=== PATIENT | female | born 1950 | race Two or more races ===

== ENCOUNTER 2020-04-03 14:14 | Inpatient (IN) | payer MEDICARE, OTHER ==
[~2020-04-03] VITALS: Ht 162.6 cm; Wt 55.2 kg
[2020-04-03] MEDS ORDERED: ALBU2.5V8 IH (15:59)
[2020-04-03] MEDS ORDERED: METO-239 PO (15:59)
[2020-04-03] MEDS ORDERED: ACET650S11 RC (15:59)
[2020-04-03] MEDS ORDERED: POTA20TA4 PO (15:59)
[2020-04-03] MEDS ORDERED: PARO7.5C2 PO (15:59)
[2020-04-03] MEDS ORDERED: CLON1PAT2 TD (15:59)
[2020-04-03] MEDS ORDERED: QUET50TA5 PO (15:59)
[2020-04-03] MEDS ORDERED: MAGN64TA6 PO (15:59)
[2020-04-03] MEDS ORDERED: OMEP20CA16 PO (15:59)
[2020-04-03] MEDS ORDERED: BUSP10TA PO (15:59)
[2020-04-03] MEDS ORDERED: MIRT30TA93 PO (15:59)
[2020-04-03] MEDS ORDERED: ONDA4TAB12 PO (15:59)
[2020-04-03 17:07] VITALS: BP 177/110
[2020-04-03] MEDS ORDERED: MAGNESIUM HYDROXIDE 2,400 MG/30 ML ORAL.SUSP. PO PRN (18:00)
[2020-04-03] MEDS ORDERED: ACETAMINOPHEN 650 MG SUPP.RECT. RC PRN (18:00)
[2020-04-03] MEDS ORDERED: MAG HYDROX/AL HYDROX/SIMETH 30 ML ORAL.SUSP PO PRN (18:00)
[2020-04-03] MEDS ORDERED: ALBUTEROL SULFATE 2.5 MG/3 ML NEBU. INH PRN (18:00)
[2020-04-03] MEDS: busPIRone 10 MG TABLET. PO SCH (20:20)
[2020-04-03] MEDS: PARoxetine 10 MG TABLET PO SCH (20:20)
[2020-04-03] MEDS: QUEtiapine 50 MG TABLET. PO SCH (20:21)
[2020-04-03] MEDS: MIRTAZAPINE ODT 30 MG TAB.RAPDIS. PO SCH (20:21)
[2020-04-03] MEDS: ACETAMINOPHEN 325 MG TABLET PO PRN (20:22)
--- NOTE | 2020-04-03 21:59 | PDOC ---
Exam Note: Adan Note: Please also refer to the separate dictated note~for this date of service dictated separately. Discussed the patient with Nursing staff reviewed the chart.~Reviewed interim history and current functioning. Reviewed vital signs,~Labs/ Radiology~and current medications noted below. Continue current treatment with the changes noted in the dictated addendum note Assessment: Vital Signs/I&O: Vital Signs Date Time Temp Pulse Resp B/P (MAP) Pulse Ox O2 Delivery O2 Flow Rate FiO2 04/03/20 17:07 98.7 93 20 177/110 (132) 99 Current Medications: Meds: Current Medications Medications (Trade) Dose Ordered Sig/Valerio Route PRN Reason Start Time Stop Time Status Last Admin Dose Admin Acetaminophen (Tylenol) 650 mg PRN Q6HRS PRN PO PAIN / TEMP > 100.3'F 04/03/20 18:00 04/03/20 20:22 Buspirone HCl (Buspar) 10 mg TID PO 04/03/20 21:00 04/03/20 20:20 Mirtazapine (Remeron Kristine-Tab) 30 mg QHS PO 04/03/20 21:00 04/03/20 20:21 Quetiapine Fumarate (SEROquel) 50 mg BID PO 04/03/20 21:00 04/03/20 20:21 Paroxetine HCl (Paxil) 15 mg HS PO 04/03/20 21:00 04/03/20 20:20 I have reviewed the current psychotropics carefully including drug interactions. Risk benefit ratio favors no change other than as noted in my dictated progress note. Diagnosis: Problems: (1) Anxiety disorder EVER BAR MD April 03, 2020 21:59
[2020-04-03] MEDS: LORazepam 0.5 MG TABLET PO PRN (23:55)
[2020-04-04] MEDS: PANTOPRAZOLE 40 MG TABLET. PO SCH (05:52)
[2020-04-04 06:07] VITALS: BP 92/57
[2020-04-04 06:10] LABS: ALBUMIN 2.2 g/dL (3.4-5.0); ALBUMIN/GLOBULIN RATIO 0.8 (1.0-1.7); CALCIUM 8.2 mg/dL (8.5-10.1); CREATININE 0.6 mg/dL (0.6-1.0); GFR 99.1; MAGNESIUM 2.1 mg/dL (1.8-2.4); POTASSIUM 3.8 mmol/L (3.5-5.1); TOTAL BILIRUBIN 0.5 mg/dL (0.2-1.0); TOTAL PROTEIN 5.1 g/dL (6.4-8.2)
[2020-04-04] MEDS: busPIRone 10 MG TABLET. PO SCH ×3 (07:53→20:58)
[2020-04-04] MEDS: QUEtiapine 50 MG TABLET. PO SCH ×2 (07:53→20:58)
[2020-04-04] MEDS: MAGNESIUM CHLORIDE ER 64 MG TABLET.ER PO SCH ×2 (07:53→09:00)
[2020-04-04] MEDS: POTASSIUM CHLORIDE 20 MEQ TABLET.ER. PO SCH ×4 (07:53→16:30)
[2020-04-04] MEDS: LORazepam 0.5 MG TABLET PO PRN ×3 (07:54→20:58)
[2020-04-04] MEDS: METOPROLOL SUCC 24HR ER 25 MG TAB.ER.24H. PO SCH (08:15)
[2020-04-04 09:18] LABS: BASO % 1 % (0-3); EOS # 0.1 x10^3/uL (0.0-0.7); EOS % 2 % (0-3); HEMATOCRIT 32.4 % (36.0-47.0); HEMOGLOBIN 10.8 g/dL (12.0-15.5); LYMPH # 0.9 x10^3/uL (1.0-4.8); LYMPH % 14 % (24-48); MEAN CORPUSCULAR HEMOGLOBIN 30 pg (25-35); MEAN CORPUSCULAR HGB CONC 33 g/dL (31-37); MEAN CORPUSCULAR VOLUME 90 fL (79-100); MONO # 0.6 x10^3/uL (0.0-1.1); MONO % 10 % (0-9); NEUT # 4.8 x10^3uL (1.8-7.7); NEUT % 74 % (31-73); PLATELET COUNT 356 x10^3/uL (140-400); RED BLOOD COUNT 3.62 x10^6/uL (3.50-5.40); RED CELL DISTRIBUTION WIDTH 12.9 % (11.5-14.5); WHITE BLOOD COUNT 6.5 x10^3/uL (4.0-11.0)
--- NOTE | 2020-04-04 10:47 | CONS ---
DATE OF CONSULTATION: 04/04/2020 ATTENDING PHYSICIAN: Dr. Cortes. We are asked to see this patient for medical consultation. HISTORY OF PRESENT ILLNESS: The patient is a 69-year-old female from [place], [place], admitted from [facility] ED yesterday. She has a longstanding history of bipolar disorder with psychosis. She has had suicidal ideations. There is evidence of self-abuse. She has got multiple bruising along her orbits and her upper lips, chins and neck. It looks like she may have tried to hang herself. In any event, she was stabilized from a medical standpoint and sent here to [facility]. There is a history of personality disorder and bipolar disorder with mixed features and acute psychosis. When I saw her this morning, she was calm. She was not aware of what is going on, has little insight. Therefore, much of the history is obtained from the chart. PAST MEDICAL HISTORY: Significant for generalized anxiety, major depression and some degenerative arthritis. ALLERGIES: SHE HAS ALLERGIES TO CIPROFLOXACIN, IODINE CONTRAST, IBUPROFEN AND TRAMADOL. EXACT CAUSE IS UNCLEAR. CURRENT MEDICINES: Reviewed. She is getting Tylenol and Mylanta p.r.n., albuterol, BuSpar, clonidine, lorazepam, magnesium, magnesium hydroxide, metoprolol, Remeron, multivitamin, olanzapine, Zofran p.r.n., Protonix, Paxil, potassium and Seroquel. SOCIAL HISTORY: She is a nonsmoker, nondrinker, it is hard to get history from the past. FAMILY HISTORY: Unobtainable. REVIEW OF SYSTEMS: Unfortunately is unobtainable. PHYSICAL EXAMINATION: GENERAL: When I saw her, this is a disheveled, confused female who appears quite a bit older than her stated age. INITIAL VITAL SIGNS: Today showed a blood pressure 92/57. She was sleeping. Her pulse was 90 and regular, temperature 98.5 degrees Fahrenheit, oxygen saturation 99% in room. HEENT: There is definite trauma. She has bilateral orbital ecchymoses. The pupils were reactive. Sclerae are nonicteric. Oropharynx clear. Extraocular muscles were intact. There is also bruising and ecchymosis around her lips and chin. Tongue. No lesions or trauma. NECK: Supple. No stridor. LUNGS: Shallow respirations. No wheezing, rales or rhonchi. CARDIOVASCULAR: Showed regular heart tones. No obvious gallops. Peripheral pulses are palpable. ABDOMEN: Soft, nontender to palpation. Bowel sounds are hypoactive. EXTREMITIES: Showed various signs of excoriation along both elbows, both knees and some blister type lesions along her left medial ankle. She is nonambulatory at this time. PERTINENT LABORATORY DATA: Pertinent laboratories were reviewed. Her hemoglobin on admission was 10.8 g/dL with white count of 6500. Electrolytes are within normal range. Potassium is 3.8 mEq, creatinine 0.6 mg/dL, nonfasting blood sugar 107 mg/dL. Transaminases slightly elevated at 64 and 115 respectively. Alkaline phosphatase 97, total protein 5.1 mg/dL. ASSESSMENT: 1. This 69-year-old female has acute psychosis with current suicidal ideations and attempts. 2. Multiple traumas of the face and orbits from probably self-induced harm. 3. History of bipolar disorder with mixed features and acute psychosis. 4. Degenerative arthritis. 5. Gastroesophageal reflux disease. 6. Multiple excoriations along her arms and knees. RECOMMENDATIONS: 1. I reviewed her medications. 2. She is stable from medical standpoint. I would recommend avoiding sedating pain meds. 3. There is a wound clinic consult and I agree with a followup. 4. We shall gladly follow along during her inpatient course. Thank you again for asking me to see the patient for medical consultation. TRACEY NOBLES MD DR: IZA/ani JOB#: [id number] / [id number]
--- NOTE | 2020-04-04 10:47 | HP ---
ADMIT DATE: 04/03/2020 PSYCHIATRIC ADMISSION HISTORY AND EVALUATION This late entry, date of service 04/03/2020, covers elements not covered in my initial note of 04/03/2020. The patient was seen individually on audiovisual on the evening of 04/03/2020, discussed with JENNIFER Medrano. Previously, I had discussed the patient with Angelica Sherwood, spa experience coordinator and JENNIFER Harvey and JENNIFER Sandhu at different occasions over the past 3-4 days after we received a referral from [facility]. The patient was medically stable, has a diagnosis of bipolar disorder, who was admitted with multiple facial bruising after she came from home, believing that she had COVID-19 in her head and was smashing her face on the concrete, so that she can open up her sinuses and let the COVID fluid in her head dry up. She had failed outpatient psychiatric interventions by her psychiatrist in [place], on Seroquel 50 b.i.d., Remeron 30 mg at bedtime, Paxil 15 mg at bedtime, BuSpar 10 mg t.i.d. and in the past, she has been on Depakote as a mood stabilizer and for seizure disorder, which has since been discontinued. The patient had an acute exacerbation of bipolar disorder with psychotic features, lives alone at home, potentially dangerous to herself given her psychosis and reactivation of her bipolar disorder. She has been medically stabilized at [facility] and then referred to us for inpatient psychiatric stabilization. CHIEF COMPLAINT: "I just fell on the concrete. No, I was not hallucinating until after I fell on the concrete." In fact, history obtained previously indicated that the patient had been psychotic as noted quite clearly and was purposely banging her head on the concrete as noted. She was also voicing suicidal ideation prior to coming from [facility]. HISTORY OF PRESENT ILLNESS: The patient reports she has been seeing her psychiatrist as an outpatient for some time, but has been more anxious, worried about the COVID-19 and believes she may be infected by this. She has had sleep and appetite changes, worsening paranoia, psychosis, suicidal ideation. No active homicidal ideation. There is a positive history of mood swings, consistent with bipolar disorder. PAST PSYCHIATRIC HISTORY: As above. MEDICAL HISTORY: Hypertension, history of migraine, seizure disorder, anal cancer, history of dysphagia, personality disorder. ACCU-CHEKS: None. DIET: Vegetarian with occasional fish or pork. CODE STATUS: Full code. ALLERGIES: Multiple and I have reviewed EMR for this. Ambulates 2-person assist. FAMILY HISTORY: Noncontributory. 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 No alcohol or drug abuse, physical, sexual or elder abuse history is noted. Not known to be a perpetrator. She lives alone at home, but does have adult children who are involved in her care. REVIEW OF SYSTEMS: Ambulation impaired. Pain in her facial area and she has extensive facial bruising that was very evident. The patient also complains of headaches. No CV, , GI, or pulmonary system symptoms on review. MENTAL STATUS EXAMINATION: The patient was seen individually evening of 04/03/2020. She is alert, oriented. Speech is coherent, low in volume. Abstraction fair, computation impaired, language function intact, attention span short. She minimizes paranoia, but history is very clear about the extent of her psychosis. Attention span is short. No active suicidal or homicidal ideation. She does have some short-term memory deficits. LABORATORY DATA: Reviewed. IMPRESSION: Bipolar disorder, mixed with psychotic features; anxiety disorder, unspecified; impulse control disorder, unspecified; history of obsessive-compulsive disorder; personality disorder, unspecified. Rest as above. PLAN: Admit to Geropsychiatry Unit at [facility]. I will see the patient daily individually from a psychiatric standpoint. Medical follow up with Dr. Singleton/Dr. Orona. Apparently, the patient had been on Depakote for an extended period of time in the past for her seizures and this seemed to control her mood as well. I feel this would be a reasonable option at this stage for her bipolar disorder and we may consider changing Seroquel to Risperdal depending on the extent of her psychosis. We will obtain past psychiatric records from her inpatient hospitalizations at [facility] in [place] and her current psychiatrist, Dr. Restrepo in [place]. Estimated length of stay 10-12 days. DISPOSITION: Plans perhaps back home with outpatient followup with a psychiatrist or to an assisted living facility or long-term facility for a while before transitioning and we will also suggest a day hospital program at the [facility] and case management services or through the [facility]. EVER BAR MD DR: TAMMY/ani JOB#: [id number] / [id number]
[2020-04-04] MEDS: ACETAMINOPHEN 325 MG TABLET PO PRN ×2 (12:21→20:58)
[2020-04-04 16:08] VITALS: BP 113/65
[2020-04-04 19:50] LABS: THYROID STIM HORMONE (TSH) 1.542 uIU/mL (0.358-3.740)
[2020-04-04] MEDS: DIVALPROEX ER 500 MG TAB.ER.24H PO SCH (20:58)
[2020-04-04] MEDS: MIRTAZAPINE ODT 30 MG TAB.RAPDIS. PO SCH (20:58)
[2020-04-04] MEDS: PARoxetine 10 MG TABLET PO SCH (20:59)
[2020-04-04 21:06] LABS: THYROXINE 6.7 ug/dL (4.5-12.0)
--- NOTE | 2020-04-04 21:47 | PDOC ---
Exam Note: Adan Note: Please also refer to the separate dictated note~for this date of service dictated separately.~Patient seen individually. Discussed the patient with Nursing staff reviewed the chart.~Reviewed interim history and current functioning. Reviewed vital signs,~Labs/ Radiology~and current medications noted below. Continue current treatment with the changes noted in the dictated addendum note Assessment: Vital Signs/I&O: Vital Signs Date Time Temp Pulse Resp B/P (MAP) Pulse Ox O2 Delivery O2 Flow Rate FiO2 04/04/20 16:08 98.2 80 16 113/65 (81) 99 Room Air I & O 04/03/20 04/03/20 04/04/20 14:59 22:59 06:59 Intake Total 180 ml Balance 180 ml Labs: Laboratory Tests Test 04/04/20 05:46 04/04/20 09:09 Sodium Level 138 mmol/L (136-145) Potassium Level 3.8 mmol/L (3.5-5.1) Chloride Level 105 mmol/L (98-107) Carbon Dioxide Level 27 mmol/L (21-32) Anion Gap 6 (6-14) Blood Urea Nitrogen 12 mg/dL (7-20) Creatinine 0.6 mg/dL (0.6-1.0) Estimated GFR (Cockcroft-Gault) 99.1 BUN/Creatinine Ratio 20 (6-20) Glucose Level 107 mg/dL (70-99) H Calcium Level 8.2 mg/dL (8.5-10.1) L Magnesium Level 2.1 mg/dL (1.8-2.4) Iron Level 56 ug/dL (50-170) Total Iron Binding Capacity 187 ug/dL (250-450) L Iron Saturation 30 % (15-34) Total Bilirubin 0.5 mg/dL (0.2-1.0) Aspartate Amino Transferase (AST) 64 U/L (15-37) H Alanine Aminotransferase (ALT) 115 U/L (14-59) H Alkaline Phosphatase 97 U/L (46-116) Total Protein 5.1 g/dL (6.4-8.2) L Albumin 2.2 g/dL (3.4-5.0) L Albumin/Globulin Ratio 0.8 (1.0-1.7) L Triglycerides Level 102 mg/dL (0-150) Cholesterol Level 117 mg/dL (0-200) LDL Cholesterol, Calculated 58 mg/dL (0-100) VLDL Cholesterol, Calculated 20 mg/dL (0-40) Non-HDL Cholesterol Calculated 78 mg/dL (0-129) HDL Cholesterol 39 mg/dL (40-60) L Cholesterol/HDL Ratio 3.0 Vitamin B12 Level 1638 pg/mL (247-911) H 25-Hydroxy Vitamin D Total 41.7 ng/mL (30-100) Thyroid Stimulating Hormone (TSH) 1.542 uIU/mL (0.358-3.740) Thyroxine (T4) 6.7 ug/dL (4.5-12.0) Total Triiodothyronine (TT3) 99 ng/dL (71-180) Treponema pallidum Antibody Nonreactive (Nonreactive) White Blood Count 6.5 x10^3/uL (4.0-11.0) Red Blood Count 3.62 x10^6/uL (3.50-5.40) Hemoglobin 10.8 g/dL (12.0-15.5) L Hematocrit 32.4 % (36.0-47.0) L Mean Corpuscular Volume 90 fL (79-100) Mean Corpuscular Hemoglobin 30 pg (25-35) Mean Corpuscular Hemoglobin Concent 33 g/dL (31-37) Red Cell Distribution Width 12.9 % (11.5-14.5) Platelet Count 356 x10^3/uL (140-400) Neutrophils (%) (Auto) 74 % (31-73) H Lymphocytes (%) (Auto) 14 % (24-48) L Monocytes (%) (Auto) 10 % (0-9) H Eosinophils (%) (Auto) 2 % (0-3) Basophils (%) (Auto) 1 % (0-3) Neutrophils # (Auto) 4.8 x10^3uL (1.8-7.7) Lymphocytes # (Auto) 0.9 x10^3/uL (1.0-4.8) L Monocytes # (Auto) 0.6 x10^3/uL (0.0-1.1) Eosinophils # (Auto) 0.1 x10^3/uL (0.0-0.7) Basophils # (Auto) 0.0 x10^3/uL (0.0-0.2) Current Medications: Meds: Current Medications Medications (Trade) Dose Ordered Sig/Valerio Route PRN Reason Start Time Stop Time Status Last Admin Dose Admin Potassium Chloride (Klor-Con) 20 meq TIDAC PO 04/04/20 07:30 04/04/20 12:21 Divalproex Sodium (Depakote Er) 500 mg QHS PO 04/04/20 21:00 04/04/20 20:58 I have reviewed the current psychotropics carefully including drug interactions. Risk benefit ratio favors no change other than as noted in my dictated progress note. Diagnosis: Problems: (1) Bipolar disorder, curr episode mixed, severe, with psychotic features (2) Impulse control disorder (3) Personality disorder, unspecified (4) Obsessive compulsive disorder (5) Anxiety disorder EVER BAR MD April 04, 2020 21:47
[2020-04-04] MEDS ORDERED: SODIUM CHLORIDE 0.65% NASAL SPRAY 45ML BOTTLE. NS PRN (22:00)
[2020-04-05 00:06] LABS: HEMOGLOBIN A1C 5.5 % (4.8-5.6)
[2020-04-05 05:39] VITALS: BP 128/78
[2020-04-05] MEDS: PANTOPRAZOLE 40 MG TABLET. PO SCH (05:46)
[2020-04-05] MEDS: POTASSIUM CHLORIDE 20 MEQ TABLET.ER. PO SCH ×3 (08:13→16:56)
[2020-04-05] MEDS: busPIRone 10 MG TABLET. PO SCH ×3 (08:13→20:09)
[2020-04-05] MEDS: QUEtiapine 50 MG TABLET. PO SCH ×2 (08:13→20:09)
[2020-04-05] MEDS: LORazepam 0.5 MG TABLET PO PRN ×3 (08:13→22:20)
[2020-04-05] MEDS: ACETAMINOPHEN 325 MG TABLET PO PRN ×3 (08:13→20:08)
[2020-04-05] MEDS: MAGNESIUM CHLORIDE ER 64 MG TABLET.ER PO SCH (08:13)
[2020-04-05] MEDS: METOPROLOL SUCC 24HR ER 25 MG TAB.ER.24H. PO SCH (08:14)
[2020-04-05 15:01] VITALS: BP 97/61
--- NOTE | 2020-04-05 16:03 | TX PLAN ---
Interdisciplinary Tx Plan Admission Information April 03, 2020 at 16:30 Legal Status (on Admission): Voluntary DPOA/Guardian Name: Carmel Horowitz (dtr) or Estuardo Morley (son) Contact OR Verified Code Status: Full Code Allergies: Coded Allergies: ciprofloxacin (Verified Allergy, Unknown, Unknown, 04/03/20) ibuprofen (Verified Allergy, Unknown, Unknown, 04/03/20) tramadol (Verified Allergy, Unknown, Unknown, 04/03/20) Uncoded Allergies: contrast (Adverse Reaction, Unknown, Unknown, 04/03/20) Diagnoses Primary Diagnosis: Bipolar D/O mixed with psychotic episode Reasons for Admission: Confusion/Disoriented, Poor impulse control, Other Problem in Patient's Words: Pt has not been well over the last few years. "We joke, which isn't really funny but the crankier she gets the more normal she appears". Additional Admission Comments: According to the intake, pt was hitting her head on her driveway "so the covoid can drain and she could burn easier". Problems Active Problems: Somatic Poor pain control On unit isolation Incontinence Inactive Problems: Medication compliance Pt Strengths/Limitations Ability for Wirt: Poor Cognitive Functioning/Ability: Fair Communication Skills/Ability: Fair Financial Resources: Good Insight/Judgement: Poor Intellectual Ability: Fair Physical Health: Fair Social Skills: Poor Stability in Family: Good Stability in School/Work: Poor Verbal Skills: Fair Discharge Criteria Discharge Criteria: Able meet basic life need, Adequate arrangements @DC, Verbal commit aftercare, Improved behavior, Improved mood/thought Preliminary Discharge Plan Preliminary DC Plan: Placement Needed, Other Special Precautions Fall Risk: Moderate Initial D/C Plan Unsure if pt will return home vs placement. Identified Discharge Needs: Potential for placement in an [facility] with a locked unit. Psychiatry set up. PCP follow up Currently Utilized Resources Currently Utilized Resources/P: Primary Care Physician Identified Problems/Hx/Goals Objectives/Short-Term Goals Short Term Goals: Control abnormal behavior, Dec. Outbursts, Medication S tabilization, Monitor Med Effects, Promote Coping Skill Short Term Goals in Patient's: Medication management Placement recommendation Interventions/Frequency Staff Interventions/Frequency&: Psychiatrist to see pt at least 3x per week. Social Work to see pt at least 2x per week. Nursing to assess and complete 15 minute checks daily. 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 Education: Pt has a BS in Education Community Follow-up Pt to have appointments with a primary care physician and mental health services at discharge. Treatment Plan Explained Patient/Adult And Pediatric Neurologist had this treatment plan explained to him/her as indicated by the signature below and has been given the opportunity to ask questions and make suggestions: Date: Patient/Adult And Pediatric Neurologist Signature: Patient/Adult And Pediatric Neurologist Decline: MAGDA Garcia April 05, 2020 16:03
--- NOTE | 2020-04-05 20:07 | PN ---
DATE: 04/05/2020 PSYCHIATRIC PROGRESS NOTE This note covers elements not covered in my initial note of 04/05/2020. SUBJECTIVE: I met with the patient evening of 04/05/2020 on audiovisual rounds and discussed with JENNIFER Medrano. The patient slept 5 hours previous night. Per nursing report, she has been somewhat anxious, attention seeking. She is complaining of dry eyes and dry nasal mucosa and I will defer to Dr. Singleton. She still complains of discomfort in her facial area from the multiple bruising she has had after she had banged her head on the concrete trying to get rid of COVID while living at home prior to her admission. REVIEW OF SYSTEMS: No CV, , GI system symptoms on review. MENTAL STATUS EXAMINATION: The patient is reasonably oriented. Speech is coherent, abstraction fair, computation impaired, language function intact. Mood remains somewhat anxious, labile at times, depressed. No suicidal or homicidal ideation. LABORATORY DATA: Reviewed. IMPRESSION: Bipolar disorder, mixed with psychotic features. Rest unchanged. PLAN: Continue current psychotropics including Depakote ER 500 mg p.o. at bedtime, and maintain the BuSpar, Paxil, Remeron and Seroquel for now. May consider changing Seroquel to Risperdal if psychotic symptoms remain prominent despite stabilization on Depakote. MAN Mindi BAR MD DR: TAMMY/ani JOB#: [id number] / [id number]
[2020-04-05] MEDS: PARoxetine 10 MG TABLET PO SCH (20:08)
--- NOTE | 2020-04-05 20:08 | PN ---
DATE: 04/04/2020 PSYCHIATRIC PROGRESS NOTE This late entry April 04 covers elements not covered in my initial note. SUBJECTIVE: I met with the patient evening of April 04 on audiovisual rounds. Discussed with JENNIFER Donato. The patient slept 5-1/4 hours previous night. Previous evening, she was reportedly faking seizure-like movements, was medication seeking. She has been attention seeking per nursing report during the day on [address]. Appearing somewhat helpless. Complains of difficulty swallowing and I will defer to Dr. Orona. From medical standpoint, the patient is also complaining of her feet hurting. We have requested psychiatric records from Dr. Salomon, psychiatrist in [place] and from a prior hospitalization at [facility]. In the interim, careful review of her history is reflective of a diagnosis of bipolar disorder, mixed with psychotic features. REVIEW OF SYSTEMS: Ambulation impaired, 2 person assist, complains of discomfort from her facial injuries, but improving. No CV, , pulmonary, eye system symptoms on review. MENTAL STATUS EXAM: The patient is reasonably awake, alert, oriented. Speech is coherent, abstraction fair, computation impaired, language function intact, attention span short. Mood and affect: somewhat anxious, at times withdrawn. LABORATORY DATA: Reviewed. IMPRESSION: Bipolar 1 disorder, mixed with psychotic features. Rest unchanged from admission. PLAN: Continue the patient on her current psychotropics, Ativan and Zyprexa p.r.n., BuSpar 10 mg t.i.d., Remeron 30 mg at bedtime, Paxil 15 mg at bedtime, Seroquel 50 mg b.i.d. Given a history of bipolar disorder and the fact that she had been on Depakote in the past and did well with this, we will go ahead and restart Depakote ER 500 mg p.o. at bedtime. Check CBC, CMP, valproic acid level, ammonia level in 3 days. Adjust further to reach therapeutic level. Rest unchanged for now. MAN Mindi BAR MD DR: TAMMY/ani JOB#: [id number] / [id number]
[2020-04-05] MEDS: MIRTAZAPINE ODT 30 MG TAB.RAPDIS. PO SCH (20:09)
[2020-04-05] MEDS: DIVALPROEX ER 500 MG TAB.ER.24H PO SCH (20:09)
--- NOTE | 2020-04-05 22:21 | PDOC ---
Exam Note: Adan Note: Please also refer to the separate dictated note~for this date of service dictated separately.~Patient seen individually. Discussed the patient with Nursing staff reviewed the chart.~Reviewed interim history and current functioning. Reviewed vital signs,~Labs/ Radiology~and current medications noted below. Continue current treatment with the changes noted in the dictated addendum note Assessment: Vital Signs/I&O: Vital Signs Date Time Temp Pulse Resp B/P (MAP) Pulse Ox O2 Delivery O2 Flow Rate FiO2 04/05/20 15:01 98.3 85 18 97/61 (73) 96 04/05/20 05:39 Room Air I & O 04/04/20 04/04/20 04/05/20 14:59 22:59 06:59 Intake Total 1140 ml 900 ml Balance 1140 ml 900 ml Current Medications: I have reviewed the current psychotropics carefully including drug interactions. Risk benefit ratio favors no change other than as noted in my dictated progress note. Diagnosis: Problems: (1) Anxiety disorder (2) Impulse control disorder (3) Obsessive compulsive disorder (4) Personality disorder, unspecified (5) Bipolar disorder, curr episode mixed, severe, with psychotic features EVER BAR MD April 05, 2020 22:21
[2020-04-06] MEDS: ACETAMINOPHEN 325 MG TABLET PO PRN ×4 (05:42→23:23)
[2020-04-06] MEDS: LORazepam 0.5 MG TABLET PO PRN ×4 (05:43→23:29)
[2020-04-06] MEDS: PANTOPRAZOLE 40 MG TABLET. PO SCH (05:43)
[2020-04-06 06:00] VITALS: BP 121/72
[2020-04-06] MEDS: QUEtiapine 50 MG TABLET. PO SCH ×2 (07:16→20:10)
[2020-04-06] MEDS: POTASSIUM CHLORIDE 20 MEQ TABLET.ER. PO SCH ×3 (07:17→17:22)
[2020-04-06] MEDS: busPIRone 10 MG TABLET. PO SCH (07:17)
[2020-04-06] MEDS: METOPROLOL SUCC 24HR ER 25 MG TAB.ER.24H. PO SCH (07:17)
[2020-04-06] MEDS: MAGNESIUM CHLORIDE ER 64 MG TABLET.ER PO SCH (07:17)
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
[2020-04-06 16:22] VITALS: BP 127/82
[2020-04-06] MEDS: MIRTAZAPINE ODT 30 MG TAB.RAPDIS. PO SCH (20:09)
[2020-04-06] MEDS: PARoxetine 10 MG TABLET PO SCH (20:09)
[2020-04-06] MEDS: CYPROHEPTADINE 4 MG TABLET. PO SCH (20:10)
[2020-04-06] MEDS: DIVALPROEX ER 500 MG TAB.ER.24H PO SCH (20:10)
--- NOTE | 2020-04-06 22:00 | PDOC ---
Exam Note: Adan Note: Please also refer to the separate dictated note~for this date of service dictated separately.~Patient seen individually. Discussed the patient with Nursing staff reviewed the chart.~Reviewed interim history and current functioning. Reviewed vital signs,~Labs/ Radiology~and current medications noted below. Continue current treatment with the changes noted in the dictated addendum note Assessment: Vital Signs/I&O: Vital Signs Date Time Temp Pulse Resp B/P (MAP) Pulse Ox O2 Delivery O2 Flow Rate FiO2 04/06/20 16:22 97.9 79 18 127/82 (97) 98 04/06/20 06:00 Room Air I & O 04/05/20 04/05/20 04/06/20 14:59 22:59 06:59 Intake Total 600 ml 240 ml Balance 600 ml 240 ml Current Medications: Meds: Current Medications Medications (Trade) Dose Ordered Sig/Valerio Route PRN Reason Start Time Stop Time Status Last Admin Dose Admin Cyproheptadine HCl (Periactin) 2 mg HS PO 04/06/20 21:00 04/06/20 20:10 I have reviewed the current psychotropics carefully including drug interactions. Risk benefit ratio favors no change other than as noted in my dictated progress note. Diagnosis: Problems: (1) Anxiety disorder (2) Impulse control disorder (3) Obsessive compulsive disorder (4) Personality disorder, unspecified (5) Bipolar disorder, curr episode mixed, severe, with psychotic features EVER BAR MD April 06, 2020 21:59
[2020-04-07 05:35] VITALS: BP 104/58
[2020-04-07 06:19] LABS: BASO % 1 % (0-3); EOS # 0.1 x10^3/uL (0.0-0.7); EOS % 3 % (0-3); HEMATOCRIT 29.1 % (36.0-47.0); HEMOGLOBIN 9.5 g/dL (12.0-15.5); LYMPH # 0.9 x10^3/uL (1.0-4.8); LYMPH % 23 % (24-48); MEAN CORPUSCULAR HEMOGLOBIN 30 pg (25-35); MEAN CORPUSCULAR HGB CONC 33 g/dL (31-37); MEAN CORPUSCULAR VOLUME 92 fL (79-100); MONO # 0.5 x10^3/uL (0.0-1.1); MONO % 12 % (0-9); NEUT # 2.5 x10^3uL (1.8-7.7); NEUT % 62 % (31-73); PLATELET COUNT 349 x10^3/uL (140-400); RED BLOOD COUNT 3.16 x10^6/uL (3.50-5.40); RED CELL DISTRIBUTION WIDTH 13.5 % (11.5-14.5); WHITE BLOOD COUNT 4.1 x10^3/uL (4.0-11.0)
[2020-04-07 06:40] LABS: ALBUMIN 2.2 g/dL (3.4-5.0); ALBUMIN/GLOBULIN RATIO 0.8 (1.0-1.7); ALK PHOS 89 U/L (46-116); ALT (SGPT) 60 U/L (14-59); ANION GAP 8 (6-14); AST (SGOT) 23 U/L (15-37); BLOOD UREA NITROGEN 12 mg/dL (7-20); BUN/CREATININE RATIO 20 (6-20); CALCIUM 8.2 mg/dL (8.5-10.1); CARBON DIOXIDE 27 mmol/L (21-32); CHLORIDE 103 mmol/L (98-107); CREATININE 0.6 mg/dL (0.6-1.0); GFR 99.1; GLUCOSE 106 mg/dL (70-99); POTASSIUM 3.8 mmol/L (3.5-5.1); SODIUM 138 mmol/L (136-145); TOTAL BILIRUBIN 0.2 mg/dL (0.2-1.0); TOTAL PROTEIN 5.1 g/dL (6.4-8.2)
[2020-04-07 06:41] LABS: VAL ACID 34 mcg/mL (50-100)
[2020-04-07] MEDS: POTASSIUM CHLORIDE 20 MEQ TABLET.ER. PO SCH ×3 (07:46→16:30)
[2020-04-07] MEDS: QUEtiapine 50 MG TABLET. PO SCH ×2 (07:47→20:16)
[2020-04-07] MEDS: PANTOPRAZOLE 40 MG TABLET. PO SCH (07:47)
[2020-04-07] MEDS: MAGNESIUM CHLORIDE ER 64 MG TABLET.ER PO SCH (07:47)
[2020-04-07] MEDS: METOPROLOL SUCC 24HR ER 25 MG TAB.ER.24H. PO SCH (07:49)
[2020-04-07] MEDS: ASCORBIC ACID 500 MG TABLET PO SCH (07:51)
[2020-04-07] MEDS: ZINC SULFATE 220 MG CAPSULE. PO SCH (07:51)
[2020-04-07] MEDS ORDERED: VITS A & D/LANOLIN TOPICAL OINTMENT 42GM TUBE. TP SCH (09:00)
[2020-04-07] MEDS: ACETAMINOPHEN 325 MG TABLET PO PRN ×3 (09:33→20:17)
[2020-04-07 15:48] VITALS: BP 108/70
[2020-04-07] MEDS: oxyCODONE IR 5 MG TABLET PO PRN (17:28)
[2020-04-07] MEDS: LORazepam 0.5 MG TABLET PO PRN ×2 (18:44→22:22)
[2020-04-07] MEDS: DOCUSATE SODIUM 100 MG CAPSULE PO SCH (20:14)
[2020-04-07] MEDS: DIVALPROEX ER 250 MG TAB.ER.24H. PO SCH (20:15)
[2020-04-07] MEDS: DIVALPROEX ER 500 MG TAB.ER.24H PO SCH (20:15)
[2020-04-07] MEDS: CYPROHEPTADINE 4 MG TABLET. PO SCH (20:16)
[2020-04-07] MEDS: MIRTAZAPINE ODT 30 MG TAB.RAPDIS. PO SCH (20:16)
[2020-04-07] MEDS: PARoxetine 10 MG TABLET PO SCH (20:16)
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
--- NOTE | 2020-04-07 22:07 | PN ---
DATE: 04/07/2020 PSYCHIATRIC PROGRESS NOTE This note covers elements not covered in my initial note 04/07. SUBJECTIVE: I met with the patient evening of 04/07 on audiovisual rounds. Discussed with JENNIFER Sandhu. The patient slept 3-1/4 hours previous night. She continues to have a poor appetite, but has been started on Periactin to help stimulate this. Valproic acid level is 34. Ammonia is less than 10. REVIEW OF SYSTEMS: Impaired ambulation. No CV, , pulmonary, eye system symptoms on review. MENTAL STATUS EXAMINATION: The patient is reasonably oriented. Speech is coherent, has some latency. Abstraction fair, computation impaired, language function intact, attention span short. Mood and affect withdrawn. LABORATORY DATA: Reviewed. IMPRESSION: Bipolar disorder, mixed with psychotic features. Rest unchanged. PLAN: Start trazodone 50 mg at bedtime p.r.n. insomnia, may repeat x 1. Increase Depakote ER to 750 mg p.o. at bedtime. Check CBC, CMP, valproic acid level in 3 days to reach therapeutic level, but AST, ALT, rest unchanged for now. MAN Mindi BAR MD DR: TAMMY/ani JOB#: [id number] / [id number]
--- NOTE | 2020-04-07 22:09 | PDOC ---
Exam Note: Adan Note: Please also refer to the separate dictated note~for this date of service dictated separately.~Patient seen individually. Discussed the patient with Nursing staff reviewed the chart.~Reviewed interim history and current functioning. Reviewed vital signs,~Labs/ Radiology~and current medications noted below. Continue current treatment with the changes noted in the dictated addendum note Assessment: Vital Signs/I&O: Vital Signs Date Time Temp Pulse Resp B/P (MAP) Pulse Ox O2 Delivery O2 Flow Rate FiO2 04/07/20 15:48 98.2 87 16 108/70 (83) 95 04/07/20 05:35 Room Air I & O 04/06/20 04/06/20 04/07/20 14:59 22:59 06:59 Intake Total 240 ml 480 ml Balance 240 ml 480 ml Labs: Laboratory Tests Test 04/07/20 06:09 White Blood Count 4.1 x10^3/uL (4.0-11.0) Red Blood Count 3.16 x10^6/uL (3.50-5.40) L Hemoglobin 9.5 g/dL (12.0-15.5) L Hematocrit 29.1 % (36.0-47.0) L Mean Corpuscular Volume 92 fL (79-100) Mean Corpuscular Hemoglobin 30 pg (25-35) Mean Corpuscular Hemoglobin Concent 33 g/dL (31-37) Red Cell Distribution Width 13.5 % (11.5-14.5) Platelet Count 349 x10^3/uL (140-400) Neutrophils (%) (Auto) 62 % (31-73) Lymphocytes (%) (Auto) 23 % (24-48) L Monocytes (%) (Auto) 12 % (0-9) H Eosinophils (%) (Auto) 3 % (0-3) Basophils (%) (Auto) 1 % (0-3) Neutrophils # (Auto) 2.5 x10^3uL (1.8-7.7) Lymphocytes # (Auto) 0.9 x10^3/uL (1.0-4.8) L Monocytes # (Auto) 0.5 x10^3/uL (0.0-1.1) Eosinophils # (Auto) 0.1 x10^3/uL (0.0-0.7) Basophils # (Auto) 0.0 x10^3/uL (0.0-0.2) Sodium Level 138 mmol/L (136-145) Potassium Level 3.8 mmol/L (3.5-5.1) Chloride Level 103 mmol/L (98-107) Carbon Dioxide Level 27 mmol/L (21-32) Anion Gap 8 (6-14) Blood Urea Nitrogen 12 mg/dL (7-20) Creatinine 0.6 mg/dL (0.6-1.0) Estimated GFR (Cockcroft-Gault) 99.1 BUN/Creatinine Ratio 20 (6-20) Glucose Level 106 mg/dL (70-99) H Calcium Level 8.2 mg/dL (8.5-10.1) L Total Bilirubin 0.2 mg/dL (0.2-1.0) Aspartate Amino Transferase (AST) 23 U/L (15-37) Alanine Aminotransferase (ALT) 60 U/L (14-59) H Alkaline Phosphatase 89 U/L (46-116) Ammonia < 10 mcmol/L (11-34) L Total Protein 5.1 g/dL (6.4-8.2) L Albumin 2.2 g/dL (3.4-5.0) L Albumin/Globulin Ratio 0.8 (1.0-1.7) L Valproic Acid Level 34 mcg/mL (50-100) L Valproic Acid Last Dose Date 04/06/2020 Valproic Acid Last Dose Time 2100 Current Medications: Meds: Current Medications Medications (Trade) Dose Ordered Sig/Valerio Route PRN Reason Start Time Stop Time Status Last Admin Dose Admin Ascorbic Acid (Vitamin C) 500 mg DAILY PO 04/07/20 09:00 04/07/20 07:51 Zinc Sulfate (Orazinc) 220 mg DAILY PO 04/07/20 09:00 04/07/20 07:51 Oxycodone HCl (Roxicodone) 5 mg PRN Q4HRS PRN PO PAIN 04/07/20 00:00 04/07/20 17:28 Divalproex Sodium (Depakote Er) 500 mg QHS PO 04/07/20 21:00 04/07/20 20:15 Lorazepam (Ativan) 0.5 mg PRN Q4HRS PRN PO ANXIETY / AGITATION 5/8/20 17:15 04/07/20 18:44 Divalproex Sodium (Depakote Er) 250 mg QHS PO 04/07/20 21:00 04/07/20 20:15 Docusate Sodium (Colace) 100 mg BID PO 04/07/20 21:00 04/07/20 20:14 I have reviewed the current psychotropics carefully including drug interactions. Risk benefit ratio favors no change other than as noted in my dictated progress note. Diagnosis: Problems: (1) Anxiety disorder (2) Impulse control disorder (3) Obsessive compulsive disorder (4) Personality disorder, unspecified (5) Bipolar disorder, curr episode mixed, severe, with psychotic features EVER BAR MD April 07, 2020 22:09
[2020-04-08] MEDS: PANTOPRAZOLE 40 MG TABLET. PO SCH (05:23)
[2020-04-08 06:18] VITALS: BP 125/77
[2020-04-08] MEDS: ASCORBIC ACID 500 MG TABLET PO SCH (07:41)
[2020-04-08] MEDS: MAGNESIUM CHLORIDE ER 64 MG TABLET.ER PO SCH (07:41)
[2020-04-08] MEDS: DOCUSATE SODIUM 100 MG CAPSULE PO SCH ×2 (07:41→21:06)
[2020-04-08] MEDS: QUEtiapine 50 MG TABLET. PO SCH ×2 (07:41→21:06)
[2020-04-08] MEDS: ZINC SULFATE 220 MG CAPSULE. PO SCH (07:42)
[2020-04-08] MEDS: METOPROLOL SUCC 24HR ER 25 MG TAB.ER.24H. PO SCH (07:42)
[2020-04-08] MEDS: POTASSIUM CHLORIDE 20 MEQ TABLET.ER. PO SCH ×3 (07:42→16:49)
[2020-04-08] MEDS: ACETAMINOPHEN 325 MG TABLET PO PRN ×3 (08:35→18:26)
[2020-04-08] MEDS: LORazepam 0.5 MG TABLET PO PRN (12:06)
[2020-04-08 15:29] VITALS: BP 119/81
[2020-04-08] MEDS: hydrOXYzine HCL 25 MG TABLET PO PRN (18:25)
[2020-04-08] MEDS: DIVALPROEX ER 500 MG TAB.ER.24H PO SCH (21:06)
[2020-04-08] MEDS: DIVALPROEX ER 250 MG TAB.ER.24H. PO SCH (21:06)
[2020-04-08] MEDS: CYPROHEPTADINE 4 MG TABLET. PO SCH (21:06)
[2020-04-08] MEDS: PARoxetine 10 MG TABLET PO SCH (21:06)
--- NOTE | 2020-04-08 22:11 | PDOC ---
Exam Note: Adan Note: Please also refer to the separate dictated note~for this date of service dictated separately.~Patient seen individually. Discussed the patient with Nursing staff reviewed the chart.~Reviewed interim history and current functioning. Reviewed vital signs,~Labs/ Radiology~and current medications noted below. Continue current treatment with the changes noted in the dictated addendum note Assessment: Vital Signs/I&O: Vital Signs Date Time Temp Pulse Resp B/P (MAP) Pulse Ox O2 Delivery O2 Flow Rate FiO2 04/08/20 15:29 98.0 89 16 119/81 (94) 97 04/08/20 06:18 Room Air I & O 04/07/20 04/07/20 04/08/20 15:00 23:00 07:00 Intake Total 880 ml 640 ml Balance 880 ml 640 ml Current Medications: Meds: Current Medications Medications (Trade) Dose Ordered Sig/Valerio Route PRN Reason Start Time Stop Time Status Last Admin Dose Admin Hydroxyzine HCl (Atarax) 25 mg PRN Q6HRS PRN PO ITCHING 04/08/20 18:30 04/08/20 18:25 I have reviewed the current psychotropics carefully including drug interactions. Risk benefit ratio favors no change other than as noted in my dictated progress note. Diagnosis: Problems: (1) Anxiety disorder (2) Impulse control disorder (3) Obsessive compulsive disorder (4) Personality disorder, unspecified (5) Bipolar disorder, curr episode mixed, severe, with psychotic features EVER BAR MD April 08, 2020 22:11
[2020-04-09] MEDS: PANTOPRAZOLE 40 MG TABLET. PO SCH (06:15)
[2020-04-09 06:34] VITALS: BP 115/80
[2020-04-09] MEDS: ASCORBIC ACID 500 MG TABLET PO SCH (07:42)
[2020-04-09] MEDS: MAGNESIUM CHLORIDE ER 64 MG TABLET.ER PO SCH (07:42)
[2020-04-09] MEDS: DOCUSATE SODIUM 100 MG CAPSULE PO SCH ×2 (07:42→20:19)
[2020-04-09] MEDS: METOPROLOL SUCC 24HR ER 25 MG TAB.ER.24H. PO SCH (07:42)
[2020-04-09] MEDS: LORazepam 0.5 MG TABLET PO PRN ×2 (07:42→20:20)
[2020-04-09] MEDS: ZINC SULFATE 220 MG CAPSULE. PO SCH (07:42)
[2020-04-09] MEDS: POTASSIUM CHLORIDE 20 MEQ TABLET.ER. PO SCH ×3 (07:42→16:48)
[2020-04-09] MEDS: QUEtiapine 50 MG TABLET. PO SCH ×2 (07:42→20:19)
[2020-04-09] MEDS: ACETAMINOPHEN 325 MG TABLET PO PRN (07:45)
[2020-04-09] MEDS: hydrOXYzine HCL 25 MG TABLET PO PRN (09:41)
[2020-04-09] MEDS: BISACODYL TAB 5 MG TABLET.DR. PO PRN (15:41)
[2020-04-09] MEDS: oxyCODONE IR 5 MG TABLET PO PRN (15:41)
[2020-04-09 15:44] VITALS: BP 111/61
[2020-04-09] MEDS ORDERED: NYSTATIN 100,000 UNIT/GM TOPICAL CREAM 15GM TUBE. TP PRN (16:00)
[2020-04-09] MEDS: cloNIDine TTS-2 1 PATCH PATCH TD SCH (16:48)
[2020-04-09] MEDS: DIVALPROEX ER 250 MG TAB.ER.24H. PO SCH (20:19)
[2020-04-09] MEDS: DIVALPROEX ER 500 MG TAB.ER.24H PO SCH (20:19)
[2020-04-09] MEDS: PARoxetine 10 MG TABLET PO SCH (20:20)
[2020-04-09] MEDS: CYPROHEPTADINE 4 MG TABLET. PO SCH (20:20)
--- NOTE | 2020-04-09 21:38 | PN ---
DATE: 04/09/2020 PSYCHIATRIC PROGRESS NOTE This late entry 04/08/2020 covers elements not covered in my initial note. SUBJECTIVE: I met with the patient evening of 04/08/2020 on audiovisual rounds. Per JENNIFER Sandhu, the patient slept 6-3/4 hours previous night. She continues to be anxious, constantly having different complaints and somatic symptoms, not entirely explainable. REVIEW OF SYSTEMS: Ambulation impaired with 1 or 2-person assist, complains of some itching and STATES SHE IS ALLERGIC TO REMERON wants it discontinued. In fact, she was admitted while on the Remeron, but we will stop it and see how she does with respect to sleep and then decide. No GI, , pulmonary, eye system symptoms on review. MENTAL STATUS EXAMINATION: The patient was seen individually in her room. Speech is coherent. Thought processes goal directed. Intellect average. Insight good. Judgment intact. Mood remains somewhat anxious. Affect remain somewhat labile at times. Attention span short. Language function intact. No suicidal or homicidal ideation. LABORATORY DATA: Reviewed. IMPRESSION: Bipolar disorder, mixed with psychotic features; psychotic disorder, unspecified. Her facial bruising is gradually improving and she had less discomfort with this. PLAN: Continue current psychotropic, stop the Remeron. Defer to Dr. Singleton for the itching. Maintain Periactin 2 mg at bedtime to stimulate appetite, which is slowly improving. Continue Ativan and Zyprexa p.r.n., Paxil 15 mg at bedtime, Depakote ER has been increased to 750 mg at bedtime since the level on 500 mg at bedtime was subtherapeutic at 34. AST, ALT have improved and we will repeat labs, CBC, CMP, valproic acid level in 3 days. Continue Seroquel 50 mg b.i.d. EVER BAR MD DR: TAMMY/ani JOB#: [id number] / [id number]
--- NOTE | 2020-04-09 22:29 | PDOC ---
Exam Note: Adan Note: Please also refer to the separate dictated note~for this date of service dictated separately.~Patient seen individually. Discussed the patient with Nursing staff reviewed the chart.~Reviewed interim history and current functioning. Reviewed vital signs,~Labs/ Radiology~and current medications noted below. Continue current treatment with the changes noted in the dictated addendum note Assessment: Vital Signs/I&O: Vital Signs Date Time Temp Pulse Resp B/P (MAP) Pulse Ox O2 Delivery O2 Flow Rate FiO2 04/09/20 15:44 98.2 84 18 111/61 (78) 96 04/08/20 06:18 Room Air I & O 04/08/20 04/08/20 04/09/20 15:00 23:00 07:00 Intake Total 480 ml 360 ml Balance 480 ml 360 ml Current Medications: Meds: Current Medications Medications (Trade) Dose Ordered Sig/Valerio Route PRN Reason Start Time Stop Time Status Last Admin Dose Admin Clonidine HCl (Catapres Tts-2) 1 patch QSU TD 04/09/20 16:00 04/09/20 16:48 Bisacodyl (Dulcolax Tab) 10 mg PRN DAILY PRN PO CONSTIPATION 04/09/20 15:40 04/09/20 15:41 I have reviewed the current psychotropics carefully including drug interactions. Risk benefit ratio favors no change other than as noted in my dictated progress note. Diagnosis: Problems: (1) Anxiety disorder (2) Impulse control disorder (3) Obsessive compulsive disorder (4) Personality disorder, unspecified (5) Bipolar disorder, curr episode mixed, severe, with psychotic features EVER BAR MD April 09, 2020 22:29
[2020-04-10] MEDS: oxyCODONE IR 5 MG TABLET PO PRN ×3 (00:08→18:42)
--- NOTE | 2020-04-10 04:23 | PN ---
DATE: 04/08/2020 ADDENDUM PSYCHIATRIC PROGRESS NOTE I dictated a note on the patient under dictation #[id number]. In fact that note should be disregarded as it is related to a different patient. I will re-dictate both patients' note due to the confusion. MAN Mindi BAR MD DR: TAMMY/ani JOB#: [id number] / [id number]
[2020-04-10] MEDS: ACETAMINOPHEN 325 MG TABLET PO PRN (06:25)
[2020-04-10] MEDS: PANTOPRAZOLE 40 MG TABLET. PO SCH (06:25)
[2020-04-10] MEDS: hydrOXYzine HCL 25 MG TABLET PO PRN (06:29)
[2020-04-10 06:32] VITALS: BP 111/69
[2020-04-10 06:46] LABS: BASO # 0.1 x10^3/uL (0.0-0.2); BASO % 1 % (0-3); EOS # 0.1 x10^3/uL (0.0-0.7); EOS % 1 % (0-3); HEMATOCRIT 31.7 % (36.0-47.0); HEMOGLOBIN 10.3 g/dL (12.0-15.5); LYMPH # 0.9 x10^3/uL (1.0-4.8); LYMPH % 9 % (24-48); MEAN CORPUSCULAR HEMOGLOBIN 30 pg (25-35); MEAN CORPUSCULAR HGB CONC 32 g/dL (31-37); MEAN CORPUSCULAR VOLUME 93 fL (79-100); MONO # 0.7 x10^3/uL (0.0-1.1); MONO % 7 % (0-9); NEUT # 8.9 x10^3uL (1.8-7.7); NEUT % 83 % (31-73); PLATELET COUNT 413 x10^3/uL (140-400); RED BLOOD COUNT 3.42 x10^6/uL (3.50-5.40); RED CELL DISTRIBUTION WIDTH 14.3 % (11.5-14.5); WHITE BLOOD COUNT 10.7 x10^3/uL (4.0-11.0)
[2020-04-10 06:56] LABS: ALBUMIN 2.3 g/dL (3.4-5.0); ALBUMIN/GLOBULIN RATIO 0.7 (1.0-1.7); CALCIUM 8.4 mg/dL (8.5-10.1); CREATININE 0.6 mg/dL (0.6-1.0); GFR 99.1; POTASSIUM 3.7 mmol/L (3.5-5.1); TOTAL BILIRUBIN 0.2 mg/dL (0.2-1.0); TOTAL PROTEIN 5.5 g/dL (6.4-8.2)
[2020-04-10 07:01] LABS: VAL ACID 48 mcg/mL (50-100)
[2020-04-10 07:40] LABS: % BANDS 3 % (0-9); % LYMPHS 5 % (24-48); % MONOS 8 % (0-10); % SEGS 84 % (35-66)
[2020-04-10 07:41] LABS: PLT ESTIMATE INCREASED (ADEQUATE); POLYCHROMASIA SLIGHT; TOXIC GRANULATION SLIGHT; TOXIC VACUOLATION SLIGHT
[2020-04-10] MEDS: MAGNESIUM CHLORIDE ER 64 MG TABLET.ER PO SCH (08:05)
[2020-04-10] MEDS: ASCORBIC ACID 500 MG TABLET PO SCH (08:05)
[2020-04-10] MEDS: ZINC SULFATE 220 MG CAPSULE. PO SCH (08:06)
[2020-04-10] MEDS: METOPROLOL SUCC 24HR ER 25 MG TAB.ER.24H. PO SCH (08:07)
[2020-04-10] MEDS: DOCUSATE SODIUM 100 MG CAPSULE PO SCH ×3 (08:08→21:06)
[2020-04-10] MEDS: QUEtiapine 50 MG TABLET. PO SCH ×2 (08:08→21:05)
[2020-04-10] MEDS: POTASSIUM CHLORIDE 20 MEQ TABLET.ER. PO SCH ×3 (08:08→16:43)
[2020-04-10] MEDS: BISACODYL TAB 5 MG TABLET.DR. PO PRN (08:47)
[2020-04-10] MEDS: LORazepam 0.5 MG TABLET PO PRN ×2 (15:07→21:05)
[2020-04-10 16:44] VITALS: BP 109/70
[2020-04-10] MEDS: DIVALPROEX ER 500 MG TAB.ER.24H PO SCH (21:05)
[2020-04-10] MEDS: CYPROHEPTADINE 4 MG TABLET. PO SCH (21:05)
[2020-04-10] MEDS: PARoxetine 10 MG TABLET PO SCH (21:06)
--- NOTE | 2020-04-10 22:02 | PDOC ---
Exam Note: Adan Note: Please also refer to the separate dictated note~for this date of service dictated separately.~Patient seen individually. Discussed the patient with Nursing staff reviewed the chart.~Reviewed interim history and current functioning. Reviewed vital signs,~Labs/ Radiology~and current medications noted below. Continue current treatment with the changes noted in the dictated addendum note Assessment: Vital Signs/I&O: Vital Signs Date Time Temp Pulse Resp B/P (MAP) Pulse Ox O2 Delivery O2 Flow Rate FiO2 04/10/20 20:32 95 04/10/20 16:44 98.4 88 18 109/70 (83) 04/08/20 06:18 Room Air I & O 04/09/20 04/09/20 04/10/20 14:59 22:59 06:59 Intake Total 720 ml 540 ml Balance 720 ml 540 ml Labs: Laboratory Tests Test 04/10/20 06:13 White Blood Count 10.7 x10^3/uL (4.0-11.0) Red Blood Count 3.42 x10^6/uL (3.50-5.40) L Hemoglobin 10.3 g/dL (12.0-15.5) L Hematocrit 31.7 % (36.0-47.0) L Mean Corpuscular Volume 93 fL (79-100) Mean Corpuscular Hemoglobin 30 pg (25-35) Mean Corpuscular Hemoglobin Concent 32 g/dL (31-37) Red Cell Distribution Width 14.3 % (11.5-14.5) Platelet Count 413 x10^3/uL (140-400) H Neutrophils (%) (Auto) 83 % (31-73) H Lymphocytes (%) (Auto) 9 % (24-48) L Monocytes (%) (Auto) 7 % (0-9) Eosinophils (%) (Auto) 1 % (0-3) Basophils (%) (Auto) 1 % (0-3) Neutrophils # (Auto) 8.9 x10^3uL (1.8-7.7) H Lymphocytes # (Auto) 0.9 x10^3/uL (1.0-4.8) L Monocytes # (Auto) 0.7 x10^3/uL (0.0-1.1) Eosinophils # (Auto) 0.1 x10^3/uL (0.0-0.7) Basophils # (Auto) 0.1 x10^3/uL (0.0-0.2) Segmented Neutrophils % 84 % (35-66) H Band Neutrophils % 3 % (0-9) Lymphocytes % 5 % (24-48) L Monocytes % 8 % (0-10) Toxic Granulation Slight Toxic Vacuolation Slight Platelet Estimate Increased (ADEQUATE) Large Platelets Occ Polychromasia Slight Sodium Level 137 mmol/L (136-145) Potassium Level 3.7 mmol/L (3.5-5.1) Chloride Level 102 mmol/L (98-107) Carbon Dioxide Level 26 mmol/L (21-32) Anion Gap 9 (6-14) Blood Urea Nitrogen 13 mg/dL (7-20) Creatinine 0.6 mg/dL (0.6-1.0) Estimated GFR (Cockcroft-Gault) 99.1 BUN/Creatinine Ratio 22 (6-20) H Glucose Level 99 mg/dL (70-99) Calcium Level 8.4 mg/dL (8.5-10.1) L Total Bilirubin 0.2 mg/dL (0.2-1.0) Aspartate Amino Transferase (AST) 17 U/L (15-37) Alanine Aminotransferase (ALT) 39 U/L (14-59) Alkaline Phosphatase 105 U/L (46-116) Ammonia < 10 mcmol/L (11-34) L Total Protein 5.5 g/dL (6.4-8.2) L Albumin 2.3 g/dL (3.4-5.0) L Albumin/Globulin Ratio 0.7 (1.0-1.7) L Valproic Acid Level 48 mcg/mL (50-100) L Valproic Acid Last Dose Date 04/09/2020 Valproic Acid Last Dose Time 2100 Current Medications: Meds: Current Medications Medications (Trade) Dose Ordered Sig/Valerio Route PRN Reason Start Time Stop Time Status Last Admin Dose Admin Divalproex Sodium (Depakote Er) 1,000 mg QHS PO 04/10/20 21:00 04/10/20 21:05 I have reviewed the current psychotropics carefully including drug interactions. Risk benefit ratio favors no change other than as noted in my dictated progress note. Diagnosis: Problems: (1) Anxiety disorder (2) Impulse control disorder (3) Obsessive compulsive disorder (4) Personality disorder, unspecified (5) Bipolar disorder, curr episode mixed, severe, with psychotic features EVER BAR MD April 10, 2020 22:02
--- NOTE | 2020-04-10 22:03 | PN ---
DATE: 04/09/2020 PSYCHIATRIC PROGRESS NOTE This late entry 04/09/2020 covers the elements not covered in my initial note. SUBJECTIVE: I met with the patient in the evening of 04/09/2020. Discussed with JENNIFER Sandhu. The patient slept 6-1/4 hours previous night. The patient remains somewhat delusional with marked somatic symptoms, anxious, received Atarax at night. She was talking about a storm coming in. REVIEW OF SYSTEMS: Positive for constipation. We will treat symptomatically. Appetite is better. Less pain in her face and bruise seem to be improving. No CV, , GI system symptoms on review other than above. MENTAL STATUS EXAMINATION: The patient is reasonably oriented. Speech is coherent, has some latency. Abstraction fair, computation impaired, language function intact, attention span short. Mood and affect somewhat anxious, labile at times, withdrawn. LABORATORY DATA: Reviewed. IMPRESSION: Bipolar disorder, mixed with psychotic features; anxiety disorder, unspecified; personality disorder, unspecified. Rest unchanged. PLAN: Continue psychotropics from initial note. Check labs including valproic acid level in the morning of 04/10/2020, then adjust Depakote thereafter to reach therapeutic level and appetite is improved on Periactin 2 mg at bedtime. We will continue this along with Paxil and Seroquel. EVER BAR MD DR: TAMMY/ani JOB#: [id number] / [id number]
--- NOTE | 2020-04-10 22:06 | PN ---
DATE: 04/10/2020 PSYCHIATRIC PROGRESS NOTE This note covers elements not covered in my initial note 04/10. SUBJECTIVE: The patient was staffed at a treatment team meeting with the entire team in the morning and discussed with JENNIFER Nunez in the evening. The patient has been somewhat needy, attention seeking, anxious, at times depressed and tearful, spitting staff per nursing report. REVIEW OF SYSTEMS: Positive for discomfort in her facial area from the bruising, some tiredness, but no CV, , pulmonary, eye system symptoms on review. MENTAL STATUS EXAMINATION: The patient was lying in bed. Speech is coherent, has some latency. Abstraction fair, computation impaired, language function intact. Mood and affect withdrawn. LABORATORY DATA: Reviewed. Valproic acid level is 48, subtherapeutic. Rest of the labs are unremarkable. IMPRESSION: Unchanged from initial note. PLAN: Increase Depakote ER to 1000 mg p.o. at bedtime to reach therapeutic level. Check labs and valproic acid level in 3 days. Continue Periactin to stimulate appetite, Ativan for anxiety, Zyprexa p.r.n. for psychotic symptoms, Seroquel 50 mg b.i.d., Paxil 15 mg at bedtime, trazodone at bedtime p.r.n. insomnia. MAN Mindi BAR MD DR: TAMMY/ani JOB#: [id number] / [id number]
[2020-04-11] MEDS: hydrOXYzine HCL 25 MG TABLET PO PRN ×2 (00:28→16:01)
[2020-04-11] MEDS: ONDANSETRON ODT 4 MG TAB.RAPDIS PO PRN (01:09)
[2020-04-11 05:51] VITALS: BP 93/52
[2020-04-11 08:30] VITALS: BP 91/54
[2020-04-11] MEDS: ZINC SULFATE 220 MG CAPSULE. PO SCH (08:37)
[2020-04-11] MEDS: DOCUSATE SODIUM 100 MG CAPSULE PO SCH ×2 (08:37→20:41)
[2020-04-11] MEDS: POTASSIUM CHLORIDE 20 MEQ TABLET.ER. PO SCH ×3 (08:37→16:01)
[2020-04-11] MEDS: PANTOPRAZOLE 40 MG TABLET. PO SCH (08:37)
[2020-04-11] MEDS: QUEtiapine 50 MG TABLET. PO SCH ×2 (08:37→20:40)
[2020-04-11] MEDS: ASCORBIC ACID 500 MG TABLET PO SCH (08:37)
[2020-04-11] MEDS: MAGNESIUM CHLORIDE ER 64 MG TABLET.ER PO SCH (08:37)
[2020-04-11] MEDS: METOPROLOL SUCC 24HR ER 25 MG TAB.ER.24H. PO SCH (08:38)
[2020-04-11] MEDS: ACETAMINOPHEN 325 MG TABLET PO PRN (08:44)
[2020-04-11] MEDS: oxyCODONE IR 5 MG TABLET PO PRN ×2 (12:52→20:42)
[2020-04-11 16:07] VITALS: BP 115/60
[2020-04-11 20:36] VITALS: BP 129/76
[2020-04-11] MEDS: PARoxetine 10 MG TABLET PO SCH (20:40)
[2020-04-11] MEDS: CYPROHEPTADINE 4 MG TABLET. PO SCH (20:41)
[2020-04-11] MEDS: DIVALPROEX ER 500 MG TAB.ER.24H PO SCH (20:41)
--- NOTE | 2020-04-11 22:18 | PDOC ---
Exam Note: Adan Note: Please also refer to the separate dictated note~for this date of service dictated separately.~Patient seen individually. Discussed the patient with Nursing staff reviewed the chart.~Reviewed interim history and current functioning. Reviewed vital signs,~Labs/ Radiology~and current medications noted below. Continue current treatment with the changes noted in the dictated addendum note Assessment: Vital Signs/I&O: Vital Signs Date Time Temp Pulse Resp B/P (MAP) Pulse Ox O2 Delivery O2 Flow Rate FiO2 04/11/20 21:42 96 04/11/20 20:36 98.2 04/11/20 20:36 88 16 129/76 (93) Room Air I & O 04/10/20 04/10/20 04/11/20 15:00 23:00 07:00 Intake Total 960 ml 480 ml Balance 960 ml 480 ml Current Medications: I have reviewed the current psychotropics carefully including drug interactions. Risk benefit ratio favors no change other than as noted in my dictated progress note. Diagnosis: Problems: (1) Anxiety disorder (2) Impulse control disorder (3) Obsessive compulsive disorder (4) Personality disorder, unspecified (5) Bipolar disorder, curr episode mixed, severe, with psychotic features EVER BAR MD April 11, 2020 22:18
[2020-04-12] MEDS: PANTOPRAZOLE 40 MG TABLET. PO SCH (06:01)
[2020-04-12 06:26] VITALS: BP 110/71
[2020-04-12] MEDS: DOCUSATE SODIUM 100 MG CAPSULE PO SCH ×2 (08:36→20:32)
[2020-04-12] MEDS: ASCORBIC ACID 500 MG TABLET PO SCH (08:36)
[2020-04-12] MEDS: POTASSIUM CHLORIDE 20 MEQ TABLET.ER. PO SCH ×3 (08:37→17:28)
[2020-04-12] MEDS: METOPROLOL SUCC 24HR ER 25 MG TAB.ER.24H. PO SCH (08:37)
[2020-04-12] MEDS: ZINC SULFATE 220 MG CAPSULE. PO SCH (08:37)
[2020-04-12] MEDS: MAGNESIUM CHLORIDE ER 64 MG TABLET.ER PO SCH (08:37)
[2020-04-12] MEDS: QUEtiapine 50 MG TABLET. PO SCH ×2 (08:38→20:32)
[2020-04-12] MEDS: hydrOXYzine HCL 25 MG TABLET PO PRN (10:48)
[2020-04-12] MEDS: oxyCODONE IR 5 MG TABLET PO PRN ×2 (11:17→20:36)
[2020-04-12 15:47] VITALS: BP 113/70
[2020-04-12] MEDS: ACETAMINOPHEN 325 MG TABLET PO PRN (17:32)
[2020-04-12] MEDS: POLYVINYL ALCOHOL/POVIDONE/PF OPHTH SOLUTION DROPERETTE. OU PRN (17:38)
[2020-04-12] MEDS: DIVALPROEX ER 500 MG TAB.ER.24H PO SCH (20:32)
[2020-04-12] MEDS: CYPROHEPTADINE 4 MG TABLET. PO SCH (20:33)
[2020-04-12] MEDS: PARoxetine 10 MG TABLET PO SCH (20:34)
--- NOTE | 2020-04-12 21:54 | PDOC ---
Exam Note: Adan Note: Please also refer to the separate dictated note~for this date of service dictated separately.~Patient seen individually. Discussed the patient with Nursing staff reviewed the chart.~Reviewed interim history and current functioning. Reviewed vital signs,~Labs/ Radiology~and current medications noted below. Continue current treatment with the changes noted in the dictated addendum note Assessment: Vital Signs/I&O: Vital Signs Date Time Temp Pulse Resp B/P (MAP) Pulse Ox O2 Delivery O2 Flow Rate FiO2 04/12/20 21:36 93 04/12/20 20:17 98.5 04/12/20 15:47 88 16 113/70 (84) 04/12/20 06:26 Room Air I & O 04/11/20 04/11/20 04/12/20 15:00 23:00 07:00 Intake Total 840 ml 340 ml Balance 840 ml 340 ml Current Medications: I have reviewed the current psychotropics carefully including drug interactions. Risk benefit ratio favors no change other than as noted in my dictated progress note. Diagnosis: Problems: (1) Anxiety disorder (2) Impulse control disorder (3) Obsessive compulsive disorder (4) Personality disorder, unspecified (5) Bipolar disorder, curr episode mixed, severe, with psychotic features EVER BAR MD April 12, 2020 21:54
[2020-04-13] MEDS: hydrOXYzine HCL 25 MG TABLET PO PRN ×3 (00:14→15:26)
[2020-04-13 05:14] VITALS: BP 107/66
[2020-04-13] MEDS: PANTOPRAZOLE 40 MG TABLET. PO SCH (05:44)
[2020-04-13 06:03] LABS: BASO % 1 % (0-3); EOS # 0.1 x10^3/uL (0.0-0.7); EOS % 2 % (0-3); HEMATOCRIT 33.6 % (36.0-47.0); LYMPH # 1.5 x10^3/uL (1.0-4.8); LYMPH % 31 % (24-48); MEAN CORPUSCULAR HEMOGLOBIN 30 pg (25-35); MEAN CORPUSCULAR HGB CONC 33 g/dL (31-37); MEAN CORPUSCULAR VOLUME 92 fL (79-100); MONO # 0.7 x10^3/uL (0.0-1.1); MONO % 13 % (0-9); NEUT # 2.6 x10^3uL (1.8-7.7); NEUT % 53 % (31-73); PLATELET COUNT 414 x10^3/uL (140-400); RED BLOOD COUNT 3.65 x10^6/uL (3.50-5.40); RED CELL DISTRIBUTION WIDTH 14.5 % (11.5-14.5); WHITE BLOOD COUNT 4.9 x10^3/uL (4.0-11.0)
[2020-04-13 06:16] LABS: ALBUMIN 2.5 g/dL (3.4-5.0); ALBUMIN/GLOBULIN RATIO 0.7 (1.0-1.7); ALK PHOS 99 U/L (46-116); ALT (SGPT) 25 U/L (14-59); ANION GAP 6 (6-14); AST (SGOT) 14 U/L (15-37); BLOOD UREA NITROGEN 12 mg/dL (7-20); BUN/CREATININE RATIO 24 (6-20); CALCIUM 8.7 mg/dL (8.5-10.1); CARBON DIOXIDE 29 mmol/L (21-32); CHLORIDE 101 mmol/L (98-107); CREATININE 0.5 mg/dL (0.6-1.0); GFR 122.3; GLUCOSE 91 mg/dL (70-99); SODIUM 136 mmol/L (136-145); TOTAL BILIRUBIN 0.2 mg/dL (0.2-1.0); TOTAL PROTEIN 5.9 g/dL (6.4-8.2)
[2020-04-13 06:17] LABS: VAL ACID 73 mcg/mL (50-100)
[2020-04-13] MEDS: QUEtiapine 50 MG TABLET. PO SCH ×2 (08:45→20:25)
[2020-04-13] MEDS: MAGNESIUM CHLORIDE ER 64 MG TABLET.ER PO SCH (08:45)
[2020-04-13] MEDS: ASCORBIC ACID 500 MG TABLET PO SCH (08:46)
[2020-04-13] MEDS: ZINC SULFATE 220 MG CAPSULE. PO SCH (08:46)
[2020-04-13] MEDS: POTASSIUM CHLORIDE 20 MEQ TABLET.ER. PO SCH ×3 (08:46→16:59)
[2020-04-13] MEDS: DOCUSATE SODIUM 100 MG CAPSULE PO SCH ×3 (08:46→20:25)
[2020-04-13] MEDS: METOPROLOL SUCC 24HR ER 25 MG TAB.ER.24H. PO SCH (08:46)
[2020-04-13] MEDS: POLYVINYL ALCOHOL/POVIDONE/PF OPHTH SOLUTION DROPERETTE. OU PRN (10:02)
[2020-04-13] MEDS: ACETAMINOPHEN 325 MG TABLET PO PRN (11:58)
--- NOTE | 2020-04-13 12:56 | TX PLAN ---
Interdisciplinary Tx Plan Admission Information April 03, 2020 at 16:30 Legal Status (on Admission): Voluntary DPOA/Guardian Name: Carmel Horowitz (dtr) or Estuardo Morley (son) Contact OR Verified Code Status: Full Code Allergies: Coded Allergies: ciprofloxacin (Verified Allergy, Unknown, Unknown, 04/03/20) ibuprofen (Verified Allergy, Unknown, Unknown, 04/03/20) tramadol (Verified Allergy, Unknown, Unknown, 04/03/20) Iodinated Contrast Media (Verified Adverse Reaction, Unknown, 04/06/20) Diagnoses Primary Diagnosis: Bipolar D/O mixed with psychotic episode Reasons for Admission: Confusion/Disoriented, Poor impulse control, Other Problem in Patient's Words: Pt has not been well over the last few years. "We joke, which isn't really funny but the crankier she gets the more normal she appears". Additional Admission Comments: According to the intake, pt was hitting her head on her driveway "so the covoid can drain and she could burn easier". Problems Active Problems: Somatic Poor pain control Incontinence Inactive Problems: Medication compliance Pt Strengths/Limitations Ability for [place]: Poor Cognitive Functioning/Ability: Fair Communication Skills/Ability: Fair Financial Resources: Good Insight/Judgement: Poor Intellectual Ability: Fair Physical Health: Fair Social Skills: Poor Stability in Family: Good Stability in School/Work: Poor Verbal Skills: Fair Discharge Criteria Discharge Criteria: Able meet basic life need, Adequate arrangements @DC, Verbal commit aftercare, Improved behavior, Improved mood/thought Preliminary Discharge Plan Preliminary DC Plan: Placement Needed, Other Special Precautions Fall Risk: Moderate Initial D/C Plan Unsure if pt will return home vs placement. Identified Discharge Needs: Potential for placement in an [facility] with a locked unit. Psychiatry set up. PCP follow up Currently Utilized Resources Currently Utilized Resources/P: Primary Care Physician Identified Problems/Hx/Goals Objectives/Short-Term Goals Short Term Goals: Control abnormal behavior, Dec. Outbursts, Medication Stabilization, Monitor Med Effects, Promote Coping Skill Short Term Goals in Patient's: Medication management Placement recommendation Interventions/Frequency Staff Interventions/Frequency&: Psychiatrist to see pt at least 3x per week. Social Work to see pt at least 2x per week. Nursing to assess and complete 15 minute checks daily. 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 Education: Pt has a BS in Education Community Follow-up Pt to have appointments with a primary care physician and mental health services at discharge. Treatment Plan Explained Patient/Clerical Supervisor had this treatment plan explained to him/her as indicated by the signature below and has been given the opportunity to ask questions and make suggestions: Date: Patient/Clerical Supervisor Signature: Status Update Update Pt is eating roughly 65% of meals and sleeping on average 6 hours. Pt is less attention seeking; however, is still medication seeking. Pt reports that she is here because she became ill and fell out of her front door; stating she laid there until her neighbors found her. Pt continues to take Periactin 2mg q HS, Seroquel 50mg BID and Depakote ER 1000mg q HS. Pt Valproic Acid came back in the 70s. At this time, pt family is looking into a more appropriate placement for pt at the time of discharge. SW will continue to work with pt and pt family in finding placement. BHARATI for next week. MAGDA GUY April 13, 2020 12:56
[2020-04-13 15:36] VITALS: BP 99/60
[2020-04-13] MEDS: oxyCODONE IR 5 MG TABLET PO PRN (17:55)
[2020-04-13] MEDS: NYSTATIN TOPICAL POWDER 15GM BOTTLE. TP PRN (17:55)
[2020-04-13] MEDS: DIVALPROEX ER 500 MG TAB.ER.24H PO SCH (20:25)
[2020-04-13] MEDS: PARoxetine 10 MG TABLET PO SCH (20:26)
[2020-04-13] MEDS: CYPROHEPTADINE 4 MG TABLET. PO SCH (20:27)
[2020-04-13] MEDS: LORazepam 0.5 MG TABLET PO PRN (20:31)
--- NOTE | 2020-04-13 21:34 | PN ---
DATE: 04/11/2020 PSYCHIATRIC PROGRESS NOTE This late entry 04/11/2020 covers elements not covered in my initial note. SUBJECTIVE: I met with the patient evening of 04/11/2020 and seen individually on audiovisual rounds. Per JENNIFER Duran, the patient slept for three-quarter hours previous night. She has complained of some vague GI symptoms, dizziness, somatically preoccupied, complains of constipation and wants to start back on Dulcolax tablets and fiber supplement at night and nursing staff will initiate this. She has been medication seeking for pain, complains of itching, receiving Atarax for this with some relief. REVIEW OF SYSTEMS: Ambulation impaired, in wheelchair. No CV, , pulmonary, eye system symptoms on review other than above. MENTAL STATUS EXAM: Oriented reasonably. Speech has some latency, coherent. Abstraction fair, computation impaired, language function intact. Mood and affect still somewhat depressed, anxious. LABORATORY DATA: Reviewed. IMPRESSION: Bipolar disorder, depressed with psychotic features; major depressive disorder with psychotic features; anxiety disorder, unspecified. PLAN: No change from initial note. Treat the constipation symptomatically. Depakote is being adjusted. We will repeat labs level on 04/12/2020. EVER BAR MD DR: TAMMY/ani JOB#: [id number] / [id number]
--- NOTE | 2020-04-13 21:35 | PN ---
DATE: 04/12/2020 PSYCHIATRIC PROGRESS NOTE This late entry 04/12/2020 covers elements not covered in my initial note. SUBJECTIVE: I met with the patient evening of 04/12/2020. Per JENNIFER Duran, the patient slept 6-3/4 hours previous night. She was less tearful, anxious previous night, still medication seeking, repeatedly wanting to call her son, nursing staff facilitate this. REVIEW OF SYSTEMS: Ambulation impaired. She was pleased that the wound care staff had attended to her. No CV, , pulmonary, eye system symptoms on review. MENTAL STATUS EXAMINATION: The patient is reasonably oriented. Speech is coherent, has some latency. Abstraction fair, computation impaired. Language function intact. Mood and affect withdrawn. LABORATORY DATA: Reviewed. IMPRESSION: Unchanged from initial note. PLAN: No change from initial note. MAN Mindi BAR MD DR: TAMMY/ani JOB#: [id number] / [id number]
--- NOTE | 2020-04-13 21:39 | PN ---
DATE: 04/13/2020 PSYCHIATRIC PROGRESS NOTE This note covers elements not covered in my initial note. SUBJECTIVE: I met with the patient evening of 04/13/2020 on audiovisual rounds and staffed a treatment team meeting with the entire team in the morning. Per JENNIFER Medrano, valproic acid level is 73. Appetite 65%. Slept 3-3/4 hours previous night, though average sleep is 6 hours. She has been less anxious, less attention seeking. Does complain of constipation and we will add the fiber supplements and Dulcolax that had worked for her at home. She minimizes, rationalizes symptoms, problems prompting admission and states she became ill and fell on her front porch and then the neighbor found her. She denied she was having any hallucinations. REVIEW OF SYSTEMS: Complains of constipation. No CV, , pulmonary, eye system symptoms on review. Discussed with JENNIFER Medrano. MENTAL STATUS EXAM: Reasonably oriented. Speech is coherent, has some latency. Abstraction fair, computation impaired, language function intact, attention span short. Mood and affect withdrawn. LABORATORY DATA: Reviewed. Valproic acid level therapeutic at 73. IMPRESSION: Bipolar disorder, mixed with psychotic features; major depressive disorder. Rest unchanged. PLAN: Continue Depakote at current dosage along with Paxil, Seroquel, Ativan and Zyprexa p.r.n. Periactin to help stimulate her appetite. Trazodone for now. EVER BAR MD DR: TAMMY/ani JOB#: [id number] / [id number]
--- NOTE | 2020-04-13 22:00 | PDOC ---
Exam Note: Adan Note: Please also refer to the separate dictated note~for this date of service dictated separately.~Patient seen individually. Discussed the patient with Nursing staff reviewed the chart.~Reviewed interim history and current functioning. Reviewed vital signs,~Labs/ Radiology~and current medications noted below. Continue current treatment with the changes noted in the dictated addendum note Assessment: Vital Signs/I&O: Vital Signs Date Time Temp Pulse Resp B/P (MAP) Pulse Ox O2 Delivery O2 Flow Rate FiO2 04/13/20 20:55 98.0 97 04/13/20 17:55 16 Room Air 04/13/20 15:36 74 99/60 (73) I & O 04/12/20 04/12/20 04/13/20 14:59 22:59 06:59 Intake Total 600 ml 480 ml Balance 600 ml 480 ml Labs: Laboratory Tests Test 04/13/20 05:50 White Blood Count 4.9 x10^3/uL (4.0-11.0) Red Blood Count 3.65 x10^6/uL (3.50-5.40) Hemoglobin 11.0 g/dL (12.0-15.5) L Hematocrit 33.6 % (36.0-47.0) L Mean Corpuscular Volume 92 fL (79-100) Mean Corpuscular Hemoglobin 30 pg (25-35) Mean Corpuscular Hemoglobin Concent 33 g/dL (31-37) Red Cell Distribution Width 14.5 % (11.5-14.5) Platelet Count 414 x10^3/uL (140-400) H Neutrophils (%) (Auto) 53 % (31-73) Lymphocytes (%) (Auto) 31 % (24-48) Monocytes (%) (Auto) 13 % (0-9) H Eosinophils (%) (Auto) 2 % (0-3) Basophils (%) (Auto) 1 % (0-3) Neutrophils # (Auto) 2.6 x10^3uL (1.8-7.7) Lymphocytes # (Auto) 1.5 x10^3/uL (1.0-4.8) Monocytes # (Auto) 0.7 x10^3/uL (0.0-1.1) Eosinophils # (Auto) 0.1 x10^3/uL (0.0-0.7) Basophils # (Auto) 0.0 x10^3/uL (0.0-0.2) Sodium Level 136 mmol/L (136-145) Potassium Level 4.0 mmol/L (3.5-5.1) Chloride Level 101 mmol/L (98-107) Carbon Dioxide Level 29 mmol/L (21-32) Anion Gap 6 (6-14) Blood Urea Nitrogen 12 mg/dL (7-20) Creatinine 0.5 mg/dL (0.6-1.0) L Estimated GFR (Cockcroft-Gault) 122.3 BUN/Creatinine Ratio 24 (6-20) H Glucose Level 91 mg/dL (70-99) Calcium Level 8.7 mg/dL (8.5-10.1) Total Bilirubin 0.2 mg/dL (0.2-1.0) Aspartate Amino Transferase (AST) 14 U/L (15-37) L Alanine Aminotransferase (ALT) 25 U/L (14-59) Alkaline Phosphatase 99 U/L (46-116) Total Protein 5.9 g/dL (6.4-8.2) L Albumin 2.5 g/dL (3.4-5.0) L Albumin/Globulin Ratio 0.7 (1.0-1.7) L Valproic Acid Level 73 mcg/mL (50-100) Valproic Acid Last Dose Date 04/12/2020 Valproic Acid Last Dose Time 2100 Current Medications: I have reviewed the current psychotropics carefully including drug interactions. Risk benefit ratio favors no change other than as noted in my dictated progress note. Diagnosis: Problems: (1) Anxiety disorder (2) Impulse control disorder (3) Obsessive compulsive disorder (4) Personality disorder, unspecified (5) Bipolar disorder, curr episode mixed, severe, with psychotic features EVER BAR MD April 13, 2020 22:00
[2020-04-13] MEDS ORDERED: HYOS0.3716 PO (23:10)
[2020-04-14] MEDS: PANTOPRAZOLE 40 MG TABLET. PO SCH (05:07)
[2020-04-14 06:34] VITALS: BP 115/64
[2020-04-14] MEDS: ASCORBIC ACID 500 MG TABLET PO SCH (09:05)
[2020-04-14] MEDS: POTASSIUM CHLORIDE 20 MEQ TABLET.ER. PO SCH ×3 (09:05→15:34)
[2020-04-14] MEDS: ZINC SULFATE 220 MG CAPSULE. PO SCH (09:05)
[2020-04-14] MEDS: DOCUSATE SODIUM 100 MG CAPSULE PO SCH ×2 (09:05→20:36)
[2020-04-14] MEDS: MAGNESIUM CHLORIDE ER 64 MG TABLET.ER PO SCH (09:06)
[2020-04-14] MEDS: QUEtiapine 50 MG TABLET. PO SCH ×2 (09:06→20:36)
[2020-04-14] MEDS: METOPROLOL SUCC 24HR ER 25 MG TAB.ER.24H. PO SCH (09:06)
[2020-04-14] MEDS: ACETAMINOPHEN 325 MG TABLET PO PRN ×2 (09:10→22:26)
[2020-04-14] MEDS: hydrOXYzine HCL 25 MG TABLET PO PRN ×2 (09:10→15:33)
[2020-04-14] MEDS: oxyCODONE IR 5 MG TABLET PO PRN ×2 (12:26→22:26)
[2020-04-14 16:28] VITALS: BP 107/66
[2020-04-14] MEDS: LORazepam 0.5 MG TABLET PO PRN (20:35)
[2020-04-14] MEDS: CYPROHEPTADINE 4 MG TABLET. PO SCH (20:35)
[2020-04-14] MEDS: DIVALPROEX ER 500 MG TAB.ER.24H PO SCH (20:35)
[2020-04-14] MEDS: PARoxetine 10 MG TABLET PO SCH (20:36)
[2020-04-14] MEDS: traZODone 50 MG TABLET. PO PRN (20:36)
--- NOTE | 2020-04-14 22:08 | PDOC ---
Exam Note: Adan Note: Please also refer to the separate dictated note~for this date of service dictated separately.~Patient seen individually. Discussed the patient with Nursing staff reviewed the chart.~Reviewed interim history and current functioning. Reviewed vital signs,~Labs/ Radiology~and current medications noted below. Continue current treatment with the changes noted in the dictated addendum note Assessment: Vital Signs/I&O: Vital Signs Date Time Temp Pulse Resp B/P (MAP) Pulse Ox O2 Delivery O2 Flow Rate FiO2 04/14/20 20:00 98.0 99 Room Air 04/14/20 16:28 82 20 107/66 (80) I & O 04/13/20 04/13/20 04/14/20 15:00 23:00 07:00 Intake Total 480 ml 580 ml Balance 480 ml 580 ml Current Medications: Meds: Current Medications Medications (Trade) Dose Ordered Sig/Valerio Route PRN Reason Start Time Stop Time Status Last Admin Dose Admin Docusate Sodium (Colace) 300 mg QHS PO 04/14/20 21:00 04/14/20 20:36 I have reviewed the current psychotropics carefully including drug interactions. Risk benefit ratio favors no change other than as noted in my dictated progress note. Diagnosis: Problems: (1) Anxiety disorder (2) Impulse control disorder (3) Obsessive compulsive disorder (4) Personality disorder, unspecified (5) Bipolar disorder, curr episode mixed, severe, with psychotic features EVER BAR MD April 14, 2020 22:08
[2020-04-15 06:26] VITALS: BP 103/57
[2020-04-15 06:28] LABS: BASO % 1 % (0-3); EOS # 0.1 x10^3/uL (0.0-0.7); EOS % 4 % (0-3); HEMATOCRIT 32.5 % (36.0-47.0); HEMOGLOBIN 10.6 g/dL (12.0-15.5); LYMPH # 1.1 x10^3/uL (1.0-4.8); LYMPH % 34 % (24-48); MEAN CORPUSCULAR HEMOGLOBIN 30 pg (25-35); MEAN CORPUSCULAR HGB CONC 33 g/dL (31-37); MEAN CORPUSCULAR VOLUME 93 fL (79-100); MONO # 0.5 x10^3/uL (0.0-1.1); MONO % 16 % (0-9); NEUT # 1.4 x10^3uL (1.8-7.7); NEUT % 45 % (31-73); PLATELET COUNT 364 x10^3/uL (140-400); RED BLOOD COUNT 3.49 x10^6/uL (3.50-5.40); RED CELL DISTRIBUTION WIDTH 14.8 % (11.5-14.5); WHITE BLOOD COUNT 3.1 x10^3/uL (4.0-11.0)
[2020-04-15 06:43] LABS: ALBUMIN 2.4 g/dL (3.4-5.0); ALBUMIN/GLOBULIN RATIO 0.7 (1.0-1.7); CALCIUM 8.6 mg/dL (8.5-10.1); CREATININE 0.7 mg/dL (0.6-1.0); POTASSIUM 4.1 mmol/L (3.5-5.1); TOTAL BILIRUBIN 0.1 mg/dL (0.2-1.0); TOTAL PROTEIN 5.7 g/dL (6.4-8.2)
[2020-04-15] MEDS: PSYLLIUM SEED (WITH SUGAR) PACKET. PO SCH (08:27)
[2020-04-15] MEDS: POTASSIUM CHLORIDE 20 MEQ TABLET.ER. PO SCH ×3 (08:27→17:24)
[2020-04-15] MEDS: MAGNESIUM CHLORIDE ER 64 MG TABLET.ER PO SCH (08:27)
[2020-04-15] MEDS: PANTOPRAZOLE 40 MG TABLET. PO SCH (08:27)
[2020-04-15] MEDS: ZINC SULFATE 220 MG CAPSULE. PO SCH (08:27)
[2020-04-15] MEDS: ASCORBIC ACID 500 MG TABLET PO SCH (08:28)
[2020-04-15] MEDS: METOPROLOL SUCC 24HR ER 25 MG TAB.ER.24H. PO SCH (08:28)
[2020-04-15] MEDS: QUEtiapine 50 MG TABLET. PO SCH ×2 (08:28→20:14)
[2020-04-15] MEDS: hydrOXYzine HCL 25 MG TABLET PO PRN ×2 (12:18→22:52)
[2020-04-15] MEDS: ACETAMINOPHEN 325 MG TABLET PO PRN ×2 (13:33→20:13)
[2020-04-15 16:04] VITALS: BP 117/57
[2020-04-15] MEDS: DOCUSATE SODIUM 100 MG CAPSULE PO SCH (20:14)
[2020-04-15] MEDS: CYPROHEPTADINE 4 MG TABLET. PO SCH (20:14)
[2020-04-15] MEDS: PARoxetine 10 MG TABLET PO SCH (20:15)
[2020-04-15] MEDS: DIVALPROEX ER 500 MG TAB.ER.24H PO SCH (20:15)
[2020-04-15] MEDS: oxyCODONE IR 5 MG TABLET PO PRN (20:16)
[2020-04-15] MEDS: POLYVINYL ALCOHOL/POVIDONE/PF OPHTH SOLUTION DROPERETTE. OU PRN (20:21)
[2020-04-15] MEDS ORDERED: BISACODYL 10 MG SUPP.RECT PR ONE (21:00)
--- NOTE | 2020-04-15 22:16 | PDOC ---
Exam Note: Adan Note: Please also refer to the separate dictated note~for this date of service dictated separately.~Patient seen individually. Discussed the patient with Nursing staff reviewed the chart.~Reviewed interim history and current functioning. Reviewed vital signs,~Labs/ Radiology~and current medications noted below. Continue current treatment with the changes noted in the dictated addendum note Assessment: Vital Signs/I&O: Vital Signs Date Time Temp Pulse Resp B/P (MAP) Pulse Ox O2 Delivery O2 Flow Rate FiO2 04/15/20 21:57 Room Air 04/15/20 20:26 98.0 98 04/15/20 16:04 70 16 117/57 (77) I & O 04/14/20 04/14/20 04/15/20 15:00 23:00 07:00 Intake Total 840 ml 360 ml Balance 840 ml 360 ml Labs: Laboratory Tests Test 04/15/20 06:06 White Blood Count 3.1 x10^3/uL (4.0-11.0) L Red Blood Count 3.49 x10^6/uL (3.50-5.40) L Hemoglobin 10.6 g/dL (12.0-15.5) L Hematocrit 32.5 % (36.0-47.0) L Mean Corpuscular Volume 93 fL (79-100) Mean Corpuscular Hemoglobin 30 pg (25-35) Mean Corpuscular Hemoglobin Concent 33 g/dL (31-37) Red Cell Distribution Width 14.8 % (11.5-14.5) H Platelet Count 364 x10^3/uL (140-400) Neutrophils (%) (Auto) 45 % (31-73) Lymphocytes (%) (Auto) 34 % (24-48) Monocytes (%) (Auto) 16 % (0-9) H Eosinophils (%) (Auto) 4 % (0-3) H Basophils (%) (Auto) 1 % (0-3) Neutrophils # (Auto) 1.4 x10^3uL (1.8-7.7) L Lymphocytes # (Auto) 1.1 x10^3/uL (1.0-4.8) Monocytes # (Auto) 0.5 x10^3/uL (0.0-1.1) Eosinophils # (Auto) 0.1 x10^3/uL (0.0-0.7) Basophils # (Auto) 0.0 x10^3/uL (0.0-0.2) Sodium Level 137 mmol/L (136-145) Potassium Level 4.1 mmol/L (3.5-5.1) Chloride Level 102 mmol/L (98-107) Carbon Dioxide Level 29 mmol/L (21-32) Anion Gap 6 (6-14) Blood Urea Nitrogen 16 mg/dL (7-20) Creatinine 0.7 mg/dL (0.6-1.0) Estimated GFR (Cockcroft-Gault) 83.0 BUN/Creatinine Ratio 23 (6-20) H Glucose Level 97 mg/dL (70-99) Calcium Level 8.6 mg/dL (8.5-10.1) Total Bilirubin 0.1 mg/dL (0.2-1.0) L Aspartate Amino Transferase (AST) 16 U/L (15-37) Alanine Aminotransferase (ALT) 20 U/L (14-59) Alkaline Phosphatase 99 U/L (46-116) Total Protein 5.7 g/dL (6.4-8.2) L Albumin 2.4 g/dL (3.4-5.0) L Albumin/Globulin Ratio 0.7 (1.0-1.7) L Current Medications: Meds: Current Medications Medications (Trade) Dose Ordered Sig/Valerio Route PRN Reason Start Time Stop Time Status Last Admin Dose Admin Psyllium Hydrophilic Mucilloid (Metamucil) 1 pkt DAILY PO 04/15/20 09:00 04/15/20 08:27 Pantoprazole Sodium (Protonix) 40 mg DAILYAC PO 04/15/20 07:30 04/15/20 08:27 Bisacodyl (Dulcolax Supp) 10 mg 1X ONCE NV 04/15/20 21:00 04/15/20 21:01 DC 04/15/20 20:15 I have reviewed the current psychotropics carefully including drug interactions. Risk benefit ratio favors no change other than as noted in my dictated progress note. Diagnosis: Problems: (1) Anxiety disorder (2) Impulse control disorder (3) Obsessive compulsive disorder (4) Personality disorder, unspecified (5) Bipolar disorder, curr episode mixed, severe, with psychotic features EVER BAR MD April 15, 2020 22:16
[2020-04-16 05:44] VITALS: BP 115/73
[2020-04-16] MEDS: PSYLLIUM SEED (WITH SUGAR) PACKET. PO SCH (08:34)
[2020-04-16] MEDS: POTASSIUM CHLORIDE 20 MEQ TABLET.ER. PO SCH ×3 (08:34→17:21)
[2020-04-16] MEDS: PANTOPRAZOLE 40 MG TABLET. PO SCH (08:34)
[2020-04-16] MEDS: MAGNESIUM CHLORIDE ER 64 MG TABLET.ER PO SCH (08:34)
[2020-04-16] MEDS: ASCORBIC ACID 500 MG TABLET PO SCH (08:35)
[2020-04-16] MEDS: QUEtiapine 50 MG TABLET. PO SCH ×2 (08:35→21:16)
[2020-04-16] MEDS: ZINC SULFATE 220 MG CAPSULE. PO SCH (08:35)
[2020-04-16] MEDS: METOPROLOL SUCC 24HR ER 25 MG TAB.ER.24H. PO SCH (08:35)
[2020-04-16] MEDS: hydrOXYzine HCL 25 MG TABLET PO PRN ×2 (09:18→21:23)
[2020-04-16] MEDS: LORazepam 0.5 MG TABLET PO PRN ×2 (12:00→17:21)
[2020-04-16] MEDS: oxyCODONE IR 5 MG TABLET PO PRN ×2 (12:00→21:29)
[2020-04-16 16:10] VITALS: BP 112/67
[2020-04-16] MEDS: cloNIDine TTS-2 1 PATCH PATCH TD SCH (17:21)
--- NOTE | 2020-04-16 19:54 | PN ---
DATE: 04/14/2020 PSYCHIATRIC PROGRESS NOTE This late entry 04/14/2020 covers elements not covered in my initial note. SUBJECTIVE: I met with the patient evening of 04/14/2020. Per JENNIFER Medrano, the patient slept 6-1/4 hours previous night, received Ativan at night. She complains of chronic pain, receiving oxycodone. Also complains of constipation. Defer to Dr. Singleton. Previous night, she was cooperative, had hydrocodone, Tylenol for breakfast and oxycodone at lunchtime. REVIEW OF SYSTEMS: No CV, , pulmonary, eye system symptoms on review. Ambulation impaired. MENTAL STATUS EXAM: Oriented reasonably. Speech is coherent, has some latency. I met with her on telehealth rounds in the evening. Abstraction fair, computation impaired, language function intact. Mood is somewhat dysphoric. No suicidal or homicidal ideation. LABORATORY DATA: Reviewed. IMPRESSION: Bipolar disorder, mixed with psychotic features versus bipolar disorder, depressed with psychotic features; anxiety disorder, unspecified. Per nursing report, the patient remains somatically preoccupied. LABORATORY DATA: Reviewed. PLAN: Continue current psychotropics. I had a message to call the patient's son to update him on the patient's progress. I calledEstuardo at [phone] and left a detailed message for him about the patient's progress and her current psychotropics, awaiting a call back if he would like further information. Plan, continue rest of the psychotropics. Depakote ER 1000 mg p.o. at bedtime, level therapeutic at 73, Paxil 15 mg at bedtime, Ativan p.r.n., Periactin 2 mg at bedtime to stimulate appetite, Seroquel 50 b.i.d., trazodone for insomnia. MAN Mindi BAR MD DR: TAMMY/ani JOB#: [id number] / [id number]
--- NOTE | 2020-04-16 19:55 | PN ---
DATE: 04/15/2020 PSYCHIATRIC PROGRESS NOTE This late entry 04/15/2020 covers elements not covered in my initial note. SUBJECTIVE: I met with the patient evening of 04/15/2020 on telehealth rounds. The patient slept 5-1/2 hours previous night. Per Candice RN, the patient has been medication seeking somewhat helpless. She does complain of constipation despite receiving fiber supplements and Colace and she is requesting Dulcolax suppository, which will go ahead and use p.r.n. REVIEW OF SYSTEMS: Positive for impaired ambulation. No CV, or pulmonary system symptoms on review. I discussed with her that had left a message for her son, Scottie and she was appreciative of this. MENTAL STATUS EXAM: Reasonably oriented. Speech is coherent, has some latency. Abstraction fair, computation impaired, language function intact, attention span short. Mood and affect withdrawn, less depressed. No suicidal ideation. LABORATORY DATA: Reviewed. IMPRESSION: Unchanged from initial note. PLAN: No change from initial note other than what is noted above. EVER BAR MD DR: TAMMY/ani JOB#: [id number] / [id number]
[2020-04-16] MEDS: CYPROHEPTADINE 4 MG TABLET. PO SCH (21:00)
[2020-04-16] MEDS: CLOTRIMAZOLE 1% VAGINAL CREAM 45GM TUBE. VG SCH (21:16)
[2020-04-16] MEDS: NYSTATIN TOPICAL POWDER 15GM BOTTLE. TP PRN (21:16)
[2020-04-16] MEDS: PARoxetine 10 MG TABLET PO SCH (21:17)
[2020-04-16] MEDS: DIVALPROEX ER 500 MG TAB.ER.24H PO SCH (21:17)
[2020-04-16] MEDS: DOCUSATE SODIUM 100 MG CAPSULE PO SCH (21:17)
--- NOTE | 2020-04-16 22:21 | PDOC ---
Exam Note: Adan Note: Please also refer to the separate dictated note~for this date of service dictated separately.~Patient seen individually. Discussed the patient with Nursing staff reviewed the chart.~Reviewed interim history and current functioning. Reviewed vital signs,~Labs/ Radiology~and current medications noted below. Continue current treatment with the changes noted in the dictated addendum note Assessment: Vital Signs/I&O: Vital Signs Date Time Temp Pulse Resp B/P (MAP) Pulse Ox O2 Delivery O2 Flow Rate FiO2 04/16/20 21:32 98.4 97 04/16/20 16:10 75 20 112/67 (82) Room Air I & O 04/15/20 04/15/20 04/16/20 15:00 23:00 07:00 Intake Total 1080 ml 360 ml Balance 1080 ml 360 ml Current Medications: Meds: Current Medications Medications (Trade) Dose Ordered Sig/Valerio Route PRN Reason Start Time Stop Time Status Last Admin Dose Admin Clotrimazole (Mycelex-7) 1 ralph HS VG 04/16/20 21:00 04/23/20 20:59 04/16/20 21:16 I have reviewed the current psychotropics carefully including drug interactions. Risk benefit ratio favors no change other than as noted in my dictated progress note. Diagnosis: Problems: (1) Anxiety disorder (2) Impulse control disorder (3) Obsessive compulsive disorder (4) Personality disorder, unspecified (5) Bipolar disorder, curr episode mixed, severe, with psychotic features EVER BAR MD April 16, 2020 22:21
[2020-04-17 05:52] VITALS: BP 129/74
[2020-04-17 06:42] LABS: BASO % 1 % (0-3); EOS # 0.1 x10^3/uL (0.0-0.7); EOS % 3 % (0-3); HEMOGLOBIN 10.7 g/dL (12.0-15.5); LYMPH # 1.1 x10^3/uL (1.0-4.8); LYMPH % 37 % (24-48); MEAN CORPUSCULAR HEMOGLOBIN 30 pg (25-35); MEAN CORPUSCULAR HGB CONC 33 g/dL (31-37); MEAN CORPUSCULAR VOLUME 93 fL (79-100); MONO # 0.5 x10^3/uL (0.0-1.1); MONO % 16 % (0-9); NEUT # 1.3 x10^3uL (1.8-7.7); NEUT % 43 % (31-73); PLATELET COUNT 364 x10^3/uL (140-400); RED BLOOD COUNT 3.57 x10^6/uL (3.50-5.40); RED CELL DISTRIBUTION WIDTH 14.7 % (11.5-14.5); WHITE BLOOD COUNT 2.9 x10^3/uL (4.0-11.0)
[2020-04-17 06:55] LABS: ALBUMIN 2.4 g/dL (3.4-5.0); ALBUMIN/GLOBULIN RATIO 0.8 (1.0-1.7); CALCIUM 8.7 mg/dL (8.5-10.1); CREATININE 0.6 mg/dL (0.6-1.0); GFR 99.1; POTASSIUM 3.9 mmol/L (3.5-5.1); TOTAL BILIRUBIN 0.2 mg/dL (0.2-1.0); TOTAL PROTEIN 5.6 g/dL (6.4-8.2)
[2020-04-17] MEDS: PSYLLIUM SEED (WITH SUGAR) PACKET. PO SCH (08:46)
[2020-04-17] MEDS: PANTOPRAZOLE 40 MG TABLET. PO SCH (08:55)
[2020-04-17] MEDS: QUEtiapine 50 MG TABLET. PO SCH ×2 (08:55→20:28)
[2020-04-17] MEDS: POTASSIUM CHLORIDE 20 MEQ TABLET.ER. PO SCH ×3 (08:55→17:15)
[2020-04-17] MEDS: METOPROLOL SUCC 24HR ER 25 MG TAB.ER.24H. PO SCH (08:55)
[2020-04-17] MEDS: ZINC SULFATE 220 MG CAPSULE. PO SCH (08:55)
[2020-04-17] MEDS: MAGNESIUM CHLORIDE ER 64 MG TABLET.ER PO SCH (08:55)
[2020-04-17] MEDS: ASCORBIC ACID 500 MG TABLET PO SCH (08:56)
[2020-04-17] MEDS: hydrOXYzine HCL 25 MG TABLET PO PRN (08:56)
[2020-04-17] MEDS: ACETAMINOPHEN 325 MG TABLET PO PRN (12:19)
[2020-04-17] MEDS: oxyCODONE IR 5 MG TABLET PO PRN ×2 (12:25→20:36)
[2020-04-17] MEDS: LORazepam 0.5 MG TABLET PO PRN (15:11)
[2020-04-17 16:20] VITALS: BP 118/74
[2020-04-17] MEDS: traZODone 50 MG TABLET. PO PRN (20:29)
[2020-04-17] MEDS: DOCUSATE SODIUM 100 MG CAPSULE PO SCH (20:29)
[2020-04-17] MEDS: DIVALPROEX ER 500 MG TAB.ER.24H PO SCH (20:29)
[2020-04-17] MEDS: PARoxetine 10 MG TABLET PO SCH (20:29)
[2020-04-17] MEDS: CYPROHEPTADINE 4 MG TABLET. PO SCH (20:30)
[2020-04-17] MEDS: CLOTRIMAZOLE 1% VAGINAL CREAM 45GM TUBE. VG SCH (20:31)
[2020-04-17] MEDS: METHYL SALICYLATE/MENTHOL TOPICAL OINTMENT 57GM TUBE. TP PRN (20:37)
--- NOTE | 2020-04-17 22:14 | PDOC ---
Exam Note: Adan Note: Please also refer to the separate dictated note~for this date of service dictated separately.~Patient seen individually. Discussed the patient with Nursing staff reviewed the chart.~Reviewed interim history and current functioning. Reviewed vital signs,~Labs/ Radiology~and current medications noted below. Continue current treatment with the changes noted in the dictated addendum note Assessment: Vital Signs/I&O: Vital Signs Date Time Temp Pulse Resp B/P (MAP) Pulse Ox O2 Delivery O2 Flow Rate FiO2 04/17/20 21:36 95 04/17/20 16:20 98.1 57 16 118/74 (89) 04/16/20 16:10 Room Air I & O 04/16/20 04/16/20 04/17/20 15:00 23:00 07:00 Intake Total 600 ml 480 ml Balance 600 ml 480 ml Labs: Laboratory Tests Test 04/17/20 06:18 White Blood Count 2.9 x10^3/uL (4.0-11.0) L Red Blood Count 3.57 x10^6/uL (3.50-5.40) Hemoglobin 10.7 g/dL (12.0-15.5) L Hematocrit 33.0 % (36.0-47.0) L Mean Corpuscular Volume 93 fL (79-100) Mean Corpuscular Hemoglobin 30 pg (25-35) Mean Corpuscular Hemoglobin Concent 33 g/dL (31-37) Red Cell Distribution Width 14.7 % (11.5-14.5) H Platelet Count 364 x10^3/uL (140-400) Neutrophils (%) (Auto) 43 % (31-73) Lymphocytes (%) (Auto) 37 % (24-48) Monocytes (%) (Auto) 16 % (0-9) H Eosinophils (%) (Auto) 3 % (0-3) Basophils (%) (Auto) 1 % (0-3) Neutrophils # (Auto) 1.3 x10^3uL (1.8-7.7) L Lymphocytes # (Auto) 1.1 x10^3/uL (1.0-4.8) Monocytes # (Auto) 0.5 x10^3/uL (0.0-1.1) Eosinophils # (Auto) 0.1 x10^3/uL (0.0-0.7) Basophils # (Auto) 0.0 x10^3/uL (0.0-0.2) Sodium Level 136 mmol/L (136-145) Potassium Level 3.9 mmol/L (3.5-5.1) Chloride Level 101 mmol/L (98-107) Carbon Dioxide Level 28 mmol/L (21-32) Anion Gap 7 (6-14) Blood Urea Nitrogen 11 mg/dL (7-20) Creatinine 0.6 mg/dL (0.6-1.0) Estimated GFR (Cockcroft-Gault) 99.1 BUN/Creatinine Ratio 18 (6-20) Glucose Level 92 mg/dL (70-99) Calcium Level 8.7 mg/dL (8.5-10.1) Total Bilirubin 0.2 mg/dL (0.2-1.0) Aspartate Amino Transferase (AST) 13 U/L (15-37) L Alanine Aminotransferase (ALT) 17 U/L (14-59) Alkaline Phosphatase 98 U/L (46-116) Total Protein 5.6 g/dL (6.4-8.2) L Albumin 2.4 g/dL (3.4-5.0) L Albumin/Globulin Ratio 0.8 (1.0-1.7) L Current Medications: I have reviewed the current psychotropics carefully including drug interactions. Risk benefit ratio favors no change other than as noted in my dictated progress note. Diagnosis: Problems: (1) Anxiety disorder (2) Impulse control disorder (3) Obsessive compulsive disorder (4) Personality disorder, unspecified (5) Bipolar disorder, curr episode mixed, severe, with psychotic features EVER BAR MD April 17, 2020 22:14
[2020-04-18] MEDS: ACETAMINOPHEN 325 MG TABLET PO PRN (06:09)
[2020-04-18 06:18] VITALS: BP 146/74
[2020-04-18] MEDS: MAGNESIUM CHLORIDE ER 64 MG TABLET.ER PO SCH (08:44)
[2020-04-18] MEDS: ASCORBIC ACID 500 MG TABLET PO SCH (08:44)
[2020-04-18] MEDS: PANTOPRAZOLE 40 MG TABLET. PO SCH (08:44)
[2020-04-18] MEDS: METOPROLOL SUCC 24HR ER 25 MG TAB.ER.24H. PO SCH (08:44)
[2020-04-18] MEDS: POTASSIUM CHLORIDE 20 MEQ TABLET.ER. PO SCH ×3 (08:44→17:37)
[2020-04-18] MEDS: ZINC SULFATE 220 MG CAPSULE. PO SCH (08:44)
[2020-04-18] MEDS: QUEtiapine 50 MG TABLET. PO SCH ×2 (08:45→20:11)
[2020-04-18] MEDS: PSYLLIUM SEED (WITH SUGAR) PACKET. PO SCH (08:45)
[2020-04-18] MEDS: LORazepam 0.5 MG TABLET PO PRN ×2 (08:48→20:13)
[2020-04-18 15:36] VITALS: BP 133/76
[2020-04-18] MEDS: POLYVINYL ALCOHOL/POVIDONE/PF OPHTH SOLUTION DROPERETTE. OU PRN ×2 (18:16→20:36)
[2020-04-18] MEDS: hydrOXYzine HCL 25 MG TABLET PO PRN (18:16)
[2020-04-18] MEDS: oxyCODONE IR 5 MG TABLET PO PRN (18:16)
[2020-04-18] MEDS: DIVALPROEX ER 500 MG TAB.ER.24H PO SCH (20:12)
[2020-04-18] MEDS: PARoxetine 10 MG TABLET PO SCH (20:12)
[2020-04-18] MEDS: DOCUSATE SODIUM 100 MG CAPSULE PO SCH (20:13)
[2020-04-18] MEDS: traZODone 50 MG TABLET. PO PRN (20:13)
[2020-04-18] MEDS: CLOTRIMAZOLE 1% VAGINAL CREAM 45GM TUBE. VG SCH (20:13)
[2020-04-18] MEDS: CYPROHEPTADINE 4 MG TABLET. PO SCH (20:14)
--- NOTE | 2020-04-18 21:29 | PN ---
DATE: 04/16/2020 PSYCHIATRIC PROGRESS NOTE This late entry 04/16/2020 covers elements not covered in my initial note. SUBJECTIVE: I met with the patient evening of 04/16/2020 on telehealth rounds. The patient slept 7-1/4 hours previous night per JENNIFER Harvey. She has been quite somatic and needy at times. She removed the bandages off her feet, was anxious, having repeated itching and able to recognize that some of the itching may be contributed by the anxiety. Refused her supper. REVIEW OF SYSTEMS: Ambulation impaired, in wheelchair. No CV, , pulmonary, eye system symptoms on review. MENTAL STATUS EXAMINATION: The patient is reasonably oriented. Speech is coherent, has some latency. Abstraction fair, computation impaired, language function intact, attention span short. Mood and affect withdrawn. LABORATORY DATA: Reviewed. Less tearful. No suicidal ideation. IMPRESSION: Bipolar disorder, mixed with psychotic features versus depressed; anxiety disorder, unspecified. Rest unchanged. PLAN: No change from initial note. Valproic acid level is therapeutic. EVER BAR MD DR: TAMMY/ani JOB#: [id number] / [id number]
--- NOTE | 2020-04-18 22:15 | PDOC ---
Exam Note: Adan Note: Please also refer to the separate dictated note~for this date of service dictated separately.~Patient seen individually. Discussed the patient with Nursing staff reviewed the chart.~Reviewed interim history and current functioning. Reviewed vital signs,~Labs/ Radiology~and current medications noted below. Continue current treatment with the changes noted in the dictated addendum note Assessment: Vital Signs/I&O: Vital Signs Date Time Temp Pulse Resp B/P (MAP) Pulse Ox O2 Delivery O2 Flow Rate FiO2 04/18/20 19:16 97 04/18/20 18:46 98.2 04/18/20 18:16 17 Room Air 04/18/20 15:36 75 133/76 (95) I & O 04/17/20 04/17/20 04/18/20 15:00 23:00 07:00 Intake Total 1080 ml 360 ml 120 ml Balance 1080 ml 360 ml 120 ml Current Medications: I have reviewed the current psychotropics carefully including drug interactions. Risk benefit ratio favors no change other than as noted in my dictated progress note. Diagnosis: Problems: (1) Anxiety disorder (2) Impulse control disorder (3) Obsessive compulsive disorder (4) Personality disorder, unspecified (5) Bipolar disorder, curr episode mixed, severe, with psychotic features EVER BAR MD April 18, 2020 22:15
[2020-04-19] MEDS: oxyCODONE IR 5 MG TABLET PO PRN ×2 (00:08→12:43)
--- NOTE | 2020-04-19 05:42 | PN ---
DATE: 04/17/2020 PSYCHIATRIC PROGRESS NOTE This late entry 04/17/2020 covers elements not covered in my initial note. SUBJECTIVE: I met with the patient on the evening of 04/17/2020. The patient slept 6-1/4 hours previous night, remains somewhat withdrawn, medication seeking for pain meds. REVIEW OF SYSTEMS: Positive for discomfort in lower extremities. She is having wound care address this. Impaired ambulation, in wheelchair. No CV, , pulmonary, eye system symptoms on review. MENTAL STATUS EXAMINATION: Oriented to herself and situation. Speech has some latency, coherent, low in volume. Abstraction fair, computation impaired, language function intact, attention span short. Mood and affect withdrawn. LABORATORY DATA: Reviewed. Impression, bipolar disorder, depressed with psychotic features; anxiety disorder, unspecified; history of major depressive disorder. I had returned a call from the patient's son in the evening of 04/16/2020 and had a lengthy conversation with him, updating him on the patient's progress, medications. Son states the patient has been giving away her money to [employer] over the telephone and wanted for family to have power of securities attorney for finances, especially since she will be transitioning to an independent living from here. I did address this at length with the patient in the evening of 04/17/2020. She is agreeable to it. No active suicidal or homicidal ideation. Mood and affect remains withdrawn. IMPRESSION: Unchanged from initial note. PLAN: No change from initial note. EVER BAR MD DR: TAMMY/ani JOB#: [id number] / [id number]
[2020-04-19 06:44] VITALS: BP 118/71
[2020-04-19 06:56] LABS: ALBUMIN 2.6 g/dL (3.4-5.0); ALBUMIN/GLOBULIN RATIO 0.8 (1.0-1.7); CALCIUM 8.5 mg/dL (8.5-10.1); CREATININE 0.6 mg/dL (0.6-1.0); GFR 99.1; POTASSIUM 4.2 mmol/L (3.5-5.1); TOTAL BILIRUBIN 0.2 mg/dL (0.2-1.0); TOTAL PROTEIN 5.7 g/dL (6.4-8.2)
[2020-04-19 06:57] LABS: BASO % 1 % (0-3); EOS # 0.1 x10^3/uL (0.0-0.7); EOS % 3 % (0-3); HEMATOCRIT 33.1 % (36.0-47.0); HEMOGLOBIN 10.9 g/dL (12.0-15.5); LYMPH # 1.3 x10^3/uL (1.0-4.8); LYMPH % 38 % (24-48); MEAN CORPUSCULAR HEMOGLOBIN 30 pg (25-35); MEAN CORPUSCULAR HGB CONC 33 g/dL (31-37); MEAN CORPUSCULAR VOLUME 92 fL (79-100); MONO # 0.5 x10^3/uL (0.0-1.1); MONO % 15 % (0-9); NEUT # 1.5 x10^3uL (1.8-7.7); NEUT % 43 % (31-73); PLATELET COUNT 366 x10^3/uL (140-400); RED BLOOD COUNT 3.61 x10^6/uL (3.50-5.40); RED CELL DISTRIBUTION WIDTH 14.9 % (11.5-14.5); WHITE BLOOD COUNT 3.5 x10^3/uL (4.0-11.0)
[2020-04-19] MEDS: MAGNESIUM CHLORIDE ER 64 MG TABLET.ER PO SCH (08:55)
[2020-04-19] MEDS: ASCORBIC ACID 500 MG TABLET PO SCH (08:55)
[2020-04-19] MEDS: QUEtiapine 50 MG TABLET. PO SCH ×2 (08:55→20:53)
[2020-04-19] MEDS: PSYLLIUM SEED (WITH SUGAR) PACKET. PO SCH (08:55)
[2020-04-19] MEDS: PANTOPRAZOLE 40 MG TABLET. PO SCH (08:56)
[2020-04-19] MEDS: POTASSIUM CHLORIDE 20 MEQ TABLET.ER. PO SCH ×3 (08:56→17:15)
[2020-04-19] MEDS: ZINC SULFATE 220 MG CAPSULE. PO SCH (08:56)
[2020-04-19] MEDS: METOPROLOL SUCC 24HR ER 25 MG TAB.ER.24H. PO SCH (08:56)
[2020-04-19] MEDS: hydrOXYzine HCL 25 MG TABLET PO PRN ×2 (09:07→17:18)
[2020-04-19] MEDS: POLYVINYL ALCOHOL/POVIDONE/PF OPHTH SOLUTION DROPERETTE. OU PRN ×2 (09:07→20:53)
--- NOTE | 2020-04-19 09:25 | PDOC ---
Exam Note: Adan Note: This note is a late entry for 04/18/2020 covers elements not covered in my initial note. SUBJECTIVE: The patient was seen on Telehealth services in the evening of 04/18/2020. Nursing report was with Kinga RODRIGUEZ. Discussed the patient with nursing staff reviewed the chart. She slept 6-1/2 hours previous night. She gets anxious at times. She received Ativan p.r.n. at 8.45 a.m. Physical therapy staff has permitted her to ambulate with a walker. REVIEW OF SYSTEMS: Ambulation impaired. No CV, GI/, Pulmonary, Eye system symptoms on review. MENTAL STATUS EXAM: Oriented to herself and situation. Speech coherent, has some latency. Abstraction is fair. Computation is impaired. Language function is intact. Mood and affect withdrawn. LABORATORY DATA: Reviewed. IMPRESSION: Bipolar disorder depressed with psychotic features. Major depressive disorder. Rest unchanged. PLAN: No change from initial note. Assessment: Vital Signs/I&O: Vital Signs Date Time Temp Pulse Resp B/P (MAP) Pulse Ox O2 Delivery O2 Flow Rate FiO2 04/19/20 08:56 69 118/71 04/19/20 08:00 98.3 96 04/19/20 06:44 18 04/18/20 18:16 Room Air I & O 04/18/20 04/18/20 04/19/20 15:00 23:00 07:00 Intake Total 960 ml 360 ml Balance 960 ml 360 ml Labs: Laboratory Tests Test 04/19/20 06:23 White Blood Count 3.5 x10^3/uL (4.0-11.0) L Red Blood Count 3.61 x10^6/uL (3.50-5.40) Hemoglobin 10.9 g/dL (12.0-15.5) L Hematocrit 33.1 % (36.0-47.0) L Mean Corpuscular Volume 92 fL (79-100) Mean Corpuscular Hemoglobin 30 pg (25-35) Mean Corpuscular Hemoglobin Concent 33 g/dL (31-37) Red Cell Distribution Width 14.9 % (11.5-14.5) H Platelet Count 366 x10^3/uL (140-400) Neutrophils (%) (Auto) 43 % (31-73) Lymphocytes (%) (Auto) 38 % (24-48) Monocytes (%) (Auto) 15 % (0-9) H Eosinophils (%) (Auto) 3 % (0-3) Basophils (%) (Auto) 1 % (0-3) Neutrophils # (Auto) 1.5 x10^3uL (1.8-7.7) L Lymphocytes # (Auto) 1.3 x10^3/uL (1.0-4.8) Monocytes # (Auto) 0.5 x10^3/uL (0.0-1.1) Eosinophils # (Auto) 0.1 x10^3/uL (0.0-0.7) Basophils # (Auto) 0.0 x10^3/uL (0.0-0.2) Sodium Level 136 mmol/L (136-145) Potassium Level 4.2 mmol/L (3.5-5.1) Chloride Level 100 mmol/L (98-107) Carbon Dioxide Level 28 mmol/L (21-32) Anion Gap 8 (6-14) Blood Urea Nitrogen 15 mg/dL (7-20) Creatinine 0.6 mg/dL (0.6-1.0) Estimated GFR (Cockcroft-Gault) 99.1 BUN/Creatinine Ratio 25 (6-20) H Glucose Level 89 mg/dL (70-99) Calcium Level 8.5 mg/dL (8.5-10.1) Total Bilirubin 0.2 mg/dL (0.2-1.0) Aspartate Amino Transferase (AST) 17 U/L (15-37) Alanine Aminotransferase (ALT) 18 U/L (14-59) Alkaline Phosphatase 102 U/L (46-116) Total Protein 5.7 g/dL (6.4-8.2) L Albumin 2.6 g/dL (3.4-5.0) L Albumin/Globulin Ratio 0.8 (1.0-1.7) L Current Medications: I have reviewed the current psychotropics carefully including drug interactions. Risk benefit ratio favors no change other than as noted in my dictated progress note. Diagnosis: Problems: (1) Anxiety disorder (2) Impulse control disorder (3) Obsessive compulsive disorder (4) Personality disorder, unspecified (5) Bipolar disorder, curr episode mixed, severe, with psychotic features EVER BAR MD April 19, 2020 09:25
[2020-04-19] MEDS: LORazepam 0.5 MG TABLET PO PRN ×2 (12:48→20:56)
[2020-04-19 16:01] VITALS: BP 120/75
[2020-04-19] MEDS: ACETAMINOPHEN 325 MG TABLET PO PRN (17:18)
[2020-04-19] MEDS: DIVALPROEX ER 500 MG TAB.ER.24H PO SCH (20:52)
[2020-04-19] MEDS: CYPROHEPTADINE 4 MG TABLET. PO SCH (20:52)
[2020-04-19] MEDS: DOCUSATE SODIUM 100 MG CAPSULE PO SCH (20:53)
[2020-04-19] MEDS: CLOTRIMAZOLE 1% VAGINAL CREAM 45GM TUBE. VG SCH (20:53)
[2020-04-19] MEDS: PARoxetine 10 MG TABLET PO SCH (20:53)
[2020-04-19] MEDS: traZODone 50 MG TABLET. PO PRN (20:56)
--- NOTE | 2020-04-19 22:07 | PDOC ---
Exam Note: Adan Note: Please also refer to the separate dictated note~for this date of service dictated separately.~Patient seen individually. Discussed the patient with Nursing staff reviewed the chart.~Reviewed interim history and current functioning. Reviewed vital signs,~Labs/ Radiology~and current medications noted below. Continue current treatment with the changes noted in the dictated addendum note Assessment: Vital Signs/I&O: Vital Signs Date Time Temp Pulse Resp B/P (MAP) Pulse Ox O2 Delivery O2 Flow Rate FiO2 04/19/20 20:39 97.7 93 04/19/20 16:01 82 18 120/75 (90) 04/19/20 14:30 Room Air I & O 04/18/20 04/18/20 04/19/20 15:00 23:00 07:00 Intake Total 960 ml 360 ml Balance 960 ml 360 ml Labs: Laboratory Tests Test 04/19/20 06:23 White Blood Count 3.5 x10^3/uL (4.0-11.0) L Red Blood Count 3.61 x10^6/uL (3.50-5.40) Hemoglobin 10.9 g/dL (12.0-15.5) L Hematocrit 33.1 % (36.0-47.0) L Mean Corpuscular Volume 92 fL (79-100) Mean Corpuscular Hemoglobin 30 pg (25-35) Mean Corpuscular Hemoglobin Concent 33 g/dL (31-37) Red Cell Distribution Width 14.9 % (11.5-14.5) H Platelet Count 366 x10^3/uL (140-400) Neutrophils (%) (Auto) 43 % (31-73) Lymphocytes (%) (Auto) 38 % (24-48) Monocytes (%) (Auto) 15 % (0-9) H Eosinophils (%) (Auto) 3 % (0-3) Basophils (%) (Auto) 1 % (0-3) Neutrophils # (Auto) 1.5 x10^3uL (1.8-7.7) L Lymphocytes # (Auto) 1.3 x10^3/uL (1.0-4.8) Monocytes # (Auto) 0.5 x10^3/uL (0.0-1.1) Eosinophils # (Auto) 0.1 x10^3/uL (0.0-0.7) Basophils # (Auto) 0.0 x10^3/uL (0.0-0.2) Sodium Level 136 mmol/L (136-145) Potassium Level 4.2 mmol/L (3.5-5.1) Chloride Level 100 mmol/L (98-107) Carbon Dioxide Level 28 mmol/L (21-32) Anion Gap 8 (6-14) Blood Urea Nitrogen 15 mg/dL (7-20) Creatinine 0.6 mg/dL (0.6-1.0) Estimated GFR (Cockcroft-Gault) 99.1 BUN/Creatinine Ratio 25 (6-20) H Glucose Level 89 mg/dL (70-99) Calcium Level 8.5 mg/dL (8.5-10.1) Total Bilirubin 0.2 mg/dL (0.2-1.0) Aspartate Amino Transferase (AST) 17 U/L (15-37) Alanine Aminotransferase (ALT) 18 U/L (14-59) Alkaline Phosphatase 102 U/L (46-116) Total Protein 5.7 g/dL (6.4-8.2) L Albumin 2.6 g/dL (3.4-5.0) L Albumin/Globulin Ratio 0.8 (1.0-1.7) L Current Medications: I have reviewed the current psychotropics carefully including drug interactions. Risk benefit ratio favors no change other than as noted in my dictated progress note. Diagnosis: Problems: (1) Anxiety disorder (2) Impulse control disorder (3) Obsessive compulsive disorder (4) Personality disorder, unspecified (5) Bipolar disorder, curr episode mixed, severe, with psychotic features EVER BAR MD April 19, 2020 22:07
--- NOTE | 2020-04-19 22:58 | PN ---
DATE: 04/19/2020 PSYCHIATRIC PROGRESS NOTE This note covers elements not covered in my initial note 04/19/2020. SUBJECTIVE: I met with the patient in the evening of 04/19/2020 in her room. Per JENNIFER Medrano, the patient slept 7 hours previous night. She has been ambulating with a walker, somewhat more interactive, medication seeking at times, anxious, received trazodone and Ativan, Roxicodone around 8:00 p.m. previous night, Atarax around 8:00 a.m. for anxiety. Ativan and Periactin in the evening. REVIEW OF SYSTEMS: Ambulation impaired with walker. No CV, , pulmonary, eye system symptoms on review. MENTAL STATUS EXAM: Reasonably oriented. Speech is coherent, abstraction fair, computation impaired, language function intact. Mood and affect withdrawn. Memory is reasonable. I received a message from [facility] social service staff about disposition plans. Dr. Segovia has not been able to come up to do the psychological testing for capacity to make decisions for finances as of now, but the patient is agreeable to having her son help up with the finances in the short term. I have let [facility] know that if the testing cannot be completed, it could be done outpatient, but since the patient is agreeable to getting assistance for managing her finances we can go ahead and do that anyway. Speech has some latency, coherent. Abstraction fair, computation impaired, language function intact. Mood and affect withdrawn, less so than before. LABORATORY DATA: Reviewed. IMPRESSION: Bipolar disorder, mixed versus depressed with psychotic features in partial remission. Rest unchanged from initial note. PLAN: No change from initial note other than what is noted above. MAN Mindi BAR MD DR: TAMMY/ani JOB#: [id number] / [id number]
[2020-04-20] MEDS: ACETAMINOPHEN 325 MG TABLET PO PRN ×2 (00:27→09:07)
[2020-04-20] MEDS: LORazepam 0.5 MG TABLET PO PRN ×2 (00:27→21:11)
[2020-04-20 06:16] VITALS: BP 121/75
[2020-04-20] MEDS: ASCORBIC ACID 500 MG TABLET PO SCH (09:01)
[2020-04-20] MEDS: PSYLLIUM SEED (WITH SUGAR) PACKET. PO SCH (09:01)
[2020-04-20] MEDS: PANTOPRAZOLE 40 MG TABLET. PO SCH (09:01)
[2020-04-20] MEDS: ZINC SULFATE 220 MG CAPSULE. PO SCH (09:01)
[2020-04-20] MEDS: METOPROLOL SUCC 24HR ER 50 MG TAB.ER.24H. PO SCH (09:01)
[2020-04-20] MEDS: QUEtiapine 50 MG TABLET. PO SCH ×2 (09:01→21:07)
[2020-04-20] MEDS: POTASSIUM CHLORIDE 20 MEQ TABLET.ER. PO SCH ×3 (09:02→17:09)
[2020-04-20] MEDS: MAGNESIUM CHLORIDE ER 64 MG TABLET.ER PO SCH (09:02)
[2020-04-20] MEDS: hydrOXYzine HCL 25 MG TABLET PO PRN ×2 (09:06→21:11)
[2020-04-20] MEDS: oxyCODONE IR 5 MG TABLET PO PRN ×2 (10:26→17:14)
--- NOTE | 2020-04-20 12:05 | TX PLAN ---
Interdisciplinary Tx Plan Admission Information April 03, 2020 at 16:30 Legal Status (on Admission): Voluntary DPOA/Guardian Name: Carmel Horowitz (dtr) or Estuardo Morley (son) Contact OR Verified Code Status: Full Code Allergies: Coded Allergies: ciprofloxacin (Verified Allergy, Unknown, Unknown, 04/03/20) ibuprofen (Verified Allergy, Unknown, Unknown, 04/03/20) tramadol (Verified Allergy, Unknown, Unknown, 04/03/20) Iodinated Contrast Media (Verified Adverse Reaction, Unknown, 04/06/20) Diagnoses Primary Diagnosis: Bipolar D/O mixed with psychotic episode Reasons for Admission: Confusion/Disoriented, Poor impulse control, Other Problem in Patient's Words: Pt has not been well over the last few years. "We joke, which isn't really funny but the crankier she gets the more normal she appears". Additional Admission Comments: According to the intake, pt was hitting her head on her driveway "so the covoid can drain and she could burn easier". Problems Active Problems: Somatic Poor pain control Incontinence Inactive Problems: Medication compliance Pt Strengths/Limitations Ability for [place]: Poor Cognitive Functioning/Ability: Fair Communication Skills/Ability: Fair Financial Resources: Good Insight/Judgement: Poor Intellectual Ability: Fair Physical Health: Fair Social Skills: Poor Stability in Family: Good Stability in School/Work: Poor Verbal Skills: Fair Discharge Criteria Discharge Criteria: Able meet basic life need, Adequate arrangements @DC, Verbal commit aftercare, Improved behavior, Improved mood/thought Preliminary Discharge Plan Preliminary DC Plan: Placement Needed, Other Special Precautions Fall Risk: Moderate Initial D/C Plan Unsure if pt will return home vs placement. Identified Discharge Needs: Potential for placement in an [facility] with a locked unit. Psychiatry set up. PCP follow up Currently Utilized Resources Currently Utilized Resources/P: Primary Care Physician Identified Problems/Hx/Goals Objectives/Short-Term Goals Short Term Goals: Control abnormal behavior, Dec. Outbursts, Medication Stabilization, Monitor Med Effects, Promote Coping Skill Short Term Goals in Patient's: Medication management Placement recommendation Interventions/Frequency Staff Interventions/Frequency&: Psychiatrist to see pt at least 3x per week. Social Work to see pt at least 2x per week. Nursing to assess and complete 15 minute checks daily. 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 Education: Pt has a BS in Education Community Follow-up Pt to have appointments with a primary care physician and mental health services at discharge. Treatment Plan Explained Patient/Tire Molder had this treatment plan explained to him/her as indicated by the signature below and has been given the opportunity to ask questions and make suggestions: Date: Patient/Tire Molder Signature: Status Update Update Pt is eating 75% of meals and sleeping on average 6.5 hours per night. Pt is attention-seeking when it comes to her pain and anxiety medications and appears to be helpless. Pt was told by PT to use a RW as she is able to walk and no longer needs the wheelchair. PT will continue to work on pt balance and strength training and will continue to encourage pt to use the walker and get out of the w/c. Pt did discuss giving her children DPOA for financials and agreeing to have them look after her best interests. Pt family has looked at having her return to [facility], in which pt lived there prior to buying a duplex. SW will work with all parties and look at discharge next 04/27. MAGDA GUY April 20, 2020 12:05
[2020-04-20 15:50] VITALS: BP 141/68
[2020-04-20] MEDS: CLOTRIMAZOLE 1% VAGINAL CREAM 45GM TUBE. VG SCH (21:00)
[2020-04-20] MEDS: DOCUSATE SODIUM 100 MG CAPSULE PO SCH (21:08)
[2020-04-20] MEDS: DIVALPROEX ER 500 MG TAB.ER.24H PO SCH (21:08)
[2020-04-20] MEDS: PARoxetine 10 MG TABLET PO SCH (21:09)
[2020-04-20] MEDS: POLYVINYL ALCOHOL/POVIDONE/PF OPHTH SOLUTION DROPERETTE. OU PRN (21:11)
[2020-04-20] MEDS: CYPROHEPTADINE 4 MG TABLET. PO SCH (21:11)
[2020-04-20] MEDS: traZODone 50 MG TABLET. PO PRN (21:11)
--- NOTE | 2020-04-20 22:05 | PDOC ---
Exam Note: Adan Note: Please also refer to the separate dictated note~for this date of service dictated separately.~Patient seen individually. Discussed the patient with Nursing staff reviewed the chart.~Reviewed interim history and current functioning. Reviewed vital signs,~Labs/ Radiology~and current medications noted below. Continue current treatment with the changes noted in the dictated addendum note Assessment: Vital Signs/I&O: Vital Signs Date Time Temp Pulse Resp B/P (MAP) Pulse Ox O2 Delivery O2 Flow Rate FiO2 04/20/20 20:24 98.2 98 04/20/20 15:50 75 18 141/68 (92) 04/20/20 10:26 Room Air I & O 04/19/20 04/19/20 04/20/20 15:00 23:00 07:00 Intake Total 480 ml 240 ml Balance 480 ml 240 ml Current Medications: Meds: Current Medications Medications (Trade) Dose Ordered Sig/Valerio Route PRN Reason Start Time Stop Time Status Last Admin Dose Admin Metoprolol Succinate (Toprol Xl) 50 mg DAILY PO 04/20/20 09:00 04/20/20 09:01 I have reviewed the current psychotropics carefully including drug interactions. Risk benefit ratio favors no change other than as noted in my dictated progress note. Diagnosis: Problems: (1) Anxiety disorder (2) Impulse control disorder (3) Obsessive compulsive disorder (4) Personality disorder, unspecified (5) Bipolar disorder, curr episode mixed, severe, with psychotic features EVER BAR MD April 20, 2020 22:05
--- NOTE | 2020-04-20 22:08 | PN ---
DATE: 04/20/2020 PSYCHIATRIC PROGRESS NOTE This note covers elements not covered in my initial note 04/20/2020. SUBJECTIVE: I met with the patient evening of 04/20/2020 on telehealth rounds. Per JENNIFER Gonsalez, the patient slept 7-1/2 hours previous night. He has been started on Levaquin for UTI, had a good night and good day during the day today. REVIEW OF SYSTEMS: Ambulation impaired, in wheelchair. No CV, , pulmonary, eye system symptoms on review. MENTAL STATUS EXAM: Oriented to himself and situation. Speech has some latency, coherent. Abstraction fair, computation impaired, language function intact. Mood and affect, lability is improved. LABORATORY DATA: Reviewed. IMPRESSION: Unchanged from initial note. PLAN: No change from initial note. MAN Mindi BAR MD DR: TAMMY/ani JOB#: [id number] / [id number]
--- NOTE | 2020-04-20 22:10 | PN ---
DATE: 04/20/2020 PSYCHIATRIC PROGRESS NOTE. This note covers the elements not covered in my initial note of 04/20/2020. SUBJECTIVE: The patient was staffed at a treatment team meeting with the entire team in the morning with JENNIFER Harvey; social service staff, Gerald, activity therapy. The patient's average sleep 6-1/2 hours. Appetite 75%, remains somewhat medication seeking for pain medications, at times referring to use the wheelchair, but being transitioned to the walker. She was participating in [employer] [employer] with activity therapy staff, is strengthening and balancing. Per JENNIFER Duran in the evening, it is noted that the patient slept 7-1/2 hours previous night, somewhat anxious, needy. She was lying in bed, reading a book as I came to visit with her. REVIEW OF SYSTEMS: Ambulation impaired. No CV, , pulmonary, eye system symptoms on review. MENTAL STATUS EXAM: Reasonably oriented. Speech is coherent, has some latency. Abstraction fair, computation impaired, language function intact. Mood and affect withdrawn. LABORATORY DATA: Reviewed. IMPRESSION: Unchanged from initial note. PLAN: No change from initial note. MAN Mindi BAR MD DR: TAMMY/ani JOB#: [id number] / [id number]
[2020-04-21 06:25] VITALS: BP 134/66
[2020-04-21] MEDS: hydrOXYzine HCL 25 MG TABLET PO PRN ×2 (08:29→16:18)
[2020-04-21] MEDS: oxyCODONE IR 5 MG TABLET PO PRN (08:29)
[2020-04-21] MEDS: QUEtiapine 50 MG TABLET. PO SCH ×2 (08:30→19:33)
[2020-04-21] MEDS: POTASSIUM CHLORIDE 20 MEQ TABLET.ER. PO SCH ×3 (08:30→16:22)
[2020-04-21] MEDS: MAGNESIUM CHLORIDE ER 64 MG TABLET.ER PO SCH (08:30)
[2020-04-21] MEDS: METOPROLOL SUCC 24HR ER 50 MG TAB.ER.24H. PO SCH (08:30)
[2020-04-21] MEDS: PANTOPRAZOLE 40 MG TABLET. PO SCH (08:30)
[2020-04-21] MEDS: ASCORBIC ACID 500 MG TABLET PO SCH (08:30)
[2020-04-21] MEDS: ZINC SULFATE 220 MG CAPSULE. PO SCH (08:30)
[2020-04-21] MEDS: PSYLLIUM SEED (WITH SUGAR) PACKET. PO SCH (08:30)
[2020-04-21] MEDS: POLYVINYL ALCOHOL/POVIDONE/PF OPHTH SOLUTION DROPERETTE. OU PRN (08:31)
[2020-04-21] MEDS: LORazepam 0.5 MG TABLET PO PRN ×2 (12:38→19:37)
[2020-04-21 16:18] LABS: HEMATOCRIT 33.4 % (36.0-47.0); RED BLOOD COUNT 3.62 x10^6/uL (3.50-5.40); RED CELL DISTRIBUTION WIDTH 15.2 % (11.5-14.5); WHITE BLOOD COUNT 3.8 x10^3/uL (4.0-11.0)
[2020-04-21 16:32] LABS: CALCIUM 8.6 mg/dL (8.5-10.1); CREATININE 0.7 mg/dL (0.6-1.0); POTASSIUM 4.1 mmol/L (3.5-5.1)
[2020-04-21 16:35] VITALS: BP 150/87
[2020-04-21] MEDS: PARoxetine 10 MG TABLET PO SCH (19:32)
[2020-04-21] MEDS: DOCUSATE SODIUM 100 MG CAPSULE PO SCH (19:32)
[2020-04-21] MEDS: DIVALPROEX ER 500 MG TAB.ER.24H PO SCH (19:32)
[2020-04-21] MEDS: CLOTRIMAZOLE 1% VAGINAL CREAM 45GM TUBE. VG SCH (19:33)
[2020-04-21] MEDS: CYPROHEPTADINE 4 MG TABLET. PO SCH (19:33)
--- NOTE | 2020-04-21 21:58 | PDOC ---
Exam Note: Adan Note: Please also refer to the separate dictated note~for this date of service dictated separately.~Patient seen individually. Discussed the patient with Nursing staff reviewed the chart.~Reviewed interim history and current functioning. Reviewed vital signs,~Labs/ Radiology~and current medications noted below. Continue current treatment with the changes noted in the dictated addendum note Assessment: Vital Signs/I&O: Vital Signs Date Time Temp Pulse Resp B/P (MAP) Pulse Ox O2 Delivery O2 Flow Rate FiO2 04/21/20 21:19 98.3 95 04/21/20 16:35 95 18 150/87 (108) 04/21/20 06:25 Room Air I & O 04/20/20 04/20/20 04/21/20 15:00 23:00 07:00 Intake Total 720 ml 240 ml Balance 720 ml 240 ml Labs: Laboratory Tests Test 04/21/20 15:33 White Blood Count 3.8 x10^3/uL (4.0-11.0) L Red Blood Count 3.62 x10^6/uL (3.50-5.40) Hemoglobin 11.0 g/dL (12.0-15.5) L Hematocrit 33.4 % (36.0-47.0) L Mean Corpuscular Volume 92 fL (79-100) Mean Corpuscular Hemoglobin 31 pg (25-35) Mean Corpuscular Hemoglobin Concent 33 g/dL (31-37) Red Cell Distribution Width 15.2 % (11.5-14.5) H Platelet Count 330 x10^3/uL (140-400) Sodium Level 137 mmol/L (136-145) Potassium Level 4.1 mmol/L (3.5-5.1) Chloride Level 100 mmol/L (98-107) Carbon Dioxide Level 29 mmol/L (21-32) Anion Gap 8 (6-14) Blood Urea Nitrogen 17 mg/dL (7-20) Creatinine 0.7 mg/dL (0.6-1.0) Estimated GFR (Cockcroft-Gault) 83.0 Glucose Level 113 mg/dL (70-99) H Calcium Level 8.6 mg/dL (8.5-10.1) Current Medications: I have reviewed the current psychotropics carefully including drug interactions. Risk benefit ratio favors no change other than as noted in my dictated progress note. Diagnosis: Problems: (1) Anxiety disorder (2) Impulse control disorder (3) Obsessive compulsive disorder (4) Personality disorder, unspecified (5) Bipolar disorder, curr episode mixed, severe, with psychotic features EVER BAR MD April 21, 2020 21:58
[2020-04-22 06:05] VITALS: BP 151/75
[2020-04-22] MEDS: POTASSIUM CHLORIDE 20 MEQ TABLET.ER. PO SCH ×3 (08:18→17:13)
[2020-04-22] MEDS: MAGNESIUM CHLORIDE ER 64 MG TABLET.ER PO SCH (08:18)
[2020-04-22] MEDS: PANTOPRAZOLE 40 MG TABLET. PO SCH (08:18)
[2020-04-22] MEDS: METOPROLOL SUCC 24HR ER 50 MG TAB.ER.24H. PO SCH (08:19)
[2020-04-22] MEDS: ASCORBIC ACID 500 MG TABLET PO SCH (08:19)
[2020-04-22] MEDS: ZINC SULFATE 220 MG CAPSULE. PO SCH (08:19)
[2020-04-22] MEDS: QUEtiapine 50 MG TABLET. PO SCH ×2 (08:19→19:59)
[2020-04-22] MEDS: POLYVINYL ALCOHOL/POVIDONE/PF OPHTH SOLUTION DROPERETTE. OU PRN ×2 (08:22→20:02)
[2020-04-22] MEDS: hydrOXYzine HCL 25 MG TABLET PO PRN ×2 (08:22→17:12)
[2020-04-22] MEDS: PSYLLIUM SEED (WITH SUGAR) PACKET. PO SCH (09:00)
[2020-04-22] MEDS: ACETAMINOPHEN 325 MG TABLET PO PRN (12:23)
[2020-04-22 16:12] VITALS: BP 153/86
[2020-04-22] MEDS: oxyCODONE IR 5 MG TABLET PO PRN (17:15)
[2020-04-22] MEDS: PARoxetine 10 MG TABLET PO SCH (19:58)
[2020-04-22] MEDS: DOCUSATE SODIUM 100 MG CAPSULE PO SCH (19:59)
[2020-04-22] MEDS: CYPROHEPTADINE 4 MG TABLET. PO SCH (19:59)
[2020-04-22] MEDS: DIVALPROEX ER 500 MG TAB.ER.24H PO SCH (19:59)
[2020-04-22] MEDS: CLOTRIMAZOLE 1% VAGINAL CREAM 45GM TUBE. VG SCH (19:59)
[2020-04-22] MEDS: LORazepam 0.5 MG TABLET PO PRN (20:02)
--- NOTE | 2020-04-22 22:27 | PDOC ---
Exam Note: Adan Note: Please also refer to the separate dictated note~for this date of service dictated separately.~Patient seen individually. Discussed the patient with Nursing staff reviewed the chart.~Reviewed interim history and current functioning. Reviewed vital signs,~Labs/ Radiology~and current medications noted below. Continue current treatment with the changes noted in the dictated addendum note Assessment: Vital Signs/I&O: Vital Signs Date Time Temp Pulse Resp B/P (MAP) Pulse Ox O2 Delivery O2 Flow Rate FiO2 04/22/20 20:57 98.1 94 04/22/20 18:15 20 04/22/20 16:12 75 153/86 (108) Room Air I & O 04/21/20 04/21/20 04/22/20 15:00 23:00 07:00 Intake Total 400 ml 240 ml Balance 400 ml 240 ml Current Medications: I have reviewed the current psychotropics carefully including drug interactions. Risk benefit ratio favors no change other than as noted in my dictated progress note. Diagnosis: Problems: (1) Anxiety disorder (2) Impulse control disorder (3) Obsessive compulsive disorder (4) Personality disorder, unspecified (5) Bipolar disorder, curr episode mixed, severe, with psychotic features EVER BAR MD April 22, 2020 22:27
[2020-04-23 06:42] VITALS: BP 143/70
--- NOTE | 2020-04-23 07:55 | PDOC ---
Exam Note: Adan Note: This note is a late entry for 04/21/2020 covers elements not covered in my initial note. Subjective: The patient was seen face to face in the evening of 04/21/2020. Nursing report was with Lesly RODRIGUEZ. Discussed the patient with nursing staff reviewed the chart. She slept 5-1/2 hours previous night. She is somewhat medication seeking, appears helpless, depressed and anxious. She was pleased that the nursing staff had changed her dressing of lower extremity even though continued to be painful, but was better. Review of Systems: Positive for discomfort in lower extremity. Ambulation impaired with walker. No CV, GI/, Pulmonary, Eye system symptoms on review. Mental Status Exam: Oriented to herself. Speech coherent. She was lying in bed, reading book and seemed to follow along. Abstraction is fair. Computation is impaired. Language function is intact. Mood and affect somewhat withdrawn. Laboratory Data: Reviewed. Impression: Unchanged from prior note. Plan: No change from initial note. Assessment: Vital Signs/I&O: Vital Signs Date Time Temp Pulse Resp B/P (MAP) Pulse Ox O2 Delivery O2 Flow Rate FiO2 04/23/20 06:42 98.5 69 14 143/70 (94) 96 04/22/20 16:12 Room Air I & O 04/22/20 04/22/20 04/23/20 15:00 23:00 07:00 Intake Total 600 ml 480 ml Balance 600 ml 480 ml Current Medications: I have reviewed the current psychotropics carefully including drug interactions. Risk benefit ratio favors no change other than as noted in my dictated progress note. Diagnosis: Problems: (1) Anxiety disorder (2) Impulse control disorder (3) Obsessive compulsive disorder (4) Personality disorder, unspecified (5) Bipolar disorder, curr episode mixed, severe, with psychotic features EVER BAR MD April 23, 2020 07:55
--- NOTE | 2020-04-23 07:57 | PDOC ---
Exam Note: Adan Note: This note is a late entry for 04/22/2020 covers elements not covered in my initial note. Subjective: The patient was seen face to face in the evening of 04/22/2020. Nursing report was with Candice RODRIGUEZ. Discussed the patient with nursing staff reviewed the chart. She slept 8 hours previous night, somewhat medication seeking, anxious, restless. She complains of itching. Received Atarax. Refuses a lotion, feels the Atarax is more helpful. I met with her in her room. She was lying in bed again reading a book. Does complain of some lower extremity pain and discomfort. Review of Systems: Ambulation impaired with walker. No CV, GI/, Pulmonary, Eye system symptoms on review. Some discomfort in lower extremity. Mental Status Exam: Oriented to herself. Speech coherent. Abstraction is fair. Computation is impaired. Language function is intact. Mood and affect somewhat withdrawn. Laboratory Data: Reviewed. Impression: Unchanged from prior note. Plan: No change from initial note. Assessment: Vital Signs/I&O: Vital Signs Date Time Temp Pulse Resp B/P (MAP) Pulse Ox O2 Delivery O2 Flow Rate FiO2 04/23/20 06:42 98.5 69 14 143/70 (94) 96 04/22/20 16:12 Room Air I & O 04/22/20 04/22/20 04/23/20 15:00 23:00 07:00 Intake Total 600 ml 480 ml Balance 600 ml 480 ml Current Medications: I have reviewed the current psychotropics carefully including drug interactions. Risk benefit ratio favors no change other than as noted in my dictated progress note. Diagnosis: Problems: (1) Anxiety disorder (2) Impulse control disorder (3) Obsessive compulsive disorder (4) Personality disorder, unspecified (5) Bipolar disorder, curr episode mixed, severe, with psychotic features EVER BAR MD April 23, 2020 07:57
[2020-04-23] MEDS: MAGNESIUM CHLORIDE ER 64 MG TABLET.ER PO SCH (08:03)
[2020-04-23] MEDS: PANTOPRAZOLE 40 MG TABLET. PO SCH (08:03)
[2020-04-23] MEDS: POTASSIUM CHLORIDE 20 MEQ TABLET.ER. PO SCH ×3 (08:03→17:14)
[2020-04-23] MEDS: ZINC SULFATE 220 MG CAPSULE. PO SCH (08:04)
[2020-04-23] MEDS: QUEtiapine 50 MG TABLET. PO SCH ×2 (08:04→19:58)
[2020-04-23] MEDS: METOPROLOL SUCC 24HR ER 50 MG TAB.ER.24H. PO SCH (08:04)
[2020-04-23] MEDS: ASCORBIC ACID 500 MG TABLET PO SCH (08:04)
[2020-04-23] MEDS: PSYLLIUM SEED (WITH SUGAR) PACKET. PO SCH (08:04)
[2020-04-23] MEDS: ACETAMINOPHEN 325 MG TABLET PO PRN ×2 (08:05→17:40)
[2020-04-23] MEDS: hydrOXYzine HCL 25 MG TABLET PO PRN ×2 (08:05→17:14)
[2020-04-23] MEDS: POLYVINYL ALCOHOL/POVIDONE/PF OPHTH SOLUTION DROPERETTE. OU PRN ×2 (08:07→17:14)
[2020-04-23] MEDS: LORazepam 0.5 MG TABLET PO PRN ×2 (11:43→19:58)
[2020-04-23] MEDS: oxyCODONE IR 5 MG TABLET PO PRN ×2 (11:43→19:58)
[2020-04-23 16:04] VITALS: BP 155/82
[2020-04-23] MEDS: METHYL SALICYLATE/MENTHOL TOPICAL OINTMENT 57GM TUBE. TP PRN (19:48)
[2020-04-23] MEDS: DOCUSATE SODIUM 100 MG CAPSULE PO SCH (19:56)
[2020-04-23] MEDS: PARoxetine 10 MG TABLET PO SCH (19:57)
[2020-04-23] MEDS: DIVALPROEX ER 500 MG TAB.ER.24H PO SCH (19:57)
[2020-04-23] MEDS: CYPROHEPTADINE 4 MG TABLET. PO SCH (19:58)
--- NOTE | 2020-04-23 21:57 | PDOC ---
Exam Note: Adan Note: Please also refer to the separate dictated note~for this date of service dictated separately.~Patient seen individually. Discussed the patient with Nursing staff reviewed the chart.~Reviewed interim history and current functioning. Reviewed vital signs,~Labs/ Radiology~and current medications noted below. Continue current treatment with the changes noted in the dictated addendum note Assessment: Vital Signs/I&O: Vital Signs Date Time Temp Pulse Resp B/P (MAP) Pulse Ox O2 Delivery O2 Flow Rate FiO2 04/23/20 21:03 96 04/23/20 18:03 97.4 04/23/20 16:04 73 16 155/82 (106) Room Air I & O 04/22/20 04/22/20 04/23/20 15:00 23:00 07:00 Intake Total 600 ml 480 ml Balance 600 ml 480 ml Current Medications: I have reviewed the current psychotropics carefully including drug interactions. Risk benefit ratio favors no change other than as noted in my dictated progress note. Diagnosis: Problems: (1) Anxiety disorder (2) Impulse control disorder (3) Obsessive compulsive disorder (4) Personality disorder, unspecified (5) Bipolar disorder, curr episode mixed, severe, with psychotic features EVER BAR MD April 23, 2020 21:57
[2020-04-24 06:17] VITALS: BP 150/71
--- NOTE | 2020-04-24 07:10 | PDOC ---
Exam Note: Adan Note: This note is a late entry for 04/23/2020 covers elements not covered in my initial note. Subjective: The patient was seen face to face in the evening of 04/23/2020. Nursing report was with Candice RODRIGUEZ. Discussed the patient with nursing staff reviewed the chart. She slept reasonably previous night. She has expressed fearfulness about another demented male patient who frequently comes into her room, believes she is his . Nursing staff have removed him. She remains anxious and attention seeking. Review of Systems: Positive for lower extremity pain. She was lying in bed, reading a novel. Ambulation impaired with walker. No CV, , Pulmonary, Eye system symptoms on review. Mental Status Exam: Reasonably oriented. Speech has some latency, coherent. Often responses are monosyllabic. Abstraction is fair. Computation is impaired. Language function is intact. Mood and affect is still somewhat dysphoric and anxious. No suicidal or homicidal ideation. Laboratory Data: Reviewed. Impression: Bipolar disorder mixed with psychotic features. Psychotic disorder unspecified. Obsessive-compulsive disorder. Rest unchanged. Plan: No change from initial note. Assessment: Vital Signs/I&O: Vital Signs Date Time Temp Pulse Resp B/P (MAP) Pulse Ox O2 Delivery O2 Flow Rate FiO2 04/24/20 06:17 97.6 69 16 150/71 (97) 96 04/23/20 16:04 Room Air I & O 04/23/20 04/23/20 04/24/20 15:00 23:00 07:00 Intake Total 480 ml 480 ml Balance 480 ml 480 ml Current Medications: I have reviewed the current psychotropics carefully including drug interactions. Risk benefit ratio favors no change other than as noted in my dictated progress note. Diagnosis: Problems: (1) Anxiety disorder (2) Impulse control disorder (3) Obsessive compulsive disorder (4) Personality disorder, unspecified (5) Bipolar disorder, curr episode mixed, severe, with psychotic features EVER BAR MD April 24, 2020 07:10
[2020-04-24] MEDS: ACETAMINOPHEN 325 MG TABLET PO PRN ×2 (08:09→20:12)
[2020-04-24] MEDS: ASCORBIC ACID 500 MG TABLET PO SCH (08:09)
[2020-04-24] MEDS: PANTOPRAZOLE 40 MG TABLET. PO SCH (08:09)
[2020-04-24] MEDS: QUEtiapine 50 MG TABLET. PO SCH ×2 (08:09→20:06)
[2020-04-24] MEDS: PSYLLIUM SEED (WITH SUGAR) PACKET. PO SCH (08:09)
[2020-04-24] MEDS: METOPROLOL SUCC 24HR ER 50 MG TAB.ER.24H. PO SCH (08:10)
[2020-04-24] MEDS: MAGNESIUM CHLORIDE ER 64 MG TABLET.ER PO SCH (08:10)
[2020-04-24] MEDS: POTASSIUM CHLORIDE 20 MEQ TABLET.ER. PO SCH ×3 (08:10→17:19)
[2020-04-24] MEDS: ZINC SULFATE 220 MG CAPSULE. PO SCH (08:10)
[2020-04-24 08:13] LABS: BASO % 1 % (0-3); EOS # 0.1 x10^3/uL (0.0-0.7); EOS % 3 % (0-3); HEMATOCRIT 41.4 % (36.0-47.0); HEMOGLOBIN 13.6 g/dL (12.0-15.5); LYMPH # 1.5 x10^3/uL (1.0-4.8); LYMPH % 37 % (24-48); MEAN CORPUSCULAR HEMOGLOBIN 30 pg (25-35); MEAN CORPUSCULAR HGB CONC 33 g/dL (31-37); MEAN CORPUSCULAR VOLUME 92 fL (79-100); MONO # 0.5 x10^3/uL (0.0-1.1); MONO % 14 % (0-9); NEUT # 1.9 x10^3uL (1.8-7.7); NEUT % 47 % (31-73); PLATELET COUNT 334 x10^3/uL (140-400); RED BLOOD COUNT 4.49 x10^6/uL (3.50-5.40); RED CELL DISTRIBUTION WIDTH 15.1 % (11.5-14.5)
[2020-04-24] MEDS: LORazepam 0.5 MG TABLET PO PRN (08:23)
[2020-04-24 08:33] LABS: ALBUMIN 3.1 g/dL (3.4-5.0); ALBUMIN/GLOBULIN RATIO 0.9 (1.0-1.7); CALCIUM 9.2 mg/dL (8.5-10.1); CREATININE 0.6 mg/dL (0.6-1.0); GFR 99.1; POTASSIUM 4.1 mmol/L (3.5-5.1); TOTAL BILIRUBIN 0.2 mg/dL (0.2-1.0); TOTAL PROTEIN 6.7 g/dL (6.4-8.2)
[2020-04-24] MEDS: oxyCODONE IR 5 MG TABLET PO PRN ×2 (10:51→17:22)
[2020-04-24 16:15] VITALS: BP 182/79
[2020-04-24 16:30] VITALS: BP 147/80
[2020-04-24] MEDS: ONDANSETRON ODT 4 MG TAB.RAPDIS PO PRN (19:00)
[2020-04-24] MEDS: DIVALPROEX ER 500 MG TAB.ER.24H PO SCH (20:05)
[2020-04-24] MEDS: DOCUSATE SODIUM 100 MG CAPSULE PO SCH (20:05)
[2020-04-24] MEDS: hydrOXYzine HCL 25 MG TABLET PO PRN (20:05)
[2020-04-24] MEDS: PARoxetine 10 MG TABLET PO SCH (20:06)
[2020-04-24] MEDS: CYPROHEPTADINE 4 MG TABLET. PO SCH (20:06)
[2020-04-25 05:37] VITALS: BP 112/69
--- NOTE | 2020-04-25 08:16 | PDOC ---
Exam Note: Adan Note: This is a late entry for DOS 04/24/2020. Please also refer to the separate dictated note~for this date of service dictated separately.~Patient seen individually. Discussed the patient with Nursing staff reviewed the chart.~Reviewed interim history and current functioning. Reviewed vital signs,~Labs/ Radiology~and current medications noted below. Continue current treatment with the changes noted in the dictated addendum note Assessment: Vital Signs/I&O: Vital Signs Date Time Temp Pulse Resp B/P (MAP) Pulse Ox O2 Delivery O2 Flow Rate FiO2 04/25/20 05:37 98.0 99 16 112/69 (83) 92 04/24/20 17:22 Room Air I & O 04/24/20 04/24/20 04/25/20 15:00 23:00 07:00 Intake Total 720 ml 360 ml Balance 720 ml 360 ml Current Medications: I have reviewed the current psychotropics carefully including drug interactions. Risk benefit ratio favors no change other than as noted in my dictated progress note. Diagnosis: Problems: (1) Anxiety disorder (2) Impulse control disorder (3) Obsessive compulsive disorder (4) Personality disorder, unspecified (5) Bipolar disorder, curr episode mixed, severe, with psychotic features EVER BAR MD April 25, 2020 08:16
[2020-04-25] MEDS: PSYLLIUM SEED (WITH SUGAR) PACKET. PO SCH (08:27)
[2020-04-25] MEDS: POTASSIUM CHLORIDE 20 MEQ TABLET.ER. PO SCH ×3 (08:27→16:53)
[2020-04-25] MEDS: hydrOXYzine HCL 25 MG TABLET PO PRN ×3 (08:27→20:45)
[2020-04-25] MEDS: ZINC SULFATE 220 MG CAPSULE. PO SCH (08:27)
[2020-04-25] MEDS: POLYVINYL ALCOHOL/POVIDONE/PF OPHTH SOLUTION DROPERETTE. OU PRN (08:27)
[2020-04-25] MEDS: MAGNESIUM CHLORIDE ER 64 MG TABLET.ER PO SCH (08:27)
[2020-04-25] MEDS: PANTOPRAZOLE 40 MG TABLET. PO SCH (08:27)
[2020-04-25] MEDS: QUEtiapine 50 MG TABLET. PO SCH ×2 (08:28→20:42)
[2020-04-25] MEDS: ASCORBIC ACID 500 MG TABLET PO SCH (08:28)
[2020-04-25] MEDS: METOPROLOL SUCC 24HR ER 50 MG TAB.ER.24H. PO SCH (08:28)
[2020-04-25] MEDS: LORazepam 0.5 MG TABLET PO PRN ×2 (13:19→20:41)
[2020-04-25] MEDS: ACETAMINOPHEN 325 MG TABLET PO PRN (14:42)
[2020-04-25 15:56] VITALS: BP 134/79
[2020-04-25] MEDS: DOCUSATE SODIUM 100 MG CAPSULE PO SCH (20:41)
[2020-04-25] MEDS: CYPROHEPTADINE 4 MG TABLET. PO SCH (20:42)
[2020-04-25] MEDS: oxyCODONE IR 5 MG TABLET PO PRN (20:43)
[2020-04-25] MEDS: PARoxetine 10 MG TABLET PO SCH (20:45)
[2020-04-25] MEDS: DIVALPROEX ER 500 MG TAB.ER.24H PO SCH (20:46)
[2020-04-25] MEDS: METHYL SALICYLATE/MENTHOL TOPICAL OINTMENT 57GM TUBE. TP PRN (20:47)
--- NOTE | 2020-04-25 22:07 | PDOC ---
Exam Note: Adan Note: Please also refer to the separate dictated note~for this date of service dictated separately.~Patient seen individually. Discussed the patient with Nursing staff reviewed the chart.~Reviewed interim history and current functioning. Reviewed vital signs,~Labs/ Radiology~and current medications noted below. Continue current treatment with the changes noted in the dictated addendum note Assessment: Vital Signs/I&O: Vital Signs Date Time Temp Pulse Resp B/P (MAP) Pulse Ox O2 Delivery O2 Flow Rate FiO2 04/25/20 21:48 16 04/25/20 18:36 98.3 04/25/20 15:56 91 134/79 (97) 97 04/24/20 17:22 Room Air I & O 04/24/20 04/24/20 04/25/20 15:00 23:00 07:00 Intake Total 720 ml 360 ml Balance 720 ml 360 ml Current Medications: I have reviewed the current psychotropics carefully including drug interactions. Risk benefit ratio favors no change other than as noted in my dictated progress note. Diagnosis: Problems: (1) Anxiety disorder (2) Impulse control disorder (3) Obsessive compulsive disorder (4) Personality disorder, unspecified (5) Bipolar disorder, curr episode mixed, severe, with psychotic features EVER BAR MD April 25, 2020 22:07
[2020-04-26] MEDS ORDERED: CYPR4TAB31 PO (00:06)
[2020-04-26] MEDS ORDERED: METH28OI2 TP (00:10)
[2020-04-26] MEDS ORDERED: OXYC5TAB88 PO (00:12)
[2020-04-26] MEDS ORDERED: ACET325T21 PO (00:14)
[2020-04-26] MEDS ORDERED: DIVA500T17 PO (00:17)
[2020-04-26] MEDS ORDERED: CARB15DR3 OP (00:18)
[2020-04-26] MEDS ORDERED: POLY15DR7 OP (00:20)
[2020-04-26] MEDS ORDERED: TRAZ-120 PO (00:23)
[2020-04-26] MEDS ORDERED: OLAN2.5T3 PO (00:26)
[2020-04-26] MEDS ORDERED: LORA-254 PO (00:28)
[2020-04-26] MEDS ORDERED: HYDR25TA PO (00:30)
[2020-04-26] MEDS ORDERED: ZINC220T3 PO (00:31)
[2020-04-26] MEDS ORDERED: SODI30SP NS (00:33)
[2020-04-26] MEDS ORDERED: MAG-115 PO (00:34)
[2020-04-26] MEDS ORDERED: BISA-42 PO (00:35)
[2020-04-26] MEDS ORDERED: DOCU-109 PO (00:37)
[2020-04-26] MEDS ORDERED: MAGN24003 PO (00:38)
[2020-04-26] MEDS ORDERED: PSYL0.4C2 PO (00:40)
[2020-04-26] MEDS ORDERED: NYST60PO TP (00:42)
[2020-04-26] MEDS ORDERED: NYST15CR TP (00:44)
[2020-04-26] MEDS ORDERED: ASCO500C PO (00:45)
[2020-04-26 05:24] VITALS: BP 151/80
[2020-04-26 07:20] LABS: BASO % 1 % (0-3); EOS # 0.1 x10^3/uL (0.0-0.7); EOS % 4 % (0-3); HEMATOCRIT 36.9 % (36.0-47.0); HEMOGLOBIN 12.2 g/dL (12.0-15.5); LYMPH # 1.3 x10^3/uL (1.0-4.8); LYMPH % 35 % (24-48); MEAN CORPUSCULAR HEMOGLOBIN 31 pg (25-35); MEAN CORPUSCULAR HGB CONC 33 g/dL (31-37); MEAN CORPUSCULAR VOLUME 93 fL (79-100); MONO # 0.6 x10^3/uL (0.0-1.1); MONO % 18 % (0-9); NEUT # 1.6 x10^3uL (1.8-7.7); NEUT % 43 % (31-73); PLATELET COUNT 268 x10^3/uL (140-400); RED BLOOD COUNT 3.98 x10^6/uL (3.50-5.40); WHITE BLOOD COUNT 3.6 x10^3/uL (4.0-11.0)
[2020-04-26 07:38] LABS: ALBUMIN 2.9 g/dL (3.4-5.0); ALBUMIN/GLOBULIN RATIO 0.9 (1.0-1.7); CALCIUM 8.6 mg/dL (8.5-10.1); CREATININE 0.6 mg/dL (0.6-1.0); GFR 99.1; POTASSIUM 3.7 mmol/L (3.5-5.1); TOTAL BILIRUBIN 0.2 mg/dL (0.2-1.0); TOTAL PROTEIN 6.1 g/dL (6.4-8.2)
--- NOTE | 2020-04-26 07:42 | PDOC ---
Exam Note: Adan Note: This note is a late entry for 04/24/2020 covers elements not covered in my initial note. Subjective: The patient was seen face to face in the evening of 04/24/2020. Nursing report was with Mitchell RODRIGUEZ. Discussed the patient with nursing staff reviewed the chart. She slept 6-1/2 hours previous night. The patient remains withdrawn, spends much time in her room that is where I met with her in the evening. She appears somewhat helpless. She complains of pain. Received Tylenol in the afternoon, Roxicodone previous evening, and Ativan. Review of Systems: Ambulation impaired with walker. No CV, , Pulmonary, Eye system symptoms on review. Mental Status Exam: Reasonably oriented. Speech has some latency, coherent. Often responses are monosyllabic. Abstraction is fair. Computation is impaired. Language function is intact. Mood and affect is still somewhat dysphoric and anxious. No suicidal or homicidal ideation. Laboratory Data: Reviewed. Impression: Bipolar disorder mixed with psychotic features. Psychotic disorder unspecified. OCD. Rest unchanged. Plan: No change from initial note. Assessment: Vital Signs/I&O: Vital Signs Date Time Temp Pulse Resp B/P (MAP) Pulse Ox O2 Delivery O2 Flow Rate FiO2 04/26/20 05:24 97.9 83 14 151/80 (103) 94 04/24/20 17:22 Room Air I & O 04/25/20 04/25/20 04/26/20 15:00 23:00 07:00 Intake Total 660 ml 600 ml Balance 660 ml 600 ml Labs: Laboratory Tests Test 04/26/20 06:35 White Blood Count 3.6 x10^3/uL (4.0-11.0) L Red Blood Count 3.98 x10^6/uL (3.50-5.40) Hemoglobin 12.2 g/dL (12.0-15.5) Hematocrit 36.9 % (36.0-47.0) Mean Corpuscular Volume 93 fL (79-100) Mean Corpuscular Hemoglobin 31 pg (25-35) Mean Corpuscular Hemoglobin Concent 33 g/dL (31-37) Red Cell Distribution Width 15.0 % (11.5-14.5) H Platelet Count 268 x10^3/uL (140-400) Neutrophils (%) (Auto) 43 % (31-73) Lymphocytes (%) (Auto) 35 % (24-48) Monocytes (%) (Auto) 18 % (0-9) H Eosinophils (%) (Auto) 4 % (0-3) H Basophils (%) (Auto) 1 % (0-3) Neutrophils # (Auto) 1.6 x10^3uL (1.8-7.7) L Lymphocytes # (Auto) 1.3 x10^3/uL (1.0-4.8) Monocytes # (Auto) 0.6 x10^3/uL (0.0-1.1) Eosinophils # (Auto) 0.1 x10^3/uL (0.0-0.7) Basophils # (Auto) 0.0 x10^3/uL (0.0-0.2) Sodium Level 137 mmol/L (136-145) Potassium Level 3.7 mmol/L (3.5-5.1) Chloride Level 101 mmol/L (98-107) Carbon Dioxide Level 30 mmol/L (21-32) Anion Gap 6 (6-14) Blood Urea Nitrogen 14 mg/dL (7-20) Creatinine 0.6 mg/dL (0.6-1.0) Estimated GFR (Cockcroft-Gault) 99.1 BUN/Creatinine Ratio 23 (6-20) H Glucose Level 91 mg/dL (70-99) Calcium Level 8.6 mg/dL (8.5-10.1) Total Bilirubin 0.2 mg/dL (0.2-1.0) Aspartate Amino Transferase (AST) 15 U/L (15-37) Alanine Aminotransferase (ALT) 14 U/L (14-59) Alkaline Phosphatase 95 U/L (46-116) Total Protein 6.1 g/dL (6.4-8.2) L Albumin 2.9 g/dL (3.4-5.0) L Albumin/Globulin Ratio 0.9 (1.0-1.7) L Current Medications: I have reviewed the current psychotropics carefully including drug interactions. Risk benefit ratio favors no change other than as noted in my dictated progress note. Diagnosis: Problems: (1) Anxiety disorder (2) Impulse control disorder (3) Obsessive compulsive disorder (4) Personality disorder, unspecified (5) Bipolar disorder, curr episode mixed, severe, with psychotic features YOSVANY,MAN M MD April 26, 2020 07:42
--- NOTE | 2020-04-26 08:04 | PDOC ---
Exam Note: Adan Note: This note is a late entry for 04/25/2020 covers elements not covered in my initial note. Subjective: The patient was seen face to face with the treatment team in the morning including Angelica Benavides, and Kate (older adult social work specialist), María, Activity Therapy. Nursing report was with Mitchell RODRIGUEZ. Discussed the patient with nursing staff in the evening reviewed the chart. She slept reasonably previous night. The patient has been somewhat withdrawn, but ambulates in her walker. 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 Nursing st aff are encouraging her to paint a plaque for the ceiling of the unit and she agreed to it. She did get Atarax x2 for anxiety and Ativan x1 and Tylenol. Review of Systems: Ambulation impaired with walker. No CV, , Pulmonary, Eye system symptoms on review. Mental Status Exam: Reasonably oriented. Speech has some latency. Often responses are monosyllabic. Abstraction is fair. Computation is impaired. Language function is intact. Mood and affect is less depressed and anxious. Laboratory Data: Reviewed. Impression: Bipolar disorder mixed with psychotic features. Psychotic disorder unspecified. OCD. Rest unchanged. Plan: No change from initial note. Assessment: Vital Signs/I&O: Vital Signs Date Time Temp Pulse Resp B/P (MAP) Pulse Ox O2 Delivery O2 Flow Rate FiO2 04/26/20 08:02 97.8 97 04/26/20 05:24 83 14 151/80 (103) 04/24/20 17:22 Room Air I & O 04/25/20 04/25/20 04/26/20 15:00 23:00 07:00 Intake Total 660 ml 600 ml Balance 660 ml 600 ml Labs: Laboratory Tests Test 04/26/20 06:35 White Blood Count 3.6 x10^3/uL (4.0-11.0) L Red Blood Count 3.98 x10^6/uL (3.50-5.40) Hemoglobin 12.2 g/dL (12.0-15.5) Hematocrit 36.9 % (36.0-47.0) Mean Corpuscular Volume 93 fL (79-100) Mean Corpuscular Hemoglobin 31 pg (25-35) Mean Corpuscular Hemoglobin Concent 33 g/dL (31-37) Red Cell Distribution Width 15.0 % (11.5-14.5) H Platelet Count 268 x10^3/uL (140-400) Neutrophils (%) (Auto) 43 % (31-73) Lymphocytes (%) (Auto) 35 % (24-48) Monocytes (%) (Auto) 18 % (0-9) H Eosinophils (%) (Auto) 4 % (0-3) H Basophils (%) (Auto) 1 % (0-3) Neutrophils # (Auto) 1.6 x10^3uL (1.8-7.7) L Lymphocytes # (Auto) 1.3 x10^3/uL (1.0-4.8) Monocytes # (Auto) 0.6 x10^3/uL (0.0-1.1) Eosinophils # (Auto) 0.1 x10^3/uL (0.0-0.7) Basophils # (Auto) 0.0 x10^3/uL (0.0-0.2) Sodium Level 137 mmol/L (136-145) Potassium Level 3.7 mmol/L (3.5-5.1) Chloride Level 101 mmol/L (98-107) Carbon Dioxide Level 30 mmol/L (21-32) Anion Gap 6 (6-14) Blood Urea Nitrogen 14 mg/dL (7-20) Creatinine 0.6 mg/dL (0.6-1.0) Estimated GFR (Cockcroft-Gault) 99.1 BUN/Creatinine Ratio 23 (6-20) H Glucose Level 91 mg/dL (70-99) Calcium Level 8.6 mg/dL (8.5-10.1) Total Bilirubin 0.2 mg/dL (0.2-1.0) Aspartate Amino Transferase (AST) 15 U/L (15-37) Alanine Aminotransferase (ALT) 14 U/L (14-59) Alkaline Phosphatase 95 U/L (46-116) Total Protein 6.1 g/dL (6.4-8.2) L Albumin 2.9 g/dL (3.4-5.0) L Albumin/Globulin Ratio 0.9 (1.0-1.7) L Current Medications: I have reviewed the current psychotropics carefully including drug interactions. Risk benefit ratio favors no change other than as noted in my dictated progress note. Diagnosis: Problems: (1) Anxiety disorder (2) Impulse control disorder (3) Obsessive compulsive disorder (4) Personality disorder, unspecified (5) Bipolar disorder, curr episode mixed, severe, with psychotic features EVER BAR MD April 26, 2020 08:04
[2020-04-26 08:23] VITALS: BP 151/80
[2020-04-26] MEDS: METOPROLOL SUCC 24HR ER 50 MG TAB.ER.24H. PO SCH (08:23)
[2020-04-26] MEDS: POTASSIUM CHLORIDE 20 MEQ TABLET.ER. PO SCH ×2 (08:24→12:51)
[2020-04-26] MEDS: QUEtiapine 50 MG TABLET. PO SCH (08:24)
[2020-04-26] MEDS: ASCORBIC ACID 500 MG TABLET PO SCH (08:24)
[2020-04-26] MEDS: hydrOXYzine HCL 25 MG TABLET PO PRN (08:24)
[2020-04-26] MEDS: MAGNESIUM CHLORIDE ER 64 MG TABLET.ER PO SCH (08:24)
[2020-04-26] MEDS: ACETAMINOPHEN 325 MG TABLET PO PRN (08:24)
[2020-04-26] MEDS: PANTOPRAZOLE 40 MG TABLET. PO SCH (08:24)
[2020-04-26] MEDS: ZINC SULFATE 220 MG CAPSULE. PO SCH (08:24)
[2020-04-26] MEDS: PSYLLIUM SEED (WITH SUGAR) PACKET. PO SCH (08:25)
[2020-04-26] MEDS: POLYVINYL ALCOHOL/POVIDONE/PF OPHTH SOLUTION DROPERETTE. OU PRN (12:51)
--- NOTE | 2020-04-26 22:15 | PDOC ---
Exam Note: Adan Note: Please also refer to the separate dictated note~for this date of service dictated separately.~Patient seen individually. Discussed the patient with Nursing staff reviewed the chart.~Reviewed interim history and current functioning. Reviewed vital signs,~Labs/ Radiology~and current medications noted below. Continue current treatment with the changes noted in the dictated addendum note Assessment: Vital Signs/I&O: Vital Signs Date Time Temp Pulse Resp B/P (MAP) Pulse Ox O2 Delivery O2 Flow Rate FiO2 04/26/20 08:23 83 151/80 04/26/20 08:02 97.8 97 04/26/20 05:24 14 04/24/20 17:22 Room Air I & O 04/25/20 04/25/20 04/26/20 15:00 23:00 07:00 Intake Total 660 ml 600 ml Balance 660 ml 600 ml Labs: Laboratory Tests Test 04/26/20 06:35 White Blood Count 3.6 x10^3/uL (4.0-11.0) L Red Blood Count 3.98 x10^6/uL (3.50-5.40) Hemoglobin 12.2 g/dL (12.0-15.5) Hematocrit 36.9 % (36.0-47.0) Mean Corpuscular Volume 93 fL (79-100) Mean Corpuscular Hemoglobin 31 pg (25-35) Mean Corpuscular Hemoglobin Concent 33 g/dL (31-37) Red Cell Distribution Width 15.0 % (11.5-14.5) H Platelet Count 268 x10^3/uL (140-400) Neutrophils (%) (Auto) 43 % (31-73) Lymphocytes (%) (Auto) 35 % (24-48) Monocytes (%) (Auto) 18 % (0-9) H Eosinophils (%) (Auto) 4 % (0-3) H Basophils (%) (Auto) 1 % (0-3) Neutrophils # (Auto) 1.6 x10^3uL (1.8-7.7) L Lymphocytes # (Auto) 1.3 x10^3/uL (1.0-4.8) Monocytes # (Auto) 0.6 x10^3/uL (0.0-1.1) Eosinophils # (Auto) 0.1 x10^3/uL (0.0-0.7) Basophils # (Auto) 0.0 x10^3/uL (0.0-0.2) Sodium Level 137 mmol/L (136-145) Potassium Level 3.7 mmol/L (3.5-5.1) Chloride Level 101 mmol/L (98-107) Carbon Dioxide Level 30 mmol/L (21-32) Anion Gap 6 (6-14) Blood Urea Nitrogen 14 mg/dL (7-20) Creatinine 0.6 mg/dL (0.6-1.0) Estimated GFR (Cockcroft-Gault) 99.1 BUN/Creatinine Ratio 23 (6-20) H Glucose Level 91 mg/dL (70-99) Calcium Level 8.6 mg/dL (8.5-10.1) Total Bilirubin 0.2 mg/dL (0.2-1.0) Aspartate Amino Transferase (AST) 15 U/L (15-37) Alanine Aminotransferase (ALT) 14 U/L (14-59) Alkaline Phosphatase 95 U/L (46-116) Total Protein 6.1 g/dL (6.4-8.2) L Albumin 2.9 g/dL (3.4-5.0) L Albumin/Globulin Ratio 0.9 (1.0-1.7) L Current Medications: I have reviewed the current psychotropics carefully including drug interactions. Risk benefit ratio favors no change other than as noted in my dictated progress note. Diagnosis: Problems: (1) Anxiety disorder (2) Impulse control disorder (3) Obsessive compulsive disorder (4) Personality disorder, unspecified (5) Bipolar disorder, curr episode mixed, severe, with psychotic features EVER BAR MD April 26, 2020 22:15
--- NOTE | 2020-04-27 22:29 | DS ---
DATE OF DISCHARGE: 04/26/2020 DISCHARGE SUMMARY/PSYCHIATRIC PROGRESS NOTE This late entry date of service 04/26/2020 covers elements not covered in my initial note. REASON FOR ADMISSION: Please refer to the admission history for details. Briefly, the patient is a 69-year-old female referred to us from [facility] where she presented from home where she lived alone. She went to [facility] with a prior diagnosis of bipolar disorder. She is getting increasingly psychotic, believes she had COVID-19 in her head and was smashing her face on the concrete so that she could open up her sinuses and let the COVID fluid in her head dry up. The patient's behaviors were dangerous, unmanageable. She had failed outpatient psychiatric interventions resulting in this referral. SIGNIFICANT FINDINGS AND CLINICAL COURSE: Following admission, the patient was seen daily individually by myself from a psychiatric standpoint, medical followup with Dr. Singleton/Dr. Orona. The patient was extremely psychotic, initially manic, grandiose with marked mood lability minimized what prompted her admission, minimized psychotic symptoms. Adjustments were made in her psychotropics. She seemed to respond to a combination of Depakote ER 1000 mg at bedtime with a valproic acid level therapeutic at 73, trazodone 50 mg at bedtime p.r.n., may repeat x 1 for insomnia, Atarax p.r.n., Paxil 15 mg at bedtime was continued as she was taking it prior to admission and she was on Seroquel 50 mg b.i.d., Periactin 2 mg at bedtime for appetite stimulation, Zyprexa p.r.n., Ativan p.r.n. She was on 2 atypical antipsychotics scheduled at discharge including Seroquel and Zyprexa. I would recommend when she has been stable for about 60 days, the Zyprexa could be reduced by 2.5 mg a day every month until it is discontinued. REVIEW OF SYSTEMS: Prior to discharge on 04/26/2020, ambulation impaired with walker. No CV, , pulmonary, eye system symptoms on review. MENTAL STATUS EXAM: Reasonably oriented. Speech coherent, abstraction fair, computation reasonable, language function intact. Mood and affect is improved. No suicidal or homicidal ideation at discharge. No psychotic symptoms. LABORATORY DATA: Reviewed. FINAL DIAGNOSES: Bipolar 1 disorder, mixed with psychotic features; anxiety disorder, unspecified; impulse control disorder, unspecified. Rest unchanged from admission. DISCHARGE MEDICATIONS: Please refer to the MRAD. DISCHARGE INSTRUCTIONS: Psychiatric and medical followup at the assisted. Time for discharge day management greater than 30 minutes. EVER BAR MD DR: TAMMY/ani JOB#: [id number] / [id number]
== END 2020-04-26 14:00 | disposition short-term general hospital (02) | DRG 885 ==
LOC: GEROPSY 16:30
PROVIDERS: ADMIT Psychiatry & Neurology Psychiatry; ATTEND Psychiatry & Neurology Psychiatry
DX: F31.64 Bipolar disorder, current episode mixed, severe, with psychotic features (principal); E44.0 Moderate protein-calorie malnutrition; F03.90 Unspecified dementia, unspecified severity, without behavioral disturbance, psychotic disturbance, mood disturbance, and anxiety; F12.10 Cannabis abuse, uncomplicated; F41.1 Generalized anxiety disorder; F42.9 Obsessive-compulsive disorder, unspecified; F60.9 Personality disorder, unspecified; F63.9 Impulse disorder, unspecified; G40.909 Epilepsy, unspecified, not intractable, without status epilepticus; Z20.828 Contact with and (suspected) exposure to other viral communicable diseases; G89.29 Other chronic pain; I10 Essential (primary) hypertension; K21.9 Gastro-esophageal reflux disease without esophagitis; K59.00 Constipation, unspecified; M19.90 Unspecified osteoarthritis, unspecified site; Z79.899 Other long term (current) drug therapy; Z85.048 Personal history of other malignant neoplasm of rectum, rectosigmoid junction, and anus; G43.909 Migraine, unspecified, not intractable, without status migrainosus; G47.00 Insomnia, unspecified; Z60.2 Problems related to living alone; Z88.1 Allergy status to other antibiotic agents; Z88.8 Allergy status to other drugs, medicaments and biological substances; Z91.041 Radiographic dye allergy status; Z91.040 Latex allergy status; Z68.20 Body mass index [BMI] 20.0-20.9, adult
CPT/HCPCS: 36415; 80048; 80053; 80061; 80164; 82140; 82306; 82607; 83036; 83540; 83550; 83735; 84134; 84436; 84443; 84480; 85007; 85025; 85027; 86592; 93005; Q0162; 97110; 97530; 97535; U0003-CS

== ENCOUNTER 2020-12-17 10:20 | Inpatient (IN) | payer MEDICARE ==
[~2020-12-17] VITALS: Ht 175.3 cm; Wt 55.7 kg
[~2020-12-17 10:20] MED LIST: ACET325T21 PO; ACET650S11 RC; ALBU2.5V8 IH; ASCO500C PO; BISA-42 PO; BUSP10TA PO; CARB15DR3 OP; CLON1PAT2 TD; CYPR4TAB31 PO; DIVA500T17 PO; DOCU-109 PO; HYDR25TA PO; HYOS0.3716 PO; LORA-254 PO; MAG-115 PO; MAGN24003 PO; MAGN64TA6 PO; METH28OI2 TP; METO-239 PO; MIRT30TA93 PO; NYST15CR TP; NYST60PO TP; OLAN2.5T3 PO; OMEP20CA16 PO; ONDA4TAB12 PO; OXYC5TAB88 PO; PARO7.5C2 PO; POLY15DR7 OP; POTA20TA4 PO; PSYL0.4C2 PO; QUET50TA5 PO; SODI30SP NS; TRAZ-120 PO; ZINC220T3 PO
[2020-12-17] MEDS ORDERED: AMLO2.5T5 PO (12:08)
[2020-12-17] MEDS ORDERED: MELO7.5T29 PO (12:08)
[2020-12-17] MEDS ORDERED: PANT40TA6 PO (12:08)
[2020-12-17] MEDS ORDERED: METH-38 PO (12:08)
[2020-12-17] MEDS ORDERED: CETI10TA16 PO (12:08)
--- NOTE | 2020-12-17 14:05 | NUR ---
Admission Note with Justification for Admission to [facility] Patient admitted to [facility] for protective oversight for emergency stabilization of acute psychiatric crisis. Pt admitted from: [facility] inpt Mode of arrival: EMS Accompanied By: EMS Precipitating behaviors that initiated intake and admission: hallucinating, yelling out, screaming, impulsive Description of failure of out patient attempts at stabilization in previous setting list behavior and medication trials: seroquel Behaviors and assessment findings upon admission: Restless, in pain Plan: Admit for protective oversight for adjustment and stabilization of medications, behaviors and mood. Intense treatment regimen including groups, medication adjustments, therapy, consistent regimen for ADL's, self care, and sleep hygiene. Daily monitoring by Inpatient staff, Psychiatry, and Medical Physician.
[2020-12-17] MEDS ORDERED: METHYL SALICYLATE/MENTHOL TOPICAL OINTMENT 57GM TUBE. TP PRN (14:45)
[2020-12-17] MEDS ORDERED: MAGNESIUM HYDROXIDE 2,400 MG/30 ML ORAL.SUSP. PO PRN (14:45)
[2020-12-17] MEDS ORDERED: ACETAMINOPHEN 325 MG TABLET PO PRN (14:45)
[2020-12-17] MEDS ORDERED: MAG HYDROX/AL HYDROX/SIMETH 30 ML ORAL.SUSP PO PRN (14:45)
--- NOTE | 2020-12-17 15:00 | NUR ---
Pt sitting in chair. Staff left room to get o2 tank. Pt apparently stood up and fell forward. Pt found on floor with small laceration to upper lip. End of nose looks discolored. BP 147/85, 86, 18, 96% 2l/nc, 98.0.
--- NOTE | 2020-12-17 15:10 | NUR ---
Dr Singleton notified. New orders received.
--- NOTE | 2020-12-17 15:30 | NUR ---
Pt had CT. No FX noted.
[2020-12-17] MEDS ORDERED: ONDANSETRON ODT 4 MG TAB.RAPDIS PO PRN (15:45)
[2020-12-17] MEDS ORDERED: ACET500T68 PO (15:47)
[2020-12-17] MEDS ORDERED: PARO40TA61 PO (15:58)
[2020-12-17] MEDS ORDERED: QUET50TA5 PO (15:58)
[2020-12-17] MEDS ORDERED: NYST1000 PO (15:58)
[2020-12-17] MEDS ORDERED: POLY17PO5 PO (15:58)
[2020-12-17] MEDS ORDERED: TIZA4TAB2 PO (15:58)
[2020-12-17] MEDS ORDERED: LIDO1ADH63 TP (15:58)
[2020-12-17] MEDS ORDERED: hydrOXYzine HCL 25 MG TABLET PO PRN (16:00)
[2020-12-17] MEDS ORDERED: LIDOCAINE (700MG/PATCH) PATCH. TD SCH (16:00)
[2020-12-17] MEDS ORDERED: POLYETHYLENE GLYCOL 3350 17 GM PACKET. PO PRN (16:00)
--- NOTE | 2020-12-17 16:00 | NUR ---
LM for dtmelani Burt to return call regarding fall.
--- NOTE | 2020-12-17 16:15 | RAD ---
EXAM: CT Maxillofacial with IV contrast INDICATION: Reason: fall to face / Spl. Instructions: / History: TECHNIQUE: Multi-detector row CT images were obtained through the maxillofacial region with the use of IV contrast. Post-processing reconstructed images were obtained for interpretation. All CT scans p erformed at this facility utilize dose optimization techniques as appropriate to the exam, including the following: Automated exposure control and adjustment of the mA and/or KV according to patient siz e (this includes techniques or standardized protocols for targeted exams where dose is indication/eula son for exam). IV CONTRAST: Administered COMPARISON: None FINDINGS: There is mild motion artifact that degrades detail. OSSEOUS: No evidence of fracture or bone destruction. VISUALIZED INTRACRANIAL STRUCTURES: Unremarkable. ORBITS: Orbital contents are unremarkable.. SINUSES: Visualized paranasal sinuses and mastoid air cells are clear. SOFT TISSUES: Unremarkable. IMPRESSION: No acute facial fractures are identified on maxillofacial CT. Electronically signed by: Rhonda Noland MD (12/17/2020 4:12 PM) [facility] [place]
[2020-12-17 16:16] VITALS: BP 147/85
[2020-12-17] MEDS: oxyCODONE IR 5 MG TABLET PO PRN ×2 (16:17→20:15)
--- NOTE | 2020-12-17 16:30 | NUR ---
Pain meds given. Dtr updated on pt condition.
[2020-12-17] MEDS: NYSTATIN 100,000 UNITS/ML ORAL SUSPENSION 60ML BOTTLE. PO SCH ×2 (17:00→19:57)
[2020-12-17] MEDS: METHOCARBAMOL 500 MG TABLET PO SCH ×2 (17:00→19:58)
[2020-12-17 17:42] LABS: BASO % 1 % (0-3); EOS # 0.1 x10^3/uL (0.0-0.7); EOS % 1 % (0-3); HEMATOCRIT 40.2 % (36.0-47.0); HEMOGLOBIN 13.3 g/dL (12.0-15.5); LYMPH # 1.3 x10^3/uL (1.0-4.8); LYMPH % 12 % (24-48); MEAN CORPUSCULAR HEMOGLOBIN 32 pg (25-35); MEAN CORPUSCULAR HGB CONC 33 g/dL (31-37); MEAN CORPUSCULAR VOLUME 97 fL (79-100); MONO # 1.4 x10^3/uL (0.0-1.1); MONO % 14 % (0-9); NEUT # 7.4 x10^3uL (1.8-7.7); NEUT % 72 % (31-73); PLATELET COUNT 474 x10^3/uL (140-400); RED BLOOD COUNT 4.16 x10^6/uL (3.50-5.40); RED CELL DISTRIBUTION WIDTH 13.1 % (11.5-14.5); WHITE BLOOD COUNT 10.2 x10^3/uL (4.0-11.0)
[2020-12-17 17:53] LABS: ALBUMIN 2.8 g/dL (3.4-5.0); ALBUMIN/GLOBULIN RATIO 0.6 (1.0-1.7); ALK PHOS 105 U/L (46-116); ALT (SGPT) 26 U/L (14-59); ANION GAP 7 (6-14); AST (SGOT) 24 U/L (15-37); BLOOD UREA NITROGEN 17 mg/dL (7-20); BUN/CREATININE RATIO 21 (6-20); CALCIUM 9.5 mg/dL (8.5-10.1); CARBON DIOXIDE 28 mmol/L (21-32); CHLORIDE 93 mmol/L (98-107); CREATININE 0.8 mg/dL (0.6-1.0); GFR 70.9; GLUCOSE 119 mg/dL (70-99); MAGNESIUM 2.7 mg/dL (1.8-2.4); POTASSIUM 5.2 mmol/L (3.5-5.1); SODIUM 128 mmol/L (136-145); TOTAL BILIRUBIN 0.3 mg/dL (0.2-1.0); TOTAL PROTEIN 7.6 g/dL (6.4-8.2)
[2020-12-17 17:57] LABS: VAL ACID 68 mcg/mL (50-100)
[2020-12-17] MEDS: DIVALPROEX ER 500 MG TAB.ER.24H PO SCH (19:55)
[2020-12-17] MEDS: DOCUSATE SODIUM 100 MG CAPSULE PO SCH (19:56)
[2020-12-17] MEDS: ACETAMINOPHEN 500 MG TABLET PO SCH (19:56)
[2020-12-17] MEDS: PATCH REMOVAL. MC SCH (19:56)
[2020-12-17] MEDS: QUEtiapine 50 MG TABLET. PO SCH (19:56)
[2020-12-17] MEDS: tiZANidine 4 MG TABLET. PO SCH (19:56)
--- NOTE | 2020-12-17 21:42 | EKG ---
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
--- NOTE | 2020-12-17 22:14 | NUR ---
Pt located in hallway this evening in wheelchair. Pt placed in bed d/t pt continuously trying to get up from wheelchair. Pt A/O to name, . Compliant with whole medications floated in applesauce. Pt chewed the pills and requested from now on that the medications be crushed in applesauce. PRN Roxicodone given per pt request. Pt cooperative most of time; irritable and sarcastic at other times.
[2020-12-18] MEDS ORDERED: PANTOPRAZOLE 40 MG TABLET. PO SCH (06:00)
[2020-12-18 06:07] VITALS: BP 141/85
[2020-12-18] MEDS: ACETAMINOPHEN 500 MG TABLET PO SCH ×3 (08:52→20:02)
[2020-12-18] MEDS: tiZANidine 4 MG TABLET. PO SCH ×3 (08:52→20:03)
[2020-12-18] MEDS: NYSTATIN 100,000 UNITS/ML ORAL SUSPENSION 60ML BOTTLE. PO SCH ×4 (08:52→20:06)
[2020-12-18] MEDS: METHOCARBAMOL 500 MG TABLET PO SCH ×4 (08:53→20:41)
[2020-12-18] MEDS: METOPROLOL SUCC 24HR ER 25 MG TAB.ER.24H. PO SCH (08:57)
[2020-12-18] MEDS: CETIRIZINE HCL 10 MG TABLET PO SCH (08:58)
[2020-12-18] MEDS: PANTOPRAZOLE 40 MG TABLET. PO SCH (08:58)
[2020-12-18] MEDS: PARoxetine 20 MG TABLET PO SCH (08:58)
[2020-12-18] MEDS: amLODIPine BESYLATE 2.5 MG TABLET PO SCH (08:59)
[2020-12-18] MEDS: LIDOCAINE (700MG/PATCH) PATCH. TD SCH (09:00)
[2020-12-18 10:17] LABS: THYROXINE 7.9 ug/dL (4.5-12.0)
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
[2020-12-18] MEDS: oxyCODONE IR 5 MG TABLET PO PRN ×2 (12:03→20:06)
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
--- NOTE | 2020-12-18 13:58 | TX PLAN ---
Interdisciplinary Tx Plan Admission Information Dec 17, 2020 at 14:06 Legal Status (on Admission): Voluntary DPOA/Guardian Name: Carmel Horowitz Contact Other Contact Name: Renetta Fabian Other Contact Verified Code Status: DNR Allergies: Coded Allergies: ciprofloxacin (Verified Allergy, Unknown, Unknown, 04/03/20) ibuprofen (Verified Allergy, Unknown, Unknown, 04/03/20) tramadol (Verified Allergy, Unknown, Unknown, 04/03/20) Iodinated Contrast Media (Verified Adverse Reaction, Unknown, 04/06/20) Diagnoses Primary Diagnosis: Psychosis NOS, Bipolar D/O Reasons for Admission: Hallucinations, Confusion/Disoriented, Poor impulse control, Other Problem in Patient's Words: She's done really well but cannot seem to recover from this fall Additional Admission Comments: According to the intake, pt is delirious, had a fall at facility and went to the hospital for 5 broken ribs (pleural effusion). Increased fall in the last year, hallucinating, screaming out, impulsive. Problems Active Problems: Fell upon admission Increased pain in back/ribs irritability Inactive Problems: medicaiton compliance Pt Strengths/Limitations Ability for [place]: Poor Cognitive Functioning/Ability: Fair Communication Skills/Ability: Fair Financial Resources: Good Insight/Judgement: Poor Intellectual Ability: Fair Physical Health: Fair Social Skills: Fair Stability in Family: Good Stability in School/Work: Poor Verbal Skills: Fair Discharge Criteria Discharge Criteria: Able meet basic life need, No need for close observ., Adequate arrangements @DC, Verbal commit aftercare, Adequate self-care, Improved behavior, Improved mood/thought Preliminary Discharge Plan Preliminary DC Plan: Current Living Arrange. Special Precautions Fall Risk: High Initial D/C Plan Pt to return to [facility] pending return to baseline Identified Discharge Needs: Psychiatry services Currently Utilized Resources Currently Utilized Resources/P: Primary Care Physician Referrals Community Resources: Psychiatry Services Identified Problems/Hx/Goals Objectives/Short-Term Goals Short Term Goals: Dec. Hallucination/Delus, Medication Stabilization, Promote Coping Skill Short Term Goals in Patient's: N/A Interventions/Frequency Staff Interventions/Frequency&: Psychiatrist to assess pt at least 3x per week for medication management. Social Work to assess pt at least 2x per week to address any barriers to care and discharge planning. Nursing to assess pt medication effects, behavioral management and complete 15 minute checks daily. Encourage group participation in activities (if applicable) or 1:1 engagement based off Activity Dept. goals. 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 Education Community Follow-up Primary Care Physician Community Provider/Family Inpu: There are some concerns as to next steps in the event pt does not return to baseline and cannot return to [facility]. Treatment Plan Explained Patient/Home Improvement Contractor had this treatment plan explained to him/her as indicated by the signature below and has been given the opportunity to ask questions and make suggestions: Date: Patient/Home Improvement Contractor Signature: Patient/Home Improvement Contractor Decline: No (Family is very active in pt care) MAGDA GUY Dec 18, 2020 13:58
[2020-12-18 15:44] LABS: THYROID STIM HORMONE (TSH) 2.793 uIU/mL (0.358-3.740)
--- NOTE | 2020-12-18 16:15 | NUR ---
DAVE received call from pt dtr, Tavia, to follow up on treatment team and informed her that at this time, the game plan is to have pt pain medications decreased and a couple of them stopped if possible. The team agrees that pt delirium could be caused by the pain meds and getting them stopped is the only true way to see. In the event that pt does not return to baseline after stopping her pain meds stoppped/under control then it is possible that pt may need to be at a higher level of care. DAVE and pt dtr discussed this option and questioned if [facility] would be able to move her care level up if possible. Pt dtr wondered if pt being on the hydroxyzine could be causing the fall and DAVE informed her that SW could follow up with the psychiatrist on her concern. Pt psychiatrist Dr. Russell put pt on it as she tends to have physical breakouts when she is anxious and thought it would help her. DAVE will continue to keep pt dtr up to date.
--- NOTE | 2020-12-18 16:18 | RAD ---
EXAM: Chest, single view. HISTORY: Fall. COMPARISON: None. FINDINGS: A frontal view of the chest obtained. There is a moderate right pleural effusion, likely a hemothorax given the presence of overlying displaced rib fractures. There is associated right mid and lower lung compressive listhesis. The possibly of underlying or contusion or infiltrate is not exclu ded. The rib fractures involve the posterior lateral right seventh, eighth, ninth and tenth ribs. The re is no pneumothorax. The heart is normal in size. There is suspected left basilar atelectasis. Ther e is thoracolumbar scoliosis. IMPRESSION: 1. Moderate right pleural effusion, likely a hemothorax given the presence of multiple traumatic rib fractures. There is associated right mid lower lung compressive atelectasis. Superimposed pulmonary c ontusion or infiltrate is not excluded. 2. Right seventh through tenth rib fractures, not formally assessed on this exam. This can be better assessed with a CT. Electronically signed by: Mady Desai MD (12/18/2020 4:16 PM) [id number]
[2020-12-18 16:31] VITALS: BP 99/59
--- NOTE | 2020-12-18 16:58 | NUR ---
WEEKLY ACTIVITY THERAPY NOTE Date of Admission: 12/17 Date of AT Assessment: TBD Precipitating behaviors that initiated intake and admission: hallucinating, yelling out, screaming, impulsive Goal aimed: TBD Initial Goal: TBD Weekly progress towards goal: NA Group participation level: zero Weekly highlights: arrived on unit Behaviors observed: new admit Plan: meet/ assess Pt Beneficial adaptations:
--- NOTE | 2020-12-18 18:04 | CONS ---
DATE OF CONSULTATION: 12/18/2020 REASON FOR CONSULTATION: Medical management. HISTORY OF PRESENT ILLNESS: The patient is a 70-year-old female patient with multitude of medical problems, who was residing at an independent living facility of [facility], who was noted to have multiple falls at home prior to the most recent admission, she presented to the Emergency Room on 12/08/2020 after a fall from standing. She was evaluated at [facility] Emergency Room and was found to have right 7th through 11th rib fracture with significant displacement, small right sided pleural effusion and minute right sided pneumothorax without need for chest tube placement together with patchy atelectasis and contusion on the right lower lung. She was admitted under the Surgery Service and underwent epidural placement, which was discontinued on 12/12/2020 despite provision oxycodone and scheduled acetaminophen. The patient has continued to report pain. Her course was complicated by agitated encephalopathy that began within 24 hours of admission has persisted throughout her stay, scheduled Seroquel was added to assist with agitation, was increased to twice a day. She was transferred to [facility] on account of hallucinating, yelling, screaming, increasing falls, impulsive, all this in a background of psychosis, not otherwise specified, bipolar disorder. PAST MEDICAL HISTORY: Significant for allergic rhinitis, anal cancer, hypertension, bipolar, depression, scoliosis, seizure disorder, peptic ulcer disease, gait disturbance and insomnia. Most recently fall with right sided 7th through 11th rib fracture, small right sided pleural effusion, right sided pneumothorax. PAST SURGICAL HISTORY: Significant for esophagogastroduodenoscopy, flexible sigmoidoscopy, bone density scan, colonoscopy, right partial mastectomy. She had arthroscopic surgery of the left ankle joint, hysterectomy, bilateral salpingo-oophorectomy, appendectomy. ALLERGIES: SHE IS ALLERGIC TO IODINATED CONTRAST MEDIA, CIPROFLOXACIN, IBUPROFEN, AND TRAMADOL. MEDICATIONS: She is currently on the following medications: She is on cetirizine 10 mg once a day, nystatin suspension 5 mL swish and swallow 4 times a day, methocarbamol for Robaxin 750 mg 4 times a day, tizanidine 4 mg 3 times a day, metoprolol succinate 50 mg daily, amlodipine 2.5 mg once a day, oxycodone 10 mg every 4 hours as needed for pain, Tylenol 1000 mg 3 times a day, divalproex sodium 1000 mg at bedtime, paroxetine 40 mg daily, quetiapine fumarate 50 mg at bedtime, hydroxyzine 25 mg 4 times a day, Colace 300 mg at bedtime, polyethylene glycol 17 grams daily, ondansetron 4 mg every 6 hours, Protonix 40 mg daily and Lidoderm patch applied topically daily to the right side of the chest. FAMILY HISTORY: Noncontributory. SOCIAL HISTORY: She apparently lives in an independent living facility. She has 2 children. She does not smoke or drink alcohol or use recreational drugs. 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 REVIEW OF SYSTEMS: The patient was very lethargic, but did complain of pain and shortness of breath. OBJECTIVE: GENERAL: When I examined her this afternoon, she was resting slightly propped up in bed, in her recliner, in no apparent respiratory distress. She was pale, but no jaundice, cyanosis or thyromegaly. No jugular venous distention. No limb edema. VITAL SIGNS: Her heart rate was 82, blood pressure 141/85, temperature was 97.1, respiratory rate was 16, and oxygen saturation was 94% on 2 liters of oxygen. HEAD, EYES, EARS, NOSE AND THROAT: Showed normocephalic, atraumatic. NECK: Supple. HEART: Showed normal first and second heart sounds. No gallop or murmur. CHEST: Shows central trachea, equally reduced expansion, reduced air entry, vesicular breath sounds. I could not appreciate any crepitation or rhonchi. ABDOMEN: Scaphoid, soft, nontender. NEUROLOGIC: She was lethargic, but arousable. All cranial nerves are intact. EXTREMITIES: She moves extremities without difficulty. LABORATORY DATA: Showed a white cell count of 10,000, hemoglobin 13, hematocrit 40, MCV 97 and platelet count 474,000. Her chemistry showed a serum sodium of 128, potassium 5.2, chloride 93, bicarbonate 28, anion gap of 7, BUN 17, creatinine 0.8, estimated GFR was 70 mL per minute. Her glucose 119, calcium was 9.5, magnesium 2.7. Total bilirubin, AST, ALT, alkaline phosphatase were normal. Total protein 7.6 and albumin was 2.8. Her total T4 and total T3 are within normal range at 7.9 and 104. Her valproic acid was 68 mcg/mL, with normal range of 50-100. She did have a CT scan of the maxillofacial area as she fell on the face and a CT scan showed no acute facial fracture identified on maxillofacial CT scan. ASSESSMENT AND PLAN: In summary, this is a 70-year-old female patient who currently resides at an independent living facility, who has had multiple falls. She was admitted to [facility] on 12/08/2020 with a fall from standing and has sustained right sided 7th through 11th rib fracture with significant displacement. She has small right sided pleural effusion and minute right sided pneumothorax without need for chest tube placement. She did have also patchy atelectasis and contusion of the right lower lung. She was treated initially with an epidural anesthesia, which was continued until 12/12/2020 and then she was switched to oral oxycodone and scheduled acetaminophen. She was admitted to this facility on account of hallucinating, yelling, screaming, increasing falls, being impulsive, all this in a background of psychosis, not otherwise specified, bipolar disorder. Medically, she has a multitude of medical problems including hypertension, seizure disorder, peptic ulcer disease, gait disturbance, insomnia, anal cancer and allergic rhinitis. Psychologically, she is known to have bipolar disorder and depression. She was admitted to this unit for inpatient psychiatric stabilization. Medically, the patient generally seems to be stable. Her vital signs are within acceptable range. However, her lab work showed that she has hyponatremia and hyperkalemia. She also seemed to be excessively sedated and she is on 2 muscle relaxant, one is tizanidine and the other one is methocarbamol, Robaxin. She is also on 10 mg of oxycodone. She is on paroxetine that might be the reason for her hyponatremia caused by an inappropriate antidiuretic hormone release. I will obviously discuss with Dr. Cortes either we need to discontinue the paroxetine and perhaps cut down the muscle relaxant. AJME GLASGOW MD DR: BELEM/ani JOB#: [id number] / [id number]
[2020-12-18] MEDS: QUEtiapine 50 MG TABLET. PO SCH (20:02)
[2020-12-18] MEDS: DIVALPROEX ER 500 MG TAB.ER.24H PO SCH (20:02)
[2020-12-18] MEDS: DOCUSATE SODIUM 100 MG CAPSULE PO SCH (20:03)
[2020-12-18] MEDS: PATCH REMOVAL. MC SCH (20:03)
--- NOTE | 2020-12-18 21:07 | PDOC ---
Exam Note: Adan Note: Please also refer to the separate dictated note~for this date of service dictated separately.~Patient seen individually. Discussed the patient with Nursing staff reviewed the chart.~Reviewed interim history and current functioning. Reviewed vital signs,~Labs/ Radiology~and current medications noted below. Continue current treatment with the changes noted in the dictated addendum note Assessment: Vital Signs/I&O: Vital Signs Date Time Temp Pulse Resp B/P (MAP) Pulse Ox O2 Delivery O2 Flow Rate FiO2 12/18/20 20:06 94 12/18/20 16:31 96.9 78 16 99/59 (72) 95.0 12/18/20 13:43 Nasal Cannula I & O 12/17/20 12/17/20 12/18/20 15:00 23:00 07:00 Intake Total 360 ml Balance 360 ml Current Medications: Meds: Current Medications Medications (Trade) Dose Ordered Sig/Valerio Route PRN Reason Start Time Stop Time Status Last Admin Dose Admin Amlodipine Besylate (Norvasc) 2.5 mg DAILY PO 12/18/20 09:00 12/18/20 08:59 Cetirizine HCl (ZyrTEC) 10 mg DAILY PO 12/18/20 09:00 12/18/20 08:58 Metoprolol Succinate (Toprol Xl) 50 mg DAILY PO 12/18/20 09:00 12/18/20 08:57 Paroxetine HCl (Paxil) 40 mg DAILY PO 12/18/20 09:00 12/18/20 08:58 Lidocaine (Lidoderm) 1 patch DAILY TD 12/18/20 09:00 12/18/20 09:00 Pantoprazole Sodium (Protonix) 40 mg DAILY08 PO 12/18/20 08:00 12/18/20 08:58 I have reviewed the current psychotropics carefully including drug interactions. Risk benefit ratio favors no change other than as noted in my dictated progress note. Diagnosis: Problems: (1) Anxiety disorder (2) Impulse control disorder (3) Obsessive compulsive disorder (4) Bipolar disorder, curr episode mixed, severe, with psychotic features EVER BAR MD Dec 18, 2020 21:07
--- NOTE | 2020-12-18 21:58 | HP ---
ADMIT DATE: 12/18/2020 PSYCHIATRIC ADMISSION HISTORY/EVALUATION This note covers the elements not covered in my initial note of 12/18/2020. IDENTIFYING DATA: The patient is a 70-year-old female referred back to us from [facility] where she presented from her home on account of active hallucinations, yelling and screaming, having increasing falls, being impulsive, disruptive, dangerous in her behaviors, specifically related to repeated falls, having fallen 6 times in the past 6 months. She had been living at [facility], which is where she refers to as her home. Reportedly during one of these falls, the TV fell on her. At one point, she had a fall and had 5 rib fractures and various pulmonary complications from this. She has a long history of bipolar disorder, has had an acute exacerbation of her bipolar mood disorder with increased paranoia, psychotic symptoms in addition to above and is referred for inpatient psychiatric stabilization. She was admitted by Dr. Whelan during my absence on 12/17/2020. IDENTIFYING DATA: The patient is a 70-year-old female referred back to us for inpatient psychiatric stabilization as noted above. CHIEF COMPLAINT: "Yes, I fall. There are no other problems." The patient is quite paranoid, suspicious as I met with her. HISTORY OF PRESENT ILLNESS: The patient has a history of bipolar disorder with increasing mood swings and paranoia. Concerns are related to her active hallucinations, yelling, screaming, impulsive behaviors and the falls as noted above. She is extremely restless. PAST PSYCHIATRIC HISTORY: As above. MEDICAL HISTORY: Positive for allergic rhinitis, anal cancer, hypertension, left lower extremity paraesthesia, peptic ulcer disease, scoliosis and syncope. She recently was treated for UTI. Antibiotics completed on 12/16/2020. ACCU-CHEKS: None. CODE STATUS: DNR. ALLERGIES: CIPRO, CONTRAST, IBUPROFEN, TRAMADOL. DIET: Regular. Vegan. Meds takes crushed in applesauce. Ambulates 1-2 person assist/Broda chair. CURRENT PSYCHOTROPICS: Depakote ER 1000 mg at bedtime, Paxil 40 mg a day, hydroxyzine 25 mg q.i.d. p.r.n. anxiety, valproic acid level 117 __ 68 therapeutic, but she has hyponatremia, sodium 125, potassium 5.2 with some hyperkalemia. We will defer to Dr. Singleton. FAMILY HISTORY: Noncontributory. SOCIAL HISTORY: The patient lives at the [facility] living [facility] in [place]. No alcohol or drug abuse, physical, sexual or elder abuse history is noted. She is not known to be a perpetrator. REACTION TO HOSPITALIZATION: The patient demanding to go back to [facility]. ASSETS: Supportive family. REVIEW OF SYSTEMS: Ambulation impaired. No CV, , pulmonary, eye, ENT system symptoms on review. Reliability varies. MENTAL STATUS EXAMINATION: The patient is awake, alert, oriented. Speech coherent, rapid at times. Abstraction fair, computation impaired, language function intact, attention span short. Mood and affect remains labile. She is quite paranoid, suspicious, irritable, demanding. I will see the patient daily individually for further assessment. Attention span short. Language function intact. No active suicidal or homicidal ideation. LABORATORY DATA: Reviewed. IMPRESSION: Bipolar 1 disorder, mixed with psychotic features; anxiety disorder, unspecified; impulse control disorder, unspecified. Rest diagnoses as above. PLAN: Admit to Geropsychiatry Unit at [facility]. I will see the patient daily individually from a psychiatric standpoint. Medical followup with Dr. Singleton/Dr. Oron[place]. Dr. Singleton may consider discontinuing either methocarbamol or tizanidine and simplifying her nonpsychiatric medications, which may be contributing to her falls. Additionally, we will check a UA, rule out urinary tract infection contributing to her falls and we will make further adjustments in her psychotropics as clinically indicated. ESTIMATED LENGTH OF STAY: 10-12 days. DISPOSITION: Plans back to independent living at [facility] once she is medically stable. MAN Mindi BAR MD DR: TAMMY/ani JOB#: [id number] / [id number]
--- NOTE | 2020-12-18 22:42 | NUR ---
Pt sitting in her broda chair this evening. Pt tearful, stating that she is in pain. Compliant with shower crushed medications, Depakote ER floated in applesauce. PRN Roxicodone given with HS medications. Pt yelling out later in the evening, stating she was anxious and in pain. PRN Tylenol and Atarax administered.
[2020-12-19 00:11] LABS: HEMOGLOBIN A1C 5.6 % (4.8-5.6)
[2020-12-19] MEDS: oxyCODONE IR 5 MG TABLET PO PRN ×2 (04:43→12:27)
[2020-12-19 05:46] VITALS: BP 132/77
[2020-12-19 07:35] LABS: CREATININE 0.9 mg/dL (0.6-1.0); GFR 61.9; POTASSIUM 4.1 mmol/L (3.5-5.1)
[2020-12-19] MEDS: tiZANidine 4 MG TABLET. PO SCH ×3 (09:02→21:27)
[2020-12-19] MEDS: CETIRIZINE HCL 10 MG TABLET PO SCH (09:02)
[2020-12-19] MEDS: METOPROLOL SUCC 24HR ER 25 MG TAB.ER.24H. PO SCH (09:02)
[2020-12-19] MEDS: amLODIPine BESYLATE 2.5 MG TABLET PO SCH (09:02)
[2020-12-19] MEDS: PARoxetine 20 MG TABLET PO SCH (09:02)
[2020-12-19] MEDS: ACETAMINOPHEN 500 MG TABLET PO SCH ×3 (09:02→21:27)
[2020-12-19] MEDS: PANTOPRAZOLE 40 MG TABLET. PO SCH (09:02)
[2020-12-19] MEDS: LIDOCAINE (700MG/PATCH) PATCH. TD SCH (09:03)
[2020-12-19] MEDS: NYSTATIN 100,000 UNITS/ML ORAL SUSPENSION 60ML BOTTLE. PO SCH ×4 (09:06→21:29)
[2020-12-19] MEDS: METHOCARBAMOL 500 MG TABLET PO SCH ×2 (09:06→13:36)
[2020-12-19] MEDS ORDERED: METOPROLOL SUCC 24HR ER 25 MG TAB.ER.24H. PO SCH (16:00)
[2020-12-19 16:10] VITALS: BP 98/56
--- NOTE | 2020-12-19 17:27 | NUR ---
NSG NOTE; SOA, HYPOXIA PT DEVELOPED SOA, DIAPHORESIS, ANXIETY AND RESTLESSNESS WITH VS: bp144/78 HR84 RR26 TEMP 97.9 O2SAT 87% ON 6L O2 DR GLASGOW NOTIFIED. STAT CTA ORDER RECEIVED
--- NOTE | 2020-12-19 17:49 | NUR ---
NSG NOTE; CT CHEST W/O CONTRAST ORDERED PER DR GLASGOW PT HAS ADVERSE REACTION TO IO CONTRAST MEDIA. CTA DC'D
--- NOTE | 2020-12-19 19:06 | RAD ---
Exam: CT of chest without contrast INDICATION: Short of air, hypoxia TECHNIQUE: Sequential axial images through the chest obtained without IV contrast. Sagittal and coron al reformatted images were reconstructed from the axial data and reviewed. Comparisons: Chest x-ray 12/18/2020 FINDINGS: Visualized portions of the thyroid are unremarkable. No enlarged mediastinal lymph nodes. Heart size is normal. No pericardial effusion. Thoracic aorta has a normal course and caliber. Pulmon kevin artery is not enlarged. Airways are patent. There is complete atelectasis of the right lower lobe. No pneumothorax. There is moderate sized right pleural effusion Visualized upper abdomen is unremarkable. There is a mildly displaced fractures involving the lateral/posterior right seventh, eighth, 9, 10 an d 11 ribs. No suspicious osseous lesions. IMPRESSION: 1. There is a moderate-sized pleural effusion on the right causing near complete atelectasis of the right lung. No pleural effusion is mildly hyperattenuating which raises possibility for hemorrhagic p roducts. 2. Numerous right lateral rib fractures as described above. Exposure: One or more of the following in the visualized dose reduction techniques were utilized for this examination: 1. Automated exposure control 2. Adjustment of the MA and/or KV according to patient size 3. Use of iterative of reconstructive technique Electronically signed by: Chicho Mccann MD (12/19/2020 7:04 PM) [facility]
[2020-12-19 20:20] LABS: BGAS PH 7.51 (7.35-7.45)
[2020-12-19] MEDS ORDERED: METH28OI2 TP (20:49)
[2020-12-19] MEDS ORDERED: ACET325T9 PO (20:51)
[2020-12-19] MEDS ORDERED: MAG30ORA2 PO (20:52)
[2020-12-19] MEDS ORDERED: MAGN400O7 PO (20:58)
[2020-12-19] MEDS: PATCH REMOVAL. MC SCH (21:00)
--- NOTE | 2020-12-19 21:07 | PDOC ---
Exam Note: Adan Note: Please also refer to the separate dictated note~for this date of service dictated separately.~Patient seen individually. Discussed the patient with Nursing staff reviewed the chart.~Reviewed interim history and current functioning. Reviewed vital signs,~Labs/ Radiology~and current medications noted below. Continue current treatment with the changes noted in the dictated addendum note Assessment: Vital Signs/I&O: Vital Signs Date Time Temp Pulse Resp B/P (MAP) Pulse Ox O2 Delivery O2 Flow Rate FiO2 12/19/20 16:10 97.5 73 16 98/56 (70) 95 2.0 12/18/20 13:43 Nasal Cannula I & O 12/18/20 12/18/20 12/19/20 15:00 23:00 07:00 Intake Total 480 ml 240 ml Balance 480 ml 240 ml Labs: Laboratory Tests Test 12/19/20 06:46 12/19/20 18:55 Sodium Level 132 mmol/L (136-145) L Potassium Level 4.1 mmol/L (3.5-5.1) Chloride Level 94 mmol/L (98-107) L Carbon Dioxide Level 29 mmol/L (21-32) Anion Gap 9 (6-14) Blood Urea Nitrogen 23 mg/dL (7-20) H Creatinine 0.9 mg/dL (0.6-1.0) Estimated GFR (Cockcroft-Gault) 61.9 Glucose Level 93 mg/dL (70-99) Calcium Level 9.0 mg/dL (8.5-10.1) Cortisol AM Sample 14.41 ug/dL (4.3-22.4) Blood pH 7.51 (7.35-7.45) H Blood Gas PCO2 41 mmHg (35-45) Blood Gas PO2 62 mmHg (71-100) L Blood Gas HCO3 33 mmol/L (22-26) H Arterial Bld O2 Saturation (Calc) 44 % (92-99) L FiO2 44 % Current Medications: Meds: Laboratory Tests Test 12/19/20 06:46 12/19/20 18:55 Sodium Level 132 mmol/L Potassium Level 4.1 mmol/L Chloride Level 94 mmol/L Carbon Dioxide Level 29 mmol/L Anion Gap 9 Blood Urea Nitrogen 23 mg/dL Creatinine 0.9 mg/dL Estimated GFR (Cockcroft-Gault) 61.9 Glucose Level 93 mg/dL Calcium Level 9.0 mg/dL Cortisol AM Sample 14.41 ug/dL Blood Gas pH 7.51 Blood Gas PCO2 41 mmHg Blood Gas PO2 62 mmHg Blood Gas HCO3 33 mmol/L Arterial Bld O2 Saturation (Calc) 44 % FiO2 44 % Current Medications Medications (Trade) Dose Ordered Sig/Valerio Route PRN Reason Start Time Stop Time Status Last Admin Dose Admin Acetaminophen (Tylenol) 650 mg PRN Q6HRS PRN PO MILD PAIN / TEMP > 100.3'F 12/17/20 14:45 12/18/20 22:17 Multi-Ingredient Ointment (Analgesic [place]) 1 ralph PRN QID PRN TP MUSCLE PAIN 12/17/20 14:45 Al Hydroxide/Mg Hydroxide (Mylanta Plus Xs) 15 ml PRN AFTMEALHC PRN PO DYSPEPSIA 12/17/20 14:45 Magnesium Hydroxide (Milk Of Magnesia) 2,400 mg PRN QHS PRN PO CONSTIPATION, 2nd choice 12/17/20 14:45 Amlodipine Besylate (Norvasc) 2.5 mg DAILY PO 12/18/20 09:00 12/19/20 16:01 DC 12/19/20 09:02 Cetirizine HCl (ZyrTEC) 10 mg DAILY PO 12/18/20 09:00 12/19/20 09:02 Divalproex Sodium (Depakote Er) 1,000 mg QHS PO 12/17/20 21:00 12/18/20 20:02 Docusate Sodium (Colace) 300 mg QHS PO 12/17/20 21:00 12/18/20 20:03 Hydroxyzine HCl (Atarax) 25 mg PRN QID PRN PO ITCHING 12/17/20 16:00 12/18/20 22:17 Metoprolol Succinate (Toprol Xl) 50 mg DAILY PO 12/18/20 09:00 12/19/20 16:01 DC 12/19/20 09:02 Ondansetron HCl (Zofran Odt) 4 mg PRN Q6HRS PRN PO NAUSEA/VOMITING 12/17/20 15:45 12/17/20 16:17 Pantoprazole Sodium (Protonix) 40 mg DAILY06 PO 12/18/20 06:00 12/18/20 05:29 DC Methocarbamol (Robaxin) 750 mg QID PO 12/17/20 17:00 12/19/20 16:01 DC 12/19/20 13:36 Acetaminophen (Tylenol) 1,000 mg TID PO 12/17/20 21:00 12/19/20 13:34 Oxycodone HCl (Roxicodone) 10 mg PRN Q4HRS PRN PO mod-sev PAIN 12/17/20 16:00 12/19/20 12:27 Lidocaine (Lidoderm) 1 patch DAILY TD 12/17/20 16:00 12/17/20 16:05 DC Nystatin (Mycostatin) 5 ml QID PO 12/17/20 17:00 12/19/20 16:30 Polyethylene Glycol (miraLAX) 17 gm PRN DAILY PRN PO CONSTIPATION, 1st choice 12/17/20 16:00 Quetiapine Fumarate (SEROquel) 50 mg HS PO 12/17/20 21:00 12/18/20 20:02 Tizanidine HCl (Zanaflex) 4 mg TID PO 12/17/20 21:00 12/19/20 13:34 Paroxetine HCl (Paxil) 40 mg DAILY PO 12/18/20 09:00 12/19/20 09:02 Miscellaneous (Lidoderm Patch Removal) 1 ea QHS MC 12/17/20 21:00 Lidocaine (Lidoderm) 1 patch DAILY TD 12/18/20 09:00 12/19/20 09:03 Pantoprazole Sodium (Protonix) 40 mg DAILY08 PO 12/18/20 08:00 12/19/20 09:02 Metoprolol Succinate (Toprol Xl) 25 mg DAILY PO 12/19/20 16:00 12/19/20 16:30 DC Metoprolol Succinate (Toprol Xl) 25 mg DAILY PO 12/20/20 09:00 I have reviewed the current psychotropics carefully including drug interactions. Risk benefit ratio favors no change other than as noted in my dictated progress note. Diagnosis: Problems: (1) Anxiety disorder (2) Impulse control disorder (3) Obsessive compulsive disorder (4) Bipolar disorder, curr episode mixed, severe, with psychotic features EVER BAR MD Dec 19, 2020 21:07
[2020-12-19] MEDS: QUEtiapine 50 MG TABLET. PO SCH (21:27)
[2020-12-19] MEDS: DIVALPROEX ER 500 MG TAB.ER.24H PO SCH (21:27)
[2020-12-19] MEDS: DOCUSATE SODIUM 100 MG CAPSULE PO SCH (21:29)
--- NOTE | 2020-12-19 22:46 | DS ---
DATE OF DISCHARGE: 12/19/2020 DISCHARGE SUMMARY/PSYCHIATRIC PROGRESS NOTE This note covers elements not covered in my initial note of 12/19/2020. REASON FOR ADMISSION: Please refer to the admission history for details. Briefly, the patient is a 70-year-old female who was readmitted back to our service, referred from [facility] Emergency Room where she presented on account of worsening psychosis and frequent falls at home. She was extremely impulsive, yelling, screaming, hallucinating and prior to admission had a fall with fractured ribs causing pneumothorax, which had to be corrected. Behaviors that failed outpatient psychiatric interventions resulting in this referral. SIGNIFICANT FINDINGS AND CLINICAL COURSE: Following admission, the patient was seen daily individually by myself from a psychiatric standpoint, medical followup with Dr. Singleton/Dr. Orona. The patient was initially extremely labile in her mood, grandiose, irritable, paranoid and on 12/19/2020 she was having rib pain. Oxygen sats were dropping despite [address] Singleton had a CT chest, which showed significant pneumothorax and lung atelectasis. She was transferred to [facility] on evening of 12/19/2020. REVIEW OF SYSTEMS: Prior to discharge on 12/19/2020, shortness of breath, impaired ambulation. No CV, , eye system symptoms on review. MENTAL STATUS EXAM: The patient is reasonably oriented. Speech is coherent, has some latency. Abstraction fair, computation impaired, language function intact, attention span short. Mood and affect remain somewhat anxious, labile. LABORATORY DATA: Reviewed. FINAL DIAGNOSES: Bipolar 1 disorder, mixed with psychotic features, in partial remission; anxiety disorder, unspecified; atelectasis; status post fall and rib fractures. Rest unchanged from admission. DISCHARGE MEDICATIONS: Please refer to the MRAD, medical and psychiatric followup at [facility]. She is on Depakote ER 1000 mg at bedtime, Paxil 40 mg a day, hydroxyzine p.r.n., Seroquel 50 mg at bedtime prior to discharge. Time for discharge day management greater than 30 minutes. EVER BAR MD DR: TAMMY/ani JOB#: [id number] / [id number]
[2020-12-19] MEDS ORDERED: IV NORMAL SALINE 500ML 500 ML IV ONE (23:00)
--- NOTE | 2020-12-19 23:45 | NUR ---
Transition Record was faxed to follow-up provider with the following elements: Reason for admission, procedures, tests, principal diagnosis, pending studies, patient instructions, 23/06 contact information for unit, phone number to obtain pending test results, plan for follow-up care, physician follow-up, advanced directive information, and medication list with dose, duration and instructions. This information was included in the following documents: History and physical, lab results, study results, progress notes, social work planning form, DC instruction form, patient visit summary, and medication reconciliation form. Date & time record faxed:12/19/20 [id number] Record faxed to:[facility] Record discussed with/ report given to:Nirali [facility]
--- NOTE | 2020-12-19 23:52 | NUR ---
Nursing Note The patient was calm, compliant and drowsy this shift. The patient was located in her room laying in bed for her assessment and medication pass. The patient was compliant with all cares and with her assessment. The patients lung are diminished notably on her right side. bowels are active and last bm 12/19/20. The patient was able to recall name, year and location. The patient is on 6L oxygen nasal canula. the patient has difficulty keeping the canula in her nose and requires lots of redirection. The patient had a chest C/T performed this evening and Dr. Singleton determined based on the results of the scan and current symptoms that the patient required a higher level of care. The patient was transferred to [facility] ICU. Report was given to Nirali @[id number]. A 22g IV was started in her Left wrist and started on Normal Saline 500cc 100ml/hr x1 per Dr. Singleton. The patient left the unit@ 6260.
[2020-12-20] MEDS ORDERED: METOPROLOL SUCC 24HR ER 25 MG TAB.ER.24H. PO SCH (09:00)
== END 2020-12-19 23:45 | disposition short-term general hospital (02) | DRG 885 ==
LOC: GEROPSY 14:06
PROVIDERS: ADMIT Psychiatry & Neurology Psychiatry; ATTEND Psychiatry & Neurology Psychiatry
DX: F31.64 Bipolar disorder, current episode mixed, severe, with psychotic features (principal); E43 Unspecified severe protein-calorie malnutrition; E87.1 Hypo-osmolality and hyponatremia; J98.11 Atelectasis; S27.0XXA Traumatic pneumothorax, initial encounter; S22.41XA Multiple fractures of ribs, right side, initial encounter for closed fracture; G93.40 Encephalopathy, unspecified; J90 Pleural effusion, not elsewhere classified; Z68.1 Body mass index [BMI] 19.9 or less, adult; I10 Essential (primary) hypertension; Z66 Do not resuscitate; F41.9 Anxiety disorder, unspecified; F63.9 Impulse disorder, unspecified; E87.5 Hyperkalemia; W18.39XA Other fall on same level, initial encounter; G40.909 Epilepsy, unspecified, not intractable, without status epilepticus; F29 Unspecified psychosis not due to a substance or known physiological condition; F42.9 Obsessive-compulsive disorder, unspecified; G47.00 Insomnia, unspecified; Z20.822 Contact with and (suspected) exposure to COVID-19; M41.9 Scoliosis, unspecified; R29.6 Repeated falls; Z85.048 Personal history of other malignant neoplasm of rectum, rectosigmoid junction, and anus; Z87.11 Personal history of peptic ulcer disease; Z88.1 Allergy status to other antibiotic agents; Z91.041 Radiographic dye allergy status; Y92.89 Other specified places as the place of occurrence of the external cause; Y93.89 Activity, other specified; Y99.8 Other external cause status; Z88.6 Allergy status to analgesic agent; Z90.710 Acquired absence of both cervix and uterus
CPT/HCPCS: 36415; 70486; 71045; 71250; 80048; 80053; 80061; 80164; 82306; 82533; 82607; 82803; 83036; 83540; 83550; 83735; 84436; 84443; 84480; 85025; 93005; J7040; Q0162; U0003; 97116; 97535

== ENCOUNTER 2020-12-30 11:51 | Inpatient (IN) | payer MEDICARE ==
[~2020-12-30] VITALS: Ht 152.4 cm; Wt 56.6 kg
[~2020-12-30 11:51] MED LIST changes: +ACET325T9 PO; +ACET500T68 PO; +AMLO2.5T5 PO; +CETI10TA16 PO; +LIDO1ADH63 TP; +MAG30ORA2 PO; +MAGN400O7 PO; +MELO7.5T29 PO; +METH-38 PO; +NYST1000 PO; +PANT40TA6 PO; +PARO40TA61 PO; +POLY17PO5 PO; +TIZA4TAB2 PO
[2020-12-30] MEDS ORDERED: LISI-517 PO (13:34)
--- NOTE | 2020-12-30 16:03 | NUR ---
Admission Note with Justification for Admission to [facility] Patient admitted to [facility] for protective oversight for emergency stabilization of acute psychiatric crisis. Pt admitted from: [facility] Mode of arrival: EMS Accompanied By: EMS, [facility] Precipitating behaviors that initiated intake and admission:Delirium, bipolar d/o personality d/o, increased falls, hallucinations, yelling/screaming, impulisve Description of failure of out patient attempts at stabilization in previous setting list behavior and medication trials: Medications Behaviors and assessment findings upon admission: Calm, appropriate, A&OX4, c/o severe pain in R ribs d/t d/c chest tube from [facility], complaint Plan: Admit for protective oversight for adjustment and stabilization of medications, behaviors and mood. Intense treatment regimen including groups, medication adjustments, therapy, consistent regimen for ADL's, self care, and sleep hygiene. Daily monitoring by Inpatient staff, Psychiatry, and Medical Physician.
[2020-12-30 16:57] VITALS: BP 152/81
[2020-12-30] MEDS ORDERED: POLYETHYLENE GLYCOL 3350 17 GM PACKET. PO PRN (17:30)
[2020-12-30] MEDS ORDERED: MAGNESIUM HYDROXIDE 2,400 MG/30 ML ORAL.SUSP. PO PRN (17:30)
[2020-12-30] MEDS ORDERED: MAG HYDROX/AL HYDROX/SIMETH 30 ML ORAL.SUSP PO PRN (17:30)
[2020-12-30] MEDS ORDERED: METHYL SALICYLATE/MENTHOL TOPICAL OINTMENT 57GM TUBE. TP PRN (17:45)
[2020-12-30] MEDS: oxyCODONE IR 5 MG TABLET PO PRN (19:57)
[2020-12-30] MEDS: ACETAMINOPHEN 500 MG TABLET PO SCH (19:58)
[2020-12-30] MEDS: METOPROLOL SUCC 24HR ER 25 MG TAB.ER.24H. PO SCH (19:58)
[2020-12-30] MEDS: QUEtiapine 50 MG TABLET. PO SCH (19:58)
[2020-12-30] MEDS: DOCUSATE SODIUM 100 MG CAPSULE PO SCH (19:58)
[2020-12-30] MEDS: NYSTATIN 100,000 UNITS/ML ORAL SUSPENSION 60ML BOTTLE. PO SCH (20:00)
[2020-12-30] MEDS: ONDANSETRON ODT 4 MG TAB.RAPDIS PO PRN (20:36)
[2020-12-30] MEDS ORDERED: DIVALPROEX ER 500 MG TAB.ER.24H PO SCH (21:00)
--- NOTE | 2020-12-30 21:04 | PDOC ---
Exam Note: Adan Note: Please also refer to the separate dictated note~for this date of service dictated separately.~Patient seen individually. Discussed the patient with Nursing staff reviewed the chart.~Reviewed interim history and current functioning. Reviewed vital signs,~Labs/ Radiology~and current medications noted below. Continue current treatment with the changes noted in the dictated addendum note Assessment: Vital Signs/I&O: Vital Signs Date Time Temp Pulse Resp B/P (MAP) Pulse Ox O2 Delivery O2 Flow Rate FiO2 12/30/20 21:03 94 12/30/20 19:58 82 152/81 12/30/20 16:57 97.6 Room Air 5.0 Current Medications: Meds: Current Medications Medications (Trade) Dose Ordered Sig/Valerio Route PRN Reason Start Time Stop Time Status Last Admin Dose Admin Acetaminophen (Tylenol) 1,000 mg TID PO 12/30/20 21:00 12/30/20 19:58 Docusate Sodium (Colace) 300 mg QHS PO 12/30/20 21:00 12/30/20 19:58 Metoprolol Succinate (Toprol Xl) 25 mg BID PO 12/30/20 21:00 12/30/20 19:58 Nystatin (Mycostatin) 5 ml QID PO 12/30/20 21:00 12/30/20 20:00 Ondansetron HCl (Zofran Odt) 4 mg PRN Q6HRS PRN PO NAUSEA/VOMITING 12/30/20 17:30 12/30/20 20:36 Oxycodone HCl (Roxicodone) 10 mg PRN Q4HRS PRN PO PAIN 12/30/20 17:30 12/30/20 19:57 Divalproex Sodium (Depakote Er) 1,000 mg QHS PO 12/30/20 21:00 12/30/20 19:58 Quetiapine Fumarate (SEROquel) 50 mg HS PO 12/30/20 21:00 12/30/20 19:58 I have reviewed the current psychotropics carefully including drug interactions. Risk benefit ratio favors no change other than as noted in my dictated progress note. Diagnosis: Problems: (1) Anxiety disorder (2) Impulse control disorder (3) Obsessive compulsive disorder (4) Bipolar disorder, curr episode mixed, severe, with psychotic features EVER BAR MD Dec 30, 2020 21:04
--- NOTE | 2020-12-30 21:52 | HP ---
ADMIT DATE: 12/30/2020 PSYCHIATRIC ADMISSION HISTORY/EVALUATION IDENTIFYING DATA: The patient is a 70-year-old female who returns back to us from [facility] where she was transferred from my unit on 12/19/2020 on account of a pneumothorax requiring almost 6 liters of continuous oxygen. This is within the context of her history of repeated falls while she was living at home with family, getting increasingly psychotic, agitated and a prior history of bipolar disorder. She was initially referred to us from [facility] Emergency Room where she presented with family. While at [place] and after she was medically stabilized, she is continued to be agitated, restless with ongoing mood lability, agitation, unmanageable behaviors. She has appeared depressed, paranoid, has failed psychiatric interventions resulting in this referral back to us after Dr. Singleton, her primary care physician directly called for the intake assessment. CHIEF COMPLAINT: "There is too much noise here. I am getting worse. I came here for rehabilitation. Nothing else." HISTORY OF PRESENT ILLNESS: The patient reportedly has a long history of bipolar disorder with psychotic features. She has been living at home with family in [place], [place], getting increasingly agitated, having repeated falls, hallucinating, yelling, screaming with marked impulsivity resulting in the visit to the Emergency Room at the [facility] and then referral to us at that time. Currently, she continues to have sleep disturbance, marked mood lability persist with some paranoia. No active suicidal or homicidal ideation. PAST PSYCHIATRIC HISTORY: Positive for bipolar disorder. MEDICAL HISTORY: Positive for seizure disorder, peptic ulcer disease, marked insomnia, repeated falls, recent pneumothorax with pleural effusion, allergic rhinitis, history of anal cancer, and scoliosis. DRUG ALLERGIES: CIPRO, CONTRAST, IBUPROFEN, TRAMADOL. CODE STATUS: DNR. ACCU-CHEKS: None. DIET: Regular. Takes medications whole. Ambulates x 1-2 with 1-person assist. CURRENT PSYCHOTROPICS: Depakote ER 1000 mg at bedtime, Paxil 40 mg a day, Seroquel 50 mg at bedtime, and Atarax 25 mg q.i.d. p.r.n. anxiety. FAMILY HISTORY: Noncontributory. SOCIAL HISTORY: No history of alcohol, drug abuse, physical, sexual or elder abuse. She is not known to be a perpetrator. REACTION TO HOSPITALIZATION: The patient not happy with her because she believes she is here for rehabilitation and there too much noise here for her to get any successful rehab. REVIEW OF SYSTEMS: Ambulation impaired ongoing anxiety. No CV, , pulmonary, eye, ENT system symptoms on review. MENTAL STATUS EXAMINATION: The patient is reasonably oriented. She seemed to remember my name. Speech is coherent, rapid at times. Abstraction fair, computation impaired, language function intact, attention span short. Mood and affect remains labile. She is quite paranoid, suspicious, with marked mood lability. No active suicidal or homicidal ideation. LABORATORY DATA: Reviewed. IMPRESSION: Bipolar 1 disorder, mixed with psychotic features versus bipolar disorder, depressed with psychotic features; anxiety disorder, unspecified; psychotic disorder, unspecified. Rest unchanged from above. PLAN: Admit to Geropsychiatry Unit at [facility]. I will see the patient daily individually from a psychiatric standpoint. Medical followup with Dr. Singleton/Dr. Orona. Continue the patient on her current psychotropics. Check her valproic acid level. Consider adjusting the Seroquel and tapering the Paxil. We will make further adjustments as clinically indicated. ESTIMATED LENGTH OF STAY: 10-12 days. DISPOSITION: Plans back home with family in [place], [place] and [facility] MAN Mindi BAR MD DR: TAMMY/ani JOB#: [id number] / [id number]
--- NOTE | 2020-12-30 23:24 | NUR ---
Pt located in her room this evening laying in bed. Pt with flat affect, tearful at times. Pt states that she does not belong here and wants to go home. Pt attention seeking; stating that she is in pain but then when staff attempts to administer pain medication, pt states that she is nauseous. PRN Zofran administered. Later pt was yelling out and stated to FRANCHISE BROKER that she was in pain. This RN then attempted to administer HS medications but pt once again refused them stating that she was nauseous. Eventually, after multiple attempts pt was compliant with crushed medications in applesauce. PRN Roxicodone administered at that time. Pt continuously removing her O2 and becoming irritated with staff when attempting to replace cannula. Pt currently asleep in bed.
[2020-12-31] MEDS: oxyCODONE IR 5 MG TABLET PO PRN (05:26)
[2020-12-31 06:37] VITALS: BP 152/86
[2020-12-31] MEDS: PANTOPRAZOLE 40 MG TABLET. PO SCH (07:49)
[2020-12-31] MEDS: CETIRIZINE HCL 10 MG TABLET PO SCH (07:50)
[2020-12-31] MEDS: METOPROLOL SUCC 24HR ER 25 MG TAB.ER.24H. PO SCH ×2 (07:50→19:44)
[2020-12-31] MEDS: ACETAMINOPHEN 500 MG TABLET PO SCH ×3 (07:50→17:12)
[2020-12-31] MEDS: PARoxetine 20 MG TABLET PO SCH (07:50)
[2020-12-31] MEDS: NYSTATIN 100,000 UNITS/ML ORAL SUSPENSION 60ML BOTTLE. PO SCH ×4 (07:52→19:45)
[2020-12-31] MEDS: LIDOCAINE (700MG/PATCH) PATCH. TP SCH (07:52)
--- NOTE | 2020-12-31 10:15 | NUR ---
Pt has been in her room most of the morning. She appears appropriate in behaviors and language with staff; she is able to maintain and hold conversation as well as ask pertinent and appropriate questions to the topic at hand. She reports R rib pain 5/10 and states her current pain level is an improvement d/t Roxycodone administration earlier during night shift manager. Scheduled Lidocaine patch was applied to pt's lower back by this nurse for further pain relief measures. She is on 5L O2 via NC and her O2 sats have remained at or above 94% thus far. Pt has c/o of pain and difficulty breathing r/t R pneumothorax and previous chest tube, but states she does not feel as if she is not obtaining adequate O2 intake. She denies SI/HI/VH/AH, A&Ox4. Pt appears to be moderately motivated and has stated a goal to bathe and brush her teeth today. Encouragement and support given.
[2020-12-31 11:27] LABS: BASO % 0 % (0-3); EOS # 0.1 x10^3/uL (0.0-0.7); EOS % 1 % (0-3); HEMATOCRIT 35.7 % (36.0-47.0); HEMOGLOBIN 11.8 g/dL (12.0-15.5); LYMPH # 1.2 x10^3/uL (1.0-4.8); LYMPH % 15 % (24-48); MEAN CORPUSCULAR HEMOGLOBIN 32 pg (25-35); MEAN CORPUSCULAR HGB CONC 33 g/dL (31-37); MEAN CORPUSCULAR VOLUME 98 fL (79-100); MONO # 0.9 x10^3/uL (0.0-1.1); MONO % 11 % (0-9); NEUT # 6.2 x10^3uL (1.8-7.7); NEUT % 74 % (31-73); PLATELET COUNT 485 x10^3/uL (140-400); RED BLOOD COUNT 3.66 x10^6/uL (3.50-5.40); RED CELL DISTRIBUTION WIDTH 13.2 % (11.5-14.5); WHITE BLOOD COUNT 8.4 x10^3/uL (4.0-11.0)
[2020-12-31 13:39] LABS: VAL ACID 36 mcg/mL (50-100)
--- NOTE | 2020-12-31 15:26 | RAD ---
EXAM: AP View of the chest DATE: 12/31/2020 2:14 PM INDICATION: Right sided rib fracture with right sided pleural effusion/ hemot / Spl. Instructions: / History: COMPARISON: 12/18/2020 FINDINGS/IMPRESSION Heart is not enlarged. Linear opacities left lung base. Right lung base airspace opacities are also s een, possibly atelectasis or developing consolidation. Moderate to large right pleural effusion. Mult iple right rib fractures are again seen. No definite pneumothorax is seen. Thoracolumbar scoliosis. Electronically signed by: Armin Kessler MD (12/31/2020 3:00 PM) [facility]
--- NOTE | 2020-12-31 15:46 | NUR ---
Paged Dr Singleton regarding CXR results. states they have not changed since previous imaging. No orders given at this time.
[2020-12-31 16:41] VITALS: BP 133/78
--- NOTE | 2020-12-31 17:49 | CONS ---
DATE OF CONSULTATION: 12/31/2020 REASON FOR CONSULTATION: Medical management. HISTORY OF PRESENT ILLNESS: The patient is a 70-year-old female patient who was transferred from [facility] on 12/19/2020 to [facility] on account of acute hypoxic respiratory failure as well as right-sided hemothorax as well as right-sided rib fracture from 7 to 11. The patient was admitted to the ICU and had had a chest tube placed and about almost a liter of fluid removed and was kept in place and are waterseal. She continued to have severe pain that ended up with epidural analgesia and gradually her pain came under control. We removed the epidural catheter, we removed the Vasquez catheter and the chest tube; however, the patient continued to be psychotic and agitated, restless and appeared to be very depressed and therefore, she was transferred back to [facility] for inpatient psychiatric stabilization. PAST MEDICAL HISTORY: Significant for seizure disorder, peptic ulcer disease, marked insomnia, recurrent falls, recent pneumothorax, pleural effusion and multiple right-sided rib fracture. She has also a history of renal cancer and scoliosis. She was in fact admitted to [facility] as a transfer from her independent living facility due to recurrent falls and at that time, she was found to have right sided hemothorax and multiple right-sided rib fracture. PAST PSYCHIATRIC HISTORY: Positive for bipolar disorder. PAST SURGICAL HISTORY: Significant for chest tube placement to the right side and epidural analgesia. ALLERGIES: She is allergic to IODINATED CONTRAST MEDIA, CIPROFLOXACIN, IBUPROFEN, TRAMADOL. MEDICATIONS: She is currently on following medications: She is on cetirizine 10 mg once a day, nystatin swish and swallow 4 times a day, metoprolol succinate 25 mg twice a day, analgesic balm applied topically 4 times a day, oxycodone 10 mg every 4 hours, acetaminophen 1000 mg 3 times a day, acetaminophen 650 mg every 6 hours, divalproex sodium 1000 mg at bedtime, paroxetine 40 mg daily, quetiapine fumarate 50 mg at bedtime, hydroxyzine 25 mg 4 times a day as needed. She is on Mylanta 15 mL after meals and as needed, Colace 100 mg at bedtime, milk of magnesia 30 mL p.o. daily p.r.n. for constipation, polyethylene glycol for MiraLax 17 grams daily as needed, ondansetron 4 mg every 6 hours as needed for nausea and vomiting. She is also on Protonix 40 mg daily and Lidoderm patch applied topically on for 12 hours and off for 12 hours. REVIEW OF SYSTEMS: As per history of present illness. FAMILY HISTORY: Noncontributory. SOCIAL HISTORY: She was at an independent living facility. She does not smoke, drink alcohol or use any recreational drugs. She apparently has had multiple falls and is unable to take care of herself. PHYSICAL EXAMINATION: GENERAL: When I saw her this afternoon, she was resting slightly propped up in bed, in no apparent distress. She was slightly pale, but no jaundice, cyanosis or thyromegaly. No jugular venous distention or limb edema. VITAL SIGNS: Her heart rate was 79, blood pressure was 152/86, temperature was 97.8, respiratory rate was 20, and oxygen saturation was 94% on 5 liters of oxygen. HEAD, EYES, EARS, NOSE AND THROAT: Showed normocephalic, atraumatic. NECK: Supple. HEART: Showed normal first and second heart sounds. No gallop, rub or murmur. CHEST: Showed central trachea, equal bilateral chest expansion, air entry expands. No crepitation or rhonchi anteriorly. The patient has dull percussion noted and absent breath sounds on the right side posteriorly. I could not appreciate any rhonchi. ABDOMEN: Slightly distended, soft, nontender. NEUROLOGIC: She is awake, alert, responding appropriately. All cranial nerves intact. EXTREMITIES: She moves extremities without difficulty. She actually is able to walk with a walker for short distances. LABORATORY DATA: Showed a white cell count of 8400, hemoglobin 11.8, hematocrit 36, MCV 98 and platelet count of 485,000 with normal manual differential. Her toxic screen showed her valproic acid was only 36 mcg/mL with normal range of 50-100. Her chemistry is still pending at the time of this dictation. ASSESSMENT: In summary, this is a 70-year-old female patient, who continued to be depressed, paranoid, agitated, restless with ongoing mood liability and therefore, she was readmitted to [facility] for inpatient psychiatric stabilization. Medically, she seemed to be much more stable now. She is on her pain is much better controlled. She is now able to move and she is more alert. She has multiple medical problems that include seizure disorder, peptic ulcer disease, allergic rhinitis, history of anal cancer and scoliosis. PLAN: My plan is to arrange for a chest x-ray to make sure that her hemothorax does not accumulate again. Meanwhile, we will continue with oxygen supplementation. Continue with physical and occupational therapy. Dr. Cortes will be adjusting her psychotropic medications. Thank you, Dr. Cortes for allowing me to participate in the care of this patient. JAME GLASGOW MD DR: BELEM/ani JOB#: [id number] / [id number]
[2020-12-31 18:02] LABS: ALBUMIN 2.2 g/dL (3.4-5.0); ALBUMIN/GLOBULIN RATIO 0.5 (1.0-1.7); CALCIUM 8.9 mg/dL (8.5-10.1); CREATININE 0.6 mg/dL (0.6-1.0); GFR 98.8; POTASSIUM 3.6 mmol/L (3.5-5.1); TOTAL BILIRUBIN 0.1 mg/dL (0.2-1.0); TOTAL PROTEIN 6.4 g/dL (6.4-8.2)
[2020-12-31 19:03] LABS: BILIRUBIN,URINE NEG (NEG); CLARITY,URINE CLOUDY; COLOR,URINE YELLOW; GLUCOSE,URINE NEG (NEG); NITRITE,URINE NEG (NEG); UROBILINOGEN,URINE 0.2 mg/dL (0.2 mg/dL)
[2020-12-31 19:04] LABS: BACTERIA,URINE MOD /HPF (0-FEW); SQUAMOUS EPITHELIAL CELL,UR MOD /LPF; WBC,URINE 20-40 /HPF (0-4)
[2020-12-31] MEDS: DOCUSATE SODIUM 100 MG CAPSULE PO SCH (19:40)
[2020-12-31] MEDS: DIVALPROEX ER 500 MG TAB.ER.24H PO SCH (19:43)
[2020-12-31] MEDS: QUEtiapine 50 MG TABLET. PO SCH (19:45)
--- NOTE | 2020-12-31 21:41 | PDOC ---
Exam Note: Adan Note: Please also refer to the separate dictated note~for this date of service dictated separately.~Patient seen individually. Discussed the patient with Nursing staff reviewed the chart.~Reviewed interim history and current functioning. Reviewed vital signs,~Labs/ Radiology~and current medications noted below. Continue current treatment with the changes noted in the dictated addendum note Assessment: Vital Signs/I&O: Vital Signs Date Time Temp Pulse Resp B/P (MAP) Pulse Ox O2 Delivery O2 Flow Rate FiO2 12/31/20 19:44 78 133/78 12/31/20 16:41 97.4 22 95 12/31/20 09:12 Nasal Cannula 5.0 I & O 0 12/30/20 12/30/20 12/31/20 15:00 23:00 07:00 Intake Total 240 ml Balance 240 ml Labs: Laboratory Tests Test 12/31/20 08:15 12/31/20 17:20 White Blood Count 8.4 x10^3/uL (4.0-11.0) Red Blood Count 3.66 x10^6/uL (3.50-5.40) Hemoglobin 11.8 g/dL (12.0-15.5) L Hematocrit 35.7 % (36.0-47.0) L Mean Corpuscular Volume 98 fL (79-100) Mean Corpuscular Hemoglobin 32 pg (25-35) Mean Corpuscular Hemoglobin Concent 33 g/dL (31-37) Red Cell Distribution Width 13.2 % (11.5-14.5) Platelet Count 485 x10^3/uL (140-400) H Neutrophils (%) (Auto) 74 % (31-73) H Lymphocytes (%) (Auto) 15 % (24-48) L Monocytes (%) (Auto) 11 % (0-9) H Eosinophils (%) (Auto) 1 % (0-3) Basophils (%) (Auto) 0 % (0-3) Neutrophils # (Auto) 6.2 x10^3uL (1.8-7.7) Lymphocytes # (Auto) 1.2 x10^3/uL (1.0-4.8) Monocytes # (Auto) 0.9 x10^3/uL (0.0-1.1) Eosinophils # (Auto) 0.1 x10^3/uL (0.0-0.7) Basophils # (Auto) 0.0 x10^3/uL (0.0-0.2) Sodium Level 135 mmol/L (136-145) L Potassium Level 3.6 mmol/L (3.5-5.1) Chloride Level 98 mmol/L (98-107) Carbon Dioxide Level 32 mmol/L (21-32) Anion Gap 5 (6-14) L Blood Urea Nitrogen 11 mg/dL (7-20) Creatinine 0.6 mg/dL (0.6-1.0) Estimated GFR (Cockcroft-Gault) 98.8 BUN/Creatinine Ratio 18 (6-20) Glucose Level 94 mg/dL (70-99) Calcium Level 8.9 mg/dL (8.5-10.1) Total Bilirubin 0.1 mg/dL (0.2-1.0) L Aspartate Amino Transferase (AST) 22 U/L (15-37) Alanine Aminotransferase (ALT) 16 U/L (14-59) Alkaline Phosphatase 153 U/L (46-116) H Total Protein 6.4 g/dL (6.4-8.2) Albumin 2.2 g/dL (3.4-5.0) L Albumin/Globulin Ratio 0.5 (1.0-1.7) L Valproic Acid Level 36 mcg/mL (50-100) L Valproic Acid Last Dose Date 12/30/20 Valproic Acid Last Dose Time 2100 Urine Collection Type Unknown Urine Color Yellow Urine Clarity Cloudy Urine pH 6.0 Urine Specific [place] 1.020 Urine Protein 30 mg/dl (NEG-TRACE) Urine Glucose (UA) Neg mg/dL (NEG) Urine Ketones (Stick) Neg mg/dL (NEG) Urine Blood Mod (NEG) Urine Nitrite Neg (NEG) Urine Bilirubin Neg (NEG) Urine Urobilinogen Dipstick 0.2 mg/dL (0.2 mg/dL) Urine Leukocyte Esterase Mod (NEG) Urine RBC 6-10 /HPF (0-2) Urine WBC 20-40 /HPF (0-4) Urine Squamous Epithelial Cells Mod /LPF Urine Bacteria Mod /HPF (0-FEW) Current Medications: Meds: Laboratory Tests Test 12/31/20 08:15 12/31/20 17:20 White Blood Count 8.4 x10^3/uL Red Blood Count 3.66 x10^6/uL Hemoglobin 11.8 g/dL Hematocrit 35.7 % Mean Corpuscular Volume 98 fL Mean Corpuscular Hemoglobin 32 pg Mean Corpuscular Hemoglobin Concent 33 g/dL Red Cell Distribution Width 13.2 % Platelet Count 485 x10^3/uL Neutrophils (%) (Auto) 74 % Lymphocytes (%) (Auto) 15 % Monocytes (%) (Auto) 11 % Eosinophils (%) (Auto) 1 % Basophils (%) (Auto) 0 % Neutrophils # (Auto) 6.2 x10^3uL Lymphocytes # (Auto) 1.2 x10^3/uL Monocytes # (Auto) 0.9 x10^3/uL Eosinophils # (Auto) 0.1 x10^3/uL Basophils # (Auto) 0.0 x10^3/uL Sodium Level 135 mmol/L Potassium Level 3.6 mmol/L Chloride Level 98 mmol/L Carbon Dioxide Level 32 mmol/L Anion Gap 5 Blood Urea Nitrogen 11 mg/dL Creatinine 0.6 mg/dL Estimated GFR (Cockcroft-Gault) 98.8 BUN/Creatinine Ratio 18 Glucose Level 94 mg/dL Calcium Level 8.9 mg/dL Total Bilirubin 0.1 mg/dL Aspartate Amino Transf (AST/SGOT) 22 U/L Alanine Aminotransferase (ALT/SGPT) 16 U/L Alkaline Phosphatase 153 U/L Total Protein 6.4 g/dL Albumin 2.2 g/dL Albumin/Globulin Ratio 0.5 Valproic Acid (Depakene) Level 36 mcg/mL Valproic Acid Last Dose Date 12/30/20 Valproic Acid Last Dose Time 2100 Urine Collection Type Unknown Urine Color Yellow Urine Clarity Cloudy Urine pH 6.0 Urine Specific [place] 1.020 Urine Protein 30 mg/dl Urine Glucose (UA) Neg mg/dL Urine Ketones (Stick) Neg mg/dL Urine Blood Mod Urine Nitrite Neg Urine Bilirubin Neg Urine Urobilinogen Dipstick 0.2 mg/dL Urine Leukocyte Esterase Mod Urine RBC 6-10 /HPF Urine WBC 20-40 /HPF Urine Squamous Epithelial Cells Mod /LPF Urine Bacteria Mod /HPF Current Medications Medications (Trade) Dose Ordered Sig/Valerio Route PRN Reason Start Time Stop Time Status Last Admin Dose Admin Acetaminophen (Tylenol) 1,000 mg TID PO 12/30/20 21:00 12/31/20 17:12 Cetirizine HCl (ZyrTEC) 10 mg DAILY PO 12/31/20 09:00 12/31/20 07:50 Docusate Sodium (Colace) 300 mg QHS PO 12/30/20 21:00 12/31/20 19:40 Lidocaine (Lidoderm) 1 patch DAILY TP 12/31/20 09:00 12/31/20 07:52 Metoprolol Succinate (Toprol Xl) 25 mg BID PO 12/30/20 21:00 12/31/20 19:44 Nystatin (Mycostatin) 5 ml QID PO 12/30/20 21:00 12/31/20 19:45 Ondansetron HCl (Zofran Odt) 4 mg PRN Q6HRS PRN PO NAUSEA/VOMITING 12/30/20 17:30 12/30/20 20:36 Oxycodone HCl (Roxicodone) 10 mg PRN Q4HRS PRN PO PAIN 12/30/20 17:30 12/31/20 05:26 Pantoprazole Sodium (Protonix) 40 mg DAILY08 PO 12/31/20 08:00 12/31/20 07:49 Polyethylene Glycol (miraLAX) 17 gm PRN DAILY PRN PO CONSTIPATION 12/30/20 17:30 12/31/20 19:39 Acetaminophen (Tylenol) 650 mg PRN Q6HRS PRN PO MILD PAIN / TEMP > 100.3'F 12/30/20 17:30 Divalproex Sodium (Depakote Er) 1,000 mg QHS PO 12/30/20 21:00 12/31/20 16:45 DC 12/30/20 19:58 Al Hydroxide/Mg Hydroxide (Mylanta Plus Xs) 15 ml PRN AFTMEALHC PRN PO DYSPEPSIA 12/30/20 17:30 Magnesium Hydroxide (Milk Of Magnesia) 2,400 mg PRN QHS PRN PO CONSTIPATION 12/30/20 17:30 Quetiapine Fumarate (SEROquel) 50 mg HS PO 12/30/20 21:00 12/31/20 19:45 Multi-Ingredient Ointment (Analgesic [place]) 1 ralph PRN QID PRN TP MUSCLE PAIN 12/30/20 17:45 12/31/20 20:19 Paroxetine HCl (Paxil) 40 mg DAILY PO 12/31/20 09:00 12/31/20 07:50 Hydroxyzine HCl (Atarax) 25 mg PRN QID PRN PO AGITATION/ANIXETY 12/30/20 17:45 Divalproex Sodium (Depakote Er) 1,500 mg QHS PO 12/31/20 21:00 12/31/20 19:43 Current Medications Medications (Trade) Dose Ordered Sig/Valerio Route PRN Reason Start Time Stop Time Status Last Admin Dose Admin Cetirizine HCl (ZyrTEC) 10 mg DAILY PO 12/31/20 09:00 12/31/20 07:50 Lidocaine (Lidoderm) 1 patch DAILY TP 12/31/20 09:00 12/31/20 07:52 Pantoprazole Sodium (Protonix) 40 mg DAILY08 PO 12/31/20 08:00 12/31/20 07:49 Paroxetine HCl (Paxil) 40 mg DAILY PO 12/31/20 09:00 12/31/20 07:50 Divalproex Sodium (Depakote Er) 1,500 mg QHS PO 12/31/20 21:00 12/31/20 19:43 I have reviewed the current psychotropics carefully including drug interactions. Risk benefit ratio favors no change other than as noted in my dictated progress note. Diagnosis: Problems: (1) Personality disorder, unspecified (2) Anxiety disorder (3) Impulse control disorder (4) Obsessive compulsive disorder (5) Bipolar disorder, curr episode mixed, severe, with psychotic features EVER BAR MD Dec 31, 2020 21:41
--- NOTE | 2020-12-31 23:22 | NUR ---
Pt located laying down in her bed this evening. Pt appears tired with flat affect. Pt states she is constipated. PRN Miralax administered per pt request. Pt reported R rib pain 6/10 but denied medication r/t constipation. Compliant with crushed medications with Depakote ER floated in applesauce.
[2021-01-01 06:22] VITALS: BP 166/82
--- NOTE | 2021-01-01 08:24 | PDOC ---
Exam Note: Adan Note: This note is a late entry for 12/31/2020 covers elements not covered in my initial note. Subjective: The patient was seen face to face in the evening of 12/31/2020 with [place] RODRIGUEZ. Discussed with nursing staff, reviewed the chart. The patient slept 6-1/2 hours previous night. Overall the patient remains somewhat depressed, withdrawn at times. She has a probable UTI, will defer to Dr. Singleton. She was trying to ambulate to the toilet. Valproic acid level today is 36. She is appropriate with her medications. She is alert and oriented x4. Chest x-ray was repeated to assess right pneumothorax. We will defer to Dr. Singleton. Review of Systems: Ambulation impaired in wheelchair. No CV, , pulmonary, eye, ENT system symptoms on review. Mental Status Exam: The patient is reasonably oriented. Speech is coherent. A bstraction is fair. Computation is impaired. Language function intact. Attention span is short. Mood and affect somewhat withdrawn. No suicidal or homicidal ideation. I met with the patient in her room at length. She had pictures of her son and significant other and daughter, her and 2 children, a girl and a boy. I talked to her at great length about her family. She is very animated and talking about this and very proud of her children and how they are doing and her grandchildren. She was able to accept my compliment on her raising her family to where they are able to raise a good family of their own and she was quite appreciative of this recognition. No suicidal or homicidal ideation. Laboratory Data: Reviewed. Impression: Bipolar 1 disorder mixed with psychotic features. OCD. Anxiety disorder unspecified. Impulse control disorder unspecified. Plan: Valproic acid level is subtherapeutic at 36 and Depakote ER 1000 mg h.s. We will increase to 1500 mg h.s. Check CBC, CMP, valproic acid level, ammonia level in 3 days. Treat UTI per Dr. Singleton. Continue rest unchanged. Assessment: Vital Signs/I&O: Vital Signs Date Time Temp Pulse Resp B/P (MAP) Pulse Ox O2 Delivery O2 Flow Rate FiO2 01/01/21 06:22 98.0 80 20 166/82 (110) 96 Nasal Cannula 5.0 I & O 12/31/20 12/31/20 01/01/21 15:00 23:00 07:00 Intake Total 240 ml 220 ml Balance 240 ml 220 ml Labs: Laboratory Tests Test 12/31/20 17:20 Urine Collection Type Unknown Urine Color Yellow Urine Clarity Cloudy Urine pH 6.0 Urine Specific [place] 1.020 Urine Protein 30 mg/dl (NEG-TRACE) Urine Glucose (UA) Neg mg/dL (NEG) Urine Ketones (Stick) Neg mg/dL (NEG) Urine Blood Mod (NEG) Urine Nitrite Neg (NEG) Urine Bilirubin Neg (NEG) Urine Urobilinogen Dipstick 0.2 mg/dL (0.2 mg/dL) Urine Leukocyte Esterase Mod (NEG) Urine RBC 6-10 /HPF (0-2) Urine WBC 20-40 /HPF (0-4) Urine Squamous Epithelial Cells Mod /LPF Urine Bacteria Mod /HPF (0-FEW) Current Medications: Meds: Laboratory Tests Test 12/31/20 17:20 Urine Collection Type Unknown Urine Color Yellow Urine Clarity Cloudy Urine pH 6.0 Urine Specific [place] 1.020 Urine Protein 30 mg/dl Urine Glucose (UA) Neg mg/dL Urine Ketones (Stick) Neg mg/dL Urine Blood Mod Urine Nitrite Neg Urine Bilirubin Neg Urine Urobilinogen Dipstick 0.2 mg/dL Urine Leukocyte Esterase Mod Urine RBC 6-10 /HPF Urine WBC 20-40 /HPF Urine Squamous Epithelial Cells Mod /LPF Urine Bacteria Mod /HPF Current Medications Medications (Trade) Dose Ordered Sig/Valerio Route PRN Reason Start Time Stop Time Status Last Admin Dose Admin Acetaminophen (Tylenol) 1,000 mg TID PO 12/30/20 21:00 12/31/20 17:12 Cetirizine HCl (ZyrTEC) 10 mg DAILY PO 12/31/20 09:00 12/31/20 07:50 Docusate Sodium (Colace) 300 mg QHS PO 12/30/20 21:00 12/31/20 19:40 Lidocaine (Lidoderm) 1 patch DAILY TP 12/31/20 09:00 12/31/20 07:52 Metoprolol Succinate (Toprol Xl) 25 mg BID PO 12/30/20 21:00 12/31/20 19:44 Nystatin (Mycostatin) 5 ml QID PO 12/30/20 21:00 12/31/20 19:45 Ondansetron HCl (Zofran Odt) 4 mg PRN Q6HRS PRN PO NAUSEA/VOMITING 12/30/20 17:30 12/30/20 20:36 Oxycodone HCl (Roxicodone) 10 mg PRN Q4HRS PRN PO PAIN 12/30/20 17:30 12/31/20 05:26 Pantoprazole Sodium (Protonix) 40 mg DAILY08 PO 12/31/20 08:00 12/31/20 07:49 Polyethylene Glycol (miraLAX) 17 gm PRN DAILY PRN PO CONSTIPATION 12/30/20 17:30 12/31/20 19:39 Acetaminophen (Tylenol) 650 mg PRN Q6HRS PRN PO MILD PAIN / TEMP > 100.3'F 12/30/20 17:30 Divalproex Sodium (Depakote Er) 1,000 mg QHS PO 12/30/20 21:00 12/31/20 16:45 DC 12/30/20 19:58 Al Hydroxide/Mg Hydroxide (Mylanta Plus Xs) 15 ml PRN AFTMEALHC PRN PO DYSPEPSIA 12/30/20 17:30 Magnesium Hydroxide (Milk Of Magnesia) 2,400 mg PRN QHS PRN PO CONSTIPATION 12/30/20 17:30 Quetiapine Fumarate (SEROquel) 50 mg HS PO 12/30/20 21:00 12/31/20 19:45 Multi-Ingredient Ointment (Analgesic [place]) 1 ralph PRN QID PRN TP MUSCLE PAIN 12/30/20 17:45 12/31/20 20:19 Paroxetine HCl (Paxil) 40 mg DAILY PO 12/31/20 09:00 12/31/20 07:50 Hydroxyzine HCl (Atarax) 25 mg PRN QID PRN PO AGITATION/ANIXETY 12/30/20 17:45 Divalproex Sodium (Depakote Er) 1,500 mg QHS PO 12/31/20 21:00 12/31/20 19:43 Current Medications Medications (Trade) Dose Ordered Sig/Valerio Route PRN Reason Start Time Stop Time Status Last Admin Dose Admin Cetirizine HCl (ZyrTEC) 10 mg DAILY PO 12/31/20 09:00 12/31/20 07:50 Lidocaine (Lidoderm) 1 patch DAILY TP 12/31/20 09:00 12/31/20 07:52 Paroxetine HCl (Paxil) 40 mg DAILY PO 12/31/20 09:00 12/31/20 07:50 Divalproex Sodium (Depakote Er) 1,500 mg QHS PO 12/31/20 21:00 12/31/20 19:43 I have reviewed the current psychotropics carefully including drug interactions. Risk benefit ratio favors no change other than as noted in my dictated progress note. Diagnosis: Problems: (1) Anxiety disorder (2) Impulse control disorder (3) Obsessive compulsive disorder (4) Bipolar disorder, curr episode mixed, severe, with psychotic features (5) Personality disorder, unspecified EVER BAR MD Jan 01, 2021 08:24
[2021-01-01] MEDS: PANTOPRAZOLE 40 MG TABLET. PO SCH (08:37)
[2021-01-01] MEDS: PARoxetine 20 MG TABLET PO SCH (08:38)
[2021-01-01] MEDS: NYSTATIN 100,000 UNITS/ML ORAL SUSPENSION 60ML BOTTLE. PO SCH ×2 (08:38→13:00)
[2021-01-01] MEDS: METOPROLOL SUCC 24HR ER 25 MG TAB.ER.24H. PO SCH ×2 (08:38→19:49)
[2021-01-01] MEDS: CETIRIZINE HCL 10 MG TABLET PO SCH (08:38)
[2021-01-01] MEDS: ACETAMINOPHEN 500 MG TABLET PO SCH ×3 (08:38→19:49)
[2021-01-01] MEDS: LIDOCAINE (700MG/PATCH) PATCH. TP SCH (09:00)
--- NOTE | 2021-01-01 11:11 | NUR ---
Pt is calm, cooperative, compliant. She needs encouragement to complete tasks. She has multiple complaints of pain unrelieved by current pain regimen but declines her teofilo stating it makes her constipated. She is compliant with her medication and assessment.
--- NOTE | 2021-01-01 12:09 | NUR ---
WEEKLY ACTIVITY THERAPY NOTE Date of Admission: 12/30/2020 Date of AT Assessment: TBD Precipitating behaviors that initiated intake and admission: Delirium, bipolar d/o personality d/o, increased falls, hallucinations, yelling/screaming, impulsive Goal aimed: TBD Initial Goal: TBD Weekly progress towards goal: NA Group participation level: NA Weekly highlights: arrived to group Behaviors observed: new admit, in room since admission Plan: meet/ assess Pt Beneficial adaptations:
[2021-01-01 16:25] VITALS: BP 118/57
--- NOTE | 2021-01-01 16:30 | NUR ---
DAVE contacted pt dtr/DPOA, [facility], to go over pt admission and discharge goals. [facility] believes that pt would be discharging to a Skilled Rehab setting. Pt was accepted to [facility] but they are open to other options. Pt dtr just wants to make sure that wherever pt goes, she will have a facility that is able to handle her psych behaviors and medications. DAVE will follow up on a couple of options and informed [facility] of pt having labs updated on Friday. All parties will follow up at that time.
[2021-01-01] MEDS: DOCUSATE SODIUM 100 MG CAPSULE PO SCH (19:48)
[2021-01-01] MEDS: DIVALPROEX ER 500 MG TAB.ER.24H PO SCH (19:49)
[2021-01-01] MEDS: QUEtiapine 50 MG TABLET. PO SCH (19:50)
[2021-01-01] MEDS: oxyCODONE IR 5 MG TABLET PO PRN (19:50)
--- NOTE | 2021-01-01 21:05 | PDOC ---
Exam Note: Adan Note: Please also refer to the separate dictated note~for this date of service dictated separately.~Patient seen individually. Discussed the patient with Nursing staff reviewed the chart.~Reviewed interim history and current functioning. Reviewed vital signs,~Labs/ Radiology~and current medications noted below. Continue current treatment with the changes noted in the dictated addendum note Assessment: Vital Signs/I&O: Vital Signs Date Time Temp Pulse Resp B/P (MAP) Pulse Ox O2 Delivery O2 Flow Rate FiO2 01/01/21 20:51 92 01/01/21 19:49 95 118/57 01/01/21 16:25 98.1 22 5.0 01/01/21 06:22 Nasal Cannula I & O 12/31/20 12/31/20 01/01/21 15:00 23:00 07:00 Intake Total 240 ml 220 ml Balance 240 ml 220 ml Current Medications: Meds: Current Medications Medications (Trade) Dose Ordered Sig/Valerio Route PRN Reason Start Time Stop Time Status Last Admin Dose Admin Acetaminophen (Tylenol) 1,000 mg TID PO 12/30/20 21:00 01/01/21 19:49 Cetirizine HCl (ZyrTEC) 10 mg DAILY PO 12/31/20 09:00 01/01/21 08:38 Docusate Sodium (Colace) 300 mg QHS PO 12/30/20 21:00 01/01/21 19:48 Lidocaine (Lidoderm) 1 patch DAILY TP 12/31/20 09:00 01/01/21 09:00 Metoprolol Succinate (Toprol Xl) 25 mg BID PO 12/30/20 21:00 01/01/21 19:49 Nystatin (Mycostatin) 5 ml QID PO 12/30/20 21:00 01/01/21 16:17 DC 12/31/20 19:45 Ondansetron HCl (Zofran Odt) 4 mg PRN Q6HRS PRN PO NAUSEA/VOMITING 12/30/20 17:30 12/30/20 20:36 Oxycodone HCl (Roxicodone) 10 mg PRN Q4HRS PRN PO PAIN 12/30/20 17:30 01/01/21 19:50 Pantoprazole Sodium (Protonix) 40 mg DAILY08 PO 12/31/20 08:00 01/01/21 08:37 Polyethylene Glycol (miraLAX) 17 gm PRN DAILY PRN PO 1ST CHOICE CONSTIPATION 12/30/20 17:30 12/31/20 19:39 Acetaminophen (Tylenol) 650 mg PRN Q6HRS PRN PO MILD PAIN / TEMP > 100.3'F 12/30/20 17:30 Divalproex Sodium (Depakote Er) 1,000 mg QHS PO 12/30/20 21:00 12/31/20 16:45 DC 12/30/20 19:58 Al Hydroxide/Mg Hydroxide (Mylanta Plus Xs) 15 ml PRN AFTMEALHC PRN PO DYSPEPSIA 12/30/20 17:30 Magnesium Hydroxide (Milk Of Magnesia) 2,400 mg PRN QHS PRN PO 2ND CHOICE CONSTIPATION 12/30/20 17:30 01/01/21 08:41 Quetiapine Fumarate (SEROquel) 50 mg HS PO 12/30/20 21:00 01/01/21 19:50 Multi-Ingredient Ointment (Analgesic [place]) 1 ralph PRN QID PRN TP MUSCLE PAIN 12/30/20 17:45 12/31/20 20:19 Paroxetine HCl (Paxil) 40 mg DAILY PO 12/31/20 09:00 01/01/21 08:38 Hydroxyzine HCl (Atarax) 25 mg PRN QID PRN PO AGITATION/ANIXETY 12/30/20 17:45 Divalproex Sodium (Depakote Er) 1,500 mg QHS PO 12/31/20 21:00 01/01/21 19:49 I have reviewed the current psychotropics carefully including drug interactions. Risk benefit ratio favors no change other than as noted in my dictated progress note. Diagnosis: Problems: (1) Anxiety disorder (2) Impulse control disorder (3) Obsessive compulsive disorder (4) Bipolar disorder, curr episode mixed, severe, with psychotic features (5) Personality disorder, unspecified EVER BAR MD Jan 01, 2021 21:05
--- NOTE | 2021-01-01 23:11 | NUR ---
Pt compliant with shower and HS medications. Medications were crushed in applesauce with Depakote ER floated. PRN Roxicodone administered per pt request, stating 8/10 pain on her ribs. Pt continues to have flat affect.
[2021-01-02] MEDS: oxyCODONE IR 5 MG TABLET PO PRN (02:38)
[2021-01-02 06:41] VITALS: BP 138/84
[2021-01-02] MEDS: METOPROLOL SUCC 24HR ER 25 MG TAB.ER.24H. PO SCH ×2 (10:20→20:42)
[2021-01-02] MEDS: PARoxetine 20 MG TABLET PO SCH (10:21)
[2021-01-02] MEDS: CETIRIZINE HCL 10 MG TABLET PO SCH (10:21)
[2021-01-02] MEDS: PANTOPRAZOLE 40 MG TABLET. PO SCH (10:21)
[2021-01-02] MEDS: ACETAMINOPHEN 500 MG TABLET PO SCH ×3 (10:21→20:41)
[2021-01-02] MEDS: LIDOCAINE (700MG/PATCH) PATCH. TP SCH (10:22)
--- NOTE | 2021-01-02 11:10 | NUR ---
ACTIVITY THERAPY ASSESSMENT Completed based on observation, interview and notes. Pt. was sitting in a manual wheelchair in her room, greeted FINAL BLOCK PRESS OPERATOR by her name and was agreeable to answer assessment questions. Pt. explained she was here because she "fell again" and was frustrated that that keeps happening. FINAL BLOCK PRESS OPERATOR noticed Pt. has a couple pictures of her family next to her bed and Pt. talked about them a little bit. Pt. asked FINAL BLOCK PRESS OPERATOR to lower the head of her bed which she did before she left. FINAL BLOCK PRESS OPERATOR remembered some leisure interest/ hobbies from Pt's previous admission. Pt. confirmed she enjoys painting with water color (landscape and herrera), classical music, reading (books, gardening magazines), knitting. She declined offered crossword and word search puzzles but accepted a few magazines FINAL BLOCK PRESS OPERATOR brought after the interview. Pt. was using oxygen (nasal cannula), slowly moves herself around in her wheelchair, said her pain was "ok" right now. Reports indicate Pt. has yelled out in the past to notify staff of pain. Pt. does join groups but tends to keep to herself or talk to staff. She is generally cooperative, compliant and calm. Initial goal aimed to increase socialization and engagement: Pt. will participate in at least one Activity Therapy group per day.
[2021-01-02] MEDS: ONDANSETRON ODT 4 MG TAB.RAPDIS PO PRN (14:25)
[2021-01-02 15:27] VITALS: BP 145/83
--- NOTE | 2021-01-02 18:20 | NUR ---
Patient has been disorganized, attention seeking, cooperative, and complaining of pain throughout this shift. Patient has had multiple complaints of side pain r/t recent multiple rib fractures; scheduled and prn medications provided per eMAR. She has stayed withdrawn to her room for most of this shift. Patient ambulated with PT/OT; she was able to transfer herself under supervision. Will continue to monitor and report to oncoming shift.
[2021-01-02] MEDS: DIVALPROEX ER 500 MG TAB.ER.24H PO SCH (20:41)
[2021-01-02] MEDS: DOCUSATE SODIUM 100 MG CAPSULE PO SCH (20:41)
[2021-01-02] MEDS: QUEtiapine 50 MG TABLET. PO SCH (20:42)
--- NOTE | 2021-01-02 21:01 | PDOC ---
Exam Note: Adan Note: Please also refer to the separate dictated note~for this date of service dictated separately.~Patient seen individually. Discussed the patient with Nursing staff reviewed the chart.~Reviewed interim history and current functioning. Reviewed vital signs,~Labs/ Radiology~and current medications noted below. Continue current treatment with the changes noted in the dictated addendum note Assessment: Vital Signs/I&O: Vital Signs Date Time Temp Pulse Resp B/P (MAP) Pulse Ox O2 Delivery O2 Flow Rate FiO2 01/02/21 20:42 81 145/83 01/02/21 15:27 98.3 18 93 Nasal Cannula 5.0 I & O 01/01/21 01/01/21 01/02/21 14:59 22:59 06:59 Intake Total 360 ml 300 ml Balance 360 ml 300 ml Current Medications: Meds: Current Medications Medications (Trade) Dose Ordered Sig/Valerio Route PRN Reason Start Time Stop Time Status Last Admin Dose Admin Acetaminophen (Tylenol) 1,000 mg TID PO 12/30/20 21:00 01/02/21 20:41 Cetirizine HCl (ZyrTEC) 10 mg DAILY PO 12/31/20 09:00 01/02/21 10:21 Docusate Sodium (Colace) 300 mg QHS PO 12/30/20 21:00 01/02/21 20:41 Lidocaine (Lidoderm) 1 patch DAILY TP 12/31/20 09:00 01/02/21 10:22 Metoprolol Succinate (Toprol Xl) 25 mg BID PO 12/30/20 21:00 01/02/21 20:42 Nystatin (Mycostatin) 5 ml QID PO 12/30/20 21:00 01/01/21 16:17 DC 12/31/20 19:45 Ondansetron HCl (Zofran Odt) 4 mg PRN Q6HRS PRN PO NAUSEA/VOMITING 12/30/20 17:30 01/02/21 14:25 Oxycodone HCl (Roxicodone) 10 mg PRN Q4HRS PRN PO PAIN 12/30/20 17:30 01/02/21 02:38 Pantoprazole Sodium (Protonix) 40 mg DAILY08 PO 12/31/20 08:00 01/02/21 10:21 Polyethylene Glycol (miraLAX) 17 gm PRN DAILY PRN PO 1ST CHOICE CONSTIPATION 12/30/20 17:30 12/31/20 19:39 Acetaminophen (Tylenol) 650 mg PRN Q6HRS PRN PO MILD PAIN / TEMP > 100.3'F 12/30/20 17:30 Divalproex Sodium (Depakote Er) 1,000 mg QHS PO 12/30/20 21:00 12/31/20 16:45 DC 12/30/20 19:58 Al Hydroxide/Mg Hydroxide (Mylanta Plus Xs) 15 ml PRN AFTMEALHC PRN PO DYSPEPSIA 12/30/20 17:30 Magnesium Hydroxide (Milk Of Magnesia) 2,400 mg PRN QHS PRN PO 2ND CHOICE CONSTIPATION 12/30/20 17:30 01/01/21 08:41 Quetiapine Fumarate (SEROquel) 50 mg HS PO 12/30/20 21:00 01/02/21 20:42 Multi-Ingredient Ointment (Analgesic [place]) 1 ralph PRN QID PRN TP MUSCLE PAIN 12/30/20 17:45 12/31/20 20:19 Paroxetine HCl (Paxil) 40 mg DAILY PO 12/31/20 09:00 01/02/21 10:21 Hydroxyzine HCl (Atarax) 25 mg PRN QID PRN PO AGITATION/ANIXETY 12/30/20 17:45 Divalproex Sodium (Depakote Er) 1,500 mg QHS PO 12/31/20 21:00 01/02/21 20:41 I have reviewed the current psychotropics carefully including drug interactions. Risk benefit ratio favors no change other than as noted in my dictated progress note. Diagnosis: Problems: (1) Anxiety disorder (2) Impulse control disorder (3) Obsessive compulsive disorder (4) Bipolar disorder, curr episode mixed, severe, with psychotic features (5) Personality disorder, unspecified EVER BAR MD Jan 02, 2021 21:01
--- NOTE | 2021-01-02 23:55 | NUR ---
Maxwell pt has been in her room, she took meds floated in applesauce and has been cooperative with staff. She has had no behaviors kumaright.
[2021-01-03 06:24] VITALS: BP 146/82
[2021-01-03 07:08] LABS: ALBUMIN 2.1 g/dL (3.4-5.0); ALBUMIN/GLOBULIN RATIO 0.5 (1.0-1.7); ALK PHOS 130 U/L (46-116); ALT (SGPT) 16 U/L (14-59); ANION GAP 3 (6-14); AST (SGOT) 15 U/L (15-37); BLOOD UREA NITROGEN 12 mg/dL (7-20); BUN/CREATININE RATIO 17 (6-20); CALCIUM 8.4 mg/dL (8.5-10.1); CARBON DIOXIDE 34 mmol/L (21-32); CHLORIDE 100 mmol/L (98-107); CREATININE 0.7 mg/dL (0.6-1.0); GFR 82.7; GLUCOSE 100 mg/dL (70-99); POTASSIUM 3.4 mmol/L (3.5-5.1); SODIUM 137 mmol/L (136-145); TOTAL BILIRUBIN 0.1 mg/dL (0.2-1.0)
[2021-01-03 07:14] LABS: VAL ACID 49 mcg/mL (50-100)
[2021-01-03 08:06] LABS: BASO % 1 % (0-3); EOS # 0.1 x10^3/uL (0.0-0.7); EOS % 2 % (0-3); HEMATOCRIT 32.6 % (36.0-47.0); HEMOGLOBIN 10.8 g/dL (12.0-15.5); LYMPH # 1.2 x10^3/uL (1.0-4.8); LYMPH % 23 % (24-48); MEAN CORPUSCULAR HEMOGLOBIN 32 pg (25-35); MEAN CORPUSCULAR HGB CONC 33 g/dL (31-37); MEAN CORPUSCULAR VOLUME 97 fL (79-100); MONO # 0.7 x10^3/uL (0.0-1.1); MONO % 13 % (0-9); NEUT # 3.2 x10^3uL (1.8-7.7); NEUT % 62 % (31-73); PLATELET COUNT 410 x10^3/uL (140-400); RED BLOOD COUNT 3.35 x10^6/uL (3.50-5.40); WHITE BLOOD COUNT 5.1 x10^3/uL (4.0-11.0)
--- NOTE | 2021-01-03 08:49 | PDOC ---
Exam Note: Adan Note: This note is a late entry for 01/01/2021 covers elements not covered in my initial note. Subjective: The patient was seen face to face in the morning of 01/01/2021 for a treatment team meeting with Angelica Coreas, Makayla Claudio and Soha (health care social worker), María Thomas, activity therapy and Irene RODRIGUEZ. Discussed with nursing staff, reviewed the chart. The patient slept 6-1/2 hours previous night. We had lengthy discussion reviewing the patients history of bipolar disorder. She was initially referred to us from [facility] and then ended up going to [place] for the pneumothorax. She remains on 5 L oxygen. 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 Per nursing report she acts helpless when going to the toilet, has appeared somewhat depressed, hopeless. He is tolerating the increased Depakote ER to 1500 mg h.s. I met with her again in the evening in her room and also discussed with Jannie RODRIGUEZ. UA is pending. Her affect was flat. Review of Systems: Ambulation impaired in wheelchair. No CV, , pulmonary, eye, ENT system symptoms on review. Mental Status Exam: The patient is reasonably oriented. Speech is coherent. Abstraction is fair. Computation is impaired. Language function intact. Attention span is short. Mood and affect is flat. No suicidal or homicidal ideation. I met with the patient in her room at length. Again she was talking about her family, quite animated, states she gets depressed at times, anxious, minimizes the fact that she is asking for help when she does not need to and we processed this at some length. Laboratory Data: Reviewed. Impression: Bipolar 1 disorder mixed with psychotic features. OCD. Anxiety disorder unspecified. Impulse control disorder unspecified. Plan: Continue current psychotropics. Depakote was just increased. Maintain Paxil, Seroquel. Consider changing Paxil to Wellbutrin but once the valproic acid level is therapeutic we can make that decision at that time. Assessment: Vital Signs/I&O: Vital Signs Date Time Temp Pulse Resp B/P (MAP) Pulse Ox O2 Delivery O2 Flow Rate FiO2 01/03/21 06:24 97.9 82 17 146/82 (103) 93 Nasal Cannula 2.0 I & O 01/02/21 01/02/21 01/03/21 15:00 23:00 07:00 Intake Total 580 ml 460 ml Balance 580 ml 460 ml Labs: Laboratory Tests Test 01/03/21 06:38 White Blood Count 5.1 x10^3/uL (4.0-11.0) Red Blood Count 3.35 x10^6/uL (3.50-5.40) L Hemoglobin 10.8 g/dL (12.0-15.5) L Hematocrit 32.6 % (36.0-47.0) L Mean Corpuscular Volume 97 fL (79-100) Mean Corpuscular Hemoglobin 32 pg (25-35) Mean Corpuscular Hemoglobin Concent 33 g/dL (31-37) Red Cell Distribution Width 14.0 % (11.5-14.5) Platelet Count 410 x10^3/uL (140-400) H Neutrophils (%) (Auto) 62 % (31-73) Lymphocytes (%) (Auto) 23 % (24-48) L Monocytes (%) (Auto) 13 % (0-9) H Eosinophils (%) (Auto) 2 % (0-3) Basophils (%) (Auto) 1 % (0-3) Neutrophils # (Auto) 3.2 x10^3uL (1.8-7.7) Lymphocytes # (Auto) 1.2 x10^3/uL (1.0-4.8) Monocytes # (Auto) 0.7 x10^3/uL (0.0-1.1) Eosinophils # (Auto) 0.1 x10^3/uL (0.0-0.7) Basophils # (Auto) 0.0 x10^3/uL (0.0-0.2) Sodium Level 137 mmol/L (136-145) Potassium Level 3.4 mmol/L (3.5-5.1) L Chloride Level 100 mmol/L (98-107) Carbon Dioxide Level 34 mmol/L (21-32) H Anion Gap 3 (6-14) L Blood Urea Nitrogen 12 mg/dL (7-20) Creatinine 0.7 mg/dL (0.6-1.0) Estimated GFR (Cockcroft-Gault) 82.7 BUN/Creatinine Ratio 17 (6-20) Glucose Level 100 mg/dL (70-99) H Calcium Level 8.4 mg/dL (8.5-10.1) L Total Bilirubin 0.1 mg/dL (0.2-1.0) L Aspartate Amino Transferase (AST) 15 U/L (15-37) Alanine Aminotransferase (ALT) 16 U/L (14-59) Alkaline Phosphatase 130 U/L (46-116) H Ammonia 16 mcmol/L (11-34) Total Protein 6.0 g/dL (6.4-8.2) L Albumin 2.1 g/dL (3.4-5.0) L Albumin/Globulin Ratio 0.5 (1.0-1.7) L Valproic Acid Level 49 mcg/mL (50-100) L Valproic Acid Last Dose Date 01/02/21 Valproic Acid Last Dose Time 2100 Current Medications: Meds: Laboratory Tests Test 01/03/21 06:38 White Blood Count 5.1 x10^3/uL Red Blood Count 3.35 x10^6/uL Hemoglobin 10.8 g/dL Hematocrit 32.6 % Mean Corpuscular Volume 97 fL Mean Corpuscular Hemoglobin 32 pg Mean Corpuscular Hemoglobin Concent 33 g/dL Red Cell Distribution Width 14.0 % Platelet Count 410 x10^3/uL Neutrophils (%) (Auto) 62 % Lymphocytes (%) (Auto) 23 % Monocytes (%) (Auto) 13 % Eosinophils (%) (Auto) 2 % Basophils (%) (Auto) 1 % Neutrophils # (Auto) 3.2 x10^3uL Lymphocytes # (Auto) 1.2 x10^3/uL Monocytes # (Auto) 0.7 x10^3/uL Eosinophils # (Auto) 0.1 x10^3/uL Basophils # (Auto) 0.0 x10^3/uL Sodium Level 137 mmol/L Potassium Level 3.4 mmol/L Chloride Level 100 mmol/L Carbon Dioxide Level 34 mmol/L Anion Gap 3 Blood Urea Nitrogen 12 mg/dL Creatinine 0.7 mg/dL Estimated GFR (Cockcroft-Gault) 82.7 BUN/Creatinine Ratio 17 Glucose Level 100 mg/dL Calcium Level 8.4 mg/dL Total Bilirubin 0.1 mg/dL Aspartate Amino Transf (AST/SGOT) 15 U/L Alanine Aminotransferase (ALT/SGPT) 16 U/L Alkaline Phosphatase 130 U/L Ammonia 16 mcmol/L Total Protein 6.0 g/dL Albumin 2.1 g/dL Albumin/Globulin Ratio 0.5 Valproic Acid (Depakene) Level 49 mcg/mL Valproic Acid Last Dose Date 01/02/21 Valproic Acid Last Dose Time 2100 Current Medications Medications (Trade) Dose Ordered Sig/Valerio Route PRN Reason Start Time Stop Time Status Last Admin Dose Admin Acetaminophen (Tylenol) 1,000 mg TID PO 12/30/20 21:00 01/02/21 20:41 Cetirizine HCl (ZyrTEC) 10 mg DAILY PO 12/31/20 09:00 01/02/21 10:21 Docusate Sodium (Colace) 300 mg QHS PO 12/30/20 21:00 01/02/21 20:41 Lidocaine (Lidoderm) 1 patch DAILY TP 12/31/20 09:00 01/02/21 10:22 Metoprolol Succinate (Toprol Xl) 25 mg BID PO 12/30/20 21:00 01/02/21 20:42 Nystatin (Mycostatin) 5 ml QID PO 12/30/20 21:00 01/01/21 16:17 DC 12/31/20 19:45 Ondansetron HCl (Zofran Odt) 4 mg PRN Q6HRS PRN PO NAUSEA/VOMITING 12/30/20 17:30 01/02/21 14:25 Oxycodone HCl (Roxicodone) 10 mg PRN Q4HRS PRN PO PAIN 12/30/20 17:30 01/02/21 02:38 Pantoprazole Sodium (Protonix) 40 mg DAILY08 PO 12/31/20 08:00 01/02/21 10:21 Polyethylene Glycol (miraLAX) 17 gm PRN DAILY PRN PO 1ST CHOICE CONSTIPATION 12/30/20 17:30 12/31/20 19:39 Acetaminophen (Tylenol) 650 mg PRN Q6HRS PRN PO MILD PAIN / TEMP > 100.3'F 12/30/20 17:30 Divalproex Sodium (Depakote Er) 1,000 mg QHS PO 12/30/20 21:00 12/31/20 16:45 DC 12/30/20 19:58 Al Hydroxide/Mg Hydroxide (Mylanta Plus Xs) 15 ml PRN AFTMEALHC PRN PO DYSPEPSIA 12/30/20 17:30 Magnesium Hydroxide (Milk Of Magnesia) 2,400 mg PRN QHS PRN PO 2ND CHOICE CONSTIPATION 12/30/20 17:30 01/01/21 08:41 Quetiapine Fumarate (SEROquel) 50 mg HS PO 12/30/20 21:00 01/02/21 20:42 Multi-Ingredient Ointment (Analgesic [place]) 1 ralph PRN QID PRN TP MUSCLE PAIN 12/30/20 17:45 12/31/20 20:19 Paroxetine HCl (Paxil) 40 mg DAILY PO 12/31/20 09:00 01/02/21 10:21 Hydroxyzine HCl (Atarax) 25 mg PRN QID PRN PO AGITATION/ANIXETY 12/30/20 17:45 Divalproex Sodium (Depakote Er) 1,500 mg QHS PO 12/31/20 21:00 01/02/21 20:41 I have reviewed the current psychotropics carefully including drug interactions. Risk benefit ratio favors no change other than as noted in my dictated progress note. Diagnosis: Problems: (1) Anxiety disorder (2) Impulse control disorder (3) Obsessive compulsive disorder (4) Bipolar disorder, curr episode mixed, severe, with psychotic features (5) Personality disorder, unspecified EVER BAR MD Jan 03, 2021 08:49
--- NOTE | 2021-01-03 09:16 | PDOC ---
Exam Note: Adan Note: This note is a late entry for 01/02/2021 covers elements not covered in my initial note. Subjective: The patient was seen face to face in the evening of 01/02/2021 with Mitchell RODRIGUEZ. Discussed with nursing staff, reviewed the chart. The patient slept 5-1/4 hours previous night. I met with the patient in her room. She has been flat in her affect, somewhat withdrawn. She complains of rib pain. We will defer to Dr. Singleton. We will check valproic acid level in the morning. Review of Systems: Ambulation impaired with walker. No CV, , pulmonary, eye, ENT system symptoms on review. Mental Status Exam: The patient is reasonably oriented. Speech has some latency, coherent. Abstraction is fair. Computation is impaired. Language function intact. Mood and affect still somewhat depressed. Laboratory Data: Reviewed. Impression: Bipolar 1 disorder mixed with psychotic features. OCD. Anxiety disorder unspecified. Impulse control disorder unspecified. Plan: No change from initial note. Assessment: Vital Signs/I&O: Vital Signs Date Time Temp Pulse Resp B/P (MAP) Pulse Ox O2 Delivery O2 Flow Rate FiO2 01/03/21 06:24 97.9 82 17 146/82 (103) 93 Nasal Cannula 2.0 I & O 01/02/21 01/02/21 01/03/21 15:00 23:00 07:00 Intake Total 580 ml 460 ml Balance 580 ml 460 ml Labs: Laboratory Tests Test 01/03/21 06:38 White Blood Count 5.1 x10^3/uL (4.0-11.0) Red Blood Count 3.35 x10^6/uL (3.50-5.40) L Hemoglobin 10.8 g/dL (12.0-15.5) L Hematocrit 32.6 % (36.0-47.0) L Mean Corpuscular Volume 97 fL (79-100) Mean Corpuscular Hemoglobin 32 pg (25-35) Mean Corpuscular Hemoglobin Concent 33 g/dL (31-37) Red Cell Distribution Width 14.0 % (11.5-14.5) Platelet Count 410 x10^3/uL (140-400) H Neutrophils (%) (Auto) 62 % (31-73) Lymphocytes (%) (Auto) 23 % (24-48) L Monocytes (%) (Auto) 13 % (0-9) H Eosinophils (%) (Auto) 2 % (0-3) Basophils (%) (Auto) 1 % (0-3) Neutrophils # (Auto) 3.2 x10^3uL (1.8-7.7) Lymphocytes # (Auto) 1.2 x10^3/uL (1.0-4.8) Monocytes # (Auto) 0.7 x10^3/uL (0.0-1.1) Eosinophils # (Auto) 0.1 x10^3/uL (0.0-0.7) Basophils # (Auto) 0.0 x10^3/uL (0.0-0.2) Sodium Level 137 mmol/L (136-145) Potassium Level 3.4 mmol/L (3.5-5.1) L Chloride Level 100 mmol/L (98-107) Carbon Dioxide Level 34 mmol/L (21-32) H Anion Gap 3 (6-14) L Blood Urea Nitrogen 12 mg/dL (7-20) Creatinine 0.7 mg/dL (0.6-1.0) Estimated GFR (Cockcroft-Gault) 82.7 BUN/Creatinine Ratio 17 (6-20) Glucose Level 100 mg/dL (70-99) H Calcium Level 8.4 mg/dL (8.5-10.1) L Total Bilirubin 0.1 mg/dL (0.2-1.0) L Aspartate Amino Transferase (AST) 15 U/L (15-37) Alanine Aminotransferase (ALT) 16 U/L (14-59) Alkaline Phosphatase 130 U/L (46-116) H Ammonia 16 mcmol/L (11-34) Total Protein 6.0 g/dL (6.4-8.2) L Albumin 2.1 g/dL (3.4-5.0) L Albumin/Globulin Ratio 0.5 (1.0-1.7) L Valproic Acid Level 49 mcg/mL (50-100) L Valproic Acid Last Dose Date 01/02/21 Valproic Acid Last Dose Time 2100 Current Medications: Meds: Laboratory Tests Test 01/03/21 06:38 White Blood Count 5.1 x10^3/uL Red Blood Count 3.35 x10^6/uL Hemoglobin 10.8 g/dL Hematocrit 32.6 % Mean Corpuscular Volume 97 fL Mean Corpuscular Hemoglobin 32 pg Mean Corpuscular Hemoglobin Concent 33 g/dL Red Cell Distribution Width 14.0 % Platelet Count 410 x10^3/uL Neutrophils (%) (Auto) 62 % Lymphocytes (%) (Auto) 23 % Monocytes (%) (Auto) 13 % Eosinophils (%) (Auto) 2 % Basophils (%) (Auto) 1 % Neutrophils # (Auto) 3.2 x10^3uL Lymphocytes # (Auto) 1.2 x10^3/uL Monocytes # (Auto) 0.7 x10^3/uL Eosinophils # (Auto) 0.1 x10^3/uL Basophils # (Auto) 0.0 x10^3/uL Sodium Level 137 mmol/L Potassium Level 3.4 mmol/L Chloride Level 100 mmol/L Carbon Dioxide Level 34 mmol/L Anion Gap 3 Blood Urea Nitrogen 12 mg/dL Creatinine 0.7 mg/dL Estimated GFR (Cockcroft-Gault) 82.7 BUN/Creatinine Ratio 17 Glucose Level 100 mg/dL Calcium Level 8.4 mg/dL Total Bilirubin 0.1 mg/dL Aspartate Amino Transf (AST/SGOT) 15 U/L Alanine Aminotransferase (ALT/SGPT) 16 U/L Alkaline Phosphatase 130 U/L Ammonia 16 mcmol/L Total Protein 6.0 g/dL Albumin 2.1 g/dL Albumin/Globulin Ratio 0.5 Valproic Acid (Depakene) Level 49 mcg/mL Valproic Acid Last Dose Date 01/02/21 Valproic Acid Last Dose Time 2100 Current Medications Medications (Trade) Dose Ordered Sig/Valerio Route PRN Reason Start Time Stop Time Status Last Admin Dose Admin Acetaminophen (Tylenol) 1,000 mg TID PO 12/30/20 21:00 01/02/21 20:41 Cetirizine HCl (ZyrTEC) 10 mg DAILY PO 12/31/20 09:00 01/02/21 10:21 Docusate Sodium (Colace) 300 mg QHS PO 12/30/20 21:00 01/02/21 20:41 Lidocaine (Lidoderm) 1 patch DAILY TP 12/31/20 09:00 01/02/21 10:22 Metoprolol Succinate (Toprol Xl) 25 mg BID PO 12/30/20 21:00 01/02/21 20:42 Nystatin (Mycostatin) 5 ml QID PO 12/30/20 21:00 01/01/21 16:17 DC 12/31/20 19:45 Ondansetron HCl (Zofran Odt) 4 mg PRN Q6HRS PRN PO NAUSEA/VOMITING 12/30/20 17:30 01/02/21 14:25 Oxycodone HCl (Roxicodone) 10 mg PRN Q4HRS PRN PO PAIN 12/30/20 17:30 01/02/21 02:38 Pantoprazole Sodium (Protonix) 40 mg DAILY08 PO 12/31/20 08:00 01/02/21 10:21 Polyethylene Glycol (miraLAX) 17 gm PRN DAILY PRN PO 1ST CHOICE CONSTIPATION 12/30/20 17:30 12/31/20 19:39 Acetaminophen (Tylenol) 650 mg PRN Q6HRS PRN PO MILD PAIN / TEMP > 100.3'F 12/30/20 17:30 Divalproex Sodium (Depakote Er) 1,000 mg QHS PO 12/30/20 21:00 12/31/20 16:45 DC 12/30/20 19:58 Al Hydroxide/Mg Hydroxide (Mylanta Plus Xs) 15 ml PRN AFTMEALHC PRN PO DYSPEPSIA 12/30/20 17:30 Magnesium Hydroxide (Milk Of Magnesia) 2,400 mg PRN QHS PRN PO 2ND CHOICE CONSTIPATION 12/30/20 17:30 01/01/21 08:41 Quetiapine Fumarate (SEROquel) 50 mg HS PO 12/30/20 21:00 01/02/21 20:42 Multi-Ingredient Ointment (Analgesic [place]) 1 ralph PRN QID PRN TP MUSCLE PAIN 12/30/20 17:45 12/31/20 20:19 Paroxetine HCl (Paxil) 40 mg DAILY PO 12/31/20 09:00 01/02/21 10:21 Hydroxyzine HCl (Atarax) 25 mg PRN QID PRN PO AGITATION/ANIXETY 12/30/20 17:45 Divalproex Sodium (Depakote Er) 1,500 mg QHS PO 12/31/20 21:00 01/02/21 20:41 I have reviewed the current psychotropics carefully including drug interactions. Risk benefit ratio favors no change other than as noted in my dictated progress note. Diagnosis: Problems: (1) Anxiety disorder (2) Impulse control disorder (3) Obsessive compulsive disorder (4) Bipolar disorder, curr episode mixed, severe, with psychotic features (5) Personality disorder, unspecified EVER BAR MD Jan 03, 2021 09:16
[2021-01-03] MEDS: LIDOCAINE (700MG/PATCH) PATCH. TP SCH (10:06)
[2021-01-03] MEDS: CETIRIZINE HCL 10 MG TABLET PO SCH (10:06)
[2021-01-03] MEDS: PARoxetine 20 MG TABLET PO SCH (10:06)
[2021-01-03] MEDS: ACETAMINOPHEN 500 MG TABLET PO SCH ×3 (10:06→18:27)
[2021-01-03] MEDS: METOPROLOL SUCC 24HR ER 25 MG TAB.ER.24H. PO SCH ×2 (10:07→20:37)
[2021-01-03] MEDS: PANTOPRAZOLE 40 MG TABLET. PO SCH (10:07)
[2021-01-03] MEDS: hydrOXYzine HCL 25 MG TABLET PO PRN (11:06)
[2021-01-03] MEDS: ACETAMINOPHEN 325 MG TABLET PO PRN (11:07)
--- NOTE | 2021-01-03 13:08 | NUR ---
Pt has been cooperative and med complaint during day. She has been a bit withdrawn but made a good attempt at participating in a group session. She denies SI/HI/VH/AH. She report 4/10 pain in her right ribs, PRN Acetaminophen administered with reported relief. She maintains O2 sats at or above 93% on O2 at 2L per NC. On more than one occasion pt states she would like to go home. Will pass on to the next shift. Addendum: 01/03/21 at 1404 by PAULETTE PARADA RN PRN Atarax also administered with PRN Acetaminophen d/t pt c/o of rib pain
[2021-01-03 16:15] VITALS: BP 124/82
[2021-01-03] MEDS: DIVALPROEX ER 500 MG TAB.ER.24H PO SCH (20:36)
[2021-01-03] MEDS: DOCUSATE SODIUM 100 MG CAPSULE PO SCH (20:36)
[2021-01-03] MEDS: QUEtiapine 50 MG TABLET. PO SCH (20:37)
[2021-01-03] MEDS: ONDANSETRON ODT 4 MG TAB.RAPDIS PO PRN (20:48)
--- NOTE | 2021-01-03 21:01 | PDOC ---
Exam Note: Adan Note: Please also refer to the separate dictated note~for this date of service dictated separately.~Patient seen individually. Discussed the patient with Nursing staff reviewed the chart.~Reviewed interim history and current functioning. Reviewed vital signs,~Labs/ Radiology~and current medications noted below. Continue current treatment with the changes noted in the dictated addendum note Assessment: Vital Signs/I&O: Vital Signs Date Time Temp Pulse Resp B/P (MAP) Pulse Ox O2 Delivery O2 Flow Rate FiO2 01/03/21 20:37 87 124/82 01/03/21 16:15 97.8 16 90 01/03/21 06:24 Nasal Cannula 2.0 I & O 01/02/21 01/02/21 01/03/21 15:00 23:00 07:00 Intake Total 580 ml 460 ml Balance 580 ml 460 ml Labs: Laboratory Tests Test 01/03/21 06:38 White Blood Count 5.1 x10^3/uL (4.0-11.0) Red Blood Count 3.35 x10^6/uL (3.50-5.40) L Hemoglobin 10.8 g/dL (12.0-15.5) L Hematocrit 32.6 % (36.0-47.0) L Mean Corpuscular Volume 97 fL (79-100) Mean Corpuscular Hemoglobin 32 pg (25-35) Mean Corpuscular Hemoglobin Concent 33 g/dL (31-37) Red Cell Distribution Width 14.0 % (11.5-14.5) Platelet Count 410 x10^3/uL (140-400) H Neutrophils (%) (Auto) 62 % (31-73) Lymphocytes (%) (Auto) 23 % (24-48) L Monocytes (%) (Auto) 13 % (0-9) H Eosinophils (%) (Auto) 2 % (0-3) Basophils (%) (Auto) 1 % (0-3) Neutrophils # (Auto) 3.2 x10^3uL (1.8-7.7) Lymphocytes # (Auto) 1.2 x10^3/uL (1.0-4.8) Monocytes # (Auto) 0.7 x10^3/uL (0.0-1.1) Eosinophils # (Auto) 0.1 x10^3/uL (0.0-0.7) Basophils # (Auto) 0.0 x10^3/uL (0.0-0.2) Sodium Level 137 mmol/L (136-145) Potassium Level 3.4 mmol/L (3.5-5.1) L Chloride Level 100 mmol/L (98-107) Carbon Dioxide Level 34 mmol/L (21-32) H Anion Gap 3 (6-14) L Blood Urea Nitrogen 12 mg/dL (7-20) Creatinine 0.7 mg/dL (0.6-1.0) Estimated GFR (Cockcroft-Gault) 82.7 BUN/Creatinine Ratio 17 (6-20) Glucose Level 100 mg/dL (70-99) H Calcium Level 8.4 mg/dL (8.5-10.1) L Total Bilirubin 0.1 mg/dL (0.2-1.0) L Aspartate Amino Transferase (AST) 15 U/L (15-37) Alanine Aminotransferase (ALT) 16 U/L (14-59) Alkaline Phosphatase 130 U/L (46-116) H Ammonia 16 mcmol/L (11-34) Total Protein 6.0 g/dL (6.4-8.2) L Albumin 2.1 g/dL (3.4-5.0) L Albumin/Globulin Ratio 0.5 (1.0-1.7) L Valproic Acid Level 49 mcg/mL (50-100) L Valproic Acid Last Dose Date 01/02/21 Valproic Acid Last Dose Time 2100 Current Medications: Meds: Laboratory Tests Test 01/03/21 06:38 White Blood Count 5.1 x10^3/uL Red Blood Count 3.35 x10^6/uL Hemoglobin 10.8 g/dL Hematocrit 32.6 % Mean Corpuscular Volume 97 fL Mean Corpuscular Hemoglobin 32 pg Mean Corpuscular Hemoglobin Concent 33 g/dL Red Cell Distribution Width 14.0 % Platelet Count 410 x10^3/uL Neutrophils (%) (Auto) 62 % Lymphocytes (%) (Auto) 23 % Monocytes (%) (Auto) 13 % Eosinophils (%) (Auto) 2 % Basophils (%) (Auto) 1 % Neutrophils # (Auto) 3.2 x10^3uL Lymphocytes # (Auto) 1.2 x10^3/uL Monocytes # (Auto) 0.7 x10^3/uL Eosinophils # (Auto) 0.1 x10^3/uL Basophils # (Auto) 0.0 x10^3/uL Sodium Level 137 mmol/L Potassium Level 3.4 mmol/L Chloride Level 100 mmol/L Carbon Dioxide Level 34 mmol/L Anion Gap 3 Blood Urea Nitrogen 12 mg/dL Creatinine 0.7 mg/dL Estimated GFR (Cockcroft-Gault) 82.7 BUN/Creatinine Ratio 17 Glucose Level 100 mg/dL Calcium Level 8.4 mg/dL Total Bilirubin 0.1 mg/dL Aspartate Amino Transf (AST/SGOT) 15 U/L Alanine Aminotransferase (ALT/SGPT) 16 U/L Alkaline Phosphatase 130 U/L Ammonia 16 mcmol/L Total Protein 6.0 g/dL Albumin 2.1 g/dL Albumin/Globulin Ratio 0.5 Valproic Acid (Depakene) Level 49 mcg/mL Valproic Acid Last Dose Date 01/02/21 Valproic Acid Last Dose Time 2100 Current Medications Medications (Trade) Dose Ordered Sig/Valerio Route PRN Reason Start Time Stop Time Status Last Admin Dose Admin Acetaminophen (Tylenol) 1,000 mg TID PO 12/30/20 21:00 01/03/21 18:27 Cetirizine HCl (ZyrTEC) 10 mg DAILY PO 12/31/20 09:00 01/03/21 10:06 Docusate Sodium (Colace) 300 mg QHS PO 12/30/20 21:00 01/03/21 20:36 Lidocaine (Lidoderm) 1 patch DAILY TP 12/31/20 09:00 01/03/21 10:06 Metoprolol Succinate (Toprol Xl) 25 mg BID PO 12/30/20 21:00 01/03/21 20:37 Nystatin (Mycostatin) 5 ml QID PO 12/30/20 21:00 01/01/21 16:17 DC 12/31/20 19:45 Ondansetron HCl (Zofran Odt) 4 mg PRN Q6HRS PRN PO NAUSEA/VOMITING 12/30/20 17:30 01/03/21 20:48 Oxycodone HCl (Roxicodone) 10 mg PRN Q4HRS PRN PO PAIN 12/30/20 17:30 01/02/21 02:38 Pantoprazole Sodium (Protonix) 40 mg DAILY08 PO 12/31/20 08:00 01/03/21 10:07 Polyethylene Glycol (miraLAX) 17 gm PRN DAILY PRN PO 1ST CHOICE CONSTIPATION 12/30/20 17:30 12/31/20 19:39 Acetaminophen (Tylenol) 650 mg PRN Q6HRS PRN PO MILD PAIN / TEMP > 100.3'F 12/30/20 17:30 01/03/21 11:07 Divalproex Sodium (Depakote Er) 1,000 mg QHS PO 12/30/20 21:00 12/31/20 16:45 DC 12/30/20 19:58 Al Hydroxide/Mg Hydroxide (Mylanta Plus Xs) 15 ml PRN AFTMEALHC PRN PO DYSPEPSIA 12/30/20 17:30 Magnesium Hydroxide (Milk Of Magnesia) 2,400 mg PRN QHS PRN PO 2ND CHOICE CONSTIPATION 12/30/20 17:30 01/01/21 08:41 Quetiapine Fumarate (SEROquel) 50 mg HS PO 12/30/20 21:00 01/03/21 20:37 Multi-Ingredient Ointment (Analgesic [place]) 1 ralph PRN QID PRN TP MUSCLE PAIN 12/30/20 17:45 12/31/20 20:19 Paroxetine HCl (Paxil) 40 mg DAILY PO 12/31/20 09:00 01/03/21 10:06 Hydroxyzine HCl (Atarax) 25 mg PRN QID PRN PO AGITATION/ANIXETY 12/30/20 17:45 01/03/21 11:06 Divalproex Sodium (Depakote Er) 1,500 mg QHS PO 12/31/20 21:00 01/03/21 20:36 I have reviewed the current psychotropics carefully including drug interactions. Risk benefit ratio favors no change other than as noted in my dictated progress note. Diagnosis: Problems: (1) Anxiety disorder (2) Impulse control disorder (3) Obsessive compulsive disorder (4) Bipolar disorder, curr episode mixed, severe, with psychotic features (5) Personality disorder, unspecified EVER BAR MD Jan 03, 2021 21:01
--- NOTE | 2021-01-03 22:50 | PN ---
DATE: 01/03/2021 PSYCHIATRIC PROGRESS NOTE This note covers the elements not covered in my initial note 01/03/2021. SUBJECTIVE: I met with the patient in the evening of 01/03/2021. Per JENNIFER Elaine, the patient slept 5-1/4 hours previous night. She has generally had good day, remains alert, oriented. Denies suicidal ideation, somewhat depressed, withdrawn, does complain of chest pain, status post rib fractures. She is wanting to go home. I met with her in her room. Addressed this at length. REVIEW OF SYSTEMS: Ambulation impaired. No CV, , GI, or pulmonary, eye system symptoms on review, does complain of the chest pain as above. MENTAL STATUS EXAM: Reasonably oriented. Speech is coherent, has some latency. Abstraction fair, computation impaired, language function intact. Mood and affect depressed, but improved. LABORATORY DATA: Reviewed. IMPRESSION: Unchanged from initial note. PLAN: No change from initial note. EVER BAR MD DR: TAMMY/ani JOB#: [id number] / [id number]
[2021-01-03] MEDS: oxyCODONE IR 5 MG TABLET PO PRN (23:24)
--- NOTE | 2021-01-04 02:18 | NUR ---
LAs t evening pt was resting in her evangelina m and was a bit more interactive with staff. She took meds whole floated in applesauce. PRN Roxicodone was given for rt side pain she attributes to FX ribs. She has had no behaviors tonight and said she spoke with her daughter who told her she needed to stay here until her meds got adjusted.
[2021-01-04 06:02] VITALS: BP 134/74
[2021-01-04] MEDS: CETIRIZINE HCL 10 MG TABLET PO SCH (08:13)
[2021-01-04] MEDS: PARoxetine 20 MG TABLET PO SCH (08:13)
[2021-01-04] MEDS: PANTOPRAZOLE 40 MG TABLET. PO SCH (08:13)
[2021-01-04] MEDS: ACETAMINOPHEN 500 MG TABLET PO SCH ×3 (08:14→20:31)
[2021-01-04] MEDS: METOPROLOL SUCC 24HR ER 25 MG TAB.ER.24H. PO SCH ×2 (08:15→20:31)
[2021-01-04] MEDS: LIDOCAINE (700MG/PATCH) PATCH. TP SCH (08:18)
[2021-01-04] MEDS: ONDANSETRON ODT 4 MG TAB.RAPDIS PO PRN (15:45)
[2021-01-04 16:00] VITALS: BP 137/81
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
--- NOTE | 2021-01-04 18:30 | NUR ---
Patient has been disorganized, attention seeking, cooperative, and complaining of pain throughout this shift. Patient has had multiple complaints of side pain r/t recent multiple rib fractures. She participated in group. Patient ambulated with PT/OT; she was able to transfer herself under supervision. Will continue to monitor and report to oncoming shift.
[2021-01-04] MEDS: AMOXICILLIN/K CLAV 500/125MG TABLET. PO SCH (20:30)
[2021-01-04] MEDS: oxyCODONE IR 5 MG TABLET PO PRN (20:30)
[2021-01-04] MEDS: QUEtiapine 50 MG TABLET. PO SCH (20:30)
[2021-01-04] MEDS: DOCUSATE SODIUM 100 MG CAPSULE PO SCH (20:30)
[2021-01-04] MEDS: DIVALPROEX ER 500 MG TAB.ER.24H PO SCH (20:31)
--- NOTE | 2021-01-04 21:08 | PDOC ---
Exam Note: Adan Note: Please also refer to the separate dictated note~for this date of service dictated separately.~Patient seen individually. Discussed the patient with Nursing staff reviewed the chart.~Reviewed interim history and current functioning. Reviewed vital signs,~Labs/ Radiology~and current medications noted below. Continue current treatment with the changes noted in the dictated addendum note Assessment: Vital Signs/I&O: Vital Signs Date Time Temp Pulse Resp B/P (MAP) Pulse Ox O2 Delivery O2 Flow Rate FiO2 01/04/21 20:31 91 137/81 01/04/21 16:00 97.4 20 92 01/03/21 23:24 Nasal Cannula 2.0 I & O 01/03/21 01/03/21 01/04/21 15:00 23:00 07:00 Intake Total 120 ml 200 ml Balance 120 ml 200 ml Current Medications: Meds: Current Medications Medications (Trade) Dose Ordered Sig/Valerio Route PRN Reason Start Time Stop Time Status Last Admin Dose Admin Acetaminophen (Tylenol) 1,000 mg TID PO 12/30/20 21:00 01/04/21 20:31 Cetirizine HCl (ZyrTEC) 10 mg DAILY PO 12/31/20 09:00 01/04/21 08:13 Docusate Sodium (Colace) 300 mg QHS PO 12/30/20 21:00 01/04/21 20:30 Lidocaine (Lidoderm) 1 patch DAILY TP 12/31/20 09:00 01/04/21 08:18 Metoprolol Succinate (Toprol Xl) 25 mg BID PO 12/30/20 21:00 01/04/21 20:31 Nystatin (Mycostatin) 5 ml QID PO 12/30/20 21:00 01/01/21 16:17 DC 12/31/20 19:45 Ondansetron HCl (Zofran Odt) 4 mg PRN Q6HRS PRN PO NAUSEA/VOMITING 12/30/20 17:30 01/04/21 15:45 Oxycodone HCl (Roxicodone) 10 mg PRN Q4HRS PRN PO PAIN 12/30/20 17:30 01/04/21 20:30 Pantoprazole Sodium (Protonix) 40 mg DAILY08 PO 12/31/20 08:00 01/04/21 08:13 Polyethylene Glycol (miraLAX) 17 gm PRN DAILY PRN PO 1ST CHOICE CONSTIPATION 12/30/20 17:30 12/31/20 19:39 Acetaminophen (Tylenol) 650 mg PRN Q6HRS PRN PO MILD PAIN / TEMP > 100.3'F 12/30/20 17:30 01/03/21 11:07 Divalproex Sodium (Depakote Er) 1,000 mg QHS PO 12/30/20 21:00 12/31/20 16:45 DC 12/30/20 19:58 Al Hydroxide/Mg Hydroxide (Mylanta Plus Xs) 15 ml PRN AFTMEALHC PRN PO DYSPEPSIA 12/30/20 17:30 Magnesium Hydroxide (Milk Of Magnesia) 2,400 mg PRN QHS PRN PO 2ND CHOICE CONSTIPATION 12/30/20 17:30 01/01/21 08:41 Quetiapine Fumarate (SEROquel) 50 mg HS PO 12/30/20 21:00 01/04/21 20:30 Multi-Ingredient Ointment (Analgesic [place]) 1 ralph PRN QID PRN TP MUSCLE PAIN 12/30/20 17:45 12/31/20 20:19 Paroxetine HCl (Paxil) 40 mg DAILY PO 12/31/20 09:00 01/04/21 08:13 Hydroxyzine HCl (Atarax) 25 mg PRN QID PRN PO AGITATION/ANIXETY 12/30/20 17:45 01/03/21 11:06 Divalproex Sodium (Depakote Er) 1,500 mg QHS PO 12/31/20 21:00 01/04/21 20:31 Amoxicillin/ Clavulanate Potassium (Augmentin 500/ 125mg) 1 tab BID PO 01/04/21 21:00 01/09/21 12:00 01/04/21 20:30 Current Medications Medications (Trade) Dose Ordered Sig/Valerio Route PRN Reason Start Time Stop Time Status Last Admin Dose Admin Amoxicillin/ Clavulanate Potassium (Augmentin 500/ 125mg) 1 tab BID PO 01/04/21 21:00 01/09/21 12:00 01/04/21 20:30 I have reviewed the current psychotropics carefully including drug interactions. Risk benefit ratio favors no change other than as noted in my dictated progress note. Diagnosis: Problems: (1) Anxiety disorder (2) Impulse control disorder (3) Obsessive compulsive disorder (4) Bipolar disorder, curr episode mixed, severe, with psychotic features EVER BAR MD Jan 04, 2021 21:08
[2021-01-05] MEDS: LIDOCAINE (700MG/PATCH) PATCH. TP SCH (05:20)
[2021-01-05] MEDS: PANTOPRAZOLE 40 MG TABLET. PO SCH (05:21)
[2021-01-05] MEDS: METOPROLOL SUCC 24HR ER 25 MG TAB.ER.24H. PO SCH ×2 (05:21→20:07)
[2021-01-05] MEDS: PARoxetine 20 MG TABLET PO SCH (05:21)
[2021-01-05] MEDS: ACETAMINOPHEN 500 MG TABLET PO SCH ×3 (05:21→20:07)
[2021-01-05] MEDS: AMOXICILLIN/K CLAV 500/125MG TABLET. PO SCH ×2 (05:21→20:06)
[2021-01-05] MEDS: CETIRIZINE HCL 10 MG TABLET PO SCH (05:22)
[2021-01-05 06:23] VITALS: BP 147/84
--- NOTE | 2021-01-05 12:10 | TX PLAN ---
Interdisciplinary Tx Plan Admission Information Dec 30, 2020 at 16:37 Legal Status (on Admission): Voluntary DPOA/Guardian Name: Carmel Horowitz Contact Other Contact Name: Renetta Fabian Other Contact Verified Code Status: DNR Allergies: Coded Allergies: ciprofloxacin (Verified Allergy, Unknown, Unknown, 04/03/20) ibuprofen (Verified Allergy, Unknown, Unknown, 04/03/20) tramadol (Verified Allergy, Unknown, Unknown, 04/03/20) Iodinated Contrast Media (Verified Adverse Reaction, Unknown, 04/06/20) Diagnoses Primary Diagnosis: Psychosis NOS, Bipolar D/O Reasons for Admission: Agitated, Depressed, Anxiety/Panic Problem in Patient's Words: Pt needs evaluated before going to a SNF for rehab. Additional Admission Comments: According to the intake, pt is agitated, and anxious Problems Active Problems: appears depressed flat affect Inactive Problems: medication mgmt working with therapy Pt Strengths/Limitations Ability for [place]: Fair Cognitive Functioning/Ability: Fair Communication Skills/Ability: Fair Financial Resources: Good Insight/Judgement: Poor Intellectual Ability: Fair Physical Health: Fair Social Skills: Fair Stability in Family: Fair Stability in School/Work: Fair Verbal Skills: Fair Discharge Criteria Discharge Criteria: Adequate arrangements @DC, Improved behavior, Improved mood/thought Preliminary Discharge Plan Preliminary DC Plan: Placement Needed, Jail Special Precautions Fall Risk: Moderate Initial D/C Plan Pt will need rehab upon discharge Identified Discharge Needs: Psychiatry services Currently Utilized Resources Currently Utilized Resources/P: Primary Care Physician Referrals Community Resources: Psychiatry Counseling Identified Problems/Hx/Goals Objectives/Short-Term Goals Short Term Goals: Dec. Anxiety/Panic, Dec. Symp. Depression Short Term Goals in Patient's: Just to get rehab and go home Interventions/Frequency Staff Interventions/Frequency&: Psychiatrist to assess pt at least 3x per week for medication mgmt. Social Work to assess pt at least 2x per week for identification to barriers and discharge planning goals. Nursing to assess for medication effects, behavioral management and completion of Q15s. Encourage group participation in activities (if applicable) or 1:1 engagement based off Activity Dept goals. 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 Education: B.S. Education Community Follow-up Primary Care Physician Treatment Plan Explained Patient/Supervisor [place] had this treatment plan explained to him/her as indicated by the signature below and has been given the opportunity to ask questions and make suggestions: Date: Patient/Supervisor [place] Signature: Patient/Supervisor [place] Decline: No (Pt dtr active in pt care) MAGDA GUY Jan 05, 2021 12:10
[2021-01-05] MEDS: oxyCODONE IR 5 MG TABLET PO PRN (13:20)
[2021-01-05 15:58] VITALS: BP 153/77
--- NOTE | 2021-01-05 17:25 | NUR ---
Pt up in bed for meals. Has been quiet and withdrawn. C/O side pain in afternoon. Oxycodone and tylenol given.
[2021-01-05] MEDS: LACTOBACILLUS RHAMNOSUS GG 1 CAPSULE. PO SCH (20:05)
[2021-01-05] MEDS: DIVALPROEX ER 500 MG TAB.ER.24H PO SCH (20:06)
[2021-01-05] MEDS: DOCUSATE SODIUM 100 MG CAPSULE PO SCH (20:07)
[2021-01-05] MEDS: QUEtiapine 50 MG TABLET. PO SCH (20:07)
[2021-01-05] MEDS: ONDANSETRON ODT 4 MG TAB.RAPDIS PO PRN (20:09)
--- NOTE | 2021-01-05 20:54 | PDOC ---
Exam Note: Adan Note: Please also refer to the separate dictated note~for this date of service dictated separately.~Patient seen individually. Discussed the patient with Nursing staff reviewed the chart.~Reviewed interim history and current functioning. Reviewed vital signs,~Labs/ Radiology~and current medications noted below. Continue current treatment with the changes noted in the dictated addendum note Assessment: Vital Signs/I&O: Vital Signs Date Time Temp Pulse Resp B/P (MAP) Pulse Ox O2 Delivery O2 Flow Rate FiO2 01/05/21 20:07 74 153/77 01/05/21 15:58 97.6 16 95 01/05/21 06:23 Nasal Cannula 2.0 I & O 01/04/21 01/04/21 01/05/21 14:59 22:59 06:59 Intake Total 840 ml 240 ml Balance 840 ml 240 ml Current Medications: Meds: Current Medications Medications (Trade) Dose Ordered Sig/Valerio Route PRN Reason Start Time Stop Time Status Last Admin Dose Admin Acetaminophen (Tylenol) 1,000 mg TID PO 12/30/20 21:00 01/05/21 20:07 Cetirizine HCl (ZyrTEC) 10 mg DAILY PO 12/31/20 09:00 01/05/21 05:22 Docusate Sodium (Colace) 300 mg QHS PO 12/30/20 21:00 01/05/21 20:07 Lidocaine (Lidoderm) 1 patch DAILY TP 12/31/20 09:00 01/05/21 05:20 Metoprolol Succinate (Toprol Xl) 25 mg BID PO 12/30/20 21:00 01/05/21 20:07 Nystatin (Mycostatin) 5 ml QID PO 12/30/20 21:00 01/01/21 16:17 DC 12/31/20 19:45 Ondansetron HCl (Zofran Odt) 4 mg PRN Q6HRS PRN PO NAUSEA/VOMITING 12/30/20 17:30 01/05/21 20:09 Oxycodone HCl (Roxicodone) 10 mg PRN Q4HRS PRN PO PAIN 12/30/20 17:30 01/05/21 13:20 Pantoprazole Sodium (Protonix) 40 mg DAILY08 PO 12/31/20 08:00 01/05/21 05:21 Polyethylene Glycol (miraLAX) 17 gm PRN DAILY PRN PO 1ST CHOICE CONSTIPATION 12/30/20 17:30 12/31/20 19:39 Acetaminophen (Tylenol) 650 mg PRN Q6HRS PRN PO MILD PAIN / TEMP > 100.3'F 12/30/20 17:30 01/03/21 11:07 Divalproex Sodium (Depakote Er) 1,000 mg QHS PO 12/30/20 21:00 12/31/20 16:45 DC 12/30/20 19:58 Al Hydroxide/Mg Hydroxide (Mylanta Plus Xs) 15 ml PRN AFTMEALHC PRN PO DYSPEPSIA 12/30/20 17:30 Magnesium Hydroxide (Milk Of Magnesia) 2,400 mg PRN QHS PRN PO 2ND CHOICE CONSTIPATION 12/30/20 17:30 01/01/21 08:41 Quetiapine Fumarate (SEROquel) 50 mg HS PO 12/30/20 21:00 01/05/21 20:07 Multi-Ingredient Ointment (Analgesic [place]) 1 ralph PRN QID PRN TP MUSCLE PAIN 12/30/20 17:45 12/31/20 20:19 Paroxetine HCl (Paxil) 40 mg DAILY PO 12/31/20 09:00 01/05/21 05:21 Hydroxyzine HCl (Atarax) 25 mg PRN QID PRN PO AGITATION/ANIXETY 12/30/20 17:45 01/03/21 11:06 Divalproex Sodium (Depakote Er) 1,500 mg QHS PO 12/31/20 21:00 01/05/21 20:06 Amoxicillin/ Clavulanate Potassium (Augmentin 500/ 125mg) 1 tab BID PO 01/04/21 21:00 01/09/21 12:00 01/05/21 20:06 Lactobacillus Rhamnosus (Culturelle) 1 cap BID PO 01/05/21 21:00 01/05/21 20:05 Current Medications Medications (Trade) Dose Ordered Sig/Valerio Route PRN Reason Start Time Stop Time Status Last Admin Dose Admin Amoxicillin/ Clavulanate Potassium (Augmentin 500/ 125mg) 1 tab BID PO 01/04/21 21:00 01/09/21 12:00 01/05/21 20:06 Lactobacillus Rhamnosus (Culturelle) 1 cap BID PO 01/05/21 21:00 01/05/21 20:05 I have reviewed the current psychotropics carefully including drug interactions. Risk benefit ratio favors no change other than as noted in my dictated progress note. Diagnosis: Problems: (1) Anxiety disorder (2) Impulse control disorder (3) Obsessive compulsive disorder (4) Bipolar disorder, curr episode mixed, severe, with psychotic features EVER BAR MD Jan 05, 2021 20:54
--- NOTE | 2021-01-05 22:26 | NUR ---
Pt slumped in bed on assessment. Pt repositioned and sitting up in bed. Pt compliant with medications. Pt reports that her side hurts and she feels nauseous. Scheduled tylenol given with HS medications and PRN zofran administered. Pt sleeping at this time.
[2021-01-06] MEDS: LACTOBACILLUS RHAMNOSUS GG 1 CAPSULE. PO SCH ×2 (05:19→20:26)
[2021-01-06] MEDS: ACETAMINOPHEN 500 MG TABLET PO SCH ×3 (05:19→20:26)
[2021-01-06] MEDS: CETIRIZINE HCL 10 MG TABLET PO SCH (05:19)
[2021-01-06] MEDS: PANTOPRAZOLE 40 MG TABLET. PO SCH (05:20)
[2021-01-06] MEDS: PARoxetine 20 MG TABLET PO SCH (05:20)
[2021-01-06] MEDS: AMOXICILLIN/K CLAV 500/125MG TABLET. PO SCH ×2 (05:20→20:26)
[2021-01-06] MEDS: LIDOCAINE (700MG/PATCH) PATCH. TP SCH (05:21)
[2021-01-06] MEDS: METOPROLOL SUCC 24HR ER 25 MG TAB.ER.24H. PO SCH ×2 (05:24→20:25)
[2021-01-06 06:27] VITALS: BP 149/76
--- NOTE | 2021-01-06 07:17 | PDOC ---
Exam Note: Adan Note: This note is a late entry for 01/04/2021 covers elements not covered in my initial note. Subjective: The patient was seen face to face in the evening of 01/04/2021 with Mitchell RODRIGUEZ. Discussed with nursing staff, reviewed the chart. The patient slept 7-1/4 hours previous night. She remains depressed, withdrawn, somewhat less helpless and attention seeking. She stays much of the time in bed due to pain in her rib area status post fracture from fall at home. She is compliant with medications. She has had some nausea. Received Zofran. Review of Systems: Ambulation impaired in wheelchair. No CV, , pulmonary, eye, ENT system symptoms on review. Mental Status Exam: The patient is reasonably oriented. Speech is coherent. Abstraction is fair. Computation is impaired. Language function intact. Attention span is short. Mood and affect somewhat dysphoric. Laboratory Data: Reviewed. Impression: Bipolar 1 disorder mixed with psychotic features. OCD. Anxiety disorder unspecified. Impulse control disorder unspecified. Plan: No change from initial note. Assessment: Vital Signs/I&O: Vital Signs Date Time Temp Pulse Resp B/P (MAP) Pulse Ox O2 Delivery O2 Flow Rate FiO2 01/06/21 06:27 98.2 76 16 149/76 (100) 93 01/05/21 06:23 Nasal Cannula 2.0 I & O 01/05/21 01/05/21 01/06/21 15:00 23:00 07:00 Intake Total 480 ml 290 ml Balance 480 ml 290 ml Current Medications: Meds: Current Medications Medications (Trade) Dose Ordered Sig/Valerio Route PRN Reason Start Time Stop Time Status Last Admin Dose Admin Acetaminophen (Tylenol) 1,000 mg TID PO 12/30/20 21:00 01/06/21 05:19 Cetirizine HCl (ZyrTEC) 10 mg DAILY PO 12/31/20 09:00 01/06/21 05:19 Docusate Sodium (Colace) 300 mg QHS PO 12/30/20 21:00 01/05/21 20:07 Lidocaine (Lidoderm) 1 patch DAILY TP 12/31/20 09:00 01/06/21 05:21 Metoprolol Succinate (Toprol Xl) 25 mg BID PO 12/30/20 21:00 01/06/21 05:24 Nystatin (Mycostatin) 5 ml QID PO 12/30/20 21:00 01/01/21 16:17 DC 12/31/20 19:45 Ondansetron HCl (Zofran Odt) 4 mg PRN Q6HRS PRN PO NAUSEA/VOMITING 12/30/20 17:30 01/05/21 20:09 Oxycodone HCl (Roxicodone) 10 mg PRN Q4HRS PRN PO PAIN 12/30/20 17:30 01/05/21 13:20 Pantoprazole Sodium (Protonix) 40 mg DAILY08 PO 12/31/20 08:00 01/06/21 05:20 Polyethylene Glycol (miraLAX) 17 gm PRN DAILY PRN PO 1ST CHOICE CONSTIPATION 12/30/20 17:30 12/31/20 19:39 Acetaminophen (Tylenol) 650 mg PRN Q6HRS PRN PO MILD PAIN / TEMP > 100.3'F 12/30/20 17:30 01/03/21 11:07 Divalproex Sodium (Depakote Er) 1,000 mg QHS PO 12/30/20 21:00 12/31/20 16:45 DC 12/30/20 19:58 Al Hydroxide/Mg Hydroxide (Mylanta Plus Xs) 15 ml PRN AFTMEALHC PRN PO DYSPEPSIA 12/30/20 17:30 Magnesium Hydroxide (Milk Of Magnesia) 2,400 mg PRN QHS PRN PO 2ND CHOICE CONSTIPATION 12/30/20 17:30 01/01/21 08:41 Quetiapine Fumarate (SEROquel) 50 mg HS PO 12/30/20 21:00 01/05/21 20:07 Multi-Ingredient Ointment (Analgesic [place]) 1 ralph PRN QID PRN TP MUSCLE PAIN 12/30/20 17:45 12/31/20 20:19 Paroxetine HCl (Paxil) 40 mg DAILY PO 12/31/20 09:00 01/06/21 05:20 Hydroxyzine HCl (Atarax) 25 mg PRN QID PRN PO AGITATION/ANIXETY 12/30/20 17:45 01/03/21 11:06 Divalproex Sodium (Depakote Er) 1,500 mg QHS PO 12/31/20 21:00 01/05/21 20:06 Amoxicillin/ Clavulanate Potassium (Augmentin 500/ 125mg) 1 tab BID PO 01/04/21 21:00 01/09/21 12:00 01/06/21 05:20 Lactobacillus Rhamnosus (Culturelle) 1 cap BID PO 01/05/21 21:00 01/06/21 05:19 Current Medications Medications (Trade) Dose Ordered Sig/Valerio Route PRN Reason Start Time Stop Time Status Last Admin Dose Admin Lactobacillus Rhamnosus (Culturelle) 1 cap BID PO 01/05/21 21:00 01/06/21 05:19 I have reviewed the current psychotropics carefully including drug interactions. Risk benefit ratio favors no change other than as noted in my dictated progress note. Diagnosis: Problems: (1) Anxiety disorder (2) Impulse control disorder (3) Obsessive compulsive disorder (4) Bipolar disorder, curr episode mixed, severe, with psychotic features EVER BAR MD Jan 06, 2021 07:17
--- NOTE | 2021-01-06 07:42 | PDOC ---
Exam Note: Adan Note: This note is a late entry for 01/05/2021 covers elements not covered in my initial note. Subjective: The patient was seen face to face in the evening of 01/05/2021 with Phoebe RODRIGUEZ, reviewed the chart. The patient slept 7-3/4 hours previous night. I met with the patient in her room. She has been complaining of some rib pain and remains withdrawn. She is still somewhat depressed. No suicidal or homicidal ideation. Review of Systems: Positive for chest pain. Ambulation impaired in wheelchair. No CV, , pulmonary, eye, ENT system symptoms on review. Mental Status Exam: The patient is reasonably oriented. She is pleasant, interactive, transferred herself from the bed to the wheelchair in front of me but I had the nursing staff assist her. Speech has some latency, coherent. Abstraction is fair. Computation is impaired. Language function intact. Mood and affect remains depressed. Laboratory Data: Reviewed. Impression: Bipolar 1 disorder mixed with psychotic features. OCD. Anxiety disorder unspecified. Impulse control disorder unspecified. Plan: No change from initial note Assessment: Vital Signs/I&O: Vital Signs Date Time Temp Pulse Resp B/P (MAP) Pulse Ox O2 Delivery O2 Flow Rate FiO2 01/06/21 06:27 98.2 76 16 149/76 (100) 93 01/05/21 06:23 Nasal Cannula 2.0 I & O 01/05/21 01/05/21 01/06/21 14:59 22:59 06:59 Intake Total 480 ml 290 ml Balance 480 ml 290 ml Current Medications: Meds: Current Medications Medications (Trade) Dose Ordered Sig/Valerio Route PRN Reason Start Time Stop Time Status Last Admin Dose Admin Acetaminophen (Tylenol) 1,000 mg TID PO 12/30/20 21:00 01/06/21 05:19 Cetirizine HCl (ZyrTEC) 10 mg DAILY PO 12/31/20 09:00 01/06/21 05:19 Docusate Sodium (Colace) 300 mg QHS PO 12/30/20 21:00 01/05/21 20:07 Lidocaine (Lidoderm) 1 patch DAILY TP 12/31/20 09:00 01/06/21 05:21 Metoprolol Succinate (Toprol Xl) 25 mg BID PO 12/30/20 21:00 01/06/21 05:24 Nystatin (Mycostatin) 5 ml QID PO 12/30/20 21:00 01/01/21 16:17 DC 12/31/20 19:45 Ondansetron HCl (Zofran Odt) 4 mg PRN Q6HRS PRN PO NAUSEA/VOMITING 12/30/20 17:30 01/05/21 20:09 Oxycodone HCl (Roxicodone) 10 mg PRN Q4HRS PRN PO PAIN 12/30/20 17:30 01/05/21 13:20 Pantoprazole Sodium (Protonix) 40 mg DAILY08 PO 12/31/20 08:00 01/06/21 05:20 Polyethylene Glycol (miraLAX) 17 gm PRN DAILY PRN PO 1ST CHOICE CONSTIPATION 12/30/20 17:30 12/31/20 19:39 Acetaminophen (Tylenol) 650 mg PRN Q6HRS PRN PO MILD PAIN / TEMP > 100.3'F 12/30/20 17:30 01/03/21 11:07 Divalproex Sodium (Depakote Er) 1,000 mg QHS PO 12/30/20 21:00 12/31/20 16:45 DC 12/30/20 19:58 Al Hydroxide/Mg Hydroxide (Mylanta Plus Xs) 15 ml PRN AFTMEALHC PRN PO DYSPEPSIA 12/30/20 17:30 Magnesium Hydroxide (Milk Of Magnesia) 2,400 mg PRN QHS PRN PO 2ND CHOICE CONSTIPATION 12/30/20 17:30 01/01/21 08:41 Quetiapine Fumarate (SEROquel) 50 mg HS PO 12/30/20 21:00 01/05/21 20:07 Multi-Ingredient Ointment (Analgesic [place]) 1 ralph PRN QID PRN TP MUSCLE PAIN 12/30/20 17:45 12/31/20 20:19 Paroxetine HCl (Paxil) 40 mg DAILY PO 12/31/20 09:00 01/06/21 05:20 Hydroxyzine HCl (Atarax) 25 mg PRN QID PRN PO AGITATION/ANIXETY 12/30/20 17:45 01/03/21 11:06 Divalproex Sodium (Depakote Er) 1,500 mg QHS PO 12/31/20 21:00 01/05/21 20:06 Amoxicillin/ Clavulanate Potassium (Augmentin 500/ 125mg) 1 tab BID PO 01/04/21 21:00 01/09/21 12:00 01/06/21 05:20 Lactobacillus Rhamnosus (Culturelle) 1 cap BID PO 01/05/21 21:00 01/06/21 05:19 Current Medications Medications (Trade) Dose Ordered Sig/Valerio Route PRN Reason Start Time Stop Time Status Last Admin Dose Admin Lactobacillus Rhamnosus (Culturelle) 1 cap BID PO 01/05/21 21:00 01/06/21 05:19 I have reviewed the current psychotropics carefully including drug interactions. Risk benefit ratio favors no change other than as noted in my dictated progress note. Diagnosis: Problems: (1) Anxiety disorder (2) Impulse control disorder (3) Obsessive compulsive disorder (4) Bipolar disorder, curr episode mixed, severe, with psychotic features EVER BAR MD Jan 06, 2021 07:42
--- NOTE | 2021-01-06 15:46 | NUR ---
Pt up in bed for meals. Has been pleasant and withdrawn. compliant with meds and cares.
[2021-01-06 15:56] VITALS: BP 150/88
[2021-01-06] MEDS: oxyCODONE IR 5 MG TABLET PO PRN (17:21)
[2021-01-06] MEDS: QUEtiapine 50 MG TABLET. PO SCH (20:25)
[2021-01-06] MEDS: DIVALPROEX ER 500 MG TAB.ER.24H PO SCH (20:26)
[2021-01-06] MEDS: DOCUSATE SODIUM 100 MG CAPSULE PO SCH (20:26)
[2021-01-06] MEDS: ONDANSETRON ODT 4 MG TAB.RAPDIS PO PRN (20:27)
--- NOTE | 2021-01-06 21:04 | PDOC ---
Exam Note: Adan Note: Please also refer to the separate dictated note~for this date of service dictated separately.~Patient seen individually. Discussed the patient with Nursing staff reviewed the chart.~Reviewed interim history and current functioning. Reviewed vital signs,~Labs/ Radiology~and current medications noted below. Continue current treatment with the changes noted in the dictated addendum note Assessment: Vital Signs/I&O: Vital Signs Date Time Temp Pulse Resp B/P (MAP) Pulse Ox O2 Delivery O2 Flow Rate FiO2 01/06/21 20:25 72 150/88 01/06/21 15:56 98.0 18 92 3.0 01/05/21 06:23 Nasal Cannula I & O 01/05/21 01/05/21 01/06/21 15:00 23:00 07:00 Intake Total 480 ml 290 ml Balance 480 ml 290 ml Current Medications: Meds: Current Medications Medications (Trade) Dose Ordered Sig/Valerio Route PRN Reason Start Time Stop Time Status Last Admin Dose Admin Acetaminophen (Tylenol) 1,000 mg TID PO 12/30/20 21:00 01/06/21 20:26 Cetirizine HCl (ZyrTEC) 10 mg DAILY PO 12/31/20 09:00 01/06/21 05:19 Docusate Sodium (Colace) 300 mg QHS PO 12/30/20 21:00 01/06/21 20:26 Lidocaine (Lidoderm) 1 patch DAILY TP 12/31/20 09:00 01/06/21 05:21 Metoprolol Succinate (Toprol Xl) 25 mg BID PO 12/30/20 21:00 01/06/21 20:25 Nystatin (Mycostatin) 5 ml QID PO 12/30/20 21:00 01/01/21 16:17 DC 12/31/20 19:45 Ondansetron HCl (Zofran Odt) 4 mg PRN Q6HRS PRN PO NAUSEA/VOMITING 12/30/20 17:30 01/06/21 20:27 Oxycodone HCl (Roxicodone) 10 mg PRN Q4HRS PRN PO PAIN 12/30/20 17:30 01/06/21 17:21 Pantoprazole Sodium (Protonix) 40 mg DAILY08 PO 12/31/20 08:00 01/06/21 05:20 Polyethylene Glycol (miraLAX) 17 gm PRN DAILY PRN PO 1ST CHOICE CONSTIPATION 12/30/20 17:30 12/31/20 19:39 Acetaminophen (Tylenol) 650 mg PRN Q6HRS PRN PO MILD PAIN / TEMP > 100.3'F 12/30/20 17:30 01/03/21 11:07 Divalproex Sodium (Depakote Er) 1,000 mg QHS PO 12/30/20 21:00 12/31/20 16:45 DC 12/30/20 19:58 Al Hydroxide/Mg Hydroxide (Mylanta Plus Xs) 15 ml PRN AFTMEALHC PRN PO DYSPEPSIA 12/30/20 17:30 Magnesium Hydroxide (Milk Of Magnesia) 2,400 mg PRN QHS PRN PO 2ND CHOICE CONSTIPATION 12/30/20 17:30 01/01/21 08:41 Quetiapine Fumarate (SEROquel) 50 mg HS PO 12/30/20 21:00 01/06/21 20:25 Multi-Ingredient Ointment (Analgesic [place]) 1 ralph PRN QID PRN TP MUSCLE PAIN 12/30/20 17:45 12/31/20 20:19 Paroxetine HCl (Paxil) 40 mg DAILY PO 12/31/20 09:00 01/06/21 05:20 Hydroxyzine HCl (Atarax) 25 mg PRN QID PRN PO AGITATION/ANIXETY 12/30/20 17:45 01/03/21 11:06 Divalproex Sodium (Depakote Er) 1,500 mg QHS PO 12/31/20 21:00 01/06/21 20:26 Amoxicillin/ Clavulanate Potassium (Augmentin 500/ 125mg) 1 tab BID PO 01/04/21 21:00 01/09/21 12:00 01/06/21 20:26 Lactobacillus Rhamnosus (Culturelle) 1 cap BID PO 01/05/21 21:00 01/06/21 20:26 I have reviewed the current psychotropics carefully including drug interactions. Risk benefit ratio favors no change other than as noted in my dictated progress note. Diagnosis: Problems: (1) Anxiety disorder (2) Impulse control disorder (3) Obsessive compulsive disorder (4) Bipolar disorder, curr episode mixed, severe, with psychotic features EVER BAR MD Jan 06, 2021 21:04
--- NOTE | 2021-01-06 23:51 | NUR ---
Pt located in her room this evening laying in bed. Pt complained of nausea. PRN Zofran given. Pt later compliant with HS medications. Denied pain.
[2021-01-07 06:03] VITALS: BP 153/75
[2021-01-07] MEDS: AMOXICILLIN/K CLAV 500/125MG TABLET. PO SCH ×2 (08:11→20:41)
--- NOTE | 2021-01-07 08:11 | PDOC ---
Exam Note: Adan Note: This note is a late entry for 01/06/2021 covers elements not covered in my initial note. Subjective: The patient was seen on telehealth rounds in the evening of 01/06/2021 with Phoebe RODRIGUEZ, reviewed the chart. The patient slept 7-3/4 hours previous night. Overall she remains depressed. She complains of some nausea. As I met with her in the evening, she was to get Zofran for this. No suicidal or homicidal ideation. Review of Systems: Ambulation impaired in wheelchair. No CV, , pulmonary, eye, ENT system symptoms on review other than the nausea. Mental Status Exam: The patient is reasonably oriented. Speech is coherent, has some latency. Abstraction is fair. Computation is impaired. Language function intact. Mood and affect remains depressed, anxious. Laboratory Data: Reviewed. Impression: Bipolar 1 disorder mixed with psychotic features. OCD. Anxiety disorder unspecified. Impulse control disorder unspecified. Plan: No change from initial note. Assessment: Vital Signs/I&O: Vital Signs Date Time Temp Pulse Resp B/P (MAP) Pulse Ox O2 Delivery O2 Flow Rate FiO2 01/07/21 06:03 97.6 73 18 153/75 (101) 92 3.0 01/05/21 06:23 Nasal Cannula I & O 01/06/21 01/06/21 01/07/21 15:00 23:00 07:00 Intake Total 840 ml 240 ml Balance 840 ml 240 ml Current Medications: Meds: Current Medications Medications (Trade) Dose Ordered Sig/Valerio Route PRN Reason Start Time Stop Time Status Last Admin Dose Admin Acetaminophen (Tylenol) 1,000 mg TID PO 12/30/20 21:00 01/06/21 20:26 Cetirizine HCl (ZyrTEC) 10 mg DAILY PO 12/31/20 09:00 01/06/21 05:19 Docusate Sodium (Colace) 300 mg QHS PO 12/30/20 21:00 01/06/21 20:26 Lidocaine (Lidoderm) 1 patch DAILY TP 12/31/20 09:00 01/06/21 05:21 Metoprolol Succinate (Toprol Xl) 25 mg BID PO 12/30/20 21:00 01/06/21 20:25 Nystatin (Mycostatin) 5 ml QID PO 12/30/20 21:00 01/01/21 16:17 DC 12/31/20 19:45 Ondansetron HCl (Zofran Odt) 4 mg PRN Q6HRS PRN PO NAUSEA/VOMITING 12/30/20 17:30 01/06/21 20:27 Oxycodone HCl (Roxicodone) 10 mg PRN Q4HRS PRN PO PAIN 12/30/20 17:30 01/06/21 17:21 Pantoprazole Sodium (Protonix) 40 mg DAILY08 PO 12/31/20 08:00 01/06/21 05:20 Polyethylene Glycol (miraLAX) 17 gm PRN DAILY PRN PO 1ST CHOICE CONSTIPATION 12/30/20 17:30 12/31/20 19:39 Acetaminophen (Tylenol) 650 mg PRN Q6HRS PRN PO MILD PAIN / TEMP > 100.3'F 12/30/20 17:30 01/03/21 11:07 Divalproex Sodium (Depakote Er) 1,000 mg QHS PO 12/30/20 21:00 12/31/20 16:45 DC 12/30/20 19:58 Al Hydroxide/Mg Hydroxide (Mylanta Plus Xs) 15 ml PRN AFTMEALHC PRN PO DYSPEPSIA 12/30/20 17:30 Magnesium Hydroxide (Milk Of Magnesia) 2,400 mg PRN QHS PRN PO 2ND CHOICE CONSTIPATION 12/30/20 17:30 01/01/21 08:41 Quetiapine Fumarate (SEROquel) 50 mg HS PO 12/30/20 21:00 01/06/21 20:25 Multi-Ingredient Ointment (Analgesic [place]) 1 ralph PRN QID PRN TP MUSCLE PAIN 12/30/20 17:45 12/31/20 20:19 Paroxetine HCl (Paxil) 40 mg DAILY PO 12/31/20 09:00 01/06/21 05:20 Hydroxyzine HCl (Atarax) 25 mg PRN QID PRN PO AGITATION/ANIXETY 12/30/20 17:45 01/03/21 11:06 Divalproex Sodium (Depakote Er) 1,500 mg QHS PO 12/31/20 21:00 01/06/21 20:26 Amoxicillin/ Clavulanate Potassium (Augmentin 500/ 125mg) 1 tab BID PO 01/04/21 21:00 01/09/21 12:00 01/06/21 20:26 Lactobacillus Rhamnosus (Culturelle) 1 cap BID PO 01/05/21 21:00 01/06/21 20:26 I have reviewed the current psychotropics carefully including drug interactions. Risk benefit ratio favors no change other than as noted in my dictated progress note. Diagnosis: Problems: (1) Anxiety disorder (2) Impulse control disorder (3) Obsessive compulsive disorder (4) Bipolar disorder, curr episode mixed, severe, with psychotic features EVER BAR MD Jan 07, 2021 08:11
[2021-01-07] MEDS: CETIRIZINE HCL 10 MG TABLET PO SCH (08:13)
[2021-01-07] MEDS: PANTOPRAZOLE 40 MG TABLET. PO SCH (08:13)
[2021-01-07] MEDS: ACETAMINOPHEN 500 MG TABLET PO SCH ×3 (08:13→20:41)
[2021-01-07] MEDS: LACTOBACILLUS RHAMNOSUS GG 1 CAPSULE. PO SCH ×2 (08:13→20:41)
[2021-01-07] MEDS: PARoxetine 20 MG TABLET PO SCH (08:13)
[2021-01-07] MEDS: METOPROLOL SUCC 24HR ER 25 MG TAB.ER.24H. PO SCH ×2 (08:15→20:41)
[2021-01-07] MEDS: LIDOCAINE (700MG/PATCH) PATCH. TP SCH (08:16)
[2021-01-07] MEDS: oxyCODONE IR 5 MG TABLET PO PRN ×2 (13:00→20:44)
[2021-01-07 16:05] VITALS: BP 98/66
--- NOTE | 2021-01-07 16:12 | NUR ---
Pt up in wc for meals. Qiet and withdrawn. Has been compliant with meds and cares.
[2021-01-07] MEDS: QUEtiapine 50 MG TABLET. PO SCH (20:41)
[2021-01-07] MEDS: DIVALPROEX ER 500 MG TAB.ER.24H PO SCH (20:41)
[2021-01-07] MEDS: DOCUSATE SODIUM 100 MG CAPSULE PO SCH (20:41)
--- NOTE | 2021-01-07 21:03 | PDOC ---
Exam Note: Adan Note: Please also refer to the separate dictated note~for this date of service dictated separately.~Patient seen individually. Discussed the patient with Nursing staff reviewed the chart.~Reviewed interim history and current functioning. Reviewed vital signs,~Labs/ Radiology~and current medications noted below. Continue current treatment with the changes noted in the dictated addendum note Assessment: Vital Signs/I&O: Vital Signs Date Time Temp Pulse Resp B/P (MAP) Pulse Ox O2 Delivery O2 Flow Rate FiO2 01/07/21 20:44 97 01/07/21 20:41 75 103/62 01/07/21 16:05 97.8 20 Room Air 01/07/21 06:03 3.0 I & O 01/06/21 01/06/21 01/07/21 15:00 23:00 07:00 Intake Total 840 ml 240 ml Balance 840 ml 240 ml Current Medications: Meds: Current Medications Medications (Trade) Dose Ordered Sig/Valerio Route PRN Reason Start Time Stop Time Status Last Admin Dose Admin Acetaminophen (Tylenol) 1,000 mg TID PO 12/30/20 21:00 01/07/21 20:41 Cetirizine HCl (ZyrTEC) 10 mg DAILY PO 12/31/20 09:00 01/07/21 08:13 Docusate Sodium (Colace) 300 mg QHS PO 12/30/20 21:00 01/07/21 20:41 Lidocaine (Lidoderm) 1 patch DAILY TP 12/31/20 09:00 01/07/21 08:16 Metoprolol Succinate (Toprol Xl) 25 mg BID PO 12/30/20 21:00 01/07/21 08:15 Nystatin (Mycostatin) 5 ml QID PO 12/30/20 21:00 01/01/21 16:17 DC 12/31/20 19:45 Ondansetron HCl (Zofran Odt) 4 mg PRN Q6HRS PRN PO NAUSEA/VOMITING 12/30/20 17:30 01/06/21 20:27 Oxycodone HCl (Roxicodone) 10 mg PRN Q4HRS PRN PO PAIN 12/30/20 17:30 01/07/21 20:44 Pantoprazole Sodium (Protonix) 40 mg DAILY08 PO 12/31/20 08:00 01/07/21 08:13 Polyethylene Glycol (miraLAX) 17 gm PRN DAILY PRN PO 1ST CHOICE CONSTIPATION 12/30/20 17:30 12/31/20 19:39 Acetaminophen (Tylenol) 650 mg PRN Q6HRS PRN PO MILD PAIN / TEMP > 100.3'F 12/30/20 17:30 01/03/21 11:07 Divalproex Sodium (Depakote Er) 1,000 mg QHS PO 12/30/20 21:00 12/31/20 16:45 DC 12/30/20 19:58 Al Hydroxide/Mg Hydroxide (Mylanta Plus Xs) 15 ml PRN AFTMEALHC PRN PO DYSPEPSIA 12/30/20 17:30 Magnesium Hydroxide (Milk Of Magnesia) 2,400 mg PRN QHS PRN PO 2ND CHOICE CONSTIPATION 12/30/20 17:30 01/01/21 08:41 Quetiapine Fumarate (SEROquel) 50 mg HS PO 12/30/20 21:00 01/07/21 20:41 Multi-Ingredient Ointment (Analgesic [place]) 1 ralph PRN QID PRN TP MUSCLE PAIN 12/30/20 17:45 12/31/20 20:19 Paroxetine HCl (Paxil) 40 mg DAILY PO 12/31/20 09:00 01/07/21 08:13 Hydroxyzine HCl (Atarax) 25 mg PRN QID PRN PO AGITATION/ANIXETY 12/30/20 17:45 01/03/21 11:06 Divalproex Sodium (Depakote Er) 1,500 mg QHS PO 12/31/20 21:00 01/07/21 20:41 Amoxicillin/ Clavulanate Potassium (Augmentin 500/ 125mg) 1 tab BID PO 01/04/21 21:00 01/09/21 12:00 01/07/21 20:41 Lactobacillus Rhamnosus (Culturelle) 1 cap BID PO 01/05/21 21:00 01/07/21 20:41 I have reviewed the current psychotropics carefully including drug interactions. Risk benefit ratio favors no change other than as noted in my dictated progress note. Diagnosis: Problems: (1) Anxiety disorder (2) Impulse control disorder (3) Obsessive compulsive disorder (4) Bipolar disorder, curr episode mixed, severe, with psychotic features YOSVANY,MAN M MD Jan 07, 2021 21:03
--- NOTE | 2021-01-07 23:23 | NUR ---
Pt withdrawn to her room this evening. Quiet and pleasant. Compliant with HS medications. PRN Roxicodone administered per pt request.
[2021-01-08] MEDS: oxyCODONE IR 5 MG TABLET PO PRN ×3 (01:41→20:08)
[2021-01-08 06:30] VITALS: BP 164/81
[2021-01-08] MEDS: PARoxetine 20 MG TABLET PO SCH (09:18)
[2021-01-08] MEDS: AMOXICILLIN/K CLAV 500/125MG TABLET. PO SCH ×2 (09:18→20:05)
[2021-01-08] MEDS: PANTOPRAZOLE 40 MG TABLET. PO SCH (09:18)
[2021-01-08] MEDS: LACTOBACILLUS RHAMNOSUS GG 1 CAPSULE. PO SCH ×2 (09:18→20:05)
[2021-01-08] MEDS: METOPROLOL SUCC 24HR ER 25 MG TAB.ER.24H. PO SCH ×2 (09:18→20:06)
[2021-01-08] MEDS: CETIRIZINE HCL 10 MG TABLET PO SCH (09:19)
[2021-01-08] MEDS: ACETAMINOPHEN 500 MG TABLET PO SCH ×3 (09:19→20:06)
[2021-01-08] MEDS: LIDOCAINE (700MG/PATCH) PATCH. TP SCH (09:19)
[2021-01-08] MEDS: ONDANSETRON ODT 4 MG TAB.RAPDIS PO PRN (09:24)
[2021-01-08 09:55] LABS: BASO % 0 % (0-3); EOS # 0.1 x10^3/uL (0.0-0.7); EOS % 2 % (0-3); HEMATOCRIT 37.2 % (36.0-47.0); HEMOGLOBIN 12.1 g/dL (12.0-15.5); LYMPH # 1.2 x10^3/uL (1.0-4.8); LYMPH % 15 % (24-48); MEAN CORPUSCULAR HEMOGLOBIN 32 pg (25-35); MEAN CORPUSCULAR HGB CONC 33 g/dL (31-37); MEAN CORPUSCULAR VOLUME 98 fL (79-100); MONO # 0.6 x10^3/uL (0.0-1.1); MONO % 8 % (0-9); NEUT # 5.8 x10^3uL (1.8-7.7); NEUT % 75 % (31-73); PLATELET COUNT 444 x10^3/uL (140-400); RED BLOOD COUNT 3.82 x10^6/uL (3.50-5.40); RED CELL DISTRIBUTION WIDTH 14.1 % (11.5-14.5); WHITE BLOOD COUNT 7.8 x10^3/uL (4.0-11.0)
[2021-01-08 10:05] LABS: ALBUMIN 2.6 g/dL (3.4-5.0); ALBUMIN/GLOBULIN RATIO 0.6 (1.0-1.7); CALCIUM 8.8 mg/dL (8.5-10.1); CREATININE 0.7 mg/dL (0.6-1.0); GFR 82.7; POTASSIUM 3.2 mmol/L (3.5-5.1); TOTAL BILIRUBIN 0.1 mg/dL (0.2-1.0); TOTAL PROTEIN 6.7 g/dL (6.4-8.2)
--- NOTE | 2021-01-08 11:31 | NUR ---
WEEKLY ACTIVITY THERAPY NOTE Date of Admission: 12/30/2020 Date of AT Assessment: 01/02/21 Precipitating behaviors that initiated intake and admission: Delirium, bipolar d/o personality d/o, increased falls, hallucinations, yelling/screaming, impulsive Goal aimed: to increase socialization and engagement Initial Goal: Pt. will participate in at least one Activity Therapy group per day. Weekly progress towards goal: did not achieve, no group , Friday or Friday Group participation level: 2 min, 1 mod Weekly highlights: moderately engaged in stretches and listing words in categories last Friday morning Behaviors observed: withdrawn to room, often in bed sleeping, joined a few groups but usually late, working with therapy, restless and uncomfortable in wheelchair Plan: no change to goal Beneficial adaptations:
--- NOTE | 2021-01-08 13:10 | NUR ---
Pt is calm, cooperative, compliant. She needs encouragement to complete tasks. She is compliant with her medication and assessment.
--- NOTE | 2021-01-08 13:57 | NUR ---
DAVE contacted Diamond Randall, admissions at [facility], to see if pt could still be considered for placement. DAVE and Diamond discussed pt payor source as Medicare A/B. Diamond reports that they would quarantine pt for 14 days upon admission so the most recent Covid test would be fine. Diamond will contact DAVE after they review the packet.
--- NOTE | 2021-01-08 14:05 | TX PLAN ---
Interdisciplinary Tx Plan Admission Information Dec 30, 2020 at 16:37 Legal Status (on Admission): Voluntary DPOA/Guardian Name: Carmel Horowitz Contact Other Contact Name: Renetta Fabian Other Contact Verified Code Status: DNR Allergies: Coded Allergies: ciprofloxacin (Verified Allergy, Unknown, Unknown, 04/03/20) ibuprofen (Verified Allergy, Unknown, Unknown, 04/03/20) tramadol (Verified Allergy, Unknown, Unknown, 04/03/20) Iodinated Contrast Media (Verified Adverse Reaction, Unknown, 04/06/20) Diagnoses Primary Diagnosis: Psychosis NOS, Bipolar D/O Reasons for Admission: Agitated, Depressed, Anxiety/Panic Problem in Patient's Words: Pt needs evaluated before going to a SNF for rehab. Additional Admission Comments: According to the intake, pt is agitated, and anxious Problems Active Problems: appears depressed flat affect Inactive Problems: medication mgmt working with therapy Pt Strengths/Limitations Ability for [place]: Fair Cognitive Functioning/Ability: Fair Communication Skills/Ability: Fair Financial Resources: Good Insight/Judgement: Poor Intellectual Ability: Fair Physical Health: Fair Social Skills: Fair Stability in Family: Fair Stability in School/Work: Fair Verbal Skills: Fair Discharge Criteria Discharge Criteria: Adequate arrangements @DC, Improved behavior, Improved mood/thought Preliminary Discharge Plan Preliminary DC Plan: Placement Needed, Retirement Special Precautions Fall Risk: Moderate Initial D/C Plan Pt will need rehab upon discharge Identified Discharge Needs: Psychiatry services Currently Utilized Resources Currently Utilized Resources/P: Primary Care Physician Referrals Community Resources: Psychiatry Counseling Identified Problems/Hx/Goals Objectives/Short-Term Goals Short Term Goals: Dec. Anxiety/Panic, Dec. Symp. Depression Short Term Goals in Patient's: Just to get rehab and go home Interventions/Frequency Staff Interventions/Frequency&: Psychiatrist to assess pt at least 3x per week for medication mgmt. Social Work to assess pt at least 2x per week for identification to barriers and discharge planning goals. Nursing to assess for medication effects, behavioral management and completion of Q15s. Encourage group participation in activities (if applicable) or 1:1 engagement based off Activity Dept goals. 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 Education: [employer] Community Follow-up Primary Care Physician Treatment Plan Explained Patient/Sonography Technologist had this treatment plan explained to him/her as indicated by the signature below and has been given the opportunity to ask questions and make suggestions: Date: Patient/Sonography Technologist Signature: Status Update Update Pt is eating roughly 50% of meals and sleeping on average 7 hours per night. Pt is pleasant and cooperative with staff. However, she remains withdrawn and has a flat affect. Pt does continue to report pain complaints and has minimal group participation. Pt will discharge to SNF for rehab care as she is not yet ready to return to [facility]. Pt can discharge once the facility is able to accept pt. SW to continue working with pt Carmel coe on all discharge plans. MAGDA GUY Jan 08, 2021 14:05
[2021-01-08 15:18] VITALS: BP 124/89
[2021-01-08] MEDS: DOCUSATE SODIUM 100 MG CAPSULE PO SCH (20:05)
[2021-01-08] MEDS: DIVALPROEX ER 500 MG TAB.ER.24H PO SCH (20:06)
[2021-01-08] MEDS: QUEtiapine 50 MG TABLET. PO SCH (20:06)
[2021-01-08] MEDS ORDERED: ALBUTEROL SULFATE 8GM INHALER. INH PRN (20:30)
--- NOTE | 2021-01-08 21:10 | PDOC ---
Exam Note: Adan Note: This note is a late entry for 01/07/2021 covers elements not covered in my initial note. Subjective: The patient was seen on telehealth rounds in the evening of 01/07/2021 with Phoebe RODRIGUEZ, reviewed the chart. The patient slept 5-1/4 hours previous night. The patient did well previous night, still remains depressed but more talkative today. Review of Systems: Ambulation impaired in wheelchair. No CV, , pulmonary, eye, ENT system symptoms on review. She does complain of some chest pain. She has a history of rib fracture status post fall. Mental Status Exam: The patient is reasonably oriented. Speech is coherent, has some latency. Abstraction is fair. Computation is impaired. Language function intact. Mood and affect still somewhat depressed. No fall have been noted. No suicidal ideation. Laboratory Data: Reviewed. Impression: Bipolar 1 disorder mixed with psychotic features. OCD. Anxiety disorder unspecified. Impulse control disorder unspecified. Plan: No change from initial note. Assessment: Vital Signs/I&O: Vital Signs Date Time Temp Pulse Resp B/P (MAP) Pulse Ox O2 Delivery O2 Flow Rate FiO2 01/08/21 20:08 96 01/08/21 20:06 81 124/89 01/08/21 15:18 98.0 16 01/08/21 06:30 2.0 01/07/21 16:05 Room Air I & O 01/07/21 01/07/21 01/08/21 15:00 23:00 07:00 Intake Total 360 ml 340 ml Balance 360 ml 340 ml Labs: Laboratory Tests Test 01/08/21 09:36 White Blood Count 7.8 x10^3/uL (4.0-11.0) Red Blood Count 3.82 x10^6/uL (3.50-5.40) Hemoglobin 12.1 g/dL (12.0-15.5) Hematocrit 37.2 % (36.0-47.0) Mean Corpuscular Volume 98 fL (79-100) Mean Corpuscular Hemoglobin 32 pg (25-35) Mean Corpuscular Hemoglobin Concent 33 g/dL (31-37) Red Cell Distribution Width 14.1 % (11.5-14.5) Platelet Count 444 x10^3/uL (140-400) H Neutrophils (%) (Auto) 75 % (31-73) H Lymphocytes (%) (Auto) 15 % (24-48) L Monocytes (%) (Auto) 8 % (0-9) Eosinophils (%) (Auto) 2 % (0-3) Basophils (%) (Auto) 0 % (0-3) Neutrophils # (Auto) 5.8 x10^3uL (1.8-7.7) Lymphocytes # (Auto) 1.2 x10^3/uL (1.0-4.8) Monocytes # (Auto) 0.6 x10^3/uL (0.0-1.1) Eosinophils # (Auto) 0.1 x10^3/uL (0.0-0.7) Basophils # (Auto) 0.0 x10^3/uL (0.0-0.2) Sodium Level 134 mmol/L (136-145) L Potassium Level 3.2 mmol/L (3.5-5.1) L Chloride Level 96 mmol/L (98-107) L Carbon Dioxide Level 31 mmol/L (21-32) Anion Gap 7 (6-14) Blood Urea Nitrogen 12 mg/dL (7-20) Creatinine 0.7 mg/dL (0.6-1.0) Estimated GFR (Cockcroft-Gault) 82.7 BUN/Creatinine Ratio 17 (6-20) Glucose Level 116 mg/dL (70-99) H Calcium Level 8.8 mg/dL (8.5-10.1) Total Bilirubin 0.1 mg/dL (0.2-1.0) L Aspartate Amino Transferase (AST) 14 U/L (15-37) L Alanine Aminotransferase (ALT) 14 U/L (14-59) Alkaline Phosphatase 132 U/L (46-116) H Total Protein 6.7 g/dL (6.4-8.2) Albumin 2.6 g/dL (3.4-5.0) L Albumin/Globulin Ratio 0.6 (1.0-1.7) L Current Medications: Meds: Laboratory Tests Test 01/08/21 09:36 White Blood Count 7.8 x10^3/uL Red Blood Count 3.82 x10^6/uL Hemoglobin 12.1 g/dL Hematocrit 37.2 % Mean Corpuscular Volume 98 fL Mean Corpuscular Hemoglobin 32 pg Mean Corpuscular Hemoglobin Concent 33 g/dL Red Cell Distribution Width 14.1 % Platelet Count 444 x10^3/uL Neutrophils (%) (Auto) 75 % Lymphocytes (%) (Auto) 15 % Monocytes (%) (Auto) 8 % Eosinophils (%) (Auto) 2 % Basophils (%) (Auto) 0 % Neutrophils # (Auto) 5.8 x10^3uL Lymphocytes # (Auto) 1.2 x10^3/uL Monocytes # (Auto) 0.6 x10^3/uL Eosinophils # (Auto) 0.1 x10^3/uL Basophils # (Auto) 0.0 x10^3/uL Sodium Level 134 mmol/L Potassium Level 3.2 mmol/L Chloride Level 96 mmol/L Carbon Dioxide Level 31 mmol/L Anion Gap 7 Blood Urea Nitrogen 12 mg/dL Creatinine 0.7 mg/dL Estimated GFR (Cockcroft-Gault) 82.7 BUN/Creatinine Ratio 17 Glucose Level 116 mg/dL Calcium Level 8.8 mg/dL Total Bilirubin 0.1 mg/dL Aspartate Amino Transf (AST/SGOT) 14 U/L Alanine Aminotransferase (ALT/SGPT) 14 U/L Alkaline Phosphatase 132 U/L Total Protein 6.7 g/dL Albumin 2.6 g/dL Albumin/Globulin Ratio 0.6 Current Medications Medications (Trade) Dose Ordered Sig/Valerio Route PRN Reason Start Time Stop Time Status Last Admin Dose Admin Acetaminophen (Tylenol) 1,000 mg TID PO 12/30/20 21:00 01/08/21 20:06 Cetirizine HCl (ZyrTEC) 10 mg DAILY PO 12/31/20 09:00 01/08/21 09:19 Docusate Sodium (Colace) 300 mg QHS PO 12/30/20 21:00 01/08/21 20:05 Lidocaine (Lidoderm) 1 patch DAILY TP 12/31/20 09:00 01/08/21 09:19 Metoprolol Succinate (Toprol Xl) 25 mg BID PO 12/30/20 21:00 01/08/21 20:06 Nystatin (Mycostatin) 5 ml QID PO 12/30/20 21:00 01/01/21 16:17 DC 12/31/20 19:45 Ondansetron HCl (Zofran Odt) 4 mg PRN Q6HRS PRN PO NAUSEA/VOMITING 12/30/20 17:30 01/08/21 09:24 Oxycodone HCl (Roxicodone) 10 mg PRN Q4HRS PRN PO PAIN 12/30/20 17:30 01/08/21 20:08 Pantoprazole Sodium (Protonix) 40 mg DAILY08 PO 12/31/20 08:00 01/08/21 09:18 Polyethylene Glycol (miraLAX) 17 gm PRN DAILY PRN PO 1ST CHOICE CONSTIPATION 12/30/20 17:30 12/31/20 19:39 Acetaminophen (Tylenol) 650 mg PRN Q6HRS PRN PO MILD PAIN / TEMP > 100.3'F 12/30/20 17:30 01/03/21 11:07 Divalproex Sodium (Depakote Er) 1,000 mg QHS PO 12/30/20 21:00 12/31/20 16:45 DC 12/30/20 19:58 Al Hydroxide/Mg Hydroxide (Mylanta Plus Xs) 15 ml PRN AFTMEALHC PRN PO DYSPEPSIA 12/30/20 17:30 Magnesium Hydroxide (Milk Of Magnesia) 2,400 mg PRN QHS PRN PO 2ND CHOICE CONSTIPATION 12/30/20 17:30 01/01/21 08:41 Quetiapine Fumarate (SEROquel) 50 mg HS PO 12/30/20 21:00 01/08/21 20:06 Multi-Ingredient Ointment (Analgesic [place]) 1 ralph PRN QID PRN TP MUSCLE PAIN 12/30/20 17:45 12/31/20 20:19 Paroxetine HCl (Paxil) 40 mg DAILY PO 12/31/20 09:00 01/08/21 09:18 Hydroxyzine HCl (Atarax) 25 mg PRN QID PRN PO AGITATION/ANIXETY 12/30/20 17:45 01/03/21 11:06 Divalproex Sodium (Depakote Er) 1,500 mg QHS PO 12/31/20 21:00 01/08/21 20:06 Amoxicillin/ Clavulanate Potassium (Augmentin 500/ 125mg) 1 tab BID PO 01/04/21 21:00 01/09/21 12:00 01/08/21 20:05 Lactobacillus Rhamnosus (Culturelle) 1 cap BID PO 01/05/21 21:00 01/08/21 20:05 Albuterol Sulfate (Ventolin Hfa Inhaler) 1 puff PRN BID PRN INH SHORTNESS OF BREATH 01/08/21 20:30 I have reviewed the current psychotropics carefully including drug interactions. Risk benefit ratio favors no change other than as noted in my dictated progress note. Diagnosis: Problems: (1) Anxiety disorder (2) Impulse control disorder (3) Obsessive compulsive disorder (4) Bipolar disorder, curr episode mixed, severe, with psychotic features EVER BAR MD Jan 08, 2021 21:10
--- NOTE | 2021-01-08 21:32 | PDOC ---
Exam Note: Adan Note: Please also refer to the separate dictated note~for this date of service dictated separately.~Patient seen individually. Discussed the patient with Nursing staff reviewed the chart.~Reviewed interim history and current functioning. Reviewed vital signs,~Labs/ Radiology~and current medications noted below. Continue current treatment with the changes noted in the dictated addendum note Assessment: Vital Signs/I&O: Vital Signs Date Time Temp Pulse Resp B/P (MAP) Pulse Ox O2 Delivery O2 Flow Rate FiO2 01/08/21 20:08 96 01/08/21 20:06 81 124/89 01/08/21 15:18 98.0 16 01/08/21 06:30 2.0 01/07/21 16:05 Room Air I & O 01/07/21 01/07/21 01/08/21 14:59 22:59 06:59 Intake Total 360 ml 340 ml Balance 360 ml 340 ml Labs: Laboratory Tests Test 01/08/21 09:36 White Blood Count 7.8 x10^3/uL (4.0-11.0) Red Blood Count 3.82 x10^6/uL (3.50-5.40) Hemoglobin 12.1 g/dL (12.0-15.5) Hematocrit 37.2 % (36.0-47.0) Mean Corpuscular Volume 98 fL (79-100) Mean Corpuscular Hemoglobin 32 pg (25-35) Mean Corpuscular Hemoglobin Concent 33 g/dL (31-37) Red Cell Distribution Width 14.1 % (11.5-14.5) Platelet Count 444 x10^3/uL (140-400) H Neutrophils (%) (Auto) 75 % (31-73) H Lymphocytes (%) (Auto) 15 % (24-48) L Monocytes (%) (Auto) 8 % (0-9) Eosinophils (%) (Auto) 2 % (0-3) Basophils (%) (Auto) 0 % (0-3) Neutrophils # (Auto) 5.8 x10^3uL (1.8-7.7) Lymphocytes # (Auto) 1.2 x10^3/uL (1.0-4.8) Monocytes # (Auto) 0.6 x10^3/uL (0.0-1.1) Eosinophils # (Auto) 0.1 x10^3/uL (0.0-0.7) Basophils # (Auto) 0.0 x10^3/uL (0.0-0.2) Sodium Level 134 mmol/L (136-145) L Potassium Level 3.2 mmol/L (3.5-5.1) L Chloride Level 96 mmol/L (98-107) L Carbon Dioxide Level 31 mmol/L (21-32) Anion Gap 7 (6-14) Blood Urea Nitrogen 12 mg/dL (7-20) Creatinine 0.7 mg/dL (0.6-1.0) Estimated GFR (Cockcroft-Gault) 82.7 BUN/Creatinine Ratio 17 (6-20) Glucose Level 116 mg/dL (70-99) H Calcium Level 8.8 mg/dL (8.5-10.1) Total Bilirubin 0.1 mg/dL (0.2-1.0) L Aspartate Amino Transferase (AST) 14 U/L (15-37) L Alanine Aminotransferase (ALT) 14 U/L (14-59) Alkaline Phosphatase 132 U/L (46-116) H Total Protein 6.7 g/dL (6.4-8.2) Albumin 2.6 g/dL (3.4-5.0) L Albumin/Globulin Ratio 0.6 (1.0-1.7) L Current Medications: I have reviewed the current psychotropics carefully including drug interactions. Risk benefit ratio favors no change other than as noted in my dictated progress note. Diagnosis: Problems: (1) Anxiety disorder (2) Impulse control disorder (3) Obsessive compulsive disorder (4) Bipolar disorder, curr episode mixed, severe, with psychotic features EVER BAR MD Jan 08, 2021 21:32
--- NOTE | 2021-01-08 23:54 | NUR ---
Pt laying down in bed this evening. Calm and pleasant. Compliant with mediations and shower. PRN Roxicodone administered per pt request.
[2021-01-09 06:20] VITALS: BP 125/68
--- NOTE | 2021-01-09 06:31 | RAD ---
XR CHEST 1V 01/09/2021 5:15 AM INDICATION: Dizziness, wheezing and cough COMPARISON: 121 TECHNIQUE: Portable frontal view of the chest is provided. FINDINGS: The cardiomediastinal silhouette is within normal limits. Moderate right pleural effusion with adjace nt compressive atelectasis. Dextro convex scoliosis of the thoracic spine. Bandlike density in the left midlung may represent scarring. Mild pulmonary vascular congestion. No p neumothorax. No suspicious osseous abnormality. IMPRESSION: Aeration of the lungs appears similar to the prior examination. Electronically signed by: Iman Soto MD (01/09/2021 6:29 AM) [facility]
[2021-01-09] MEDS: LACTOBACILLUS RHAMNOSUS GG 1 CAPSULE. PO SCH ×2 (07:57→20:39)
[2021-01-09] MEDS: ACETAMINOPHEN 500 MG TABLET PO SCH ×3 (07:57→20:40)
[2021-01-09] MEDS: CETIRIZINE HCL 10 MG TABLET PO SCH (07:57)
[2021-01-09] MEDS: AMOXICILLIN/K CLAV 500/125MG TABLET. PO SCH (07:57)
[2021-01-09] MEDS: METOPROLOL SUCC 24HR ER 25 MG TAB.ER.24H. PO SCH ×2 (07:58→20:40)
[2021-01-09] MEDS: PARoxetine 20 MG TABLET PO SCH (07:58)
[2021-01-09] MEDS: PANTOPRAZOLE 40 MG TABLET. PO SCH (07:58)
[2021-01-09] MEDS: LIDOCAINE (700MG/PATCH) PATCH. TP SCH (07:59)
--- NOTE | 2021-01-09 08:38 | PDOC ---
Exam Note: Adan Note: This note is a late entry for 01/08/2021 covers elements not covered in my initial note. Subjective: The patient was seen face to face in the morning of 01/08/2021 for a treatment team meeting with Angelica Coreas, Makayla Claudio and Soha (social service technician), María Thomas, activity therapy and Irene RODRIGUEZ, reviewed the chart. The patient slept 6 hours previous night. The patient has been quiet, less depressed, admits to feeling helpless, hopeless but no suicidal ideation. Family believes she needs to go to skilled rehab rather than return to a facility. As I met with her in her room she was trying to walk out of the room while the oxygen tubing was plugged into the wall. It was totally stretched out. I asked the nursing aid to assist her and she was appreciative. Review of Systems: Ambulation impaired with walker. No CV, , eye, ENT system symptoms on review. Shortness of breath on O2 supplements. Mental Status Exam: The patient is reasonably oriented. She is pleasant, verbal, interactive, still depressed. Speech is coherent, has some latency. Abstraction is fair. Computation is impaired. Language function intact. Mood and affect less depressed. No suicidal ideation. No psychotic symptoms. Laboratory Data: Reviewed. Impression: Bipolar 1 disorder mixed with psychotic features. OCD. Anxiety disorder unspecified. Impulse control disorder unspecified. Plan: No change from initial note. Assessment: Vital Signs/I&O: Vital Signs Date Time Temp Pulse Resp B/P (MAP) Pulse Ox O2 Delivery O2 Flow Rate FiO2 01/09/21 07:58 89 125/68 01/09/21 06:20 97.0 14 95 5.0 01/07/21 16:05 Room Air I & O 01/08/21 01/08/21 01/09/21 14:59 22:59 06:59 Intake Total 460 ml 340 ml Balance 460 ml 340 ml Labs: Laboratory Tests Test 01/08/21 09:36 White Blood Count 7.8 x10^3/uL (4.0-11.0) Red Blood Count 3.82 x10^6/uL (3.50-5.40) Hemoglobin 12.1 g/dL (12.0-15.5) Hematocrit 37.2 % (36.0-47.0) Mean Corpuscular Volume 98 fL (79-100) Mean Corpuscular Hemoglobin 32 pg (25-35) Mean Corpuscular Hemoglobin Concent 33 g/dL (31-37) Red Cell Distribution Width 14.1 % (11.5-14.5) Platelet Count 444 x10^3/uL (140-400) H Neutrophils (%) (Auto) 75 % (31-73) H Lymphocytes (%) (Auto) 15 % (24-48) L Monocytes (%) (Auto) 8 % (0-9) Eosinophils (%) (Auto) 2 % (0-3) Basophils (%) (Auto) 0 % (0-3) Neutrophils # (Auto) 5.8 x10^3uL (1.8-7.7) Lymphocytes # (Auto) 1.2 x10^3/uL (1.0-4.8) Monocytes # (Auto) 0.6 x10^3/uL (0.0-1.1) Eosinophils # (Auto) 0.1 x10^3/uL (0.0-0.7) Basophils # (Auto) 0.0 x10^3/uL (0.0-0.2) Sodium Level 134 mmol/L (136-145) L Potassium Level 3.2 mmol/L (3.5-5.1) L Chloride Level 96 mmol/L (98-107) L Carbon Dioxide Level 31 mmol/L (21-32) Anion Gap 7 (6-14) Blood Urea Nitrogen 12 mg/dL (7-20) Creatinine 0.7 mg/dL (0.6-1.0) Estimated GFR (Cockcroft-Gault) 82.7 BUN/Creatinine Ratio 17 (6-20) Glucose Level 116 mg/dL (70-99) H Calcium Level 8.8 mg/dL (8.5-10.1) Total Bilirubin 0.1 mg/dL (0.2-1.0) L Aspartate Amino Transferase (AST) 14 U/L (15-37) L Alanine Aminotransferase (ALT) 14 U/L (14-59) Alkaline Phosphatase 132 U/L (46-116) H Total Protein 6.7 g/dL (6.4-8.2) Albumin 2.6 g/dL (3.4-5.0) L Albumin/Globulin Ratio 0.6 (1.0-1.7) L Current Medications: Meds: Laboratory Tests Test 01/08/21 09:36 White Blood Count 7.8 x10^3/uL Red Blood Count 3.82 x10^6/uL Hemoglobin 12.1 g/dL Hematocrit 37.2 % Mean Corpuscular Volume 98 fL Mean Corpuscular Hemoglobin 32 pg Mean Corpuscular Hemoglobin Concent 33 g/dL Red Cell Distribution Width 14.1 % Platelet Count 444 x10^3/uL Neutrophils (%) (Auto) 75 % Lymphocytes (%) (Auto) 15 % Monocytes (%) (Auto) 8 % Eosinophils (%) (Auto) 2 % Basophils (%) (Auto) 0 % Neutrophils # (Auto) 5.8 x10^3uL Lymphocytes # (Auto) 1.2 x10^3/uL Monocytes # (Auto) 0.6 x10^3/uL Eosinophils # (Auto) 0.1 x10^3/uL Basophils # (Auto) 0.0 x10^3/uL Sodium Level 134 mmol/L Potassium Level 3.2 mmol/L Chloride Level 96 mmol/L Carbon Dioxide Level 31 mmol/L Anion Gap 7 Blood Urea Nitrogen 12 mg/dL Creatinine 0.7 mg/dL Estimated GFR (Cockcroft-Gault) 82.7 BUN/Creatinine Ratio 17 Glucose Level 116 mg/dL Calcium Level 8.8 mg/dL Total Bilirubin 0.1 mg/dL Aspartate Amino Transf (AST/SGOT) 14 U/L Alanine Aminotransferase (ALT/SGPT) 14 U/L Alkaline Phosphatase 132 U/L Total Protein 6.7 g/dL Albumin 2.6 g/dL Albumin/Globulin Ratio 0.6 Current Medications Medications (Trade) Dose Ordered Sig/Valerio Route PRN Reason Start Time Stop Time Status Last Admin Dose Admin Acetaminophen (Tylenol) 1,000 mg TID PO 12/30/20 21:00 01/09/21 07:57 Cetirizine HCl (ZyrTEC) 10 mg DAILY PO 12/31/20 09:00 01/09/21 07:57 Docusate Sodium (Colace) 300 mg QHS PO 12/30/20 21:00 01/08/21 20:05 Lidocaine (Lidoderm) 1 patch DAILY TP 12/31/20 09:00 01/09/21 07:59 Metoprolol Succinate (Toprol Xl) 25 mg BID PO 12/30/20 21:00 01/09/21 07:58 Nystatin (Mycostatin) 5 ml QID PO 12/30/20 21:00 01/01/21 16:17 DC 12/31/20 19:45 Ondansetron HCl (Zofran Odt) 4 mg PRN Q6HRS PRN PO NAUSEA/VOMITING 12/30/20 17:30 01/08/21 09:24 Oxycodone HCl (Roxicodone) 10 mg PRN Q4HRS PRN PO PAIN 12/30/20 17:30 01/08/21 20:08 Pantoprazole Sodium (Protonix) 40 mg DAILY08 PO 12/31/20 08:00 01/09/21 07:58 Polyethylene Glycol (miraLAX) 17 gm PRN DAILY PRN PO 1ST CHOICE CONSTIPATION 12/30/20 17:30 12/31/20 19:39 Acetaminophen (Tylenol) 650 mg PRN Q6HRS PRN PO MILD PAIN / TEMP > 100.3'F 12/30/20 17:30 01/03/21 11:07 Divalproex Sodium (Depakote Er) 1,000 mg QHS PO 12/30/20 21:00 12/31/20 16:45 DC 12/30/20 19:58 Al Hydroxide/Mg Hydroxide (Mylanta Plus Xs) 15 ml PRN AFTMEALHC PRN PO DYSPEPSIA 12/30/20 17:30 Magnesium Hydroxide (Milk Of Magnesia) 2,400 mg PRN QHS PRN PO 2ND CHOICE CONSTIPATION 12/30/20 17:30 01/01/21 08:41 Quetiapine Fumarate (SEROquel) 50 mg HS PO 12/30/20 21:00 01/08/21 20:06 Multi-Ingredient Ointment (Analgesic [place]) 1 ralph PRN QID PRN TP MUSCLE PAIN 12/30/20 17:45 12/31/20 20:19 Paroxetine HCl (Paxil) 40 mg DAILY PO 12/31/20 09:00 01/09/21 07:58 Hydroxyzine HCl (Atarax) 25 mg PRN QID PRN PO AGITATION/ANIXETY 12/30/20 17:45 01/03/21 11:06 Divalproex Sodium (Depakote Er) 1,500 mg QHS PO 12/31/20 21:00 01/08/21 20:06 Amoxicillin/ Clavulanate Potassium (Augmentin 500/ 125mg) 1 tab BID PO 01/04/21 21:00 01/09/21 12:00 01/09/21 07:57 Lactobacillus Rhamnosus (Culturelle) 1 cap BID PO 01/05/21 21:00 01/09/21 07:57 Albuterol Sulfate (Ventolin Hfa Inhaler) 1 puff PRN BID PRN INH SHORTNESS OF BREATH 01/08/21 20:30 I have reviewed the current psychotropics carefully including drug interactions. Risk benefit ratio favors no change other than as noted in my dictated progress note. Diagnosis: Problems: (1) Anxiety disorder (2) Impulse control disorder (3) Obsessive compulsive disorder (4) Bipolar disorder, curr episode mixed, severe, with psychotic features (5) Personality disorder, unspecified EVER BAR MD Jan 09, 2021 08:38
[2021-01-09] MEDS: oxyCODONE IR 5 MG TABLET PO PRN ×2 (13:26→20:53)
--- NOTE | 2021-01-09 13:53 | NUR ---
DAVE received call from pt dtr, Carmel, to discuss pt acceptance to [facility] for rehab. They have requested to get pt on morning and that the medication list be sent to them M[facility] to prepare pt medications. Carmel is excited to hear this and is fine with all discharge arrangements. Carmel did ask DAVE if she knows of any facilities in the [facility] that would be worth looking into for AL potential in the event that [facility] would not accept pt back. Carmel is concerned that with pt psych needs, they may not be able to care for her and is working with a assisted living administrator to also prepare for when pt finances decrease to have her apply for Medicaid when the time comes. DAVE mentioned [facility] in [place] and [facility]; furthermore, DAVE informed pt dtr that the [facility] tends to have a waiting list and would just keep tabs on if they will have an appropriate placement for pt over time. If anything is to change, DAVE will contact Carmel with those updates.
[2021-01-09 15:50] VITALS: BP 102/67
[2021-01-09] MEDS: ACETAMINOPHEN 325 MG TABLET PO PRN (17:00)
--- NOTE | 2021-01-09 18:30 | NUR ---
Patient has been disorganized, attention seeking, cooperative, and complaining of pain throughout this shift. Patient has had multiple complaints of side pain r/t recent multiple rib fractures. Patient ambulated with PT/OT; she was able to transfer herself under supervision. She continues with O2 at 3Lpm via nasal cannula. Will continue to monitor and report to oncoming shift.
[2021-01-09] MEDS: DIVALPROEX ER 500 MG TAB.ER.24H PO SCH (20:39)
[2021-01-09] MEDS: DOCUSATE SODIUM 100 MG CAPSULE PO SCH (20:39)
[2021-01-09] MEDS: QUEtiapine 50 MG TABLET. PO SCH (20:40)
--- NOTE | 2021-01-09 20:54 | NUR ---
PRN roxicodone provided per order for pain relief per patient request with HS medications.
--- NOTE | 2021-01-09 20:57 | PDOC ---
Exam Note: Adan Note: Please also refer to the separate dictated note~for this date of service dictated separately.~Patient seen individually. Discussed the patient with Nursing staff reviewed the chart.~Reviewed interim history and current functioning. Reviewed vital signs,~Labs/ Radiology~and current medications noted below. Continue current treatment with the changes noted in the dictated addendum note Assessment: Vital Signs/I&O: Vital Signs Date Time Temp Pulse Resp B/P (MAP) Pulse Ox O2 Delivery O2 Flow Rate FiO2 01/09/21 20:40 88 102/67 01/09/21 16:45 16 93 Nasal Cannula 3.0 01/09/21 15:50 97.3 I & O 01/08/21 01/08/21 01/09/21 15:00 23:00 07:00 Intake Total 460 ml 340 ml Balance 460 ml 340 ml Current Medications: Meds: Current Medications Medications (Trade) Dose Ordered Sig/Valerio Route PRN Reason Start Time Stop Time Status Last Admin Dose Admin Acetaminophen (Tylenol) 1,000 mg TID PO 12/30/20 21:00 01/09/21 20:40 Cetirizine HCl (ZyrTEC) 10 mg DAILY PO 12/31/20 09:00 01/09/21 07:57 Docusate Sodium (Colace) 300 mg QHS PO 12/30/20 21:00 01/09/21 20:39 Lidocaine (Lidoderm) 1 patch DAILY TP 12/31/20 09:00 01/09/21 07:59 Metoprolol Succinate (Toprol Xl) 25 mg BID PO 12/30/20 21:00 01/09/21 20:40 Nystatin (Mycostatin) 5 ml QID PO 12/30/20 21:00 01/01/21 16:17 DC 12/31/20 19:45 Ondansetron HCl (Zofran Odt) 4 mg PRN Q6HRS PRN PO NAUSEA/VOMITING 12/30/20 17:30 01/08/21 09:24 Oxycodone HCl (Roxicodone) 10 mg PRN Q4HRS PRN PO PAIN 12/30/20 17:30 01/09/21 20:53 Pantoprazole Sodium (Protonix) 40 mg DAILY08 PO 12/31/20 08:00 01/09/21 07:58 Polyethylene Glycol (miraLAX) 17 gm PRN DAILY PRN PO 1ST CHOICE CONSTIPATION 12/30/20 17:30 12/31/20 19:39 Acetaminophen (Tylenol) 650 mg PRN Q6HRS PRN PO MILD PAIN / TEMP > 100.3'F 12/30/20 17:30 01/09/21 17:00 Divalproex Sodium (Depakote Er) 1,000 mg QHS PO 12/30/20 21:00 12/31/20 16:45 DC 12/30/20 19:58 Al Hydroxide/Mg Hydroxide (Mylanta Plus Xs) 15 ml PRN AFTMEALHC PRN PO DYSPEPSIA 12/30/20 17:30 Magnesium Hydroxide (Milk Of Magnesia) 2,400 mg PRN QHS PRN PO 2ND CHOICE CONSTIPATION 12/30/20 17:30 01/01/21 08:41 Quetiapine Fumarate (SEROquel) 50 mg HS PO 12/30/20 21:00 01/09/21 20:40 Multi-Ingredient Ointment (Analgesic [place]) 1 ralph PRN QID PRN TP MUSCLE PAIN 12/30/20 17:45 12/31/20 20:19 Paroxetine HCl (Paxil) 40 mg DAILY PO 12/31/20 09:00 01/09/21 07:58 Hydroxyzine HCl (Atarax) 25 mg PRN QID PRN PO AGITATION/ANIXETY 12/30/20 17:45 01/03/21 11:06 Divalproex Sodium (Depakote Er) 1,500 mg QHS PO 12/31/20 21:00 01/09/21 20:39 Amoxicillin/ Clavulanate Potassium (Augmentin 500/ 125mg) 1 tab BID PO 01/04/21 21:00 01/09/21 12:00 DC 01/09/21 07:57 Lactobacillus Rhamnosus (Culturelle) 1 cap BID PO 01/05/21 21:00 01/09/21 20:39 Albuterol Sulfate (Ventolin Hfa Inhaler) 1 puff PRN BID PRN INH SHORTNESS OF BREATH 01/08/21 20:30 I have reviewed the current psychotropics carefully including drug interactions. Risk benefit ratio favors no change other than as noted in my dictated progress note. Diagnosis: Problems: (1) Anxiety disorder (2) Impulse control disorder (3) Obsessive compulsive disorder (4) Bipolar disorder, curr episode mixed, severe, with psychotic features EVER BAR MD Jan 09, 2021 20:57
[2021-01-09] MEDS: hydrOXYzine HCL 25 MG TABLET PO PRN (21:22)
--- NOTE | 2021-01-09 23:32 | NUR ---
Patient has been pleasant and cooperative. She reported pain at site of broken ribs and states it has been itchy. Skin looks reddened (she stated she has been scratching it) and dry, lotion applied and PRN hydroxyzine given at 2100 for itching. Patient appeared to be sleeping soundly when checked later in the night.
[2021-01-10] MEDS: oxyCODONE IR 5 MG TABLET PO PRN ×3 (05:23→22:11)
--- NOTE | 2021-01-10 05:24 | NUR ---
Patient reported pain during morning ADLs and requests oxycodone. PRN oxycodone provided for pain relief per order.
[2021-01-10 05:58] VITALS: BP 186/77
[2021-01-10] MEDS: ACETAMINOPHEN 500 MG TABLET PO SCH ×3 (08:34→20:22)
[2021-01-10] MEDS: PANTOPRAZOLE 40 MG TABLET. PO SCH (08:34)
[2021-01-10] MEDS: CETIRIZINE HCL 10 MG TABLET PO SCH (08:34)
--- NOTE | 2021-01-10 08:34 | PDOC ---
Exam Note: Adan Note: This note is a late entry for 01/09/2021 covers elements not covered in my initial note. Subjective: The patient was seen on telehealth rounds in the evening of 01/09/2021 with Mitchell RODRIGUEZ, discussed and reviewed the chart. The patient slept 7-1/2 hours previous night. The patient remains depressed, flat, somewhat helpless, anxious. She had a chest x-ray which showed right pleural effusion atelectasis. We will defer to Dr. Singleton/Dr. Orona. It appears she will need ongoing oxygen. As I met with her on telehealth rounds in the evening she had taken off her oxygen and I encouraged her to keep it on at all times. Review of Systems: Ambulation impaired with walker. No CV, , eye, ENT system symptoms on review. Shortness of breath on O2 supplements. Mental Status Exam: The patient is reasonably oriented. Speech is coherent. Abstraction is fair. Computation is impaired. Language function intact. Mood and affect still depressed and withdrawn, but improved. Laboratory Data: Reviewed. Impression: Bipolar 1 disorder depressed with psychotic features. Anxiety disorder unspecified. Impulse control disorder unspecified. Plan: No change from initial note. Assessment: Vital Signs/I&O: Vital Signs Date Time Temp Pulse Resp B/P (MAP) Pulse Ox O2 Delivery O2 Flow Rate FiO2 01/10/21 05:58 97.6 78 20 186/77 (113) 92 01/09/21 16:45 Nasal Cannula 3.0 I & O0 01/09/21 01/09/21 01/10/21 14:59 22:59 06:59 Intake Total 480 ml 360 ml Balance 480 ml 360 ml Current Medications: Meds: Current Medications Medications (Trade) Dose Ordered Sig/Valerio Route PRN Reason Start Time Stop Time Status Last Admin Dose Admin Acetaminophen (Tylenol) 1,000 mg TID PO 12/30/20 21:00 01/09/21 20:40 Cetirizine HCl (ZyrTEC) 10 mg DAILY PO 12/31/20 09:00 01/09/21 07:57 Docusate Sodium (Colace) 300 mg QHS PO 12/30/20 21:00 01/09/21 20:39 Lidocaine (Lidoderm) 1 patch DAILY TP 12/31/20 09:00 01/09/21 07:59 Metoprolol Succinate (Toprol Xl) 25 mg BID PO 12/30/20 21:00 01/09/21 20:40 Nystatin (Mycostatin) 5 ml QID PO 12/30/20 21:00 01/01/21 16:17 DC 12/31/20 19:45 Ondansetron HCl (Zofran Odt) 4 mg PRN Q6HRS PRN PO NAUSEA/VOMITING 12/30/20 17:30 01/08/21 09:24 Oxycodone HCl (Roxicodone) 10 mg PRN Q4HRS PRN PO PAIN 12/30/20 17:30 01/10/21 05:23 Pantoprazole Sodium (Protonix) 40 mg DAILY08 PO 12/31/20 08:00 01/09/21 07:58 Polyethylene Glycol (miraLAX) 17 gm PRN DAILY PRN PO 1ST CHOICE CONSTIPATION 12/30/20 17:30 12/31/20 19:39 Acetaminophen (Tylenol) 650 mg PRN Q6HRS PRN PO MILD PAIN / TEMP > 100.3'F 12/30/20 17:30 01/09/21 17:00 Divalproex Sodium (Depakote Er) 1,000 mg QHS PO 12/30/20 21:00 12/31/20 16:45 DC 12/30/20 19:58 Al Hydroxide/Mg Hydroxide (Mylanta Plus Xs) 15 ml PRN AFTMEALHC PRN PO DYSPEPSIA 12/30/20 17:30 Magnesium Hydroxide (Milk Of Magnesia) 2,400 mg PRN QHS PRN PO 2ND CHOICE CONSTIPATION 12/30/20 17:30 01/01/21 08:41 Quetiapine Fumarate (SEROquel) 50 mg HS PO 12/30/20 21:00 01/09/21 20:40 Multi-Ingredient Ointment (Analgesic [place]) 1 ralph PRN QID PRN TP MUSCLE PAIN 12/30/20 17:45 12/31/20 20:19 Paroxetine HCl (Paxil) 40 mg DAILY PO 12/31/20 09:00 01/09/21 07:58 Hydroxyzine HCl (Atarax) 25 mg PRN QID PRN PO AGITATION/ANIXETY 12/30/20 17:45 01/09/21 21:22 Divalproex Sodium (Depakote Er) 1,500 mg QHS PO 12/31/20 21:00 01/09/21 20:39 Amoxicillin/ Clavulanate Potassium (Augmentin 500/ 125mg) 1 tab BID PO 01/04/21 21:00 01/09/21 12:00 DC 01/09/21 07:57 Lactobacillus Rhamnosus (Culturelle) 1 cap BID PO 01/05/21 21:00 01/09/21 20:39 Albuterol Sulfate (Ventolin Hfa Inhaler) 1 puff PRN BID PRN INH SHORTNESS OF BREATH 01/08/21 20:30 I have reviewed the current psychotropics carefully including drug interactions. Risk benefit ratio favors no change other than as noted in my dictated progress note. Diagnosis: Problems: (1) Bipolar disorder, current episode depressed, severe, with psychotic features (2) Obsessive compulsive disorder (3) Impulse control disorder (4) Anxiety disorder EVER BAR MD Jan 10, 2021 08:34
[2021-01-10] MEDS: METOPROLOL SUCC 24HR ER 25 MG TAB.ER.24H. PO SCH ×2 (08:35→20:21)
[2021-01-10] MEDS: PARoxetine 20 MG TABLET PO SCH (08:35)
[2021-01-10] MEDS: LACTOBACILLUS RHAMNOSUS GG 1 CAPSULE. PO SCH ×2 (08:35→20:21)
[2021-01-10] MEDS: LIDOCAINE (700MG/PATCH) PATCH. TP SCH (08:44)
--- NOTE | 2021-01-10 15:43 | NUR ---
[facility] Social Work Discharge Planning Form Patient Name LINCOLN THOMSON Admit Date: 01 January 2021 DISCHARGE PLAN Discharge Destination: [facility] Care Assessment: N/A; orders for less than a 30 day stay given is in pt discharge folder. Level II Assessment: N/A Transportation: First Class to pick pt up at 0900AM Special Instructions/Notes: Please fax discharge orders, discharge medication list and discharge summary to the fax number listed below. DISCHARGE TO FACILITY Facility: [facility] Address: [address] [place] [address] Contact Name: Diamond Randall, Admissions: Contact Name: Please ask for the nurse caring for pt upon admission. PCP: To see the facility physician for further care
[2021-01-10] MEDS ORDERED: POTASSIUM CHLORIDE 20 MEQ TABLET.ER. PO ONE (15:45)
[2021-01-10 16:38] VITALS: BP 149/79
--- NOTE | 2021-01-10 18:30 | NUR ---
Patient has been disorganized, cooperative, withdrawn, and complaining of pain throughout this shift. Patient has had continued complaints of side pain r/t recent multiple rib fractures. Patient ambulated with PT/OT; she was able to transfer herself under supervision. She continues with O2 at 3Lpm via nasal cannula. Will continue to monitor and report to oncoming shift.
[2021-01-10] MEDS: QUEtiapine 50 MG TABLET. PO SCH (20:21)
[2021-01-10] MEDS: DIVALPROEX ER 500 MG TAB.ER.24H PO SCH (20:21)
[2021-01-10] MEDS: DOCUSATE SODIUM 100 MG CAPSULE PO SCH (20:22)
--- NOTE | 2021-01-10 21:01 | PDOC ---
Exam Note: Adan Note: Please also refer to the separate dictated note~for this date of service dictated separately.~Patient seen individually. Discussed the patient with Nursing staff reviewed the chart.~Reviewed interim history and current functioning. Reviewed vital signs,~Labs/ Radiology~and current medications noted below. Continue current treatment with the changes noted in the dictated addendum note Assessment: Vital Signs/I&O: Vital Signs Date Time Temp Pulse Resp B/P (MAP) Pulse Ox O2 Delivery O2 Flow Rate FiO2 01/10/21 20:21 70 149/79 01/10/21 16:41 16 97 Room Air 01/10/21 16:38 98.3 3.0 I & O 01/09/21 01/09/21 01/10/21 15:00 23:00 07:00 Intake Total 480 ml 360 ml Balance 480 ml 360 ml Current Medications: Meds: Current Medications Medications (Trade) Dose Ordered Sig/Valerio Route PRN Reason Start Time Stop Time Status Last Admin Dose Admin Acetaminophen (Tylenol) 1,000 mg TID PO 12/30/20 21:00 01/10/21 20:22 Cetirizine HCl (ZyrTEC) 10 mg DAILY PO 12/31/20 09:00 01/10/21 08:34 Docusate Sodium (Colace) 300 mg QHS PO 12/30/20 21:00 01/10/21 20:22 Lidocaine (Lidoderm) 1 patch DAILY TP 12/31/20 09:00 01/10/21 15:37 DC 01/09/21 07:59 Metoprolol Succinate (Toprol Xl) 25 mg BID PO 12/30/20 21:00 01/10/21 20:21 Nystatin (Mycostatin) 5 ml QID PO 12/30/20 21:00 01/01/21 16:17 DC 12/31/20 19:45 Ondansetron HCl (Zofran Odt) 4 mg PRN Q6HRS PRN PO NAUSEA/VOMITING 12/30/20 17:30 01/08/21 09:24 Oxycodone HCl (Roxicodone) 10 mg PRN Q4HRS PRN PO PAIN 12/30/20 17:30 01/10/21 15:07 Pantoprazole Sodium (Protonix) 40 mg DAILY08 PO 12/31/20 08:00 01/10/21 08:34 Polyethylene Glycol (miraLAX) 17 gm PRN DAILY PRN PO 1ST CHOICE CONSTIPATION 12/30/20 17:30 12/31/20 19:39 Acetaminophen (Tylenol) 650 mg PRN Q6HRS PRN PO MILD PAIN / TEMP > 100.3'F 12/30/20 17:30 01/09/21 17:00 Divalproex Sodium (Depakote Er) 1,000 mg QHS PO 12/30/20 21:00 12/31/20 16:45 DC 12/30/20 19:58 Al Hydroxide/Mg Hydroxide (Mylanta Plus Xs) 15 ml PRN AFTMEALHC PRN PO DYSPEPSIA 12/30/20 17:30 Magnesium Hydroxide (Milk Of Magnesia) 2,400 mg PRN QHS PRN PO 2ND CHOICE CONSTIPATION 12/30/20 17:30 01/01/21 08:41 Quetiapine Fumarate (SEROquel) 50 mg HS PO 12/30/20 21:00 01/10/21 20:21 Multi-Ingredient Ointment (Analgesic [place]) 1 ralph PRN QID PRN TP MUSCLE PAIN 12/30/20 17:45 12/31/20 20:19 Paroxetine HCl (Paxil) 40 mg DAILY PO 12/31/20 09:00 01/10/21 08:35 Hydroxyzine HCl (Atarax) 25 mg PRN QID PRN PO AGITATION/ANIXETY 12/30/20 17:45 01/09/21 21:22 Divalproex Sodium (Depakote Er) 1,500 mg QHS PO 12/31/20 21:00 01/10/21 20:21 Amoxicillin/ Clavulanate Potassium (Augmentin 500/ 125mg) 1 tab BID PO 01/04/21 21:00 01/09/21 12:00 DC 01/09/21 07:57 Lactobacillus Rhamnosus (Culturelle) 1 cap BID PO 01/05/21 21:00 01/10/21 20:21 Albuterol Sulfate (Ventolin Hfa Inhaler) 1 puff PRN BID PRN INH SHORTNESS OF BREATH 01/08/21 20:30 Potassium Chloride (Klor-Con) 40 meq 1X ONCE PO 01/10/21 15:45 2/10/21 15:46 DC 01/10/21 16:39 Current Medications Medications (Trade) Dose Ordered Sig/Valerio Route PRN Reason Start Time Stop Time Status Last Admin Dose Admin Potassium Chloride (Klor-Con) 40 meq 1X ONCE PO 01/10/21 15:45 01/10/21 15:46 DC 01/10/21 16:39 I have reviewed the current psychotropics carefully including drug interactions. Risk benefit ratio favors no change other than as noted in my dictated progress note. Diagnosis: Problems: (1) Anxiety disorder (2) Impulse control disorder (3) Obsessive compulsive disorder (4) Bipolar disorder, current episode depressed, severe, with psychotic features EVER BAR MD Jan 10, 2021 21:01
--- NOTE | 2021-01-10 22:12 | NUR ---
PRN roxicodone given for pain per patient request.
--- NOTE | 2021-01-11 01:20 | NUR ---
Patient stated that she is continuing to having pain in the center of chest. She continues on 3 liters of oxygen with NC. Patient has multiple broken ribs from an injury prior to admission. Chest Xray was done on 01/09. Patient also stated that Dr Cortes (?) had told her she "needs another chest drain" inserted. This nurse assured patient that if she needed another chest drain, this hospital would have transferred her to [facility]. Patient seemed confused during the conversation. Chest Xray was done 01/[address] Orona and Dr Singleton have reviewed the radiology report.
[2021-01-11] MEDS ORDERED: LACT1CAP21 PO (02:44)
[2021-01-11] MEDS ORDERED: ALBU2.5V8 IH (02:45)
[2021-01-11] MEDS ORDERED: OXYC5TAB4 PO (02:47)
[2021-01-11] MEDS: oxyCODONE IR 5 MG TABLET PO PRN (05:27)
--- NOTE | 2021-01-11 05:28 | NUR ---
Patient reports pain 8/10 in chest and rib area. PRN roxicodone provided per order for pain.
[2021-01-11 05:34] VITALS: BP 167/84
--- NOTE | 2021-01-11 08:05 | PDOC ---
Exam Note: Adan Note: This note is a late entry for 01/10/2021 covers elements not covered in my initial note. Subjective: The patient was seen face to face in the evening of 01/10/2021 with Mitchell RODRIGUEZ, discussed and reviewed the chart. The patient slept 7 hours previous night. The patient complains of ongoing rib pain status post rib fracture. Review of Systems: Ambulation impaired with walker. No CV, , eye system symptoms on review. Additionally positive for shortness of breath. Mental Status Exam: The patient is reasonably oriented. Speech is coherent. Abstraction is fair. Computation is impaired. Language function intact. Mood and affect depressed. She had many questions about her pleural effusion and lung condition. I discussed with her and she agrees to see a feed adviser at [facility] post discharge. Laboratory Data: Reviewed. Impression: Bipolar 1 disorder mixed with psychotic features. OCD. Anxiety disorder unspecified. Impulse control disorder unspecified. Plan: No change from initial note. Assessment: Vital Signs/I&O: Vital Signs Date Time Temp Pulse Resp B/P (MAP) Pulse Ox O2 Delivery O2 Flow Rate FiO2 01/11/21 05:34 98.6 74 22 167/84 (111) 94 01/10/21 16:41 Room Air 01/10/21 16:38 3.0 I & O 01/10/21 01/10/21 01/11/21 14:59 22:59 06:59 Intake Total 480 ml 360 ml Balance 480 ml 360 ml Current Medications: Meds: Current Medications Medications (Trade) Dose Ordered Sig/Valerio Route PRN Reason Start Time Stop Time Status Last Admin Dose Admin Acetaminophen (Tylenol) 1,000 mg TID PO 12/30/20 21:00 01/10/21 20:22 Cetirizine HCl (ZyrTEC) 10 mg DAILY PO 12/31/20 09:00 01/10/21 08:34 Docusate Sodium (Colace) 300 mg QHS PO 12/30/20 21:00 01/10/21 20:22 Lidocaine (Lidoderm) 1 patch DAILY TP 12/31/20 09:00 01/10/21 15:37 DC 01/09/21 07:59 Metoprolol Succinate (Toprol Xl) 25 mg BID PO 12/30/20 21:00 01/10/21 20:21 Nystatin (Mycostatin) 5 ml QID PO 12/30/20 21:00 01/01/21 16:17 DC 12/31/20 19:45 Ondansetron HCl (Zofran Odt) 4 mg PRN Q6HRS PRN PO NAUSEA/VOMITING 12/30/20 17:30 01/08/21 09:24 Oxycodone HCl (Roxicodone) 10 mg PRN Q4HRS PRN PO PAIN 12/30/20 17:30 01/11/21 05:27 Pantoprazole Sodium (Protonix) 40 mg DAILY08 PO 12/31/20 08:00 01/10/21 08:34 Polyethylene Glycol (miraLAX) 17 gm PRN DAILY PRN PO 1ST CHOICE CONSTIPATION 12/30/20 17:30 12/31/20 19:39 Acetaminophen (Tylenol) 650 mg PRN Q6HRS PRN PO MILD PAIN / TEMP > 100.3'F 12/30/20 17:30 01/09/21 17:00 Divalproex Sodium (Depakote Er) 1,000 mg QHS PO 12/30/20 21:00 12/31/20 16:45 DC 12/30/20 19:58 Al Hydroxide/Mg Hydroxide (Mylanta Plus Xs) 15 ml PRN AFTMEALHC PRN PO DYSPEPSIA 12/30/20 17:30 Magnesium Hydroxide (Milk Of Magnesia) 2,400 mg PRN QHS PRN PO 2ND CHOICE CONSTIPATION 12/30/20 17:30 01/01/21 08:41 Quetiapine Fumarate (SEROquel) 50 mg HS PO 12/30/20 21:00 01/10/21 20:21 Multi-Ingredient Ointment (Analgesic [place]) 1 ralph PRN QID PRN TP MUSCLE PAIN 12/30/20 17:45 12/31/20 20:19 Paroxetine HCl (Paxil) 40 mg DAILY PO 12/31/20 09:00 01/10/21 08:35 Hydroxyzine HCl (Atarax) 25 mg PRN QID PRN PO AGITATION/ANIXETY 12/30/20 17:45 01/09/21 21:22 Divalproex Sodium (Depakote Er) 1,500 mg QHS PO 12/31/20 21:00 01/10/21 20:21 Amoxicillin/ Clavulanate Potassium (Augmentin 500/ 125mg) 1 tab BID PO 01/04/21 21:00 01/09/21 12:00 DC 01/09/21 07:57 Lactobacillus Rhamnosus (Culturelle) 1 cap BID PO 01/05/21 21:00 01/10/21 20:21 Albuterol Sulfate (Ventolin Hfa Inhaler) 1 puff PRN BID PRN INH SHORTNESS OF BREATH 01/08/21 20:30 Potassium Chloride (Klor-Con) 40 meq 1X ONCE PO 01/10/21 15:45 01/10/21 15:46 DC 01/10/21 16:39 Current Medications Medications (Trade) Dose Ordered Sig/Valerio Route PRN Reason Start Time Stop Time Status Last Admin Dose Admin Potassium Chloride (Klor-Con) 40 meq 1X ONCE PO 01/10/21 15:45 01/10/21 15:46 DC 01/10/21 16:39 I have reviewed the current psychotropics carefully including drug interactions. Risk benefit ratio favors no change other than as noted in my dictated progress note. Diagnosis: Problems: (1) Anxiety disorder (2) Impulse control disorder (3) Obsessive compulsive disorder (4) Bipolar disorder, current episode depressed, severe, with psychotic features EVER BAR MD Jan 11, 2021 08:05
[2021-01-11] MEDS: CETIRIZINE HCL 10 MG TABLET PO SCH (08:54)
[2021-01-11] MEDS: PANTOPRAZOLE 40 MG TABLET. PO SCH (08:54)
[2021-01-11] MEDS: LACTOBACILLUS RHAMNOSUS GG 1 CAPSULE. PO SCH (08:54)
[2021-01-11] MEDS: PARoxetine 20 MG TABLET PO SCH (08:54)
[2021-01-11 08:55] VITALS: BP 167/84
[2021-01-11] MEDS: METOPROLOL SUCC 24HR ER 25 MG TAB.ER.24H. PO SCH (08:55)
[2021-01-11] MEDS: ACETAMINOPHEN 500 MG TABLET PO SCH (08:55)
--- NOTE | 2021-01-11 09:30 | NUR ---
Transition Record was faxed to follow-up provider with the following elements: Reason for admission, procedures, tests, principal diagnosis, pending studies, patient instructions, 23/06 contact information for unit, phone number to obtain pending test results, plan for follow-up care, physician follow-up, advanced directive information, and medication list with dose, duration and instructions. This information was included in the following documents: History and physical, lab results, study results, progress notes, social work planning form, DC instruction form, patient visit summary, and medication reconciliation form. Date & time record faxed: 08:56 11 January 2021 Record faxed to: Ramez Christine Record discussed with/ report given to: JENNIFER Rutledge at [facility]
--- NOTE | 2021-01-14 22:45 | DS ---
DATE OF DISCHARGE: 01/11/2021 This late entry date of service 01/11/2021 covers elements not covered in my initial note. REASON FOR ADMISSION: Please refer to the admission history for details. Briefly, the patient is a 70-year-old female referred back to us from [facility] after she was medically stabilized for her fractured rib and pneumothorax. The patient continued to be depressed, anxious, agitated with marked mood lability, hopeless, helpless, worthless, and depressed. She had failed psychiatric interventions at [place]. SIGNIFICANT FINDINGS AND CLINICAL COURSE: Following admission, the patient was seen daily individually by myself from a psychiatric standpoint, medical followup with Dr. Singleton/Dr. Orona. The patient remained depressed, withdrawn, hopeless, helpless, worthless, but very pleasant and cooperative and memory seemed intact. Adjustments were made in her psychotropics. She seemed to be doing better on a combination of Depakote ER 1500 mg at bedtime, level therapeutic around 50. She is also on Paxil 40 mg a day, Seroquel 50 mg at bedtime, Atarax 25 mg q.i.d. p.r.n. From a medical standpoint, she was noted to have some pleural effusion and atelectasis and would need a Pulmonology followup at [facility] as an outpatient. REVIEW OF SYSTEMS: Ambulation impaired. No CV, GI, , eye, ENT system symptoms on review. She remains on oxygen supplements. MENTAL STATUS EXAM: Reasonably oriented. Speech is coherent, has some latency. Abstraction fair, computation impaired, language function intact. Mood and affect is improved. No suicidal ideation. LABORATORY DATA: Reviewed. IMPRESSION: Major depressive disorder with psychotic features, in partial remission versus bipolar disorder, depressed with psychotic features, in partial remission; anxiety disorder, unspecified. Rest unchanged from admission. DISCHARGE MEDICATIONS: Please refer to the MRAD. DISCHARGE INSTRUCTIONS: Outpatient psychiatric followup and Pulmonology followup in [place], [place]. Time for discharge day management greater than 30 minutes. MAN Mindi BAR MD DR: TAMMY/ani JOB#: [id number] / [id number]
--- NOTE | 2021-01-15 07:27 | PDOC ---
Exam Note: Adan Note: Late entry for 01/11/2021. Please also refer to the separate dictated note~for this date of service dictated separately.~Patient seen individually. Discussed the patient with Nursing staff reviewed the chart.~Reviewed interim history and current functioning. Reviewed vital signs,~Labs/ Radiology~and current medic ations noted below. Continue current treatment with the changes noted in the dictated addendum note Assessment: Vital Signs/I&O: Vital Signs Date Time Temp Pulse Resp B/P (MAP) Pulse Ox O2 Delivery O2 Flow Rate FiO2 01/11/21 08:55 74 167/84 01/11/21 07:00 18 94 Nasal Cannula 3.0 01/11/21 05:34 98.6 Current Medications: I have reviewed the current psychotropics carefully including drug interactions. Risk benefit ratio favors no change other than as noted in my dictated progress note. Diagnosis: Problems: (1) Anxiety disorder (2) Impulse control disorder (3) Obsessive compulsive disorder (4) Major depressive disorder in partial remission (5) Bipolar 1 disorder, depressed, partial remission EVER BAR MD Jan 15, 2021 07:27
== END 2021-01-11 09:30 | DRG 885 ==
LOC: GEROPSY 16:37
PROVIDERS: ADMIT Psychiatry & Neurology Psychiatry; ATTEND Psychiatry & Neurology Psychiatry
DX: F32.4 Major depressive disorder, single episode, in partial remission (principal); E43 Unspecified severe protein-calorie malnutrition; J90 Pleural effusion, not elsewhere classified; J98.11 Atelectasis; F41.9 Anxiety disorder, unspecified; Z20.822 Contact with and (suspected) exposure to COVID-19; R29.6 Repeated falls; G40.909 Epilepsy, unspecified, not intractable, without status epilepticus; Z87.11 Personal history of peptic ulcer disease; Z66 Do not resuscitate; Z88.8 Allergy status to other drugs, medicaments and biological substances; Z91.041 Radiographic dye allergy status; Z79.899 Other long term (current) drug therapy; J30.9 Allergic rhinitis, unspecified; M41.9 Scoliosis, unspecified; Z85.528 Personal history of other malignant neoplasm of kidney; Z85.048 Personal history of other malignant neoplasm of rectum, rectosigmoid junction, and anus; F42.9 Obsessive-compulsive disorder, unspecified; F60.9 Personality disorder, unspecified; F63.9 Impulse disorder, unspecified; Z68.24 Body mass index [BMI] 24.0-24.9, adult
CPT/HCPCS: 36415; 71045; 80053; 80164; 81001; 82140; 85025; 87077; 87086; 87186; Q0162; U0003; 97110; 97530; 97535